=== PATIENT | male | born 1965 | race Hispanic/Latino ===

== ENCOUNTER 2018-05-04 07:44 | Emergency (ER) | payer SELFPAY ==
[2018-05-04] MEDS ORDERED: DIAZEPAM 5 MG TABLET ONE (08:16)
[2018-05-04] MEDS ORDERED: IBUPROFEN 200 MG TAB PO ONE (08:16)
--- NOTE | 2018-05-04 09:09 | ER ---
Nurse's Notes [facility] Name: Florentino Acosta Age: 52 yrs Sex: Male : 1965 Arrival Date: 05/04/2018 Time: 07:46 Bed 14 Private MD: Diagnosis: Strain of muscle and tendon of back wall of thorax Presentation: 05/04 07:46 Presenting complaint: Patient states: i have this back pain, right on the middle part hj of my back that moves down to my R hip area for a month now, denies trauma to the area, and i have been short of breath; denies fever and reports chills; been taking ibuprofen but not helping anymore;. Transition of care: patient was not received from another setting of care. Onset of symptoms was May 04, 2018. Risk Assessment: Do you want to hurt yourself or someone else? Patient reports no desire to harm self or others. Initial Sepsis Screen: Does the patient meet any 2 criteria? No. Patient's initial sepsis screen is negative. Does the patient have a suspected source of infection? No. Patient's initial sepsis screen is negative. Care prior to arrival: None. 07:46 Method Of Arrival: Ambulatory 07:46 Acuity: RAMSES 3 hj Triage Assessment: 07:50 General: Appears in no apparent distress. uncomfortable, Behavior is calm, cooperative, hj appropriate for age. Pain: Complains of pain in lumbar area, left low back and right low back Pain currently is 9 out of 10 on a pain scale. Musculoskeletal: Capillary refill < 3 seconds. Historical: - Allergies: 07:49 Codeine; 07:49 Vioxx; 07:49 Zoloft; - Home Meds: 07:49 ibuprofen Oral [Active]; hj - PMHx: 07:49 Back pain; bowel obstruction; Diabetes - NIDDM; H.Pylori; High Cholesterol; hj Hyperlipidemia; Myocardial infarction; - PSHx: 07:49 Cholecystectomy; hj - Immunization history:: Adult Immunizations up to date. - Social history:: Smoking status: Patient/guardian denies using tobacco, Patient/guardian denies using alcohol. - Ebola Screening: : Patient negative for fever greater than or equal to 101.5 degrees Fahrenheit, and additional compatible Ebola Virus Disease symptoms Patient denies exposure to infectious person Patient denies travel to an Ebola-affected area in the 21 days before illness onset. Screenin:50 Abuse screen: Denies threats or abuse. Denies injuries from another. Nutritional hj screening: No deficits noted. Tuberculosis screening: No symptoms or risk factors identified. Fall Risk None identified. Assessment: 08:16 General: Appears in no apparent distress. comfortable, well groomed, well developed, sg well nourished, Behavior is calm, cooperative, appropriate for age. Pain: Complains of pain in lumbar area Pain does not radiate. Quality of pain is described as crampy, sharp, stabbing. Neuro: Level of Consciousness is awake, alert, obeys commands, Oriented to person, place, time, Paring Machine Operator are equal bilaterally Moves all extremities. Full function Gait is steady, Speech is normal, Facial symmetry appears normal. Cardiovascular: Heart tones S1 S2 present Capillary refill is brisk in bilateral fingers Patient's skin is warm and dry. Chest pain is denied. Respiratory: Airway is patent Respiratory effort is even, unlabored, Respiratory pattern is regular, symmetrical. GI: No signs and/or symptoms were reported involving the gastrointestinal system. : No signs and/or symptoms were reported regarding the genitourinary system. EENT: No signs and/or symptoms were reported regarding the EENT system. Derm: Skin is intact, is healthy with good turgor, Skin is dry, Skin is normal, Skin temperature is warm. Musculoskeletal: Circulation, motion, and sensation intact. Range of motion: intact in all extremities, Swelling absent Reports pain in lumbar area. Vital Signs: 07:50 BP 163 / 140; Pulse 91; Resp 18; Temp 97.4(TE); Pulse Ox 100% on R/A; Weight 61.23 kg; hj Height 5 ft. 4 in. (162.56 cm); Pain 9/10; 07:55 BP 171 / 119; sg 09:00 BP 152 / 100; Pulse 77; Resp 17; Pulse Ox 100% ; Pain 6/10; sg 07:50 Body Mass Index 23.17 (61.23 kg, 162.56 cm) [place] Coma Score: 09:00 Eye Response: spontaneous(4). Verbal Response: oriented(5). Motor Response: obeys sg commands(6). Total: 15. ED Course: 07:46 Patient arrived in ED. hj 07:48 Triage completed. hj 07:50 Arm band placed on left wrist. hj 07:50 Patient has correct armband on for positive identification. Placed in gown. Bed in low hj position. Call light in reach. Side rails up X 1. Adult w/ patient. 07:53 Raoul Nix NP is PHCP. pm1 07:54 Fer Carmona MD is Attending Physician. pm1 07:59 Choco Perez, RN is Primary Nurse. sg 09:09 Antony Islas MD is Attending Physician. pm1 09:20 No provider procedures requiring assistance completed. Patient did not have IV access sg during this emergency room visit. Administered Medications: 08:15 Drug: Valium 5 mg Route: PO; sg 09:00 Follow up: Response: No adverse reaction; Pain is decreased sg 08:15 Drug: Motrin 600 mg Route: PO; sg 10:38 Follow up: Response: No adverse reaction; Pain is decreased sg Outcome: 09:08 Discharge ordered by MD. pm1 09:20 Discharged to home ambulatory, with family. sg 09:20 Condition: good 09:20 Discharge instructions given to patient, Instructed on discharge instructions, follow up and referral plans. medication usage, safety practices, Demonstrated understanding of instructions, follow-up care, medications, Prescriptions given X 1. 09:21 Patient left the ED. sg Signatures: Choco Perez RN RN Timo Frank RN RN Raoul Nix NP BICYCLE II ASSEMBLER pm1 Corrections: (The following items were deleted from the chart) 07:48 07:46 Presenting complaint: Patient states: i have this back pain, right on the middle hj part of my back that moves down to my R hip area, denies trauma to the area, and i have been short of breath; denies fever and chills; been taking ibuprofen but not helping anymore; hj
--- NOTE | 2018-05-04 09:09 | EDPHYS ---
Physician Documentation [facility] Name: Florentino Acosta Age: 52 yrs Sex: Male : 1965 Arrival Date: 05/04/2018 Time: 07:46 Bed 14 Private MD: ED Physician Antony Islas HPI: 05/04 09:00 This 52 yrs old Male presents to ER via Ambulatory with complaints of Back pm1 Pain. 09:00 The patient presents with pain that is acute. The symptoms are located in the left pm1 subscapular area and right subscapular area. Onset: The symptoms/episode began/occurred 1 month(s) ago. The pain does not radiate. Associated signs and symptoms: Pertinent negatives: abdominal pain, chest pain, fever, numbness, tingling, vomiting. The problem was sustained from unknown cause. Modifying factors: The patient symptoms are alleviated by nothing, the patient symptoms are aggravated by bending. Severity of symptoms: in the emergency department the symptoms are actually worse. The patient has experienced similar episodes in the past, multiple times, chronically. The patient has not recently seen a physician. Patient with multiple visits to the ER for same complaint of back pain. Historical: - Allergies: 07:49 Codeine; hj 07:49 Vioxx; hj 07:49 Zoloft; hj - Home Meds: 07:49 ibuprofen Oral [Active]; hj - PMHx: 07:49 Back pain; bowel obstruction; Diabetes - NIDDM; H.Pylori; High Cholesterol; hj Hyperlipidemia; Myocardial infarction; - PSHx: 07:49 Cholecystectomy; hj - Immunization history:: Adult Immunizations up to date. - Social history:: Smoking status: Patient/guardian denies using tobacco, Patient/guardian denies using alcohol. - Ebola Screening: : Patient negative for fever greater than or equal to 101.5 degrees Fahrenheit, and additional compatible Ebola Virus Disease symptoms Patient denies exposure to infectious person Patient denies travel to an Ebola-affected area in the 21 days before illness onset. ROS: 09:00 Constitutional: Negative for fever, chills, and weight loss, Eyes: Negative for injury, pm1 pain, redness, and discharge, ENT: Negative for injury, pain, and discharge, Neck: Negative for injury, pain, and swelling, Cardiovascular: Negative for chest pain, palpitations, and edema, Respiratory: Negative for shortness of breath, cough, wheezing, and pleuritic chest pain, Abdomen/GI: Negative for abdominal pain, nausea, vomiting, diarrhea, and constipation. 09:00 : Negative for injury, bleeding, discharge, and swelling, MS/Extremity: Negative for injury and deformity, Skin: Negative for injury, rash, and discoloration, Neuro: Negative for headache, weakness, numbness, tingling, and seizure. 09:00 Back: Positive for of the left subscapular area and right subscapular area. Exam: 09:00 Constitutional: This is a well developed, well nourished patient who is awake, alert, pm1 and in no acute distress. Head/Face: Normocephalic, atraumatic. Eyes: Pupils equal round and reactive to light, extra-ocular motions intact. Lids and lashes normal. Conjunctiva and sclera are non-icteric and not injected. Cornea within normal limits. Periorbital areas with no swelling, redness, or edema. ENT: Nares patent. No nasal discharge, no septal abnormalities noted. Tympanic membranes are normal and external auditory canals are clear. Oropharynx with no redness, swelling, or masses, exudates, or evidence of obstruction, uvula midline. Mucous membranes moist. Neck: Trachea midline, no thyromegaly or masses palpated, and no cervical lymphadenopathy. Supple, full range of motion without nuchal rigidity, or vertebral point tenderness. No Meningismus. Chest/axilla: Normal chest wall appearance and motion. Nontender with no deformity. No lesions are appreciated. Cardiovascular: Regular rate and rhythm with a normal S1 and S2. No gallops, murmurs, or rubs. Normal PMI, no JVD. No pulse deficits. Respiratory: Lungs have equal breath sounds bilaterally, clear to auscultation and percussion. No rales, rhonchi or wheezes noted. No increased work of breathing, no retractions or nasal flaring. Abdomen/GI: Soft, non-tender, with normal bowel sounds. No distension or tympany. No guarding or rebound. No evidence of tenderness throughout. 09:00 Skin: Warm, dry with normal turgor. Normal color with no rashes, no lesions, and no evidence of cellulitis. MS/ Extremity: Pulses equal, no cyanosis. Neurovascular intact. Full, normal range of motion. 09:00 Back: normal spinal alignment noted, muscle spasm, is appreciated in the left subscapular area and right subscapular area. 09:00 Neuro: Orientation: is normal, Motor: moves all fours, strength is normal, strength is 5/5 in all extremities, Sensation: is normal, no obvious gross deficits, Gait: is steady, at a normal pace, without difficulty. Vital Signs: 07:50 BP 163 / 140; Pulse 91; Resp 18; Temp 97.4(TE); Pulse Ox 100% on R/A; Weight 61.23 kg; hj Height 5 ft. 4 in. (162.56 cm); Pain 9/10; 07:55 BP 171 / 119; sg 09:00 BP 152 / 100; Pulse 77; Resp 17; Pulse Ox 100% ; Pain 6/10; sg 07:50 Body Mass Index 23.17 (61.23 kg, 162.56 cm) hj [place] Coma Score: 09:00 Eye Response: spontaneous(4). Verbal Response: oriented(5). Motor Response: obeys sg commands(6). Total: 15. MDM: 07:54 Patient medically screened. pm1 09:07 Data reviewed: vital signs. Data interpreted: Pulse oximetry:. Test interpretation: by pm1 ED physician or midlevel provider:. Counseling: I had a detailed discussion with the patient and/or guardian regarding: the historical points, exam findings, and any diagnostic results supporting the discharge/admit diagnosis, the need for outpatient follow up, to return to the emergency department if symptoms worsen or persist or if there are any questions or concerns that arise at home. Administered Medications: 08:15 Drug: Valium 5 mg Route: PO; sg 09:00 Follow up: Response: No adverse reaction; Pain is decreased sg 08:15 Drug: Motrin 600 mg Route: PO; sg 10:38 Follow up: Response: No adverse reaction; Pain is decreased sg Disposition: 05/05 08:38 Co-signature as Attending Physician, Antony Islas MD I agree with the assessment and chetna plan of care. Disposition: 05/04/18 09:08 Discharged to Home. Impression: Strain of muscle and tendon of back wall of thorax. - Condition is Stable. - Discharge Instructions: Muscle Strain. - Prescriptions for Valium 5 mg Oral Tablet - take 1 tablet by ORAL route At bedtime As needed; 10 tablet. - Medication Reconciliation Form, Thank You Letter, Prescription Opioid Use form. - Follow up: Emergency Department; When: As needed; Reason: Worsening of condition. Follow up: Private Physician; When: 2 - 3 days; Reason: Recheck today's complaints, Continuance of care, Re-evaluation by your physician. - Problem is new. - Symptoms have improved. Signatures: Choco Perez RN RN sg Anderson, Corey, MD MD cha Joaquin, Henry, RN RN hj Marinas, Patrick, NP PULLMAN CLERK pm1 Corrections: (The following items were deleted from the chart) 05/04 09:21 09:08 05/04/2018 09:08 Discharged to Home. Impression: Strain of muscle and tendon of sg back wall of thorax. Condition is Stable. Forms are Medication Reconciliation Form, Thank You Letter, Antibiotic Education, Prescription Opioid Use. Follow up: Emergency Department; When: As needed; Reason: Worsening of condition. Follow up: Private Physician; When: 2 - 3 days; Reason: Recheck today's complaints, Continuance of care, Re-evaluation by your physician. Problem is new. Symptoms have improved. pm1
[2018-05-04 09:26] VITALS: TEMP 97.4; O2SAT 100
[2018-05-04 09:27] VITALS: BP 171/119
== END 2018-05-04 09:21 | disposition home or self-care (01) ==
LOC: ER 07:44
DX: S29.012A Strain of muscle and tendon of back wall of thorax, initial encounter (principal); X58.XXXA Exposure to other specified factors, initial encounter; E11.9 Type 2 diabetes mellitus without complications; E78.00 Pure hypercholesterolemia, unspecified; I25.2 Old myocardial infarction; Z88.6 Allergy status to analgesic agent; Z88.5 Allergy status to narcotic agent; Z88.8 Allergy status to other drugs, medicaments and biological substances
CPT/HCPCS: 99283

== ENCOUNTER 2018-05-05 12:13 | Inpatient (IN) | payer SELFPAY ==
[2018-05-05 14:16] LABS: Urine Blood 1+ (NEG); Urine Glucose 2+ (NEG); Urine Protein 3+ (NEG)
[2018-05-05 14:21] LABS: Urine Bacteria <20 /HPF (NONE SEEN); Urine RBC <5 /HPF (NONE SEEN)
[2018-05-05 14:22] LABS: Urine Culture Reflex Order NOT NEEDED
--- NOTE | 2018-05-05 14:39 | RAD REPORT ---
EXAM DESCRIPTION: RAD - Chest Single View - 05/05/2018 2:27 pm CLINICAL HISTORY: Chest pain, back pain COMPARISON: June 2017 TECHNIQUE: AP portable chest image was obtained 1423 hours . FINDINGS: Lungs are clear. Heart and vasculature are normal. No measurable pleural effusion and no p neumothorax. No gross bony abnormality seen. No acute aortic findings suspected. IMPRESSION: No acute cardiopulmonary process. No significant change from comparison.
[2018-05-05 14:52] LABS: Absolute Lymphocytes (CBC) 1.8 K/uL (0.7-4.9); Absolute Monocytes 0.5 K/uL (0.1-1.3); Absolute Neutrophil 6.7 K/uL (1.8-8.0); Basophils % 0.6 % (0-1.3); Eosinophils % 1.3 % (0-4.4); Hematocrit 44.1 % (39.6-49.0); Lymphocytes % 19.7 % (15.3-44.8); MCH 29.6 pg (27.0-35.0); MCV 86.7 fL (80-100); MPV 10.6 fL (7.6-11.3); Monocytes % 5.8 % (3.3-12.3); RBC Red Blood Cell Count 5.08 M/uL (4.33-5.43)
[2018-05-05 14:58] LABS: Albumin 3.6 g/dL (3.4-5.0); Bilirubin Direct 0.1 mg/dL (0-0.2); Bilirubin Total 0.4 mg/dL (0.2-1.0); Potassium 4.4 mmol/L (3.5-5.1); Protein, Total 7.9 g/dL (6.4-8.2)
[2018-05-05 14:59] LABS: CKMB Creatine Kinase MB 1.4 ng/mL (0.3-3.6); Magnesium 2.1 mg/dL (1.8-2.4); Troponin (Emerg Dept Use Only) 0.09 ng/mL (0.0-0.045)
[2018-05-05 15:16] LABS: Protime INR 0.88
--- NOTE | 2018-05-05 15:37 | ER ---
Nurse's Notes [facility] Name: Florentino Acosta Age: 52 yrs Sex: Male : 1965 Arrival Date: 05/05/2018 Time: 12:16 Bed 6 Private MD: None, None Diagnosis: Other chest pain;Essential (primary) hypertension;Type 2 diabetes mellitus;Functional dyspepsia Presentation: 05/05 12:31 Presenting complaint: Patient states: " I was seen here yesterday for the same thing. I ph feel like my chest and back is burning like someone rubbed it w/ sand paper. They dx me w/ a strained back and gave me valium but it didn't help. Transition of care: patient was not received from another setting of care. Onset of symptoms was May 05, 2018. Risk Assessment: Do you want to hurt yourself or someone else? Patient reports no desire to harm self or others. Initial Sepsis Screen: Does the patient meet any 2 criteria? No. Patient's initial sepsis screen is negative. Does the patient have a suspected source of infection? No. Patient's initial sepsis screen is negative. Care prior to arrival: None. 12:31 Method Of Arrival: Ambulatory ph 12:31 Acuity: RAMSES 4 ph 14:35 Acuity: RAMSES 3 hb Historical: - Allergies: 12:31 Codeine; ph 12:31 Vioxx; ph 12:31 Zoloft; ph - PMHx: 12:31 Back pain; bowel obstruction; Diabetes - NIDDM; H.Pylori; High Cholesterol; ph Hyperlipidemia; Myocardial infarction; - PSHx: 12:31 Cholecystectomy; ph - Immunization history:: Adult Immunizations up to date. - Social history:: Smoking status: Patient uses tobacco products, smokes one pack cigarettes per day. - Ebola Screening: : No symptoms or risks identified at this time. Screenin:35 Abuse screen: Denies threats or abuse. Denies injuries from another. Nutritional hb screening: No deficits noted. Tuberculosis screening: No symptoms or risk factors identified. Fall Risk None identified. Assessment: 14:00 General: Appears in no apparent distress. Behavior is calm, cooperative. Pain: Pain hb currently is 3 out of 10 on a pain scale. Neuro: Level of Consciousness is awake, alert, obeys commands, Oriented to person, place, time, situation. Cardiovascular: Heart tones S1 S2 present Capillary refill < 3 seconds Patient's skin is warm and dry. Respiratory: Airway is patent Trachea midline Respiratory effort is even, unlabored, Respiratory pattern is regular, symmetrical, Breath sounds are clear bilaterally. GI: Abdomen is non-distended, Bowel sounds present X 4 quads. Abd is soft and non tender X 4 quads. : No signs and/or symptoms were reported regarding the genitourinary system. EENT: No signs and/or symptoms were reported regarding the EENT system. Derm: No signs and/or symptoms reported regarding the dermatologic system. Skin is intact, is healthy with good turgor. Musculoskeletal: No signs and/or symptoms reported regarding the musculoskeletal system. 15:00 Reassessment: Patient appears in no apparent distress at this time. No changes from previously documented assessment. Patient and/or family updated on plan of care and expected duration. Pain level reassessed. Patient is alert, oriented x 3, equal unlabored respirations, skin warm/dry/pink. 16:00 Reassessment: Patient appears in no apparent distress at this time. Patient and/or hb family updated on plan of care and expected duration. Pain level reassessed. Patient is alert, oriented x 3, equal unlabored respirations, skin warm/dry/pink. 16:29 Reassessment: Neri Marcos [phone]. 17:00 Reassessment: Patient appears in no apparent distress at this time. No changes from previously documented assessment. Patient and/or family updated on plan of care and expected duration. Pain level reassessed. Patient is alert, oriented x 3, equal unlabored respirations, skin warm/dry/pink. 18:00 Reassessment: Patient appears in no apparent distress at this time. Patient and/or hb family updated on plan of care and expected duration. Pain level reassessed. Patient is alert, oriented x 3, equal unlabored respirations, skin warm/dry/pink. Admission ordered, awaiting room assignment at this time. 18:50 Reassessment: Patient appears in no apparent distress at this time. No changes from previously documented assessment. Patient and/or family updated on plan of care and expected duration. Pain level reassessed. Patient is alert, oriented x 3, equal unlabored respirations, skin warm/dry/pink. 19:09 Reassessment: Patient appears in no apparent distress at this time. Patient and/or aa1 family updated on plan of care and expected duration. Pain level reassessed. Patient is alert, oriented x 3, equal unlabored respirations, skin warm/dry/pink. Bed assignment received and will attempt to call report upstairs once floor has completed shift change report. 19:15 Reassessment: Patient appears in no apparent distress at this time. Patient and/or cc3 family updated on plan of care and expected duration. Pain level reassessed. Patient is alert, oriented x 3, equal unlabored respirations, skin warm/dry/pink. Patient received from morning shift for admission to room 423 as a case of chest pain, functional dyspepsia. Noted with intravenous cannula gauge 22 at the right antecubital vein saline lock, patent and dressing intact. 19:37 Reassessment: Attempted to call report to 4th floor, was told nurse unavailable and aa1 will call back shortly. 19:42 Reassessment: Patient appears in no apparent distress at this time. Patient is alert, aa1 oriented x 3, equal unlabored respirations, skin warm/dry/pink. Report given to Neyda on 4th floor Patient denies pain at this time. Vital Signs: 12:31 BP 151 / 96; Pulse 99; Resp 18; Temp 97.8; Pulse Ox 99% on R/A; ph 14:00 BP 165 / 103; Pulse 89; Resp 20; Pulse Ox 98% on R/A; hb 15:00 BP 158 / 106; Pulse 83; Resp 24; Pulse Ox 100% on R/A; hb 15:47 Weight 61.23 kg; hb 16:28 BP 155 / 96; Pulse 72; Resp 16; Pulse Ox 100% on R/A; Pain 3/10; hb 17:33 BP 147 / 100; Pulse 73; Resp 14; Pulse Ox 100% on R/A; hb 18:04 BP 136 / 89; Pulse 74; Resp 15; Pulse Ox 100% on R/A; hb 18:49 BP 128 / 82; Pulse 77; Resp 20; Pulse Ox 99% ; sv 19:15 BP 128 / 82; Pulse 78; Resp 18 S; Temp 98.7(O); Pulse Ox 98% on R/A; Pain 6/10; cc3 ED Course: 12:16 Patient arrived in ED. sb2 12:16 None, None is Private Physician. sb2 12:33 Triage completed. ph 12:33 Arm band placed on. ph 13:28 Carley Abdi, RN is Primary Nurse. iw 14:00 Patient has correct armband on for positive identification. Placed in gown. Bed in low hb position. Call light in reach. Side rails up X 1. 14:21 Antony Islas MD is Attending Physician. chetna 14:27 X-ray completed. Portable x-ray completed in exam room. Patient tolerated procedure ml well. 14:29 XRAY Chest (1 view) In Process Unspecified. EDMS 14:39 EKG done, by chief technician. reviewed by Antony Islas MD. at1 15:35 Liss Moon MD is Hospitalizing Provider. chetna 15:55 CT completed. Patient tolerated procedure well. Patient moved back from CT. nj 16:32 Elder Jeter DO is Hospitalizing Provider. chetna 17:35 Primary Nurse role handed off by Carley Abdi RN hb 17:35 Malathi Jewell RN is Primary Nurse. hb 19:05 Inserted 22g IV noted to be present in R AC that was inserted by previous shift. Dsg aa1 D\\T\\I. 19:25 No provider procedures requiring assistance completed. Patient admitted, IV remains in aa1 place. Administered Medications: 15:46 Drug: fentaNYL (PF) 50 mcg Route: IVP; Site: right antecubital; hb 16:30 Follow up: Response: No adverse reaction; Pain is decreased hb 15:46 Drug: Zofran 4 mg Route: IVP; Site: right antecubital; hb 16:30 Follow up: Response: No adverse reaction hb 15:55 Drug: Pepcid 20 mg Route: IVP; Site: right antecubital; ss 16:30 Follow up: Response: No adverse reaction hb 15:55 Drug: Aspirin Chewable Tablet 324 mg Route: PO; ss 16:30 Follow up: Response: No adverse reaction hb 15:55 Drug: Lovenox 1 mg/kg Route: Sub-Q; Site: abdomen; ss 16:30 Follow up: Response: No adverse reaction hb 15:55 Drug: Lopressor 5 mg Route: IVP; Site: left antecubital; ss 16:30 Follow up: Response: No adverse reaction hb 15:55 Drug: Lopressor (metoprolol TARTRATE) 50 mg Route: PO; ss 16:30 Follow up: Response: No adverse reaction hb 17:00 Drug: Lopressor 5 mg Route: IVP; Site: right antecubital; ss 17:50 Follow up: Response: No adverse reaction hb 17:00 Drug: PlaVIX 300 mg Route: PO; ss 17:50 Follow up: Response: No adverse reaction hb 17:09 Drug: Lisinopril 20 mg Route: PO; ss 17:50 Follow up: Response: No adverse reaction hb 19:08 Drug: fentaNYL (PF) 50 mcg Route: IVP; Site: right antecubital; hb 19:34 Follow up: Response: No adverse reaction; Pain is decreased aa1 19:25 Not Given (Patient Refused): Zofran 4 mg IVP once; over 2 minutes aa1 19:34 Not Given (Duplicate Order): fentaNYL (PF) 25 mcg IVP once aa1 19:34 Not Given (Duplicate Order): fentaNYL (PF) 25 mcg IVP once aa1 Outcome: 15:37 Decision to Hospitalize by Provider. chetna 19:44 Admitted to Tele accompanied by tech, family with patient, via wheelchair, room 423, aa1 with chart, Report called to Neyda 19:44 Condition: stable 19:44 Instructed on the need for admit, Demonstrated understanding of instructions. 19:58 Patient left the ED. aa1 Signatures: Dispatcher [employer] EDMS Lizette Yi RN RN sv Kern, Alissa, RN RN aa1 Antony Islas MD MD cha Williams, Irene, RN RN iw Lopez, Melissa ml Smirch, Shelby, RN RN ss Gonzales, Amanda, drafting clerk EKG Tat1 Sari Monaco RN RN ph Baxter, Heather, RN RN hb Jordan, Nathan nj Billeau, Sheri sbDede Casillas cc3 Corrections: (The following items were deleted from the chart) 19:31 19:15 fentaNYL (PF) 25 mcg IVP in right antecubital aa1 aa1 19:31 19:15 fentaNYL (PF) 25 mcg IVP in right antecubital aa1 aa1
--- NOTE | 2018-05-05 15:37 | EDPHYS ---
Physician Documentation [facility] Name: Florentino Acosta Age: 52 yrs Sex: Male : 1965 Arrival Date: 05/05/2018 Time: 12:16 Bed 6 Private MD: None, None ED Physician Antony Islas HPI: 05/05 15:29 This 52 yrs old Male presents to ER via Ambulatory with complaints of Back chetna Pain, Abdominal Pain. 15:29 The patient presents with pain that is acute, with no known mechanism of injury. chetna Historical: - Allergies: 12:31 Codeine; ph 12:31 Vioxx; ph 12:31 Zoloft; ph - PMHx: 12:31 Back pain; bowel obstruction; Diabetes - NIDDM; H.Pylori; High Cholesterol; ph Hyperlipidemia; Myocardial infarction; - PSHx: 12:31 Cholecystectomy; ph - Immunization history:: Adult Immunizations up to date. - Social history:: Smoking status: Patient uses tobacco products, smokes one pack cigarettes per day. - Ebola Screening: : No symptoms or risks identified at this time. ROS: 15:29 Constitutional: Negative for fever, chills, and weight loss, Eyes: Negative for injury, chetna pain, redness, and discharge, ENT: Negative for injury, pain, and discharge, Neck: Negative for injury, pain, and swelling, Respiratory: Negative for shortness of breath, cough, wheezing, and pleuritic chest pain, Back: Negative for injury and pain, : Negative for injury, bleeding, discharge, and swelling, MS/Extremity: Negative for injury and deformity, Skin: Negative for injury, rash, and discoloration, Neuro: Negative for headache, weakness, numbness, tingling, and seizure, Psych: Negative for depression, anxiety, suicide ideation, homicidal ideation, and hallucinations, Allergy/Immunology: Negative for hives, rash, and allergies, Endocrine: Negative for neck swelling, polydipsia, polyuria, polyphagia, and marked weight changes, Hematologic/Lymphatic: Negative for swollen nodes, abnormal bleeding, and unusual bruising. 15:29 Cardiovascular: Positive for chest pain. 15:29 Abdomen/GI: Positive for abdominal pain, nausea, of the right upper quadrant, left upper quadrant, right lower quadrant and left lower quadrant. Exam: 15:29 Constitutional: This is a well developed, well nourished patient who is awake, alert, chetna and in no acute distress. Head/Face: Normocephalic, atraumatic. Eyes: Pupils equal round and reactive to light, extra-ocular motions intact. Lids and lashes normal. Conjunctiva and sclera are non-icteric and not injected. Cornea within normal limits. Periorbital areas with no swelling, redness, or edema. ENT: Nares patent. No nasal discharge, no septal abnormalities noted. Tympanic membranes are normal and external auditory canals are clear. Oropharynx with no redness, swelling, or masses, exudates, or evidence of obstruction, uvula midline. Mucous membranes moist. Neck: Trachea midline, no thyromegaly or masses palpated, and no cervical lymphadenopathy. Supple, full range of motion without nuchal rigidity, or vertebral point tenderness. No Meningismus. Chest/axilla: Normal chest wall appearance and motion. Nontender with no deformity. No lesions are appreciated. Cardiovascular: Regular rate and rhythm with a normal S1 and S2. No gallops, murmurs, or rubs. Normal PMI, no JVD. No pulse deficits. Respiratory: Lungs have equal breath sounds bilaterally, clear to auscultation and percussion. No rales, rhonchi or wheezes noted. No increased work of breathing, no retractions or nasal flaring. Back: No spinal tenderness. No costovertebral tenderness. Full range of motion. Male : Normal genitalia with no discharge or lesions. Skin: Warm, dry with normal turgor. Normal color with no rashes, no lesions, and no evidence of cellulitis. MS/ Extremity: Pulses equal, no cyanosis. Neurovascular intact. Full, normal range of motion. Neuro: Awake and alert, GCS 15, oriented to person, place, time, and situation. Cranial nerves II-XII grossly intact. Motor strength 5/5 in all extremities. Sensory grossly intact. Cerebellar exam normal. Normal gait. Psych: Awake, alert, with orientation to person, place and time. Behavior, mood, and affect are within normal limits. 15:29 Abdomen/GI: Inspection: abdomen appears normal, Bowel sounds: normal, Palpation: mild abdominal tenderness, in all quadrants, Liver: no appreciated palpable abnormalities, Hernia: not appreciated. Vital Signs: 12:31 BP 151 / 96; Pulse 99; Resp 18; Temp 97.8; Pulse Ox 99% on R/A; ph 14:00 BP 165 / 103; Pulse 89; Resp 20; Pulse Ox 98% on R/A; hb 15:00 BP 158 / 106; Pulse 83; Resp 24; Pulse Ox 100% on R/A; hb 15:47 Weight 61.23 kg; hb 16:28 BP 155 / 96; Pulse 72; Resp 16; Pulse Ox 100% on R/A; Pain 3/10; hb 17:33 BP 147 / 100; Pulse 73; Resp 14; Pulse Ox 100% on R/A; hb 18:04 BP 136 / 89; Pulse 74; Resp 15; Pulse Ox 100% on R/A; hb 18:49 BP 128 / 82; Pulse 77; Resp 20; Pulse Ox 99% ; sv 19:15 BP 128 / 82; Pulse 78; Resp 18 S; Temp 98.7(O); Pulse Ox 98% on R/A; Pain 6/10; cc3 MDM: 14:21 Patient medically screened. [facility] 15:32 Data reviewed: vital signs, nurses notes, lab test result(s), EKG, radiologic studies, [facility] CT scan, plain films. 05/05 13:59 Order name: Urine Microscopic Only; Complete Time: 15:25 eb 05/05 14:00 Order name: Urine Dipstick--Ancillary (enter results); Complete Time: 15:25 eb 05/05 14:07 Order name: Lipase; Complete Time: 15:25 ms 05/05 14:07 Order name: Basic Metabolic Panel; Complete Time: 15:25 ms 05/05 14:07 Order name: CBC with Diff; Complete Time: 15:25 ms 05/05 14:07 Order name: Ckmb; Complete Time: 15:25 ms 05/05 14:07 Order name: CPK; Complete Time: 15:25 ms 05/05 14:07 Order name: LFT's; Complete Time: 15:25 ms 05/05 14:07 Order name: Magnesium; Complete Time: 15:25 ms 05/05 14:07 Order name: NT PRO-BNP; Complete Time: 15:25 ms 05/05 14:07 Order name: PT-INR; Complete Time: 19:06 ms 05/05 14:07 Order name: Ptt, Activated; Complete Time: 19:06 ms 05/05 14:07 Order name: Troponin (emerg Dept Use Only); Complete Time: 15:25 ms 05/05 14:07 Order name: XRAY Chest (1 view); Complete Time: 15:25 ms 05/05 15:28 Order name: CT Aorta for Dissection [facility] 05/05 15:45 Order name: Echo with Doppler EDMA 05/05 16:10 Order name: CT; Complete Time: 16:19 EDMS 05/05 14:07 Order name: EKG; Complete Time: 14:08 ms 05/05 14:07 Order name: Cardiac monitoring; Complete Time: 14:27 ms 05/05 14:07 Order name: EKG - Nurse/Tech; Complete Time: 14:27 ms 05/05 14:07 Order name: IV Saline Lock; Complete Time: 14:27 ms 05/05 14:07 Order name: Labs collected and sent; Complete Time: 14:27 ms 05/05 14:07 Order name: O2 Per Protocol; Complete Time: 14:27 ms 05/05 14:07 Order name: O2 Sat Monitoring; Complete Time: 14:27 ms 05/05 14:07 Order name: Urine Dipstick-Ancillary (obtain specimen); Complete Time: 14:30 ms 05/05 15:45 Order name: CONS Physician Consult EDMA 05/05 17:10 Order name: Diet Regular; Complete Time: 17:10 ss 05/05 19:07 Order name: EKG; Complete Time: 19:07 [facility] 05/05 19:07 Order name: EKG - Nurse/Tech; Complete Time: 19:18 chetna 05/05 19:09 Order name: EKG; Complete Time: 19:10 mw2 05/05 19:09 Order name: EKG - Nurse/Tech; Complete Time: 19:13 mw2 Administered Medications: 15:46 Drug: fentaNYL (PF) 50 mcg Route: IVP; Site: right antecubital; hb 16:30 Follow up: Response: No adverse reaction; Pain is decreased hb 15:46 Drug: Zofran 4 mg Route: IVP; Site: right antecubital; hb 16:30 Follow up: Response: No adverse reaction hb 15:55 Drug: Pepcid 20 mg Route: IVP; Site: right antecubital; ss 16:30 Follow up: Response: No adverse reaction hb 15:55 Drug: Aspirin Chewable Tablet 324 mg Route: PO; ss 16:30 Follow up: Response: No adverse reaction hb 15:55 Drug: Lovenox 1 mg/kg Route: Sub-Q; Site: abdomen; ss 16:30 Follow up: Response: No adverse reaction hb 15:55 Drug: Lopressor 5 mg Route: IVP; Site: left antecubital; ss 16:30 Follow up: Response: No adverse reaction hb 15:55 Drug: Lopressor (metoprolol TARTRATE) 50 mg Route: PO; ss 16:30 Follow up: Response: No adverse reaction hb 17:00 Drug: Lopressor 5 mg Route: IVP; Site: right antecubital; ss 17:50 Follow up: Response: No adverse reaction hb 17:00 Drug: PlaVIX 300 mg Route: PO; ss 17:50 Follow up: Response: No adverse reaction hb 17:09 Drug: Lisinopril 20 mg Route: PO; ss 17:50 Follow up: Response: No adverse reaction hb 19:08 Drug: fentaNYL (PF) 50 mcg Route: IVP; Site: right antecubital; hb 19:34 Follow up: Response: No adverse reaction; Pain is decreased aa1 19:25 Not Given (Patient Refused): Zofran 4 mg IVP once; over 2 minutes aa1 19:34 Not Given (Duplicate Order): fentaNYL (PF) 25 mcg IVP once aa1 19:34 Not Given (Duplicate Order): fentaNYL (PF) 25 mcg IVP once aa1 Disposition: 05/05/18 15:37 Hospitalization ordered by Elder Jeter for Inpatient Admission. Preliminary diagnosis are Other chest pain, Essential (primary) hypertension, Type 2 diabetes mellitus, Functional dyspepsia. - Bed requested for Telemetry/MedSurg (observation). - Status is Inpatient Admission. aa1 - Condition is Fair. - Problem is new. - Symptoms have improved. UTI on Admission? No Signatures: Dispatcher [employer] EDJena Kimball RN RN aa1 Antony Islas MD MD cha Solis, Maria ms Smirch, Shelby, RN RN Sari Monaco RN RN Malathi Jewell RN RN Emmy [facility] Peggy Kemp Corrections: (The following items were deleted from the chart) 16:32 15:37 Hospitalization Ordered by Liss Moon MD for Inpatient Admission. Preliminary chetna diagnosis is Other chest pain; Essential (primary) hypertension; Type 2 diabetes mellitus; Functional dyspepsia. Bed requested for Telemetry/MedSurg (observation). Status is Inpatient Admission. Condition is Fair. Problem is new. Symptoms have improved. UTI on Admission? No. chetna 18:01 16:32 05/05/2018 15:37 Hospitalization Ordered by Elder Jeter DO for Inpatient eb Admission. Preliminary diagnosis is Other chest pain; Essential (primary) hypertension; Type 2 diabetes mellitus; Functional dyspepsia. Bed requested for Telemetry/MedSurg (observation). Status is Inpatient Admission. Condition is Fair. Problem is new. Symptoms have improved. UTI on Admission? No. chetna 19:58 18:01 05/05/2018 15:37 Hospitalization Ordered by Elder Jeter DO for Inpatient aa1 Admission. Preliminary diagnosis is Other chest pain; Essential (primary) hypertension; Type 2 diabetes mellitus; Functional dyspepsia. Bed requested for Telemetry/MedSurg (observation). Status is Inpatient Admission. Condition is Fair. Problem is new. Symptoms have improved. UTI on Admission? No. eb
[2018-05-05] MEDS ORDERED: ONDANSETRON 4 MG/2 ML VIAL ONE (15:47)
[2018-05-05] MEDS ORDERED: FENTANYL CITR 100 MCG/2 ML ONE ×2 (15:47→19:10)
[2018-05-05] MEDS ORDERED: ASPIRIN 81 MG CHEWABLE TABLET ONE (15:57)
[2018-05-05] MEDS ORDERED: ENOXAPARIN 60 MG/0.6 ML SQ ONE (15:58)
[2018-05-05] MEDS ORDERED: FAMOTIDINE 20 MG/2 ML VIAL IV ONE (15:58)
--- NOTE | 2018-05-05 16:08 | RAD REPORT ---
EXAM DESCRIPTION: CT - Angio Aorta For Dissection - 05/05/2018 3:56 pm CLINICAL HISTORY: Chest pain radiating to the back COMPARISON: PE study November 06, chest film May 05 TECHNIQUE: Dynamically enhanced 3 mm thick images of the chest, abdomen, and upper pelvis were obtai michele during administration of approximately 150mL Isovue 370 IV contrast. Sagittal and coronal reconst ruction images were generated using MIP and reviewed. Exam utilizes a protocol to evaluate entire cou rse of the aorta. All CT scans are performed using dose optimization technique as appropriate and may include automated exposure control or mA/KV adjustment according to patient size. FINDINGS: Aorta is normal in diameter with no dissection or other acute aortic findings. Reconstruct ion images show no significant findings. Pulmonary arteries are normal as well. No cardiomegaly, pericardial thickening or pericardial effusio n. No mass or infiltrate in the lung parenchyma. No pleural thickening, pleural effusion or pneumothorax . No abnormal mediastinal or hilar mass or lymphadenopathy seen. No chest wall mass or abnormal axillar y lymphadenopathy. Celiac, SMA and renal arteries show no suspicious findings. Solid abdominal viscera and bowel show no significant findings. Gallbladder is surgically absent. No biliary tree dilatation. No mass or abno rmal lymphadenopathy. No free air, free fluid or inflammatory stranding. No urinary bladder abnormali ty. No acute or destructive bone process. There is SI joint degenerative change. Hypertrophy at the right anterior pubic symphysis is present. IMPRESSION: Negative CT scan of the aorta. No other significant findings on chest, abdomen and pelvis examination.
[2018-05-05] MEDS ORDERED: METOPROLOL TAR 50 MG TAB ONE (16:18)
[2018-05-05] MEDS ORDERED: METOPROLOL TARTRATE 5 MG/5 ML INJ IV ONE ×2 (16:18→16:55)
[2018-05-05] MEDS ORDERED: CLOPIDOGREL 75 MG TABLET ONE (16:54)
[2018-05-05] MEDS ORDERED: NITROGLYCERIN 0.4 MG/TAB SL PRN (17:01)
[2018-05-05] MEDS ORDERED: D50W 25 GM/50 ML SYRINGE IV PRN (17:01)
[2018-05-05] MEDS ORDERED: ACETAMINOPHEN 500 MG TAB PO PRN (17:01)
[2018-05-05] MEDS ORDERED: ONDANSETRON 4 MG/2 ML VIAL IV PRN (17:01)
[2018-05-05] MEDS ORDERED: GLUCAGON 1 MG/VIAL IM PRN (17:01)
--- NOTE | 2018-05-05 17:12 | P.HP ---
Certification for Inpatient Patient admitted to: Observation With expected LOS: <2 Midnights Patient will require the following post-hospital care: None Practitioner: I am a practitioner with admitting privileges, knowledge of patient current condition, hospital course, and medical plan of care. Services: Services provided to patient in accordance with Admission requirements found in Title 42 Section 412.3 of the Code of Federal Regulations Patient History Date of Service: 05/05/18 Primary Care Provider: None Reason for admission: Chest pain, back pain History of Present Illness: 52-year-old male presented emergency room with chest pain and back pain back pain for over a month. It is associated with some shortness of breath. He felt like something hit him. It comes and goes. Patient also reports chest pain throughout the chest. A comes and goes. Is it associated with shortness of breath. It feels like sandpaper at times. He reports some numbness as well. Patient with history of CAD, diabetes, hypertension. He used to take medication but decided to stop medication about 5 years ago. He has been without medication since that time. He reports a previous heart catheterization in the past that did not require any stents. In the ER patient was found to have elevated blood pressure. Initial cardiac enzymes shows a troponin of 0.09. Blood sugar elevated. Blood sugar 351. Chest x-ray unremarkable. BNP 215. Patient admitted for further evaluation. Patient stable in the emergency room. Patient did not appear in any respiratory distress. Allergies rofecoxib [From Vioxx] Allergy (Mild, Verified 04/01/12 07:19) Hives sertraline HCl [From Zoloft] Allergy (Mild, Verified 04/01/12 07:19) Hives Codeine Adverse Reaction (Intermediate, Uncoded 10/26/14 17:00) Itching Home medications list reviewed: Yes Home Medications: Aspirin [Aspirin EC 81 MG] 81 mg PO DAILY #30 tablet. 08/10/14 Glimepiride [Amaryl*] 2 mg PO BID #60 tab 08/10/14 Metformin HCl [Glucophage*] 500 mg PO BID #60 tab 08/10/14 Melatonin [Melatonin*] 3 mg PO BEDTIME 10/26/14 Gabapentin [Neurontin*] 100 mg PO TID #50 cap 10/28/14 - Past Medical/Surgical History Diabetic: Yes -: Diabetes mellitus type 2 -: Hypertension -: CAD, no stents -: Diabetic neuropathy -: Cholecystectomy -: Heart catheterization, no stents Psychosocial/ Personal History: Patient is . He has 4 children. 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 - Family History Mother -: Hypertension, Diabetes Father -: Liver disease Notes: alcoholic - Social History Smoking Status: Never smoker Alcohol use: Yes CD- Drugs: No Caffeine use: Yes Place of Residence: Home Review of Systems General: As per HPI Eyes: Unremarkable ENT: Unremarkable Respiratory: Shortness of Breath, As per HPI Cardiovascular: Chest Pain, As per HPI Gastrointestinal: Unremarkable Genitourinary: Unremarkable Musculoskeletal: Back Pain, As per HPI Integumentary: Unremarkable Neurological: Numbness, As per HPI Lymphatics: Unremarkable Physical Examination - Physical Exam General: Alert, In no apparent distress, Oriented x3, Cooperative HEENT: Atraumatic, Normocephalic, PERRLA, Mucous membr. moist/pink Neck: Supple, No Thyromegaly Respiratory: Clear to auscultation bilaterally, Normal air movement Cardiovascular: Normal pulses, Regular rate/rhythm Gastrointestinal: Normal bowel sounds, Soft and benign, Non-distended, No tenderness, No masses, No rebound, No guarding Musculoskeletal: No erythema, No tenderness, No warmth Integumentary: No tenderness/swelling, No erythema, No warmth, No cyanosis Neurological: Normal speech, Normal strength at 5/5 x4 extr, Normal tone, Normal affect Lymphatics: No axilla or inguinal lymphadenopathy - Studies Laboratory Data (last 24 hrs) 05/05/18 14:15: PT 10.4, INR 0.88, APTT 32.4 05/05/18 14:15: WBC 9.3, Hgb 15.1, Hct 44.1, Plt Count 231 05/05/18 14:15: Sodium 136, Potassium 4.4, BUN 18, Creatinine 1.00, Glucose 351 H, Magnesium 2.1, Total Bilirubin 0.4, AST 14 L, ALT 32, Alkaline Phosphatase 128 H, Lipase 298 Assessment and Plan - Plan Impression: Chest pain Hypertension Diabetes mellitus type 2 History of CAD Diabetic neuropathy Medical noncompliance Plan: Patient will be admitted and monitored closely. Will continue with cardiac enzymes. Will check echocardiogram. Cardiology consulted to further assess his chest pain. Troponin slightly elevated. Patient will likely require cardiac evaluation. Patient with previous heart catheterization elevation in the past without any stents required. Patient has been non compliant with medication for over 5 years. Will start metoprolol for hypertension. Will start Levemir for diabetes. Will check A1c, lipid panel, and other lab. Will provide medication for neuropathy as well. Await further recommendations from cardiology. Discharge Plan: Home Plan to discharge in: 24 Hours - Advance Directives Does patient have a Living Will: No Does patient have a Durable POA for Healthcare: No - Code Status/Comfort Care Code Status Assessed: Yes Time Spent Managing Pts Care (In Minutes): 55
[2018-05-05] MEDS ORDERED: LISINOPRIL 20 MG TAB ONE (17:15)
[2018-05-05] MEDS: METOPROLOL TAR 25 MG TAB PO SCH (18:00)
[2018-05-05] MEDS: PANTOPRAZOLE 40MG TABLET PO SCH (18:00)
[2018-05-05] MEDS: ENOXAPARIN 40 MG/0.4 ML SQ SCH (18:00)
[2018-05-05] MEDS ORDERED: INSULIN GLARGINE 100 UNITS/ML SQ SCH (21:00)
[2018-05-05] MEDS: INSULIN -REGULAR HUMAN 50 UNIT/0.5 ML ML SQ SCH (21:00)
[2018-05-05] MEDS: TRAMADOL HCL 50 MG TAB PO PRN (21:37)
[2018-05-05] MEDS ORDERED: TRAZODONE 50 MG TABLET PO ONE (22:31)
[2018-05-05 23:31] VITALS: BMI 20.9
[2018-05-05] MEDS ORDERED: MELATONIN 3 MG TABLET PO ONE (23:38)
[2018-05-05] MEDS: GABAPENTIN 100 MG CAP PO PRN (23:53)
[2018-05-06] MEDS ORDERED: NA CHLORIDE 0.9% 0 ML ONE (00:14)
[2018-05-06 00:35] LABS: CKMB Creatine Kinase MB 1.1 ng/mL (0.3-3.6); Troponin I 0.08 ng/mL (0.0-0.045)
--- NOTE | 2018-05-06 04:18 | EKG ---
Test Date: 2018-05-05 Test Time: 14:10:09 Daytime Caregiver: MEASUREMENT RESULTS: Intervals: Rate: 82 PA: 158 QRSD: 104 QT: 380 QTc: 443 Mascot: P: 55 PA: 158 QRS: -24 T: 36 INTERPRETIVE STATEMENTS: Normal sinus rhythm Minimal voltage criteria for LVH, may be normal variant Borderline ECG Compared to ECG 07/01/2017 13:17:07 Atrial premature complex(es) no longer present Incomplete right bundle-branch block no longer present Electronically Signed On 05-06-18 04:16:48 CDT by Flaco Florentino
[2018-05-06 04:26] LABS: Absolute Lymphocytes (CBC) 2.7 K/uL (0.7-4.9); Absolute Monocytes 0.7 K/uL (0.1-1.3); Absolute Neutrophil 5.1 K/uL (1.8-8.0); Eosinophils % 2.7 % (0-4.4); Hematocrit 37.5 % (39.6-49.0); Lymphocytes % 30.6 % (15.3-44.8); MCH 29.7 pg (27.0-35.0); MCV 85.2 fL (80-100); MPV 10.3 fL (7.6-11.3); Monocytes % 7.9 % (3.3-12.3)
[2018-05-06 04:51] LABS: Magnesium 2.1 mg/dL (1.8-2.4); Potassium 4.2 mmol/L (3.5-5.1); Thyroid Stimulating Hormone 1.5 uIU/mL (0.360-3.740)
[2018-05-06] MEDS: METOPROLOL TAR 25 MG TAB PO SCH ×2 (05:26→05:40)
[2018-05-06] MEDS: PANTOPRAZOLE 40MG TABLET PO SCH (07:30)
[2018-05-06] MEDS: INSULIN -REGULAR HUMAN 50 UNIT/0.5 ML ML SQ SCH ×3 (07:30→16:47)
[2018-05-06 07:46] LABS: CKMB Creatine Kinase MB < 1.0 ng/mL (0.3-3.6); Creatine Phosphokinase 54 U/L (39-308); Troponin I 0.08 ng/mL (0.0-0.045)
[2018-05-06] MEDS ORDERED: REGADENOSON 0.4 MG/5 ML SYR IV ONE (08:00)
[2018-05-06] MEDS ORDERED: ASPIRIN EC 81 MG TAB PO SCH (09:00)
[2018-05-06] MEDS: TRAMADOL HCL 50 MG TAB PO PRN (13:22)
[2018-05-06] MEDS: ENOXAPARIN 40 MG/0.4 ML SQ SCH (13:23)
[2018-05-06] MEDS: GABAPENTIN 100 MG CAP PO PRN (13:25)
--- NOTE | 2018-05-06 13:46 | RAD REPORT ---
EXAM DESCRIPTION: NM - Rest Stress Cardiac Imaging - 05/06/2018 1:33 pm CLINICAL HISTORY: CP Chest pain. COMPARISON: REST STRESS CARDIAC dated 08/10/2014 TECHNIQUE: The patient was administered approximately 10mCi of Tc 99m Sestamibi prior to resting SPE CT imaging of the heart. The patient was then administered approximately 30 mCi of Tc 99m Sestamibi f ollowing exercise or pharmacologic stress. Multiplanar SPECT images were reviewed. FINDINGS: No stress induced ischemic defect is seen to suggest stress induced ischemia. No fixed def ect is seen to suggest hibernating myocardium or scarred myocardium. The end diastolic volume is 81 ml, the end systolic volume is 32 ml, and the ejection fraction is 60 %. IMPRESSION: No stress induced ischemia.
--- NOTE | 2018-05-06 14:27 | P.DS ---
Admission Date: 05/05/18 Discharge Date: 05/06/18 Primary Care Provider: None Disposition: ROUTINE DISCHARGE Discharge Condition: GOOD Reason for Admission: Chest pain, back pain Consultations: cardiology-Dr. Florentino Procedures: Problems: Chest pain Diabetes mellitus type 2 uncontrolled Hypertension Diabetic neuropathy Brief History of Present Illness: 52-year-old male presented emergency room with chest pain and back pain back pain for over a month. It is associated with some shortness of breath. He felt like something hit him. It comes and goes. Patient also reports chest pain throughout the chest. A comes and goes. Is it associated with shortness of breath. It feels like sandpaper at times. He reports some numbness as well. Patient with history of CAD, diabetes, hypertension. He used to take medication but decided to stop medication about 5 years ago. He has been without medication since that time. He reports a previous heart catheterization in the past that did not require any stents. In the ER patient was found to have elevated blood pressure. Initial cardiac enzymes shows a troponin of 0.09. Blood sugar elevated. Blood sugar 351. Chest x-ray unremarkable. BNP 215. Patient admitted for further evaluation. Patient stable in the emergency room. Patient did not appear in any respiratory distress. Hospital Course: Patient presented with chest pain. Patient with history of hypertension and diabetes. Patient has not been taking medication for quite some time. Patient was admitted for further evaluation. Patient evaluated by Cardiology. Echocardiogram and stress test performed. Cardiac stress test showed no stress- induced ischemia. Ejection fraction within normal range. At discharge patient will continue with aspirin 81 mg daily. Patient will continue with diabetic and hypertensive medication. Compliance with medication addressed in detail. Patient has diabetes. Hemoglobin A1c 10.9. Patient has not been taking any medication in quite some time. Patient understands that he has diabetes and this needs to be controlled with medication. At discharge patient will continue with Levemir 10 units subcu once daily. Patient will also be started on metformin 500 mg 1 pill twice daily. Recommendation is to maintain blood sugars less 140 fasting and less than 200 after meals. Further adjustment can be done by his PCP. Patient has hypertension. Patient has not been taking any medication for quite some time. He understands that he has hypertension that requires medication. At discharge patient will continue with metoprolol 25 mg 1 pill twice daily. Recommendation is to maintain blood pressures less 150/80. Further adjustment can be done by his PCP. Patient has diabetic neuropathy. At discharge patient will continue with Neurontin 100 mg 1 pill twice daily. Further adjustment can be done by his PCP. Vital Signs/Physical Exam: Temp Pulse Resp BP Pulse Ox 98.7 F 79 16 127/81 99 05/06/18 12:00 05/06/18 12:00 05/06/18 12:00 05/06/18 12:00 05/06/18 12:00 General: Alert, In no apparent distress, Oriented x3, Cooperative HEENT: Atraumatic Neck: Supple Respiratory: Clear to auscultation bilaterally, Normal air movement Cardiovascular: Normal pulses, Regular rate/rhythm Gastrointestinal: Normal bowel sounds, Soft and benign, Non-distended, No tenderness, No masses, No rebound, No guarding Musculoskeletal: No erythema, No tenderness, No warmth Integumentary: No tenderness/swelling, No erythema, No warmth, No cyanosis Neurological: Normal speech, Normal strength at 5/5 x4 extr, Normal tone Laboratory Data at Discharge: WBC 8.9 K/uL (4.3-10.9) 05/06/18 03:54 Hgb 13.1 g/dL (13.6-17.9) L 05/06/18 03:54 Hct 37.5 % (39.6-49.0) L 05/06/18 03:54 Plt Count 208 K/uL (152-406) 05/06/18 03:54 PT 10.4 SECONDS (9.5-12.5) 05/05/18 14:15 INR 0.88 05/05/18 14:15 APTT 32.4 SECONDS (24.3-36.9) 05/05/18 14:15 Sodium 140 mmol/L (136-145) 05/06/18 03:54 Potassium 4.2 mmol/L (3.5-5.1) 05/06/18 03:54 BUN 21 mg/dL (7-18) H 05/06/18 03:54 Creatinine 1.10 mg/dL (0.55-1.3) 05/06/18 03:54 Glucose 224 mg/dL (74-106) H 05/06/18 03:54 Magnesium 2.1 mg/dL (1.8-2.4) 05/06/18 03:54 Total Bilirubin 0.4 mg/dL (0.2-1.0) 05/05/18 14:15 AST 14 U/L (15-37) L 05/05/18 14:15 ALT 32 U/L (12-78) 05/05/18 14:15 Alkaline Phosphatase 128 U/L (45-117) H 05/05/18 14:15 Troponin I 0.08 ng/mL (0.0-0.045) H 05/06/18 07:13 Triglycerides 158 mg/dL (<150) H 05/06/18 03:54 Cholesterol 176 mg/dL (<200) 05/06/18 03:54 HDL Cholesterol 63 mg/dL (40-60) H 05/06/18 03:54 Cholesterol/HDL Ratio 2.79 05/06/18 03:54 Lipase 298 U/L (73-393) 05/05/18 14:15 Home Medications: Aspirin [Aspirin EC 81 MG] 81 mg PO DAILY #90 tablet. 05/06/18 Gabapentin [Neurontin*] 100 mg PO BID PRN #60 cap 05/06/18 Insulin Detemir [Levemir Flextouch] 10 unit SQ BEDTIME #1 ashley 05/06/18 Metformin HCl 500 mg PO BID #60 tablet 05/06/18 Metoprolol Tartrate [Lopressor*] 25 mg PO BID 6AM 6PM #60 tab 05/06/18 New Medications: Aspirin [Aspirin EC 81 MG] 81 mg PO DAILY #90 tablet. Gabapentin [Neurontin*] 100 mg PO BID PRN #60 cap PRN Reason: Pain Insulin Detemir [Levemir Flextouch] 10 unit SQ BEDTIME #1 ashley Metformin HCl 500 mg PO BID #60 tablet Metoprolol Tartrate [Lopressor*] 25 mg PO BID 6AM 6PM #60 tab Patient Discharge Instructions: 1. Patient will need to follow up with a PCP to establish care. 2. Patient presented with chest pain. Patient with history of hypertension and diabetes. Patient has not been taking medication for quite some time. Patient evaluated by Cardiology. Echocardiogram and stress test performed. Cardiac stress test showed no stress-induced ischemia. Ejection fraction within normal range. At discharge patient will continue with aspirin 81 mg daily. Patient will continue with diabetic and hypertensive medication. 3. Patient has diabetes. Hemoglobin A1c 10.9. At discharge patient will continue with Levemir 10 units subcu once daily. Patient will also be started on metformin 500 mg 1 pill twice daily. Recommendation is to maintain blood sugars less 140 fasting and less than 200 after meals. Further adjustment can be done by his PCP. 4. Patient has hypertension. At discharge patient will continue with metoprolol 25 mg 1 pill twice daily. Recommendation is to maintain blood pressures less 150/80. Further adjustment can be done by his PCP. 5. Patient has diabetic neuropathy. At discharge patient will continue with Neurontin 100 mg 1 pill twice daily. Further adjustment can be done by his PCP. Diet: ADA Activity: Ad evelyn Time spent managing pt's care (in minutes): 55
[2018-05-06 17:46] VITALS: BP 103/60; TEMP 98.3
--- NOTE | 2018-05-06 17:54 | EKG ---
Test Date: 2018-05-05 Test Time: 19:11:33 Inspection Clerk: CAMILO MEASUREMENT RESULTS: Intervals: Rate: 76 WI: 160 QRSD: 102 QT: 396 QTc: 445 [place]: P: 34 WI: 160 QRS: -21 T: 50 INTERPRETIVE STATEMENTS: Normal sinus rhythm Minimal voltage criteria for LVH, may be normal variant Nonspecific T wave abnormality Abnormal ECG Compared to ECG 05/05/2018 14:10:09 T-wave abnormality now present Electronically Signed On 05-06-18 17:51:09 CDT by Flaco Florentino
[2018-05-06 20:17] VITALS: O2SAT 98
[2018-05-06] MEDS ORDERED: MELATONIN 3 MG TABLET PO ONE (23:32)
--- NOTE | 2018-05-07 05:48 | CON ---
Date of Consultation: 05/06/[address] Jeter' service. Reason For Consultation: Chest pain and hypertension. History Of Present Illness: Mr. Acosta is a 52-year-old Latin-Aust[place] male with history of diabete s, dyslipidemia, history of bowel obstruction, status post cholecystectomy, questionable history of c oronary artery disease, came in with hypertension and atypical chest pain. So far, chest x-ray is no rmal. CT angiogram was normal. EKG was normal. Troponin was mildly elevated at 0.08 and 0.09. Allergies: INCLUDE CODEINE AND TETRACYCLINE. Review of Systems: Negative. Social History: Negative. Family History: Negative. Medications: At home are none. Physical Examination: Vital Signs: Reportedly normal vital signs, stable, afebrile. HEENT: Negative. Neck: Supple. No bruit. Chest: Clear. Cardiac: Examination is normal. Abdomen: Benign. Extremities: Revealed no clubbing, cyanosis, or edema. Diagnostic Data: As stated earlier. Impression And Plan: 1.Atypical chest pain. 2.Hypertension, poorly controlled. I think this is what caused the chest pain and the troponin to b e elevated. He has a normal chest x-ray, EKG, CT angiogram, CPK, and MB. An echocardiogram and Whitney scan are ordered, and we will see what these show prior to making any final decisions. Mr. Acosta s hould at least be on a beta-ochoa for his history of coronary artery disease and hypertension. I w ill discuss the case further with Dr. Jeter. PETRA/THEE Voice ID: [id number] Report ID: [id number]
--- NOTE | 2018-05-07 09:22 | TREADPHA ---
DX: CHEST PAIN Date of Study: 05/06/18 Ht: 5 11 Wt: 150 lb 0 oz Consulting Physician: RAND MEDICATIONS: TYLENOL, DEXTROSE, LOVENOX, NITROSTAT, NEURONTIN, GLUCAGEN, LANTUS, NOVOLIN-R, LOPRESSOR, PROTONIX, ULTRAM HISTORY: 52 YEAR OLD MALE WITH COMPLAINTS OF CHEST PAIN 04/10. HISTORY OF HYPERTENSION, MYOCARDIAL INFARCTION, HYPERLIDEMIA. PHYSICIAL EXAMINATION: RESTING B.P.: 133/89 RESTING H.R.: 80 RESTING EKG: NORMAL SINUS RHYTHM, RIGHT BUNDLE BRANCH BLOCK PROTOCOL: LEXISCAN EXERCISE TIME: 3:30 B.P. AT PEAK STRESS: 117/80 IMPRESSION: LEXICAN INJECTED, CARDIOLITE INJECTED PER PROTOCOL. SEE NUCLEAR MEDICINE RREPORT. CHEST PAIN REMAINED 04/10. NO VENTRICULAR TACHYCARDIA OR SUPRA VENTRICULAR TACHYCARDIA.
== END 2018-05-06 17:54 | disposition home or self-care (01) | DRG 313 ==
LOC: ER 12:13 → ERHOLD 15:38 → 4TH 19:24
PROVIDERS: ADMIT Family Medicine; ATTEND Family Medicine
DX: R07.89 Other chest pain (principal); I10 Essential (primary) hypertension; E11.65 Type 2 diabetes mellitus with hyperglycemia; E11.40 Type 2 diabetes mellitus with diabetic neuropathy, unspecified; I25.10 Atherosclerotic heart disease of native coronary artery without angina pectoris; E78.5 Hyperlipidemia, unspecified; F17.210 Nicotine dependence, cigarettes, uncomplicated; Z79.82 Long term (current) use of aspirin; Z79.4 Long term (current) use of insulin; Z88.1 Allergy status to other antibiotic agents; Z88.5 Allergy status to narcotic agent; Z88.8 Allergy status to other drugs, medicaments and biological substances; Z91.14 Patient's other noncompliance with medication regimen
CPT/HCPCS: 36415; 71045; 71275; 74175; 78452; 80048; 80061; 80076; 81003; 81015; 82550; 82553; 82962; 83036; 83690; 83735; 83880; 84439; 84443; 84484; 85025; 85610; 85730; 93005; 93017; 96372; 99285; A9500; J1650; J2405; J2785; J3010; Q9967

== ENCOUNTER 2018-05-11 07:02 | Emergency (ER) | payer SELFPAY ==
[2018-05-11] MEDS ORDERED: NA CHLORIDE 0.9% 1,000 ML ONE (07:32)
[2018-05-11] MEDS ORDERED: MEPERIDINE HCL 50 MG/ML AMP ONE (07:32)
[2018-05-11 07:54] LABS: Absolute Monocytes 0.7 K/uL (0.1-1.3); Absolute Neutrophil 5.5 K/uL (1.8-8.0); Basophils % 1.1 % (0-1.3); Eosinophils % 2.9 % (0-4.4); Hematocrit 38.4 % (39.6-49.0); Lymphocytes % 23.8 % (15.3-44.8); MCH 29.4 pg (27.0-35.0); MCV 85.5 fL (80-100); MPV 10.2 fL (7.6-11.3); Monocytes % 7.9 % (3.3-12.3); RBC Red Blood Cell Count 4.49 M/uL (4.33-5.43)
[2018-05-11 08:04] LABS: Potassium 3.9 mmol/L (3.5-5.1)
--- NOTE | 2018-05-11 08:29 | EDPHYS ---
Physician Documentation [facility] Name: Florentino Acosta Age: 52 yrs Sex: Male : 1965 Arrival Date: 05/11/2018 Time: 07:03 Bed 19 Private MD: ED Physician Jorge A Lira HPI: 05/11 07:27 This 52 yrs old Male presents to ER via Ambulatory with complaints of PATIENT rn IN PAIN. 07:27 Reports a month or 2 of pain, reports feels like ants crawling on his skin, from groin rn to chest, admitted this past week, negative w/u, had normal stress and CT aorta, sent home, diagnosed by hospitalist and cardiology with uncontrolled HTN, uncontrolled DM, and neuropathy. Given insulin, and gabapentin, states only helping a little. NO new pain or symptoms. . Onset: The symptoms/episode began/occurred 1 month(s) ago. Severity of symptoms: At their worst the symptoms were mild in the emergency department the symptoms are unchanged. The patient has experienced similar episodes in the past, chronically. The patient has been recently seen by a physician: The patient has been recently been admitted at [facility]. Historical: - Allergies: 07:16 Codeine; jl7 07:16 Vioxx; jl7 07:16 Zoloft; jl7 - Home Meds: 08:07 Novolin 70/30 [place] Sub-Q 70-30 unit/mL [Active]; gabapentin 100 mg oral cap jl7 [Active]; metoprolol tartrate 25 mg Oral tab [Active]; diazepam 5 mg Oral tab [Active]; metformin 500 mg Oral tab 1 tab 2 times per day [Active]; tramadol 50 mg Oral tab [Active]; aspirin 81 mg Oral TbEC [Active]; - PMHx: 07:16 Back pain; bowel obstruction; Diabetes - NIDDM; H.Pylori; High Cholesterol; jl7 Hyperlipidemia; Myocardial infarction; - PSHx: 07:16 Cholecystectomy; jl7 - Immunization history:: Adult Immunizations up to date. - Social history:: Smoking status: Patient/guardian denies using tobacco. - Ebola Screening: : No symptoms or risks identified at this time. - Family history:: not pertinent. - Hospitalizations: : The patient was recently seen at [facility]. ROS: 07:34 Constitutional: Negative for fever, chills, and weight loss, Eyes: Negative for injury, rn pain, redness, and discharge, Neck: Negative for injury, pain, and swelling, Cardiovascular: Negative for palpitations, and edema, Respiratory: Negative for cough, wheezing Abdomen/GI: Negative for nausea, vomiting, diarrhea, and constipation, MS/Extremity: Negative for injury and deformity, Skin: Negative for injury, rash, and discoloration, Neuro: Negative for headache, weakness, and seizure. Exam: 07:34 Constitutional: This is a well developed, well nourished patient who is awake, alert, rn and in no acute distress. Arguing with significant other when I walked into room Head/Face: Normocephalic, atraumatic. Eyes: Pupils equal round and reactive to light, extra-ocular motions intact. Lids and lashes normal. Conjunctiva and sclera are non-icteric and not injected. Cornea within normal limits. Periorbital areas with no swelling, redness, or edema. Neck: Trachea midline, no thyromegaly or masses palpated, and no cervical lymphadenopathy. Supple, full range of motion without nuchal rigidity, or vertebral point tenderness. No Meningismus. Cardiovascular: Regular rate and rhythm with a normal S1 and S2. No gallops, murmurs, or rubs. Normal PMI, no JVD. No pulse deficits. Respiratory: Lungs have equal breath sounds bilaterally, clear to auscultation and percussion. No rales, rhonchi or wheezes noted. No increased work of breathing, no retractions or nasal flaring. Abdomen/GI: Soft, non-tender, with normal bowel sounds. No distension or tympany. No guarding or rebound. No evidence of tenderness throughout. Skin: Warm, dry with normal turgor. Normal color with no rashes, no lesions, and no evidence of cellulitis. MS/ Extremity: Pulses equal, no cyanosis. Neurovascular intact. Full, normal range of motion. Equal circumference. Neuro: Awake and alert, GCS 15, oriented to person, place, time, and situation. Cranial nerves II-XII grossly intact. Motor strength 5/5 in all extremities. Sensory grossly intact. Cerebellar exam normal. Normal gait. 07:54 ECG was reviewed by the Attending Physician. rn Vital Signs: 07:16 BP 148 / 98; Pulse 80; Resp 18 S; Pulse Ox 100% on R/A; Weight 61.23 kg (R); Height 5 7 ft. 4 in. (162.56 cm) (R); Pain 10/10; 08:08 BP 146 / 86; Pulse 73; Resp 16 S; Pulse Ox 99% on R/A; Pain 7/10; jl7 08:35 BP 139 / 86; Pulse 74; Resp 16 S; Pulse Ox 98% on R/A; jl7 07:16 Body Mass Index 23.17 (61.23 kg, 162.56 cm) [facility] MDM: 07:05 Patient medically screened. rn 08:26 Differential Diagnosis neuropathy, hyperglycemia. Data reviewed: vital signs, nurses rn notes, old medical records, lab test result(s), EKG, and as a result, I will discharge patient. Counseling: I had a detailed discussion with the patient and/or guardian regarding: the historical points, exam findings, and any diagnostic results supporting the discharge/admit diagnosis, lab results, the need for outpatient follow up, to return to the emergency department if symptoms worsen or persist or if there are any questions or concerns that arise at home. Special discussion: I discussed with the patient/guardian in detail that at this point there is no indication for admission to the hospital. It is understood, however, that if the symptoms persist or worsen the patient needs to return immediately for re-evaluation. Based on the history and exam findings, there is no indication for further emergent testing or inpatient evaluation. I discussed with the patient/guardian the need to see the primary care provider for further evaluation of the symptoms. ED course: Has appt with pcp tomorrow, might need increase in gabapentin for neuropathic pain, will dc home. No acidosis or AG, pt to get glucometer tomorrow at appt.. 05/11 07:20 Order name: BMP; Complete Time: 08: rn 05/11 07:20 Order name: CBC with Diff; Complete Time: : rn 05/11 07:20 Order name: EKG; Complete Time: 07:20 rn 05/11 07:58 Order name: Urine Dipstick--Ancillary (enter results) bd 05/11 07:20 Order name: Glucose Level; Complete Time: 07:25 rn 05/11 07:20 Order name: EKG - Nurse/Tech; Complete Time: 07:56 rn EC:54 Rate is 73 beats/min. Rhythm is regular. QRS [place] is Normal. ME interval is normal. QRS rn interval is normal. QT interval is normal. No Q waves. T waves are Normal. No ST changes noted. Clinical impression: Normal ECG. Interpreted by me. Administered Medications: 07:37 Drug: NS 0.9% 1000 ml Route: IV; Rate: 1000 ml; Site: right forearm; [facility] 08:08 Follow up: IV Status: Completed infusion jl 07:38 Drug: Demerol 25 mg Route: IVP; Site: right forearm; [facility] 08:07 Follow up: Response: No adverse reaction; Pain is decreased jl7 Point of Care Testing: Blood Glucose: 07:11 Blood Glucose: 281 mg/dL; [facility] Ranges: Critical Glucose Levels:Adult <50 mg/dl or >400 mg/dl <40 mg/dl or >180 mg/dl Disposition: 05/11/18 08:28 Discharged to Home. Impression: Type 2 diabetes mellitus with diabetic neuropathy, unspecified, Other chronic pain. - Condition is Stable. - Discharge Instructions: Chronic Pain, Neuropathic Pain, Diabetic Neuropathy. - Medication Reconciliation Form, Thank You Letter, Antibiotic Education, Prescription Opioid Use form. - Follow up: Private Physician; When: As needed; Reason: Recheck today's complaints, Re-evaluation by your physician. - Problem is new. - Symptoms have improved. Signatures: Dispatcher [employer] EDMS Jorge A Lira MD MD rn Leal, Jahala, RN RN jl7 Corrections: (The following items were deleted from the chart) 08: 08:05/11/2018 08:28 Discharged to Home. Impression: Type 2 diabetes mellitus with rn diabetic neuropathy, unspecified. Condition is Stable. Forms are Medication Reconciliation Form, Thank You Letter, Antibiotic Education, Prescription Opioid Use. Follow up: Private Physician; When: As needed; Reason: Recheck today's complaints, Re-evaluation by your physician. Problem is new. Symptoms have improved. rn 08:38 08:28 05/11/2018 08:28 Discharged to Home. Impression: Type 2 diabetes mellitus with jl7 diabetic neuropathy, unspecified; Other chronic pain. Condition is Stable. Forms are Medication Reconciliation Form, Thank You Letter, Antibiotic Education, Prescription Opioid Use. Follow up: Private Physician; When: As needed; Reason: Recheck today's complaints, Re-evaluation by your physician. Problem is new. Symptoms have improved. rn
--- NOTE | 2018-05-11 08:29 | ER ---
Nurse's Notes [facility] Name: Florentino Acosta Age: 52 yrs Sex: Male : 1965 Arrival Date: 05/11/2018 Time: 07:03 Bed 19 Private MD: Diagnosis: Type 2 diabetes mellitus with diabetic neuropathy, unspecified;Other chronic pain Presentation: 05/11 07:14 Presenting complaint: Patient states: "My mid right side of my back and all over still jl7 hurts.", rated 10/10. Transition of care: patient was not received from another setting of care. Onset of symptoms was May 11, 2018. Risk Assessment: Do you want to hurt yourself or someone else? Patient reports no desire to harm self or others. Initial Sepsis Screen: Does the patient meet any 2 criteria? No. Patient's initial sepsis screen is negative. Does the patient have a suspected source of infection? No. Patient's initial sepsis screen is negative. Care prior to arrival: None. 07:14 Method Of Arrival: Ambulatory [facility] 07:14 Acuity: RMASES 3 jl7 Triage Assessment: 07:16 General: Appears in no apparent distress. uncomfortable, Behavior is calm, cooperative, jl7 appropriate for age. Pain: Complains of pain in right mid back Pain radiates to all over Pain currently is 10 out of 10 on a pain scale. Neuro: Level of Consciousness is awake, alert, obeys commands, Oriented to person, place, time, situation. Cardiovascular: Patient's skin is warm and dry. Respiratory: Airway is patent Respiratory effort is even, unlabored, Respiratory pattern is regular, symmetrical. Derm: Skin is pink, warm \\T\\ dry. Historical: - Allergies: 07:16 Codeine; jl7 07:16 Vioxx; jl7 07:16 Zoloft; jl7 - Home Meds: 08:07 Novolin 70/30 [place] Sub-Q 70-30 unit/mL [Active]; gabapentin 100 mg oral cap jl7 [Active]; metoprolol tartrate 25 mg Oral tab [Active]; diazepam 5 mg Oral tab [Active]; metformin 500 mg Oral tab 1 tab 2 times per day [Active]; tramadol 50 mg Oral tab [Active]; aspirin 81 mg Oral TbEC [Active]; - PMHx: 07:16 Back pain; bowel obstruction; Diabetes - NIDDM; H.Pylori; High Cholesterol; jl7 Hyperlipidemia; Myocardial infarction; - PSHx: 07:16 Cholecystectomy; jl7 - Immunization history:: Adult Immunizations up to date. - Social history:: Smoking status: Patient/guardian denies using tobacco. - Ebola Screening: : No symptoms or risks identified at this time. - Family history:: not pertinent. - Hospitalizations: : The patient was recently seen at [facility]. Screenin:02 Abuse screen: Denies threats or abuse. Denies injuries from another. Nutritional jl7 screening: No deficits noted. Tuberculosis screening: No symptoms or risk factors identified. Fall Risk IV access (20 points). Total Jara Fall Scale indicates No Risk (0-24 pts). Assessment: 07:16 General: See triage assessment. jl7 08:07 Reassessment: Patient and/or family updated on plan of care and expected duration. Pain jl7 level reassessed. Patient is alert, oriented x 3, equal unlabored respirations, skin warm/dry/pink. Pt rates pain 7/10 at this time. Vital Signs: 07:16 BP 148 / 98; Pulse 80; Resp 18 S; Pulse Ox 100% on R/A; Weight 61.23 kg (R); Height 5 jl7 ft. 4 in. (162.56 cm) (R); Pain 10/10; 08:08 BP 146 / 86; Pulse 73; Resp 16 S; Pulse Ox 99% on R/A; Pain 7/10; jl7 08:35 BP 139 / 86; Pulse 74; Resp 16 S; Pulse Ox 98% on R/A; jl7 07:16 Body Mass Index 23.17 (61.23 kg, 162.56 cm) jl7 ED Course: 07:03 Patient arrived in ED. es 07:03 Bruno Moss, LARRY is Primary Nurse. jl7 07:05 Jorge A Lira MD is Attending Physician. rn 07:11 Patient has correct armband on for positive identification. Placed in gown. Bed in low mh5 position. Call light in reach. Side rails up X 1. Adult w/ patient. Warm blanket given. Pillow given. Pulse ox on. NIBP on. 07:15 Triage completed. jl7 07:16 Arm band placed on right wrist. Patient placed in an exam room, on a stretcher, in view jl of staff members, on pulse oximetry. 08:02 EKG done, by billing and quality technician. reviewed by Jorge A Lira MD. at1 08:02 Urine collected: clean catch specimen, clear. 5 08:02 Initial lab(s) drawn, by ga, sent to lab. Urine collected: clean catch specimen, clear. jl7 Inserted saline lock: 20 gauge in right forearm, using aseptic technique. Blood collected. 08:03 Urine Dipstick--Ancillary (enter results) Sent. [facility] 08:35 No provider procedures requiring assistance completed. IV discontinued, intact, jl7 bleeding controlled, No redness/swelling at site. Pressure dressing applied. Administered Medications: 07:37 Drug: NS 0.9% 1000 ml Route: IV; Rate: 1000 ml; Site: right forearm; 7 08:08 Follow up: IV Status: Completed infusion [facility] 07:38 Drug: Demerol 25 mg Route: IVP; Site: right forearm; 7 08:07 Follow up: Response: No adverse reaction; Pain is decreased [facility] Point of Care Testing: Blood Glucose: 07:11 Blood Glucose: 281 mg/dL; [facility] Ranges: Outcome: 08:28 Discharge ordered by . rn 08:35 Discharged to home ambulatory, with family. [facility] 08:35 Condition: stable 08:35 Discharge instructions given to patient, family, Instructed on discharge instructions, follow up and referral plans. Demonstrated understanding of instructions, follow-up care. 08:38 Patient left the ED. [facility] Signatures: Raina Reyna Roman, MD MD rn Gonzales, Amanda, receiving dock checker EKG [facility] Amaya Hunter Bruno Seaman, RN RN 7
[2018-05-11 08:46] VITALS: BP 139/86; O2SAT 98
[2018-05-11 11:21] LABS: Urine Blood 1+ (NEG); Urine Glucose 2+ (NEG); Urine Protein 3+ (NEG); Urine Specific Gravity 1.025 (1.005-1.030); Urine pH 6.5 (5.0-7.0)
--- NOTE | 2018-05-12 00:34 | EKG ---
Test Date: 2018-05-11 Test Time: 07:51:59 Customer Operations Intern: MADELIN MEASUREMENT RESULTS: Intervals: Rate: 73 MS: 158 QRSD: 110 QT: 410 QTc: 451 [place]: P: 47 MS: 158 QRS: -10 T: 43 INTERPRETIVE STATEMENTS: Normal sinus rhythm Normal ECG Compared to ECG 05/05/2018 19:11:33 Left ventricular hypertrophy no longer present T-wave abnormality no longer present Electronically Signed On 05-12-18 00:32:20 CDT by Flaco Florentino
== END 2018-05-11 08:38 | disposition home or self-care (01) ==
LOC: ER 07:02
DX: E11.40 Type 2 diabetes mellitus with diabetic neuropathy, unspecified (principal); I25.2 Old myocardial infarction; E78.5 Hyperlipidemia, unspecified; Z79.4 Long term (current) use of insulin; Z79.82 Long term (current) use of aspirin; Z88.5 Allergy status to narcotic agent; Z88.8 Allergy status to other drugs, medicaments and biological substances
CPT/HCPCS: 36415; 80048; 81003; 82962; 85025; 93005; 96361; 96374; 99284; J2175; J7030

== ENCOUNTER 2018-05-26 02:24 | Emergency (ER) | payer SELFPAY ==
--- NOTE | 2018-05-26 03:04 | EDPHYS ---
Physician Documentation [facility] Name: Florentino Acosta Age: 52 yrs Sex: Male : 1965 Arrival Date: 05/26/2018 Time: 02:26 Bed 17 Private MD: ED Physician Tyree Ferreira HPI: 05/26 02:59 This 52 yrs old Male presents to ER via Ambulatory with complaints of ma2 Abdominal Pain. 02:59 The patient presents with abdominal pain. Onset: The symptoms/episode began/occurred ma2 gradually, 2 month(s) ago. Associated signs and symptoms: Pertinent positives: Pertinent negatives: nausea and vomiting, anorexia, blood in stools, constipation, dysuria, fever, hematuria, palpitations, shortness of breath, testicular pain. The symptoms are described as burning. Modifying factors: the symptoms are aggravated by food. Severity of pain: At its worst the pain was moderate in the emergency department the pain is unchanged. diagnosed with gastroparesis 2 months ago here with worsening of his pain 2 weeks ago, unchanged since then no new symptoms, he was taken off tramadol last week. was told to avoid constipation, he want to be back on tramadol and states he did not had constipation or anyother s/e with it. . Historical: - Allergies: 02:43 Codeine; aa1 02:43 Vioxx; aa1 02:43 Zoloft; aa1 - Home Meds: 02:43 aspirin 81 mg Oral TbEC [Active]; diazepam 5 mg Oral tab [Active]; gabapentin 300 mg aa1 oral cap [Active]; metformin 500 mg Oral tab 1 tab 2 times per day [Active]; metoprolol tartrate 25 mg Oral tab [Active]; Novolin 70/30 [place] Sub-Q 70-30 unit/mL [Active]; tramadol 50 mg Oral tab [Active]; - PMHx: 02:43 Back pain; bowel obstruction; Diabetes - NIDDM; H.Pylori; High Cholesterol; aa1 Hyperlipidemia; Myocardial infarction; neuropathy; Chronic pain; - PSHx: 02:43 Cholecystectomy; aa1 - Immunization history:: Adult Immunizations unknown. - Social history:: Smoking status: Patient/guardian denies using tobacco, Patient/guardian denies using alcohol, street drugs, The patient lives with family. - Ebola Screening: : No symptoms or risks identified at this time. - Family history:: not pertinent. ROS: 02:59 Constitutional: Negative for fever, chills, and weight loss, Cardiovascular: Negative ma2 for chest pain, palpitations, and edema. 02:59 Abdomen/GI: Positive for abdominal pain, Negative for nausea and vomiting, nausea, vomiting, and diarrhea, vomiting, diarrhea, abdominal distension, dysphagia, black/tarry stool, bowel incontinence. 02:59 All other systems are negative. Exam: 02:59 Constitutional: This is a well developed, well nourished patient who is awake, alert, ma2 and in no acute distress. Chest/axilla: Normal chest wall appearance and motion. Nontender with no deformity. No lesions are appreciated. Cardiovascular: Regular rate and rhythm with a normal S1 and S2. No gallops, murmurs, or rubs. Normal PMI, no JVD. No pulse deficits. Respiratory: Lungs have equal breath sounds bilaterally, clear to auscultation and percussion. No rales, rhonchi or wheezes noted. No increased work of breathing, no retractions or nasal flaring. Abdomen/GI: Soft, non-tender, with normal bowel sounds. No distension or tympany. No guarding or rebound. No evidence of tenderness throughout. Vital Signs: 02:43 BP 147 / 92; Pulse 105; Resp 18; Temp 97.7; Pulse Ox 96% on R/A; Weight 63.5 kg; Pain aa1 9/10; MDM: 02:27 Patient medically screened. ma2 02:59 Differential diagnosis: gastritis, gastroesophageal reflux disease, gastroparesis. Data ma2 reviewed: vital signs, nurses notes. Counseling: I had a detailed discussion with the patient and/or guardian regarding: the historical points, exam findings, and any diagnostic results supporting the discharge/admit diagnosis, the presence of at least one elevated blood pressure reading (>120/80) during this emergency department visit, the need for outpatient follow up. Response to treatment: the patient's symptoms have markedly improved after treatment. 05/26 02:28 Order name: NPO; Complete Time: 02:54 ma2 Administered Medications: 03:02 Drug: traMADol 50 mg Route: PO; jd3 03:13 Follow up: Response: No adverse reaction jd3 Disposition: 05/26/18 03:03 Discharged to Home. Impression: Abdominal and pelvic pain. - Condition is Stable. - Prescriptions for Tramadol 50 mg Oral Tablet - take 1 tablet by ORAL route every 8 hours as needed; 12 tablet. - Medication Reconciliation Form, Thank You Letter, Antibiotic Education, Prescription Opioid Use form. - Follow up: Private Physician; When: Tomorrow; Reason: Continuance of care. - Problem is chronic. - Symptoms are unchanged. Signatures: Jnea Alexander RN RN aa1 Abby Chavez RN RN ea Davies, Jonathon RN RN jd3 Tyree Ferreira MD MD ma2 Corrections: (The following items were deleted from the chart) 03:14 03:03 05/26/2018 03:03 Discharged to Home. Impression: Abdominal and pelvic pain. ea Condition is Stable. Forms are Medication Reconciliation Form, Thank You Letter, Antibiotic Education, Prescription Opioid Use. Follow up: Private Physician; When: Tomorrow; Reason: Continuance of care. Problem is chronic. Symptoms are unchanged. ma2
--- NOTE | 2018-05-26 03:04 | ER ---
Nurse's Notes [facility] Name: Florentino Acosta Age: 52 yrs Sex: Male : 1965 Arrival Date: 05/26/2018 Time: 02: Bed 17 Private MD: Diagnosis: Abdominal and pelvic pain Presentation: 05/26 02:38 Presenting complaint: Patient states: he has been having abd pain for past several aa1 weeks. States, "I was here 2 weeks ago for the same thing and they told me I had neuropathy in my stomach from my diabetics and there's nothing that can be done for it and I just have to live with it but it hurts really bad and I can't sleep.". Transition of care: patient was not received from another setting of care. Onset of symptoms was April 2018. Risk Assessment: Do you want to hurt yourself or someone else? Patient reports no desire to harm self or others. Initial Sepsis Screen: Does the patient meet any 2 criteria? HR > 90 bpm. Does the patient have a suspected source of infection? No. Patient's initial sepsis screen is negative. Care prior to arrival: None. 02:38 Method Of Arrival: Ambulatory aa1 02:38 Acuity: RAMSES 3 aa1 Triage Assessment: 02:43 General: Appears in no apparent distress. uncomfortable, Behavior is calm, cooperative, aa1 appropriate for age. Historical: - Allergies: 02:43 Codeine; aa1 02:43 Vioxx; aa1 02:43 Zoloft; aa1 - Home Meds: 02:43 aspirin 81 mg Oral TbEC [Active]; diazepam 5 mg Oral tab [Active]; gabapentin 300 mg aa1 oral cap [Active]; metformin 500 mg Oral tab 1 tab 2 times per day [Active]; metoprolol tartrate 25 mg Oral tab [Active]; Novolin 70/30 [place] Sub-Q 70-30 unit/mL [Active]; tramadol 50 mg Oral tab [Active]; - PMHx: 02:43 Back pain; bowel obstruction; Diabetes - NIDDM; H.Pylori; High Cholesterol; aa1 Hyperlipidemia; Myocardial infarction; neuropathy; Chronic pain; - PSHx: 02:43 Cholecystectomy; aa1 - Immunization history:: Adult Immunizations unknown. - Social history:: Smoking status: Patient/guardian denies using tobacco, Patient/guardian denies using alcohol, street drugs, The patient lives with family. - Ebola Screening: : No symptoms or risks identified at this time. - Family history:: not pertinent. Screenin:44 Abuse screen: Denies threats or abuse. Nutritional screening: No deficits noted. jd3 Tuberculosis screening: No symptoms or risk factors identified. Fall Risk None identified. Assessment: 02:39 General: Appears uncomfortable, Behavior is cooperative, appropriate for age, anxious. jd3 Pain: Complains of pain in abdomen Quality of pain is described as sharp, tender. Neuro: Level of Consciousness is awake, alert, obeys commands, Oriented to person, place, time, situation. Cardiovascular: Capillary refill < 3 seconds Patient's skin is warm and dry. Respiratory: Airway is patent Respiratory effort is even, unlabored, Respiratory pattern is regular, symmetrical, Breath sounds are clear bilaterally. GI: Abdomen is round distended, Bowel sounds present X 4 quads. Abdomen is tender to palpation in right upper quadrant and left upper quadrant Reports lower abdominal pain, upper abdominal pain, intolerance of food. : No signs and/or symptoms were reported regarding the genitourinary system. EENT: No signs and/or symptoms were reported regarding the EENT system. Derm: Skin is intact, Skin is dry, Skin is normal, Skin temperature is warm. Musculoskeletal: Circulation, motion, and sensation intact. Range of motion: intact in all extremities. 03:11 Reassessment: Patient appears in no apparent distress at this time. Patient and/or jd3 family updated on plan of care and expected duration. Pain level reassessed. Patient is alert, oriented x 3, equal unlabored respirations, skin warm/dry/pink. pt reported understanding of discharge instructions, even and steady gait upon discharge. Vital Signs: 02:43 BP 147 / 92; Pulse 105; Resp 18; Temp 97.7; Pulse Ox 96% on R/A; Weight 63.5 kg; Pain aa1 9; ED Course: 02:26 Patient arrived in ED. am2 02:27 Tyree Ferreira MD is Attending Physician. ma2 02:38 Varun Fong RN is Primary Nurse. jd3 02:41 Triage completed. aa1 02:43 Arm band placed on right wrist. aa1 02:47 Patient has correct armband on for positive identification. Bed in low position. Call jd3 light in reach. Side rails up X 1. Adult w/ patient. 03:10 No provider procedures requiring assistance completed. Patient did not have IV access jd3 during this emergency room visit. Administered Medications: 03:02 Drug: traMADol 50 mg Route: PO; jd3 03:13 Follow up: Response: No adverse reaction jd3 Outcome: 03:03 Discharge ordered by . nely 03:11 Discharged to home ambulatory, with family. jd3 03:11 Condition: stable 03:11 Discharge instructions given to patient, family, Instructed on discharge instructions, follow up and referral plans. medication usage, Demonstrated understanding of instructions, follow-up care, medications, Prescriptions given X 1. 03:14 Patient left the ED. ea Signatures: Jena Alexander, RN RN Lynda Merida Elena RN RN Varun Camacho RN RN Tyree Juarez MD MD ma2
[2018-05-26] MEDS ORDERED: TRAMADOL HCL 50 MG TAB ONE (03:06)
[2018-05-26 03:19] VITALS: BP 147/92; TEMP 97.7; O2SAT 96
== END 2018-05-26 03:14 | disposition home or self-care (01) ==
LOC: ER 02:24
DX: R10.2 Pelvic and perineal pain (principal); E11.9 Type 2 diabetes mellitus without complications; E78.5 Hyperlipidemia, unspecified; E78.00 Pure hypercholesterolemia, unspecified; Z79.4 Long term (current) use of insulin; Z79.82 Long term (current) use of aspirin; Z88.5 Allergy status to narcotic agent; Z88.8 Allergy status to other drugs, medicaments and biological substances
CPT/HCPCS: 99283

== ENCOUNTER 2018-06-30 18:40 | Emergency (ER) | payer SELFPAY ==
[2018-06-30] MEDS ORDERED: METOCLOPRAMIDE 10 MG/2mL INJ ONE (19:48)
[2018-06-30] MEDS ORDERED: KETOROLAC 30 MG/ML INJ ONE (19:48)
[2018-06-30] MEDS ORDERED: NA CHLORIDE 0.9% 1,000 ML ONE (19:48)
[2018-06-30 20:01] LABS: Absolute Lymphocytes (CBC) 2.4 K/uL (0.7-4.9); Absolute Monocytes 0.7 K/uL (0.1-1.3); Absolute Neutrophil 5.6 K/uL (1.8-8.0); Basophils % 0.8 % (0-1.3); Eosinophils % 1.8 % (0-4.4); Hematocrit 40.9 % (39.6-49.0); Lymphocytes % 26.6 % (15.3-44.8); MCH 29.4 pg (27.0-35.0); MCV 88.5 fL (80-100); MPV 10.2 fL (7.6-11.3); Monocytes % 7.4 % (3.3-12.3); RBC Red Blood Cell Count 4.62 M/uL (4.33-5.43)
[2018-06-30 20:22] LABS: Barbiturates NEGATIVE (NEGATIVE); Benzodiazepines NEGATIVE (NEGATIVE); Cocaine NEGATIVE (NEGATIVE); METHAMPHETAM NEGATIVE (NEGATIVE); Methadone NEGATIVE (NEGATIVE); Opiates NEGATIVE (NEGATIVE); Phencyclidine NEGATIVE (NEGATIVE); THC Cannibis NEGATIVE (NEGATIVE)
[2018-06-30 20:24] LABS: ALT/SGPT 38 U/L (12-78); AST/SGOT 14 U/L (15-37); Albumin 3.2 g/dL (3.4-5.0); Alkaline Phosphatase 134 U/L (45-117); BUN Blood Urea Nitrogen 19 mg/dL (7-18); Bicarbonate 23 mmol/L (21-32); Bilirubin Direct < 0.1 mg/dL (0-0.2); Bilirubin Total 0.2 mg/dL (0.2-1.0); Glucose Level 313 mg/dL (74-106); Lipase 303 U/L (73-393); Potassium 3.9 mmol/L (3.5-5.1); Protein, Total 7.2 g/dL (6.4-8.2); Sodium Level 140 mmol/L (136-145)
[2018-06-30 20:28] LABS: Urine Blood 2+ (NEG); Urine Glucose 2+ (NEG); Urine Protein 3+ (NEG); Urine Specific Gravity >1.030 (1.005-1.030); Urine pH 5.5 (5.0-7.0)
--- NOTE | 2018-06-30 20:47 | RAD REPORT ---
EXAM DESCRIPTION: CTAbdomen Pelvis W Contrast - 06/30/2018 8:38 pm CLINICAL HISTORY: Abdominal pain. ABD PAIN COMPARISON: CT ABD PELVIS W CONTRAST dated 02/04/2013; CT ABD PELVIS W CONTRAST dated 07/12/2012; CT A BD PELVIS W CONTRAST dated 04/15/2012; CT ABD PELVIS W CONTRAST dated 03/30/2012; Angio Aorta For Diss ection dated 05/05/2018 TECHNIQUE: Biphasic CT imaging of the abdomen and pelvis was performed with 100 ml non-ionic IV cont rast. All CT scans are performed using dose optimization technique as appropriate and may include automated exposure control or mA/KV adjustment according to patient size. FINDINGS: The lung bases are clear.Cholecystectomy clips. The liver, spleen, pancreas, adrenal glands are within normal limits. Vague areas of diminished densi ty are seen within the cortex region of both kidneys. No bowel obstruction, free air, free fluid or abscess. Moderate fecal retention in the colon. The jeremie endix is normal. No evidence of significant lymphadenopathy. No suspicious bony findings. IMPRESSION: Vague areas of diminished density in the cortices of both kidneys are nonspecific but ca n be seen in cases of pyelonephritis. Suggest correlation with urinalysis. Moderate fecal retention in the colon.
--- NOTE | 2018-06-30 21:31 | EDPHYS ---
Physician Documentation [facility] Name: Florentino Acosta Age: 52 yrs Sex: Male : 1965 Arrival Date: 06/30/2018 Time: 18:42 Bed 18 Private MD: None, None ED Physician Tom Levy HPI: 06/30 19:23 This 52 yrs old Male presents to ER via Ambulatory with complaints of wa Abdominal Pain. 19:23 The patient presents with abdominal pain in the upper abdomen. Onset: The wa symptoms/episode began/occurred 3 day(s) ago. The symptoms do not radiate. Associated signs and symptoms: Pertinent positives: nausea, Pertinent negatives: diarrhea, dysuria, fever, headache, vomiting. The symptoms are described as sharp. Modifying factors: The symptoms are alleviated by nothing, the symptoms are aggravated by food. Severity of pain: At its worst the pain was moderate in the emergency department the pain is actually worse moderately. The patient has experienced similar episodes in the past, multiple times, chronically, states has been dx'd w/ gastroparesis by his PMD. The patient has not recently seen a physician. Historical: - Allergies: 18:52 Codeine; iw 18:52 Vioxx; iw 18:52 Zoloft; iw 18:52 Hydrocodone-Acetaminophen; iw - Home Meds: 18:52 aspirin 81 mg Oral TbEC [Active]; diazepam 5 mg Oral tab [Active]; gabapentin 300 mg iw Oral cap [Active]; metformin 500 mg Oral tab 1 tab 2 times per day [Active]; metoprolol tartrate 25 mg Oral tab [Active]; Novolin 70/30 [place] Sub-Q 70-30 unit/mL [Active]; tramadol 50 mg Oral tab [Active]; - PMHx: 18:52 Back pain; bowel obstruction; Chronic pain; Diabetes - NIDDM; H.Pylori; High iw Cholesterol; Hyperlipidemia; Myocardial infarction; neuropathy; - PSHx: 18:52 Cholecystectomy; iw - Immunization history:: Adult Immunizations unknown. - Social history:: Patient/guardian denies using alcohol, IV drugs, tobacco products, The patient lives with spouse, Smoking status: unknown. - Ebola Screening: : Patient negative for fever greater than or equal to 101.5 degrees Fahrenheit, and additional compatible Ebola Virus Disease symptoms Patient denies exposure to infectious person Patient denies travel to an Ebola-affected area in the 21 days before illness onset No symptoms or risks identified at this time. - Family history:: not pertinent. - Hospitalizations: : No recent hospitalization is reported. ROS: 19:28 Constitutional: Negative for fever, chills, and weight loss, Eyes: Negative for injury, wa pain, redness, and discharge, ENT: Negative for injury, pain, and discharge, Neck: Negative for injury, pain, and swelling, Cardiovascular: Negative for chest pain, palpitations, and edema, Respiratory: Negative for shortness of breath, cough, wheezing, and pleuritic chest pain, Back: Negative for injury and pain, : Negative for injury, bleeding, discharge, and swelling, MS/Extremity: Negative for injury and deformity, Skin: Negative for injury, rash, and discoloration, Neuro: Negative for headache, weakness, numbness, tingling, and seizure, Psych: Negative for depression, anxiety, suicide ideation, homicidal ideation, and hallucinations. 19:28 Abdomen/GI: Positive for abdominal pain, nausea, Negative for vomiting, diarrhea. Exam: 19:28 Head/Face: Normocephalic, atraumatic. wa 19:28 Eyes: Pupils equal round and reactive to light, extra-ocular motions intact. Lids and lashes normal. Conjunctiva and sclera are non-icteric and not injected. Cornea within normal limits. Periorbital areas with no swelling, redness, or edema. ENT: Nares patent. No nasal discharge, no septal abnormalities noted. Tympanic membranes are normal and external auditory canals are clear. Oropharynx with no redness, swelling, or masses, exudates, or evidence of obstruction, uvula midline. Mucous membranes moist. Neck: Trachea midline, no thyromegaly or masses palpated, and no cervical lymphadenopathy. Supple, full range of motion without nuchal rigidity, or vertebral point tenderness. No Meningismus. Cardiovascular: Regular rate and rhythm with a normal S1 and S2. No gallops, murmurs, or rubs. Normal PMI, no JVD. No pulse deficits. Respiratory: Lungs have equal breath sounds bilaterally, clear to auscultation and percussion. No rales, rhonchi or wheezes noted. No increased work of breathing, no retractions or nasal flaring. Back: No spinal tenderness. No costovertebral tenderness. Full range of motion. Skin: Warm, dry with normal turgor. Normal color with no rashes, no lesions, and no evidence of cellulitis. MS/ Extremity: Pulses equal, no cyanosis. Neurovascular intact. Full, normal range of motion. Neuro: Awake and alert, GCS 15, oriented to person, place, time, and situation. Cranial nerves II-XII grossly intact. Motor strength 5/5 in all extremities. Sensory grossly intact. Cerebellar exam normal. Normal gait. Psych: Awake, alert, with orientation to person, place and time. Behavior, mood, and affect are within normal limits. 19:28 Constitutional: The patient appears alert, uncomfortable. 19:28 Abdomen/GI: Inspection: abdomen appears normal, Bowel sounds: normal, in all quadrants, Palpation: soft, moderate abdominal tenderness, in the epigastric area, right upper quadrant and left upper quadrant. Vital Signs: 18:52 BP 158 / 105; Pulse 87; Resp 16; Temp 98.2; Pulse Ox 98% on R/A; Weight 63.5 kg; Height iw 5 ft. 4 in. (162.56 cm); Pain 10/10; 19:20 BP 160 / 98; Pulse 75; Resp 16; Pulse Ox 98% ; ao 20:20 BP 162 / 90; Pulse 82; Resp 16; Pulse Ox 98% on R/A; ao 18:52 Body Mass Index 24.03 (63.50 kg, 162.56 cm) MDM: 18:50 Patient medically screened. ma 19:30 Differential diagnosis: bowel obstruction, cholecystitis, Cholelithiasis, gastritis, ma gastroesophageal reflux disease, non-specific abd pain, pancreatitis, Peptic Ulcer Disease, Perf. Duodenal Ulcer, Perf. Gastric Ulcer, Peritonitis, urinary tract infection. 20:59 Data reviewed: vital signs, nurses notes. Test interpretation: by ED physician or ma midlevel provider: CT abd/pelvis: moderate fecal retention in the colon. labs noted for hyperglycemia and glucosuria. . 21:29 Response to treatment: the patient's symptoms have markedly improved after treatment. ma ED course: improved. will d/c with meds and close f/u with GI. 06/30 19:10 Order name: Creatinine for Radiology; Complete Time: 20:35 ma 06/30 19:10 Order name: Basic Metabolic Panel; Complete Time: 20:35 ma 06/30 19:10 Order name: CBC with Diff; Complete Time: 20:10 ma 06/30 20:36 Interpretation: Abnormal: MPV 10.2. wa 06/30 19:10 Order name: Hepatic Function; Complete Time: 20:35 wa 06/30 19:10 Order name: Lipase; Complete Time: 20:35 ma 06/30 19:10 Order name: Urine Drug Screen; Complete Time: 20:35 ma 06/30 19:10 Order name: IV Saline Lock; Complete Time: 19:52 ma 06/30 19:10 Order name: Labs collected and sent; Complete Time: 19:52 ma 06/30 19:10 Order name: CT Abd/Pelvis - W/Contrast; Complete Time: 20:58 ma 06/30 19:56 Order name: Urine Dipstick--Ancillary (enter results) ms 06/30 19:56 Order name: Urine Dipstick-Ancillary; Complete Time: 20:35 EDMS 06/30 19:10 Order name: Urine Dipstick-Ancillary (obtain specimen); Complete Time: 19:51 ma Administered Medications: 19:49 Drug: Reglan 10 mg Route: IVP; Site: right forearm; ao 20:00 Follow up: Response: No adverse reaction ao 19:50 Drug: TORadol 30 mg Route: IVP; Site: right forearm; ao 20:00 Follow up: Response: No adverse reaction ao 19:51 Drug: NS 0.9% 1000 ml Route: IV; Rate: 1 bolus; Site: right forearm; ao 07/01 03:26 Follow up: IV Status: Completed infusion; IV Intake: 1000ml ao Disposition: 06/30/18 21:30 Discharged to Home. Impression: Acute Abdominal Pain. - Condition is Stable. - Discharge Instructions: Abdominal Pain, Adult, [id number]. - Prescriptions for Zofran 4 mg Oral Tablet - take 1 tablet by ORAL route every 12 hours As needed; 20 tablet. Tramadol 50 mg Oral Tablet - take 1 tablet by ORAL route every 8 hours as needed; 30 tablet. - Medication Reconciliation Form, Thank You Letter, Antibiotic Education, Prescription Opioid Use form. - Follow up: Tom Jack MD; When: 2 - 3 days; Reason: Recheck today's complaints. - Problem is an acute exacerbation. - Symptoms have improved. - Notes: take medication as prescribed. follow up with the gastro doctor as discussed. return to ER immediately for rapidly worsening concerns Signatures: Dispatcher [employer] Carley Gee RN Barrera Nguyen RN RN ao Appiah, William, MD MD wa Corrections: (The following items were deleted from the chart) 06/30 22:20 21:30 06/30/2018 21:30 Discharged to Home. Impression: Acute Abdominal Pain. Condition ao is Stable. Forms are Medication Reconciliation Form, Thank You Letter, Antibiotic Education, Prescription Opioid Use. Follow up: Tom Jack; When: 2 - 3 days; Reason: Recheck today's complaints. Problem is an acute exacerbation. Symptoms have improved. hannah
--- NOTE | 2018-06-30 21:31 | ER ---
Nurse's Notes [facility] Name: Florentino Acosta Age: 52 yrs Sex: Male : 1965 Arrival Date: 06/30/2018 Time: 18:42 Bed 18 Private MD: None, None Diagnosis: Acute Abdominal Pain Presentation: 06/30 18:49 Presenting complaint: Patient states: hx of gastroparesis, abd pain X 3 days, no iw vomiting, +nausea. Transition of care: patient was not received from another setting of care. Onset of symptoms was June 27, 2018. Risk Assessment: Do you want to hurt yourself or someone else? Patient reports no desire to harm self or others. Initial Sepsis Screen: Does the patient meet any 2 criteria? No. Patient's initial sepsis screen is negative. Does the patient have a suspected source of infection? No. Patient's initial sepsis screen is negative. Care prior to arrival: None. 18:49 Method Of Arrival: Ambulatory iw 18:49 Acuity: RAMSES 3 iw Historical: - Allergies: 18:52 Codeine; iw 18:52 Vioxx; iw 18:52 Zoloft; iw 18:52 Hydrocodone-Acetaminophen; iw - Home Meds: 18:52 aspirin 81 mg Oral TbEC [Active]; diazepam 5 mg Oral tab [Active]; gabapentin 300 mg iw Oral cap [Active]; metformin 500 mg Oral tab 1 tab 2 times per day [Active]; metoprolol tartrate 25 mg Oral tab [Active]; Novolin 70/30 [place] Sub-Q 70-30 unit/mL [Active]; tramadol 50 mg Oral tab [Active]; - PMHx: 18:52 Back pain; bowel obstruction; Chronic pain; Diabetes - NIDDM; H.Pylori; High iw Cholesterol; Hyperlipidemia; Myocardial infarction; neuropathy; - PSHx: 18:52 Cholecystectomy; iw - Immunization history:: Adult Immunizations unknown. - Social history:: Patient/guardian denies using alcohol, IV drugs, tobacco products, The patient lives with spouse, Smoking status: unknown. - Ebola Screening: : Patient negative for fever greater than or equal to 101.5 degrees Fahrenheit, and additional compatible Ebola Virus Disease symptoms Patient denies exposure to infectious person Patient denies travel to an Ebola-affected area in the 21 days before illness onset No symptoms or risks identified at this time. - Family history:: not pertinent. - Hospitalizations: : No recent hospitalization is reported. Screenin:53 Abuse screen: Denies threats or abuse. Denies injuries from another. Nutritional ao screening: No deficits noted. Tuberculosis screening: No symptoms or risk factors identified. Fall Risk None identified. Assessment: 19:20 General: Appears in no apparent distress. comfortable, Behavior is calm, cooperative, ao appropriate for age. Pain: Complains of pain in abdomen Pain currently is 8 out of 10 on a pain scale. Neuro: Level of Consciousness is awake, alert, obeys commands, Oriented to person, place, time, situation, Appropriate for age Moves all extremities. Full function Speech is normal, Facial symmetry appears normal. Cardiovascular: Capillary refill < 3 seconds Patient's skin is warm and dry. Respiratory: Airway is patent Respiratory effort is even, unlabored, Respiratory pattern is regular, symmetrical. GI: Abdomen is non-distended, Bowel sounds present X 4 quads. Abd is soft and non tender Reports lower abdominal pain, upper abdominal pain, nausea. : No signs and/or symptoms were reported regarding the genitourinary system. EENT: No signs and/or symptoms were reported regarding the EENT system. Derm: Skin is intact, Skin is pink, warm \T\ dry. normal, Skin temperature is warm. Musculoskeletal: Circulation, motion, and sensation intact. Range of motion:. 20:20 Reassessment: Patient appears in no apparent distress at this time. Patient and/or ao family updated on plan of care and expected duration. Pain level reassessed. Waiting on labs. Vital Signs: 18:52 BP 158 / 105; Pulse 87; Resp 16; Temp 98.2; Pulse Ox 98% on R/A; Weight 63.5 kg; Height iw 5 ft. 4 in. (162.56 cm); Pain 10/10; 19:20 BP 160 / 98; Pulse 75; Resp 16; Pulse Ox 98% ; ao 20:20 BP 162 / 90; Pulse 82; Resp 16; Pulse Ox 98% on R/A; ao 18:52 Body Mass Index 24.03 (63.50 kg, 162.56 cm) ED Course: 18:42 Patient arrived in ED. mr 18:42 None, None is Private Physician. mr 18:50 Tom Levy MD is Attending Physician. wa 18:50 Triage completed. iw 18:52 Arm band placed on. iw 18:57 Barrera Díaz, RN is Primary Nurse. ao 19:54 Patient has correct armband on for positive identification. Placed in gown. Call light ao in reach. Side rails up X 1. Pulse ox on. NIBP on. 19:59 Inserted saline lock: 20 gauge in right forearm, using aseptic technique. Blood oe collected. 20:38 CT Abd/Pelvis - W/Contrast In Process Unspecified. EDMS 21:29 Tom Jack MD is Referral Physician. wa 22:18 No provider procedures requiring assistance completed. IV discontinued, intact, ao bleeding controlled, No redness/swelling at site. Pressure dressing applied. Administered Medications: 19:49 Drug: Reglan 10 mg Route: IVP; Site: right forearm; ao 20:00 Follow up: Response: No adverse reaction ao 19:50 Drug: TORadol 30 mg Route: IVP; Site: right forearm; ao 20:00 Follow up: Response: No adverse reaction ao 19:51 Drug: NS 0.9% 1000 ml Route: IV; Rate: 1 bolus; Site: right forearm; ao 07/01 03:26 Follow up: IV Status: Completed infusion; IV Intake: 1000ml ao Intake: 03:26 IV: 1000ml; Total: 1000ml. ao Outcome: 06/30 21:30 Discharge ordered by . wa 22:18 Discharged to home ambulatory. ao 22:18 Condition: stable 22:18 Discharge instructions given to patient, Instructed on discharge instructions, follow up and referral plans. Demonstrated understanding of instructions, follow-up care, medications, Prescriptions given X 2. 22:20 Patient left the ED. ao Signatures: Dispatcher [employer] [facility] YinkaMelina Irene, RN RN iw Ortiz, Alex, RN Trent Howell William, MD MD wa
[2018-06-30 22:28] VITALS: TEMP 98.2; O2SAT 98
[2018-06-30 22:29] VITALS: BP 162/90
== END 2018-06-30 22:20 | disposition home or self-care (01) ==
LOC: ER 18:40
DX: R10.10 Upper abdominal pain, unspecified (principal); E11.9 Type 2 diabetes mellitus without complications; E78.5 Hyperlipidemia, unspecified; I25.2 Old myocardial infarction; Z79.82 Long term (current) use of aspirin; Z79.4 Long term (current) use of insulin
CPT/HCPCS: 36415; 74177; 80048; 80076; 80307; 81003; 83690; 85025; 96361; 96374; 96375; 99284; J2765; J7030; Q9967

== ENCOUNTER 2018-07-06 12:10 | Emergency (ER) | payer SELFPAY ==
[2018-07-06 13:12] LABS: Absolute Lymphocytes (CBC) 1.7 K/uL (0.7-4.9); Absolute Monocytes 0.7 K/uL (0.1-1.3); Absolute Neutrophil 6.3 K/uL (1.8-8.0); Basophils % 0.8 % (0-1.3); Eosinophils % 1.3 % (0-4.4); Hematocrit 41.3 % (39.6-49.0); Lymphocytes % 19.4 % (15.3-44.8); MCH 29.6 pg (27.0-35.0); MCV 87.4 fL (80-100); MPV 10.1 fL (7.6-11.3); Monocytes % 8.2 % (3.3-12.3); RBC Red Blood Cell Count 4.73 M/uL (4.33-5.43)
[2018-07-06 13:32] LABS: ALT/SGPT 25 U/L (12-78); AST/SGOT 14 U/L (15-37); Albumin 3.3 g/dL (3.4-5.0); Alkaline Phosphatase 120 U/L (45-117); BUN Blood Urea Nitrogen 13 mg/dL (7-18); Bicarbonate 27 mmol/L (21-32); Bilirubin Direct < 0.1 mg/dL (0-0.2); Bilirubin Total 0.2 mg/dL (0.2-1.0); Glucose Level 275 mg/dL (74-106); Lipase 198 U/L (73-393); Potassium 4.4 mmol/L (3.5-5.1); Protein, Total 7.1 g/dL (6.4-8.2); Sodium Level 138 mmol/L (136-145)
--- NOTE | 2018-07-06 14:06 | RAD REPORT ---
EXAM DESCRIPTION: CTAbdomen Pelvis W Contrast - 07/06/2018 1:50 pm CLINICAL HISTORY: Abdominal pain. IV contrast only;Abd pain COMPARISON: Abdomen Pelvis W Contrast dated 06/30/2018; CT ABD PELVIS W CONTRAST dated 02/04/2013; C T ABD PELVIS W CONTRAST dated 07/12/2012; CT ABD PELVIS W CONTRAST dated 04/15/2012 TECHNIQUE: Biphasic CT imaging of the abdomen and pelvis was performed with 100 ml non-ionic IV cont rast. All CT scans are performed using dose optimization technique as appropriate and may include automated exposure control or mA/KV adjustment according to patient size. FINDINGS: The lung bases are clear.Cholecystectomy clips. The liver, spleen, pancreas, adrenal glands and kidneys are within normal limits. No bowel obstruction, free air, free fluid or abscess. The appendix is normal. No evidence of signi ficant lymphadenopathy. Mild lumbosacral degenerative changes. IMPRESSION: No acute intra-abdominal or pelvic finding.
--- NOTE | 2018-07-06 14:35 | EDPHYS ---
Physician Documentation [facility] Name: Florentino Acosta Age: 52 yrs Sex: Male : 1965 Arrival Date: 07/06/2018 Time: 12:14 Bed 15 Private MD: None, None ED Physician Jorge A Lira HPI: 07/06 12:36 This 52 yrs old Male presents to ER via Ambulatory with complaints of kb Abdominal Pain. 12:36 The patient presents with abdominal pain that is diffuse. Onset: The symptoms/episode kb began/occurred last night. The symptoms do not radiate. Associated signs and symptoms: Pertinent positives: nausea, Pertinent negatives: constipation, diarrhea, fever, vomiting. The symptoms are described as constant. Modifying factors: The symptoms are alleviated by nothing, the symptoms are aggravated by pressure. Severity of pain: At its worst the pain was moderate in the emergency department the pain is unchanged. The patient has experienced similar episodes in the past, a few times. The patient has not recently seen a physician. 12:37 Pt reports he has gastroparesis and it started flaring up again last night. Reports he kb was diagnosed a month ago and started on gabapentin for it, but it hasn't helped. Now he is out of the gabapentin and can't afford to see the doctor again because he is unable to work.. Historical: - Allergies: 12:26 Codeine; aa5 12:26 Hydrocodone-Acetaminophen; aa5 12:26 Vioxx; aa5 12:26 Zoloft; aa5 - PMHx: 12:26 Back pain; bowel obstruction; Chronic pain; Diabetes - NIDDM; H.Pylori; High aa5 Cholesterol; Hyperlipidemia; Myocardial infarction; neuropathy; Gastroparesis; - PSHx: 12:26 Cholecystectomy; aa5 - Immunization history:: Adult Immunizations unknown. - Ebola Screening: : No symptoms or risks identified at this time. - Social history:: Smoking status: unknown. ROS: 12:36 Constitutional: Negative for fever, chills, and weight loss, Cardiovascular: Negative kb for chest pain, palpitations, and edema, Respiratory: Negative for shortness of breath, cough, wheezing, and pleuritic chest pain, Back: Negative for injury and pain, : Negative for injury, bleeding, discharge, and swelling, MS/Extremity: Negative for injury and deformity, Skin: Negative for injury, rash, and discoloration, Neuro: Negative for headache, weakness, numbness, tingling, and seizure. 12:36 Abdomen/GI: Positive for abdominal pain, nausea, Negative for vomiting, diarrhea, constipation, abdominal cramps, abdominal distension. Exam: 12:36 Constitutional: This is a well developed, well nourished patient who is awake, alert, kb and in no acute distress. Head/Face: Normocephalic, atraumatic. Chest/axilla: Normal chest wall appearance and motion. Nontender with no deformity. No lesions are appreciated. Cardiovascular: Regular rate and rhythm with a normal S1 and S2. No gallops, murmurs, or rubs. Normal PMI, no JVD. No pulse deficits. Respiratory: Lungs have equal breath sounds bilaterally, clear to auscultation and percussion. No rales, rhonchi or wheezes noted. No increased work of breathing, no retractions or nasal flaring. Skin: Warm, dry with normal turgor. Normal color with no rashes, no lesions, and no evidence of cellulitis. MS/ Extremity: Pulses equal, no cyanosis. Neurovascular intact. Full, normal range of motion. Neuro: Awake and alert, GCS 15, oriented to person, place, time, and situation. Cranial nerves II-XII grossly intact. Motor strength 5/5 in all extremities. Sensory grossly intact. Cerebellar exam normal. Normal gait. 12:36 Abdomen/GI: Inspection: abdomen appears normal, Bowel sounds: normal, in all quadrants, Palpation: moderate abdominal tenderness, in all quadrants. Vital Signs: 12:25 BP 165 / 102; Pulse 92; Resp 18 S; Temp 98.8(O); Pulse Ox 100% on R/A; Weight 63.5 kg aa5 (R); Height 5 ft. 4 in. (162.56 cm) (R); Pain 9/10; 13:55 BP 144 / 91; Pulse 87; Resp 16; Pulse Ox 98% ; bp 12:25 Body Mass Index 24.03 (63.50 kg, 162.56 cm) aa5 MDM: 12:26 Patient medically screened. kb 12:36 Data reviewed: vital signs, nurses notes. Data interpreted: Pulse oximetry: on room air kb is 100 %. Interpretation: normal. 14:33 Counseling: I had a detailed discussion with the patient and/or guardian regarding: the kb historical points, exam findings, and any diagnostic results supporting the discharge/admit diagnosis, lab results, radiology results, the need for outpatient follow up, a family practitioner, a italian teacher, to return to the emergency department if symptoms worsen or persist or if there are any questions or concerns that arise at home. Response to treatment: the patient's symptoms have resolved after treatment. 07/06 12:28 Order name: Basic Metabolic Panel; Complete Time: 13:34 kb 07/06 12:28 Order name: CBC with Diff; Complete Time: 13:16 kb 07/06 12:28 Order name: Hepatic Function; Complete Time: 13:34 kb 07/06 12:28 Order name: Lipase; Complete Time: 13:34 kb 07/06 13:35 Order name: CT Abd/Pelvis - W/Contrast; Complete Time: 14:17 kb 07/06 12:28 Order name: IV Saline Lock; Complete Time: 13:17 kb 07/06 12:28 Order name: Labs collected and sent; Complete Time: 13:17 kb Administered Medications: 13:00 Drug: Reglan 10 mg Route: IVP; Site: right forearm; bp 13:56 Follow up: Response: No adverse reaction; Pain is decreased bp 13:00 Drug: fentaNYL (PF) 50 mcg Route: IVP; Site: right forearm; bp 13:56 Follow up: Response: No adverse reaction; Pain is decreased bp Disposition: 15:35 Co-signature as Attending Physician, Jorge A Lira MD. rn Disposition: 07/06/18 14:34 Discharged to Home. Impression: Upper abdominal pain, unspecified. - Condition is Stable. - Discharge Instructions: Abdominal Pain, Adult, [id number]. - Prescriptions for Bentyl 20 mg Oral Tablet - take 1 tablet by ORAL route every 6 hours As needed; 20 tablet. Reglan 10 mg Oral Tablet - take 1 tablet by ORAL route every 6 hours As needed; 20 tablet. - Medication Reconciliation Form, Thank You Letter, Antibiotic Education, Prescription Opioid Use form. - Follow up: Emergency Department; When: As needed; Reason: Worsening of condition. Follow up: Private Physician; When: 2 - 3 days; Reason: Recheck today's complaints, Continuance of care, Re-evaluation by your physician. Signatures: Dispatcher [employer] Awilda Fountain, LAUNCHMAN-C LAUNCHMAN-Ckb Carley Abdi, RN RN iw Jorge A Lira MD MD rn Calderon, Audri RN RN aa5 Mando Parker, RN RN bp Corrections: (The following items were deleted from the chart) 14:59 14:34 07/06/2018 14:34 Discharged to Home. Impression: Upper abdominal pain, iw unspecified. Condition is Stable. Forms are Medication Reconciliation Form, Thank You Letter, Antibiotic Education, Prescription Opioid Use. Follow up: Emergency Department; When: As needed; Reason: Worsening of condition. Follow up: Private Physician; When: 2 - 3 days; Reason: Recheck today's complaints, Continuance of care, Re-evaluation by your physician. kb
--- NOTE | 2018-07-06 14:35 | ER ---
Nurse's Notes [facility] Name: Florentino Acosta Age: 52 yrs Sex: Male : 1965 Arrival Date: 07/06/2018 Time: 12:14 Bed 15 Private MD: None, None Diagnosis: Upper abdominal pain, unspecified Presentation: 07/06 12:24 Presenting complaint: Patient states: upper abd pain since last night. Pt also reports aa5 Nausea and vomiting. Transition of care: patient was not received from another setting of care. Onset of symptoms was July 2018. Risk Assessment: Do you want to hurt yourself or someone else? Patient reports no desire to harm self or others. Initial Sepsis Screen: Does the patient meet any 2 criteria? No. Patient's initial sepsis screen is negative. Does the patient have a suspected source of infection? No. Patient's initial sepsis screen is negative. Care prior to arrival: None. 12:24 Method Of Arrival: Ambulatory aa5 12:24 Acuity: RAMSES 3 aa5 Historical: - Allergies: 12:26 Codeine; aa5 12:26 Hydrocodone-Acetaminophen; aa5 12:26 Vioxx; aa5 12:26 Zoloft; aa5 - PMHx: 12:26 Back pain; bowel obstruction; Chronic pain; Diabetes - NIDDM; H.Pylori; High aa5 Cholesterol; Hyperlipidemia; Myocardial infarction; neuropathy; Gastroparesis; - PSHx: 12:26 Cholecystectomy; aa5 - Immunization history:: Adult Immunizations unknown. - Ebola Screening: : No symptoms or risks identified at this time. - Social history:: Smoking status: unknown. Screenin:20 Abuse screen: Denies threats or abuse. Denies injuries from another. Nutritional bp screening: No deficits noted. Tuberculosis screening: No symptoms or risk factors identified. Fall Risk None identified. Assessment: 12:30 General: Appears in no apparent distress. comfortable, Behavior is calm, cooperative, bp appropriate for age. Pain: Complains of pain in abdomen. Neuro: Level of Consciousness is awake, alert, obeys commands, Oriented to person, place, time, situation, Appropriate for age. Cardiovascular: No deficits noted. Respiratory: Airway is patent Respiratory effort is even, unlabored, Respiratory pattern is regular, symmetrical. GI: Bowel sounds present X 4 quads. Abdomen is tender to palpation X 4 quads. : No signs and/or symptoms were reported regarding the genitourinary system. EENT: No deficits noted. Derm: No deficits noted. Musculoskeletal: Circulation, motion, and sensation intact. Range of motion: intact in all extremities. 13:57 Reassessment: PT RETURNED FROM RADIOLOGY, ALL CURRENT ORDERS COMPLETED, RESULTS PENDING.bp 14:58 Reassessment: Patient appears in no apparent distress at this time. Patient and/or iw family updated on plan of care and expected duration. Pain level reassessed. Patient is alert, oriented x 3, equal unlabored respirations, skin warm/dry/pink. Patient states feeling better. Patient states symptoms have improved. Vital Signs: 12:25 BP 165 / 102; Pulse 92; Resp 18 S; Temp 98.8(O); Pulse Ox 100% on R/A; Weight 63.5 kg aa5 (R); Height 5 ft. 4 in. (162.56 cm) (R); Pain 9/10; 13:55 BP 144 / 91; Pulse 87; Resp 16; Pulse Ox 98% ; bp 12:25 Body Mass Index 24.03 (63.50 kg, 162.56 cm) aa5 ED Course: 12:14 Patient arrived in ED. mr 12:14 None, None is Private Physician. mr 12:20 Aw[facility] kb 12:20 Jorge A Lira MD is Attending Physician. kb 12:25 Triage completed. aa5 12:25 Arm band placed on. aa5 12:28 Mando Parker, RN is Primary Nurse. bp 13:00 Inserted saline lock: 20 gauge in right forearm, using aseptic technique. Blood bp collected. 13:20 Patient has correct armband on for positive identification. Bed in low position. Call bp light in reach. Side rails up X2. Adult w/ patient. 13:51 CT Abd/Pelvis - W/Contrast In Process Unspecified. EDMS 14:59 No provider procedures requiring assistance completed. IV discontinued, intact, iw bleeding controlled, No redness/swelling at site. Pressure dressing applied. Administered Medications: 13:00 Drug: Reglan 10 mg Route: IVP; Site: right forearm; bp 13:56 Follow up: Response: No adverse reaction; Pain is decreased bp 13:00 Drug: fentaNYL (PF) 50 mcg Route: IVP; Site: right forearm; bp 13:56 Follow up: Response: No adverse reaction; Pain is decreased bp Outcome: 14:34 Discharge ordered by MD. choudhary 14:59 Discharged to home ambulatory, with family. iw 14:59 Condition: good 14:59 Discharge instructions given to patient, family, Instructed on discharge instructions, follow up and referral plans. medication usage, Demonstrated understanding of instructions, follow-up care, medications, Prescriptions given X 2. 14:59 Patient left the ED. iw Signatures: Dispatcher [employer] EDMS Awilda Joseph, GROUP CIO-C GROUP CIO-Melina Gentile mr Carley Abdi, RN RN iw Juana Martin, RN RN aa5 Mando Parker, RN RN bp
[2018-07-06 15:19] VITALS: TEMP 98.8
[2018-07-06 15:21] VITALS: BP 144/91; O2SAT 98
== END 2018-07-06 14:59 | disposition home or self-care (01) ==
LOC: ER 12:10
DX: R10.10 Upper abdominal pain, unspecified (principal); E11.9 Type 2 diabetes mellitus without complications; Z88.5 Allergy status to narcotic agent; Z88.6 Allergy status to analgesic agent; Z88.8 Allergy status to other drugs, medicaments and biological substances
CPT/HCPCS: 36415; 74177; 80048; 80076; 83690; 85025; 96374; 96375; 99284; Q9967

== ENCOUNTER 2019-06-23 03:34 | Emergency (ER) | payer OTHER, SELFPAY ==
[2019-06-23] MEDS ORDERED: ALBUTEROL 2.5 MG/3 ML NEB SOL ONE (03:58)
[2019-06-23] MEDS ORDERED: IPRATROPIUM BROM 0.5MG/2.5ML ONE (03:58)
[2019-06-23] MEDS ORDERED: KETOROLAC 30 MG/ML INJ ONE (03:58)
--- NOTE | 2019-06-23 05:11 | EDPHYS ---
Physician Documentation [facility] Name: Florentino Acosta Age: 53 yrs Sex: Male : 1965 Arrival Date: 06/23/2019 Time: 03:36 Bed 7 Private MD: ED Physician Fer Carmona HPI: 06/23 05:03 This 53 yrs old Male presents to ER via Ambulatory with complaints of tw4 Congestion. 05:03 The patient or guardian reports cough. Onset: The symptoms/episode began/occurred last tw4 week. Severity of symptoms: At their worst the symptoms were mild, in the emergency department the symptoms are unchanged. Modifying factors: The symptoms are alleviated by nothing, the symptoms are aggravated by nothing. The patient has not experienced similar symptoms in the past. Historical: - Allergies: 03:54 Codeine; aa1 03:54 Hydrocodone-Acetaminophen; aa1 03:54 Vioxx; aa1 03:54 Zoloft; aa1 - PMHx: 03:54 Back pain; High Cholesterol; H.Pylori; Gastroparesis; Diabetes - NIDDM; Chronic pain; aa1 bowel obstruction; Hyperlipidemia; Myocardial infarction; neuropathy; - PSHx: 03:54 Cholecystectomy; aa1 - Immunization history:: Flu vaccine is not up to date. - Social history:: Smoking status: Patient/guardian denies using tobacco. - Ebola Screening: : Patient denies exposure to infectious person Patient denies travel to an Ebola-affected area in the 21 days before illness onset. ROS: 05:03 Constitutional: Negative for fever, chills, and weight loss, Eyes: Negative for injury, tw4 pain, redness, and discharge, Cardiovascular: Negative for chest pain, palpitations, and edema, Abdomen/GI: Negative for abdominal pain, nausea, vomiting, diarrhea, and constipation, Back: Negative for injury and pain, MS/Extremity: Negative for injury and deformity, Skin: Negative for injury, rash, and discoloration, Neuro: Negative for headache, weakness, numbness, tingling, and seizure. 05:03 Respiratory: Positive for cough, shortness of breath. Exam: 05:03 Constitutional: This is a well developed, well nourished patient who is awake, alert, tw4 and in no acute distress. Head/Face: Normocephalic, atraumatic. Chest/axilla: Normal chest wall appearance and motion. Nontender with no deformity. No lesions are appreciated. Cardiovascular: Regular rate and rhythm with a normal S1 and S2. No gallops, murmurs, or rubs. Normal PMI, no JVD. No pulse deficits. Respiratory: Lungs have equal breath sounds bilaterally, clear to auscultation and percussion. No rales, rhonchi or wheezes noted. No increased work of breathing, no retractions or nasal flaring. Abdomen/GI: Soft, non-tender, with normal bowel sounds. No distension or tympany. No guarding or rebound. No evidence of tenderness throughout. Back: No spinal tenderness. No costovertebral tenderness. Full range of motion. MS/ Extremity: Pulses equal, no cyanosis. Neurovascular intact. Full, normal range of motion. Neuro: Awake and alert, GCS 15, oriented to person, place, time, and situation. Cranial nerves II-XII grossly intact. Motor strength 5/5 in all extremities. Sensory grossly intact. Cerebellar exam normal. Normal gait. Vital Signs: 03:54 BP 179 / 102; Pulse 91; Resp 18; Temp 98.1; Pulse Ox 100% on R/A; Weight 73.94 kg; aa1 Height 5 ft. 4 in. (162.56 cm); Pain 0/10; 04:35 BP 165 / 95; Pulse 88; Resp 18; Pulse Ox 99% on R/A; ea 03:54 Body Mass Index 27.98 (73.94 kg, 162.56 cm) aa1 MDM: 03:49 Patient medically screened. tw4 05:03 Differential Diagnosis: Obstructed Airway Bronchitis Otitis Media Allergic Rhinitis. tw4 Data reviewed: vital signs, nurses notes. Data interpreted: campus monitor: rhythm is normal sinus rhythm, Pulse oximetry: Interpretation: normal. Counseling: I had a detailed discussion with the patient and/or guardian regarding: the historical points, exam findings, and any diagnostic results supporting the discharge/admit diagnosis, lab results, radiology results. 06/23 04:22 Order name: Strep lp1 06/23 05:00 Order name: Throat Culture EDMS EC:03 Rate is 60 beats/min. Rhythm is regular. QRS [place] is Normal. [place] interval is normal. QRS tw4 interval is normal. QT interval is normal. No Q waves. T waves are Normal. ST Segment is elevated in leads II, III, aVF, V3, V4, V5, V6, <1mm. Clinical impression: pericarditis. Interpreted by me. Reviewed by me. Administered Medications: 04:03 Drug: Albuterol - atroVENT (3:1) (2.5 mg - 0.5 mg) 3 ml Route: Nebulizer; ea 04:34 Follow up: Response: No adverse reaction ea 04:04 Not Given (Other Intervention Used): TORadol 30 mg IVP once ea 04:07 Drug: TORadol 30 mg Route: IM; Site: right deltoid; ea 04:52 Follow up: Response: No adverse reaction ea Disposition: 06/23/19 05:11 Discharged to Home. Impression: Acute bronchitis. - Condition is Stable. - Discharge Instructions: Acute Bronchitis, Adult. - Prescriptions for Tessalon Perles 100 mg Oral Capsule - take 1 capsule by ORAL route every 8 hours As needed; 15 capsule. Albuterol Sulfate 90 mcg/actuation - inhale 1-2 puff by INHALATION route every 4-6 hours; 1 Inhaler. - Work release form, Medication Reconciliation Form, Thank You Letter, Antibiotic Education, Prescription Opioid Use form. - Follow up: Private Physician; When: Upon discharge from the Emergency Department; Reason: Recheck today's complaints, Continuance of care. - Problem is new. - Symptoms have improved. Signatures: Dispatcher [employer] EDMS Jena Bahena RN RN aa1 Yanet Irene RN RN lp1 Abby Chavez RN RN Fer Leonard MD MD tw4 Corrections: (The following items were deleted from the chart) 05:25 05:11 06/23/2019 05:11 Discharged to Home. Impression: Acute bronchitis. Condition is ea Stable. Forms are Medication Reconciliation Form, Thank You Letter, Antibiotic Education, Prescription Opioid Use. Follow up: Private Physician; When: Upon discharge from the Emergency Department; Reason: Recheck today's complaints, Continuance of care. Problem is new. Symptoms have improved. tw4
--- NOTE | 2019-06-23 05:11 | ER ---
Nurse's Notes [facility] Name: Florentino Acosta Age: 53 yrs Sex: Male : 1965 Arrival Date: 06/23/2019 Time: 03:36 Bed 7 Private MD: Diagnosis: Acute bronchitis Presentation: 06/23 03:52 Presenting complaint: Patient states: productive cough and congestion x 1 week. aa1 Transition of care: patient was not received from another setting of care. Onset of symptoms was June 16, 2019. Risk Assessment: Do you want to hurt yourself or someone else? Patient reports no desire to harm self or others. Initial Sepsis Screen: Does the patient meet any 2 criteria? No. Patient's initial sepsis screen is negative. Does the patient have a suspected source of infection? Yes: Productive cough/pneumonia. Care prior to arrival: None. 03:52 Method Of Arrival: Ambulatory aa1 03:52 Acuity: RAMSES 3 aa1 Triage Assessment: 03:54 General: Appears in no apparent distress. comfortable, Behavior is calm, cooperative, aa1 appropriate for age. Pain: Denies pain. Historical: - Allergies: 03:54 Codeine; aa1 03:54 Hydrocodone-Acetaminophen; aa1 03:54 Vioxx; aa1 03:54 Zoloft; aa1 - PMHx: 03:54 Back pain; High Cholesterol; H.Pylori; Gastroparesis; Diabetes - NIDDM; Chronic pain; aa1 bowel obstruction; Hyperlipidemia; Myocardial infarction; neuropathy; - PSHx: 03:54 Cholecystectomy; aa1 - Immunization history:: Flu vaccine is not up to date. - Social history:: Smoking status: Patient/guardian denies using tobacco. - Ebola Screening: : Patient denies exposure to infectious person Patient denies travel to an Ebola-affected area in the 21 days before illness onset. Screenin:09 Abuse screen: Denies threats or abuse. Nutritional screening: No deficits noted. ea Tuberculosis screening: No symptoms or risk factors identified. Fall Risk None identified. Assessment: 04:00 General: Appears uncomfortable, Behavior is calm, cooperative, appropriate for age. ea Neuro: Level of Consciousness is awake, alert, obeys commands, Oriented to person, place, time. Cardiovascular: Patient's skin is warm and dry. Respiratory: Airway is patent Respiratory effort is even, unlabored, Respiratory pattern is regular, symmetrical, Breath sounds are clear bilaterally. EENT: Reports difficulty swallowing nasal congestion. 04:35 Reassessment: Patient and/or family updated on plan of care and expected duration. Pain ea level reassessed. Patient is alert, oriented x 3, equal unlabored respirations, skin warm/dry/pink. Awaiting on strep results. 05:20 Reassessment: Patient and/or family updated on plan of care and expected duration. Pain ea level reassessed. Patient is alert, oriented x 3, equal unlabored respirations, skin warm/dry/pink. Discharge instruction given to patient, verbalized the understanding of instruction. Pt left ED ambulatory tolerating well. Vital Signs: 03:54 BP 179 / 102; Pulse 91; Resp 18; Temp 98.1; Pulse Ox 100% on R/A; Weight 73.94 kg; aa1 Height 5 ft. 4 in. (162.56 cm); Pain 0/10; 04:35 BP 165 / 95; Pulse 88; Resp 18; Pulse Ox 99% on R/A; ea 03:54 Body Mass Index 27.98 (73.94 kg, 162.56 cm) aa1 ED Course: 03:36 Patient arrived in ED. ds1 03:49 Fer Carmona MD is Attending Physician. tw4 03:54 Triage completed. aa1 03:54 Arm band placed on right wrist. Patient placed in an exam room, on a stretcher. aa1 04:07 Abby Chavez, RN is Primary Nurse. ea 04:09 Patient has correct armband on for positive identification. Bed in low position. Call ea light in reach. 05:15 No provider procedures requiring assistance completed. Patient did not have IV access ea during this emergency room visit. Administered Medications: 04:03 Drug: Albuterol - atroVENT (3:1) (2.5 mg - 0.5 mg) 3 ml Route: Nebulizer; ea 04:34 Follow up: Response: No adverse reaction ea 04:04 Not Given (Other Intervention Used): TORadol 30 mg IVP once ea 04:07 Drug: TORadol 30 mg Route: IM; Site: right deltoid; ea 04:52 Follow up: Response: No adverse reaction ea Outcome: 05:11 Discharge ordered by . tw4 05:20 Condition: stable ea 05:20 Discharge instructions given to patient, Instructed on discharge instructions, follow up and referral plans. medication usage, Demonstrated understanding of instructions, follow-up care, medications, Prescriptions given X 2. 05:20 Discharged to home ambulatory. ea 05:25 Patient left the ED. ea Signatures: Jena Bahena, RN RN aa1 Ambika Bullock ds1 Abby Chavez RN RN Fer Leonard MD MD tw4
[2019-06-23 05:29] VITALS: TEMP 98.1
[2019-06-23 05:31] VITALS: BP 165/95; O2SAT 99
== END 2019-06-23 05:25 | disposition home or self-care (01) ==
LOC: ER 03:34
DX: J20.9 Acute bronchitis, unspecified (principal); Z88.6 Allergy status to analgesic agent; Z88.8 Allergy status to other drugs, medicaments and biological substances
CPT/HCPCS: 87070; 87081; 94640; 96372; 99284

== ENCOUNTER 2019-07-08 09:02 | Observation (INO) | payer OTHER ==
[2019-07-08] MEDS ORDERED: METOCLOPRAMIDE 10 MG/2mL INJ ONE (09:55)
[2019-07-08] MEDS ORDERED: FAMOTIDINE 20 MG/2 ML VIAL IV ONE (09:55)
[2019-07-08] MEDS ORDERED: NA CHLORIDE 0.9% 1,000 ML ONE (09:55)
[2019-07-08] MEDS ORDERED: LORazepam 2 MG/ML VIAL ONE (09:55)
[2019-07-08] MEDS ORDERED: DIPHENHYDRAMINE 50 MG/ML VIAL ONE (09:55)
[2019-07-08 10:05] LABS: Absolute Lymphocytes (CBC) 1.2 K/uL (0.7-4.9); Basophils % 0.7 % (0-1.3); Hematocrit 38.2 % (39.6-49.0); Lymphocytes % 9.9 % (15.3-44.8); MPV 10.3 fL (7.6-11.3); RBC Red Blood Cell Count 4.56 M/uL (4.33-5.43)
[2019-07-08 10:22] LABS: Albumin 2.9 g/dL (3.4-5.0); Bilirubin Direct 0.1 mg/dL (0-0.2); Bilirubin Total 0.5 mg/dL (0.2-1.0); Potassium 4.4 mmol/L (3.5-5.1); Protein, Total 7.1 g/dL (6.4-8.2)
[2019-07-08 11:06] LABS: Urine Blood 2+ (NEG); Urine Glucose TRACE (NEG); Urine Protein 3+ (NEG)
--- NOTE | 2019-07-08 11:23 | RAD REPORT ---
EXAM DESCRIPTION: CT - Abdomen Pelvis W Contrast - 07/08/2019 11:00 am CLINICAL HISTORY: Abdominal pain COMPARISON: 2018 TECHNIQUE: Computed axial tomography of the abdomen pelvis was obtained. 100 cc Isovue-300 was admin istered intravenously. Oral contrast was not requested which limits evaluation of bowel. All CT scans are performed using dose optimization technique as appropriate and may include automated exposure control or mA/KV adjustment according to patient size. FINDINGS: The liver, spleen, pancreas, adrenal and kidneys appear unremarkable. There is no evidence of diverticulitis. Normal appendix Cholecystectomy Mild dilatation of ileum. Colonic caliber is normal No free air. No abscess. Small left inguinal hernia. Mild enlargement of the prostate gland. Trace am ount of free fluid IMPRESSION: Mild dilatation of ileum may indicate an enteritis or mechanical small bowel obstruction . Followup abdominal plain film series would be helpful for re-evaluation.
--- NOTE | 2019-07-08 11:56 | ER ---
Nurse's Notes [facility] Name: Florentino Acosta Age: 53 yrs Sex: Male : 1965 Arrival Date: 07/08/2019 Time: 09:14 Bed 20 Private MD: Diagnosis: Small Bowel Obstruction Presentation: 07/08 09:14 Presenting complaint: EMS states: RUQ abd pain and diarrhea since yesterday, HTN on jl7 arrival at 190/100, gave 5 mg Labetalol IVP and 1000 mg IV Tylenol for pain. Transition of care: patient was not received from another setting of care. Onset of symptoms was July 07, 2019. Risk Assessment: Do you want to hurt yourself or someone else? Patient reports no desire to harm self or others. Initial Sepsis Screen: Does the patient meet any 2 criteria? No. Patient's initial sepsis screen is negative. Does the patient have a suspected source of infection? No. Patient's initial sepsis screen is negative. Care prior to arrival: Medication(s) given: 5 mg Labatelol IVP and 1000 mg Tylenol IVP IV initiated. 20 GA, in the left forearm. 09:14 Method Of Arrival: EMS: [facility] 09:14 Acuity: RAMSES 3 jl7 Triage Assessment: 09:19 General: Appears in no apparent distress. uncomfortable, Behavior is cooperative, jl7 agitated, anxious. Pain: Complains of pain in right upper quadrant Pain does not radiate. Pain currently is 0 out of 10 on a pain scale. at worst was 10 out of 10 on a pain scale. Quality of pain is described as PAIN Pain began 1 day ago. Is continuous. Neuro: Level of Consciousness is awake, alert, obeys commands, Oriented to person, place, time, situation. Cardiovascular: Patient's skin is warm and dry. Respiratory: Airway is patent Respiratory effort is even, unlabored, Respiratory pattern is regular, symmetrical. GI: Abdomen is non-distended, Bowel sounds present X 4 quads. Reports diarrhea. Derm: Skin is pink, warm \T\ dry. Historical: - Allergies: 09:18 Codeine; jl7 09:18 Hydrocodone-Acetaminophen; jl7 09:18 Vioxx; jl7 09:18 Zoloft; jl7 - Home Meds: 09:18 aspirin 81 mg Oral TbEC [Active]; Novolin 70/30 [place] Sub-Q 70-30 unit/mL [Active]; jl7 14:14 gabapentin 800 mg oral tab 1 tab 3 times per day [Active]; metformin 1,000 mg oral tab jl7 1 tab 2 times per day [Active]; metoprolol tartrate 25 mg Oral tab 1 tab 2 times per day [Active]; Livalo 4 mg oral tab 1 tab once daily [Active]; Albuterol Inhl [Active]; Zofran (as hydrochloride) 4 mg Oral tab [Active]; dicyclomine 10 mg Oral cap 1 cap 4 times per day [Active]; metoclopramide HCl 10 mg Oral tab 1 tab 4 times per day [Active]; pantoprazole 40 mg oral TbEC 1 tab 2 times per day [Active]; benzonatate 100 mg oral cap 1 cap 3 times per day [Active]; glipizide 5 mg Oral tab 1 tab 2 times per day [Active]; - PMHx: 09:18 Back pain; bowel obstruction; Chronic pain; Diabetes - NIDDM; Gastroparesis; H.Pylori; jl7 High Cholesterol; Hyperlipidemia; Myocardial infarction; neuropathy; - PSHx: 09:18 Cholecystectomy; jl7 - Immunization history:: Adult Immunizations up to date. - Social history:: Smoking status: Patient/guardian denies using tobacco. - Ebola Screening: : No symptoms or risks identified at this time. Screenin:00 Abuse screen: Denies threats or abuse. Denies injuries from another. Nutritional jl7 screening: No deficits noted. Tuberculosis screening: No symptoms or risk factors identified. Fall Risk IV access (20 points). Total Jara Fall Scale indicates No Risk (0-24 pts). Assessment: 09:20 General: See triage assessment. jl7 10:20 Reassessment: Patient appears in no apparent distress at this time. No changes from jl7 previously documented assessment. Patient and/or family updated on plan of care and expected duration. Pain level reassessed. Patient is alert, oriented x 3, equal unlabored respirations, skin warm/dry/pink. 11:28 Reassessment: Patient appears in no apparent distress at this time. Patient and/or jl7 family updated on plan of care and expected duration. Pain level reassessed. pt laying in bed with eyes closed, respirations even and unlabored, no signs of distress noted at this time. Patient denies pain at this time. 12:19 Reassessment: Patient appears in no apparent distress at this time. No changes from jl7 previously documented assessment. Patient and/or family updated on plan of care and expected duration. Pain level reassessed. Patient is alert, oriented x 3, equal unlabored respirations, skin warm/dry/pink. Patient states feeling better. Patient states symptoms have improved. 13:00 Reassessment: Patient appears in no apparent distress at this time. Patient and/or jl7 family updated on plan of care and expected duration. Pain level reassessed. Patient is alert, oriented x 3, equal unlabored respirations, skin warm/dry/pink. 14:00 Reassessment: Patient appears in no apparent distress at this time. Patient and/or jl7 family updated on plan of care and expected duration. Pain level reassessed. Patient is alert, oriented x 3, equal unlabored respirations, skin warm/dry/pink. Patient denies pain at this time. 15:00 Reassessment: Patient appears in no apparent distress at this time. Patient and/or jl7 family updated on plan of care and expected duration. Pain level reassessed. Patient is alert, oriented x 3, equal unlabored respirations, skin warm/dry/pink. Vital Signs: 09:18 BP 177 / 100; Pulse 93; Resp 19 S; Pulse Ox 100% on R/A; Weight 76.2 kg (R); Pain 0/10; jl7 10:21 BP 180 / 106; Pulse 90; Resp 17 S; Temp 98.7(O); Pulse Ox 100% on R/A; jl7 11:28 BP 162 / 102; Pulse 89; Resp 16 S; Pulse Ox 100% on R/A; jl7 14:03 BP 177 / 100; Pulse 88; Resp 18; Temp 98.2(O); Pulse Ox 99% on R/A; 5 ED Course: 09:14 Patient arrived in ED. 7 09:15 Derek Kennedy PA is PHCP. [facility] 09:15 Stefano Avila MD is Attending Physician. [facility] 09:17 Triage completed. jl7 09:18 Arm band placed on right wrist. jl7 09:44 Bruno Moss, LARRY is Primary Nurse. jl7 09:45 Maintain EMS IV. Dressing intact. Good blood return noted. Site clean \T\ dry. Gauge \T\ jl 7 site: 20 left FA. 10:18 Initial lab(s) drawn, by me, sent to lab. Urine collected: clean catch specimen, clear. jl7 11:14 CT Abd/Pelvis - IV Contrast Only In Process Unspecified. EDMS 11:55 Cristo Nuñez is Hospitalizing Provider. [facility] 12:00 Patient has correct armband on for positive identification. Placed in gown. Bed in low jl7 position. Call light in reach. Side rails up X 1. library monitor on. Pulse ox on. NIBP on. Warm blanket given. 14:00 Assisted to bedside commode. jl7 15:16 No provider procedures requiring assistance completed. Patient admitted, IV remains in jl7 place. intact, No redness/swelling at site. Administered Medications: 10:10 Drug: NS 0.9% 1000 ml Route: IV; Rate: 1 bolus; Site: left forearm; jl7 11:30 Follow up: Response: No adverse reaction; IV Status: Completed infusion jl7 11:30 Follow up: IV Status: Completed infusion jl7 10:11 Drug: Reglan 10 mg Route: IVP; Site: left forearm; jl7 10:30 Follow up: Response: No adverse reaction jl7 10:13 Drug: Pepcid 20 mg Route: IVP; Site: left forearm; jl7 10:30 Follow up: Response: No adverse reaction jl7 10:14 Drug: Benadryl 25 mg Route: IVP; Site: left forearm; jl7 10:30 Follow up: Response: No adverse reaction jl7 10:15 Drug: Ativan 1 mg Route: IVP; Site: left forearm; jl7 10:30 Follow up: Response: No adverse reaction jl7 12:10 Drug: Flagyl 500 mg Volume: 100 ml; Route: IVPB; Rate: 200 ml/hr; Infused Over: 30 jl7 mins; Site: left forearm; 12:40 Follow up: IV Status: Completed infusion jl7 12:11 Drug: Cipro 400 mg Volume: 200 ml; Route: IVPB; Infused Over: 60 mins; Site: left jl7 forearm; 13:10 Follow up: Response: No adverse reaction; IV Status: Completed infusion jl7 Outcome: 11:56 Decision to Hospitalize by Provider. katie 15:16 Discharged to home ambulatory. jl7 15:16 Condition: stable 15:16 Discharge instructions given to patient, family, Instructed on the need for admit, Demonstrated understanding of instructions. 15:27 Patient left the ED. jl7 Signatures: Dispatcher [employer] EDDerek Hadley PA PA jmm Martinez, [facility] Bruno Moss RN RN jl7 Corrections: (The following items were deleted from the chart) 14:14 09:18 Home Meds: diazepam 5 mg Oral tab; 7 jl7 14:14 09:18 Home Meds: gabapentin 300 mg Oral cap; 7 jl7 14:14 09:18 Home Meds: metformin 500 mg Oral tab 1 tab 2 times per day; 7 jl7 14:14 09:18 Home Meds: metoprolol tartrate 25 mg Oral tab; 7 jl7 14:14 09:18 Home Meds: tramadol 50 mg Oral tab; 7 jl7
--- NOTE | 2019-07-08 11:57 | EDPHYS ---
Physician Documentation [facility] Name: Florentino Acosta Age: 53 yrs Sex: Male : 1965 Arrival Date: 07/08/2019 Time: 09:14 Bed 20 Private MD: ED Physician Stefano Avila HPI: 07/08 09:42 This 53 yrs old Male presents to ER via EMS with complaints of Abdominal Pain. [facility] 09:42 The patient presents with abdominal pain. Onset: The symptoms/episode began/occurred jmm gradually, 2 day(s) ago. The symptoms do not radiate. Associated signs and symptoms: Pertinent positives: nausea and vomiting, diarrhea. The symptoms are described as achy. This is a 53 year old male with a history of gastroparesis, DM, that presents to the ED with complaints of intermittent abdominal pain beginning 2 days ago after strenuous activity. Patient states having episodes of diarrhea since with worsening abdominal pain today. . Historical: - Allergies: 09:18 Codeine; jl7 09:18 Hydrocodone-Acetaminophen; jl7 09:18 Vioxx; jl7 09:18 Zoloft; jl7 - Home Meds: 09:18 aspirin 81 mg Oral TbEC [Active]; Novolin 70/30 [place] Sub-Q 70-30 unit/mL [Active]; jl7 14:14 gabapentin 800 mg oral tab 1 tab 3 times per day [Active]; metformin 1,000 mg oral tab jl7 1 tab 2 times per day [Active]; metoprolol tartrate 25 mg Oral tab 1 tab 2 times per day [Active]; Livalo 4 mg oral tab 1 tab once daily [Active]; Albuterol Inhl [Active]; Zofran (as hydrochloride) 4 mg Oral tab [Active]; dicyclomine 10 mg Oral cap 1 cap 4 times per day [Active]; metoclopramide HCl 10 mg Oral tab 1 tab 4 times per day [Active]; pantoprazole 40 mg oral TbEC 1 tab 2 times per day [Active]; benzonatate 100 mg oral cap 1 cap 3 times per day [Active]; glipizide 5 mg Oral tab 1 tab 2 times per day [Active]; - PMHx: 09:18 Back pain; bowel obstruction; Chronic pain; Diabetes - NIDDM; Gastroparesis; H.Pylori; jl7 High Cholesterol; Hyperlipidemia; Myocardial infarction; neuropathy; - PSHx: 09:18 Cholecystectomy; jl7 - Immunization history:: Adult Immunizations up to date. - Social history:: Smoking status: Patient/guardian denies using tobacco. - Ebola Screening: : No symptoms or risks identified at this time. ROS: 09:42 Constitutional: Negative for fever, chills, and weight loss, Cardiovascular: Negative [facility] for chest pain, palpitations, and edema, Respiratory: Negative for shortness of breath, cough, wheezing, and pleuritic chest pain. 09:42 Abdomen/GI: Positive for abdominal pain, nausea and vomiting, diarrhea. 09:42 All other systems are negative. Exam: 09:42 Head/Face: atraumatic. Eyes: EOMI, no conjunctival erythema appreciated ENT: Moist jmm Mucus Membranes Neck: Trachea midline, Supple Chest/axilla: Normal chest wall appearance and motion. Cardiovascular: Regular rate and rhythm. No edema appreciated Respiratory: Normal respirations, no respiratory distress appreciated 09:42 Constitutional: The patient appears alert, awake, anxious, in obvious pain. 09:42 Abdomen/GI: Inspection: abdomen appears normal, Bowel sounds: normal, Palpation: soft, moderate abdominal tenderness, in the right upper quadrant. 09:42 Musculoskeletal/extremity: ROM: intact in all extremities. 09:42 Skin: Appearance: Color: normal in color. 09:42 Neuro: Orientation: is normal, Mentation: is normal, Memory: is normal. 09:42 Psych: Behavior/mood is pleasant, cooperative. Vital Signs: 09:18 BP 177 / 100; Pulse 93; Resp 19 S; Pulse Ox 100% on R/A; Weight 76.2 kg (R); Pain 0/10; jl7 10:21 BP 180 / 106; Pulse 90; Resp 17 S; Temp 98.7(O); Pulse Ox 100% on R/A; jl7 11:28 BP 162 / 102; Pulse 89; Resp 16 S; Pulse Ox 100% on R/A; jl7 14:03 BP 177 / 100; Pulse 88; Resp 18; Temp 98.2(O); Pulse Ox 99% on R/A; 5 MDM: 09:39 Patient medically screened. katie 11:54 Data reviewed: vital signs, nurses notes. Counseling: I had a detailed discussion with katie the patient and/or guardian regarding: the historical points, exam findings, and any diagnostic results supporting the discharge/admit diagnosis, lab results, radiology results, the need for further work-up and treatment in the hospital. ED course: I discussed the patient with Dr. Hunter whom will consult on admission. I discussed the patient with Dr. Nuñez whom accepted admission. . 07/08 09:15 Order name: Basic Metabolic Panel; Complete Time: 10:50 [facility] 07/08 09:15 Order name: CBC with Diff; Complete Time: 10:20 [facility] 07/08 09:15 Order name: Creatinine for Radiology; Complete Time: 10:20 [facility] 07/08 09:15 Order name: Hepatic Function; Complete Time: 10:50 [facility] 07/08 09:15 Order name: Lipase; Complete Time: 10:50 [facility] 07/08 10:18 Order name: Urine Dipstick--Ancillary (enter results); Complete Time: 11:14 07/08 09:40 Order name: CT Abd/Pelvis - IV Contrast Only; Complete Time: 11:31 [facility] 07/08 09:15 Order name: IV Saline Lock; Complete Time: 09:59 [facility] 07/08 09:15 Order name: Labs collected and sent; Complete Time: 09:59 [facility] 07/08 09:15 Order name: Urine Dipstick-Ancillary (obtain specimen); Complete Time: 10:18 [facility] Administered Medications: 10:10 Drug: NS 0.9% 1000 ml Route: IV; Rate: 1 bolus; Site: left forearm; jl7 11:30 Follow up: Response: No adverse reaction; IV Status: Completed infusion jl7 11:30 Follow up: IV Status: Completed infusion jl7 10:11 Drug: Reglan 10 mg Route: IVP; Site: left forearm; jl7 10:30 Follow up: Response: No adverse reaction jl7 10:13 Drug: Pepcid 20 mg Route: IVP; Site: left forearm; jl7 10:30 Follow up: Response: No adverse reaction jl7 10:14 Drug: Benadryl 25 mg Route: IVP; Site: left forearm; jl7 10:30 Follow up: Response: No adverse reaction jl7 10:15 Drug: Ativan 1 mg Route: IVP; Site: left forearm; jl7 10:30 Follow up: Response: No adverse reaction jl7 12:10 Drug: Flagyl 500 mg Volume: 100 ml; Route: IVPB; Rate: 200 ml/hr; Infused Over: 30 jl7 mins; Site: left forearm; 12:40 Follow up: IV Status: Completed infusion jl7 12:11 Drug: Cipro 400 mg Volume: 200 ml; Route: IVPB; Infused Over: 60 mins; Site: left jl7 forearm; 13:10 Follow up: Response: No adverse reaction; IV Status: Completed infusion jl7 Disposition: 07/09 07:21 Co-signature as Attending Physician, Stefano Avila MD I agree with the assessment and kdr plan of care. Disposition: 07/08/19 11:56 Hospitalization ordered by Cristo Nuñez for Inpatient Admission. Preliminary diagnosis is Small Bowel Obstruction. - Bed requested for Telemetry/MedSurg (Inpatient). - Status is Inpatient Admission. jl7 - Condition is Stable. - Problem is an acute exacerbation. - Symptoms have worsened. UTI on Admission? No Signatures: Dispatcher [employer] EDAL Jessie Burks RN RN Stefano Avila MD MD [facility] Derek Kennedy PA PA jmm Leal, Jahala, RN RN [facility] Peggy Kemp Corrections: (The following items were deleted from the chart) 07/08 12:32 11:56 Hospitalization Ordered by Cristo Nuñez for Inpatient Admission. Preliminary eb diagnosis is Small Bowel Obstruction. Bed requested for Telemetry/MedSurg (Inpatient). Status is Inpatient Admission. Condition is Stable. Problem is an acute exacerbation. Symptoms have worsened. UTI on Admission? No. melvina 14:14 09:18 Home Meds: diazepam 5 mg Oral tab; jl7 jl7 14:14 09:18 Home Meds: gabapentin 300 mg Oral cap; liudmila7 jl7 14:14 09:18 Home Meds: metformin 500 mg Oral tab 1 tab 2 times per day; liudmila jl7 14:14 09:18 Home Meds: metoprolol tartrate 25 mg Oral tab; jl7 jl7 14:14 09:18 Home Meds: tramadol 50 mg Oral tab; jl7 jl7 14:50 12:32 07/08/2019 11:56 Hospitalization Ordered by Cristo Nuñez for Inpatient dw Admission. Preliminary diagnosis is Small Bowel Obstruction. Bed requested for Telemetry/MedSurg (Inpatient). Status is Inpatient Admission. Condition is Stable. Problem is an acute exacerbation. Symptoms have worsened. UTI on Admission? No. eb 15:27 14:50 07/08/2019 11:56 Hospitalization Ordered by Cristo Nuñez for Inpatient jl7 Admission. Preliminary diagnosis is Small Bowel Obstruction. Bed requested for Telemetry/MedSurg (Inpatient). Status is Inpatient Admission. Condition is Stable. Problem is an acute exacerbation. Symptoms have worsened. UTI on Admission? No. dw
[2019-07-08] MEDS ORDERED: CIPROFLOXACIN 400mg IV 400 MG/200 ML BAG IV ONE (12:04)
[2019-07-08] MEDS ORDERED: METRONIDAZOLE 500mg IVPB 500 MG/100 ML BAG IV ONE (12:04)
--- NOTE | 2019-07-08 14:22 | P.HP ---
Certification for Inpatient Patient admitted to: Observation With expected LOS: <2 Midnights Practitioner: I am a practitioner with admitting privileges, knowledge of patient current condition, hospital course, and medical plan of care. Services: Services provided to patient in accordance with Admission requirements found in Title 42 Section 412.3 of the Code of Federal Regulations Patient History Date of Service: 07/08/19 Reason for admission: Nausea and vomiting and diarrhea History of Present Illness: 53-year-old gentleman with a history of diabetes mellitus type 2, gastroparesis on Reglan therapy presented to the emergency department with a complaint of sudden onset of diarrhea and vomiting. Patient reports several episodes of watery diarrhea, nonbloody, non mucoid, and 3 episodes of vomiting. His symptoms were followed by abdominal pain this morning. He stated he has not been able to hold any food or drink in. The patient was here 3 weeks ago and diagnosed with acute bronchitis and prescribed amoxicillin which he completed. In the ED, CT abdomen and pelvis with contrast reported dilatation of the ileum which could suggest enteritis or mechanical obstruction. His serum creatinine is increased which could suggest dehydration. Patient is hospitalized for further management. Allergies rofecoxib [From Vioxx] Allergy (Mild, Verified 05/05/18 22:46) Hives sertraline HCl [From Zoloft] Allergy (Mild, Verified 05/05/18 22:46) Hives hydrocodone Adverse Reaction (Verified 05/05/18 22:46) Hives/Rash Codeine Adverse Reaction (Uncoded 05/05/18 22:48) Itching Home Medications: Aspirin [Aspirin EC 81 MG] 81 mg PO DAILY #90 tablet. 05/06/18 Gabapentin [Neurontin*] 100 mg PO BID PRN #60 cap 05/06/18 Metformin HCl 500 mg PO BID #60 tablet 05/06/18 Metoprolol Tartrate [Lopressor*] 25 mg PO BID 6AM 6PM #60 tab 05/06/18 NPH, Human Insulin Isophane [Humulin N] 10 unit SQ BID #1 bottle 05/06/18 traMADol HCL [Ultram*] 50 mg PO Q6H PRN #10 tab 05/06/18 Insulin 70/30 NPH/Reg Human [Novolin 70/30*] 10 unit SQ BID #1 ml 05/07/18 - Past Medical/Surgical History Diabetic: Yes -: Diabetes mellitus type 2 -: Hypertension -: CAD, no stents -: Diabetic neuropathy -: Cholecystectomy -: Heart catheterization, no stents Psychosocial/ Personal History: Patient is . He has 4 children. 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 Eyes: No eye discharge, Respiratory: No cough, no shortness of breath. CVS: No chest pain, no palpitation, no lightheadedness. Genitourinary: No dysuria, no urinary frequency, no incontinence, no hematuria. Musculoskeletal: No joint pains, or joint swelling, no gait instability. Neurology: No headache, no asymmetric, weakness, no problem with swallowing. Except as documented, all other systems reviewed and negative. Physical Examination - Physical Exam General: Alert, In no apparent distress, Oriented x3 HEENT: Normocephalic, PERRLA, Mucous membr. moist/pink, EOMI Neck: Supple, JVD not distended Respiratory: Clear to auscultation bilaterally, Normal air movement Cardiovascular: No edema, Normal pulses, Regular rate/rhythm, Normal S1 S2, No murmurs Capillary refill: <2 Seconds Gastrointestinal: Normal bowel sounds, Non-distended, Tenderness (Epigastrium and right upper quadrant) Musculoskeletal: No swelling, No erythema Integumentary: No rashes, No erythema Neurological: Normal speech, Normal strength at 5/5 x4 extr, Cranial nerves 3- 12 intact - Studies Laboratory Data (last 24 hrs) 07/08/19 09:52: Creatinine 1.47 H 07/08/19 09:52: WBC 12.1 H, Hgb 12.9 L, Hct 38.2 L, Plt Count 208 07/08/19 09:52: Sodium 139, Potassium 4.4, BUN 18, Creatinine 1.49 H, Glucose 252 H, Total Bilirubin 0.5, AST 21, ALT 22, Alkaline Phosphatase 89, Lipase 192 Assessment and Plan - Problems (Diagnosis) (1) Gastroenteritis Current Visit: Yes Status: Acute (2) History of diabetic gastroparesis Current Visit: Yes Status: Acute (3) Acute renal failure Current Visit: Yes Status: Acute (4) Non-insulin dependent type 2 diabetes mellitus Onset Date: 10/27/14 Current Visit: No Status: Acute - Plan Place under observation Supportive measures with IV hydration IV morphine p.r.n. for pain Start IV ciprofloxacin and Flagyl Hold Reglan Check stool for C. diff due to recent antibiotic use Check stool for leukocytes Hold metformin and glipizide Manage blood sugar with insulin sliding scale Monitor renal function for improvement with IV hydration. - Advance Directives Does patient have a Living Will: No Does patient have a Durable POA for Healthcare: No
[2019-07-08] MEDS ORDERED: ONDANSETRON 4 MG/2 ML VIAL IV PRN (15:28)
[2019-07-08] MEDS ORDERED: ACETAMINOPHEN 500 MG TAB PO PRN (15:28)
[2019-07-08 16:05] VITALS: BMI 27.1
[2019-07-08] MEDS: INSULIN -REGULAR HUMAN 50 UNIT/0.5 ML ML SQ SCH ×2 (16:32→21:00)
[2019-07-08] MEDS: NA CHLORIDE 0.9% 1,000 ML IV SCH (16:32)
[2019-07-08] MEDS: HEPARIN 5000 UNIT/ML 1 ML VIAL SQ SCH (16:33)
[2019-07-08] MEDS: METRONIDAZOLE 500mg IVPB 500 MG/100 ML BAG IV SCH (16:33)
[2019-07-08] MEDS ORDERED: BENZONATATE 100 MG CAP PO PRN (20:51)
[2019-07-08] MEDS: PANTOPRAZOLE 40MG TABLET PO SCH (21:00)
[2019-07-08] MEDS ORDERED: ONDANSETRON 4 MG (ODT) TAB PO SCH (21:00)
[2019-07-08] MEDS ORDERED: INFLUENZA VACCINE (for 3y+) 0.5 ML DOSE IMVAC ONE (21:00)
[2019-07-08] MEDS: DICYCLOMINE HCL 10 MG CAP PO SCH (21:00)
[2019-07-08] MEDS ORDERED: HOME MED 1 EA UNK (Gabapentin [Gabapentin] 800 MG) PO SCH (21:00)
[2019-07-08] MEDS: CIPROFLOXACIN 400mg IV 400 MG/200 ML BAG IV SCH (21:19)
[2019-07-08] MEDS: METOPROLOL TAR 25 MG TAB PO SCH (21:21)
[2019-07-08] MEDS: METOCLOPRAMIDE 5 MG TAB PO SCH (21:23)
[2019-07-08] MEDS: INSULIN 70/30 100 UNITS/ML SQ SCH (22:20)
[2019-07-09] MEDS: METRONIDAZOLE 500mg IVPB 500 MG/100 ML BAG IV SCH ×3 (00:04→16:26)
[2019-07-09] MEDS: HEPARIN 5000 UNIT/ML 1 ML VIAL SQ SCH ×3 (00:04→16:26)
[2019-07-09] MEDS: NA CHLORIDE 0.9% 1,000 ML IV SCH ×2 (00:08→11:28)
[2019-07-09 04:25] LABS: Magnesium 1.9 mg/dL (1.8-2.4); Phosphorus 2.8 mg/dL (2.5-4.9); Potassium 4.4 mmol/L (3.5-5.1)
[2019-07-09 04:26] LABS: Absolute Lymphocytes (CBC) 3.2 K/uL (0.7-4.9); Basophils % 0.7 % (0-1.3); Hematocrit 36.9 % (39.6-49.0); Lymphocytes % 26.7 % (15.3-44.8); MPV 10.7 fL (7.6-11.3); RBC Red Blood Cell Count 4.32 M/uL (4.33-5.43)
[2019-07-09] MEDS: INSULIN -REGULAR HUMAN 50 UNIT/0.5 ML ML SQ SCH ×3 (07:30→16:26)
[2019-07-09] MEDS: METOCLOPRAMIDE 5 MG TAB PO SCH ×2 (07:30→11:30)
[2019-07-09] MEDS: GABAPENTIN 400 MG CAP PO SCH ×2 (09:00→14:00)
[2019-07-09] MEDS ORDERED: ASPIRIN EC 81 MG TAB PO SCH (09:00)
[2019-07-09] MEDS: DICYCLOMINE HCL 10 MG CAP PO SCH ×3 (09:00→16:31)
[2019-07-09 09:34] VITALS: TEMP 97.8
[2019-07-09] MEDS: METOPROLOL TAR 25 MG TAB PO SCH (09:39)
[2019-07-09] MEDS: PANTOPRAZOLE 40MG TABLET PO SCH (09:40)
[2019-07-09] MEDS: INSULIN 70/30 100 UNITS/ML SQ SCH ×2 (09:47→14:00)
[2019-07-09 09:53] VITALS: BP 179/95
[2019-07-09 10:50] VITALS: O2SAT 96
[2019-07-09] MEDS: CIPROFLOXACIN 400mg IV 400 MG/200 ML BAG IV SCH (11:23)
[2019-07-09 11:38] LABS: C.diff Antigen/Toxin Ag neg : Tox neg (NEG : NEG)
--- NOTE | 2019-07-09 18:07 | P.DS ---
Admission Date: 07/08/19 Discharge Date: 07/09/19 Disposition: ROUTINE DISCHARGE Discharge Condition: GOOD Reason for Admission: Nausea and vomiting and diarrhea Consultations: None Procedures: None - Problems (1) Gastroenteritis Current Visit: Yes Status: Acute (2) History of diabetic gastroparesis Current Visit: Yes Status: Acute (3) Acute renal failure Current Visit: Yes Status: Acute (4) Non-insulin dependent type 2 diabetes mellitus Onset Date: 10/27/14 Current Visit: No Status: Acute Brief History of Present Illness: 53-year-old gentleman with a history of diabetes mellitus type 2, gastroparesis on Reglan therapy presented to the emergency department with a complaint of sudden onset of diarrhea and vomiting. Patient reports several episodes of watery diarrhea, nonbloody, non mucoid, and 3 episodes of vomiting. His symptoms were followed by abdominal pain this morning. He stated he was not been able to hold any food or drink in. The patient was here 3 weeks ago and diagnosed with acute bronchitis and prescribed amoxicillin which he completed. In the ED, CT abdomen and pelvis with contrast reported dilatation of the ileum which could suggest enteritis or mechanical obstruction. His serum creatinine was increased which could suggest dehydration. Patient was hospitalized for further management. Hospital Course: Was placed under observation and medical floor. Supportive measures with IV fluids done. The patient also started on IV Cipro and Flagyl. Her symptoms improved within 24 hrs, diarrhea frequency reduced significantly. He reports that his stool is more formed today. Stool for C. diff was negative. I suspect that his diarrhea was introduced by Reglan which he takes for gastroparesis. I recommended he start taking the Reglan until the diarrhea stops and and then he can resume it follow his gastroparesis. He has been up and ambulating. He has no complaints today. Overall he has clinically improved and deemed stable for discharge. Vital Signs/Physical Exam: Temp Pulse Resp BP Pulse Ox 97.8 F 84 18 179/95 H 97 07/09/19 08:00 07/09/19 09:39 07/09/19 08:00 07/09/19 09:39 07/09/19 08:00 General: Alert, In no apparent distress, Oriented x3 HEENT: Mucous membr. moist/pink Neck: Supple Respiratory: Clear to auscultation bilaterally, Normal air movement Cardiovascular: No edema, Regular rate/rhythm, Normal S1 S2 Gastrointestinal: Normal bowel sounds, Soft and benign, Non-distended, No tenderness Musculoskeletal: No swelling Integumentary: No rashes Neurological: Normal speech, Normal strength at 5/5 x4 extr Laboratory Data at Discharge: WBC 12.1 K/uL (4.3-10.9) H 07/09/19 03:37 Hgb 12.5 g/dL (13.6-17.9) L 07/09/19 03:37 Hct 36.9 % (39.6-49.0) L 07/09/19 03:37 Plt Count 220 K/uL (152-406) 07/09/19 03:37 Sodium 146 mmol/L (136-145) H 07/09/19 03:37 Potassium 4.4 mmol/L (3.5-5.1) 07/09/19 03:37 BUN 13 mg/dL (7-18) 07/09/19 03:37 Creatinine 1.45 mg/dL (0.55-1.3) H 07/09/19 03:37 Glucose 88 mg/dL (74-106) 07/09/19 03:37 Phosphorus 2.8 mg/dL (2.5-4.9) 07/09/19 03:37 Magnesium 1.9 mg/dL (1.8-2.4) 07/09/19 03:37 Total Bilirubin 0.5 mg/dL (0.2-1.0) 07/08/19 09:52 AST 21 U/L (15-37) 07/08/19 09:52 ALT 22 U/L (12-78) 07/08/19 09:52 Alkaline Phosphatase 89 U/L (45-117) 07/08/19 09:52 Lipase 192 U/L (73-393) 07/08/19 09:52 Home Medications: Albuterol Sulfate [Albuterol Sulfate Hfa] 1 puff IH Q4HR 07/08/19 Aspirin [Aspirin EC 81 MG] 81 mg PO DAILY 07/08/19 Benzonatate [Tessalon Perle*] 100 mg PO Q6HP PRN 07/08/19 Dicyclomine [Bentyl*] 10 mg PO QID 07/08/19 Gabapentin 800 mg PO TID 07/08/19 Insulin 70/30 NPH/Reg Human [Novolin 70/30*] 20 units SQ TID 07/08/19 Metoprolol Tartrate [Lopressor*] 25 mg PO BID 07/08/19 Ondansetron [Zofran (Odt)*] 4 mg PO Q8HP 07/08/19 Pantoprazole [Protonix Tab*] 40 mg PO BID 07/08/19 Pitavastatin Calcium [Livalo] 4 mg PO DAILY 07/08/19 metroNIDAZOLE [Flagyl] 500 mg PO Q8H #15 tablet 07/09/19 New Medications: metroNIDAZOLE [Flagyl] 500 mg PO Q8H #15 tablet Diet: ADA Activity: Ad evelyn Time spent managing pt's care (in minutes): 25
[2019-07-09] MEDS ORDERED: ATORVASTATIN 20 MG TAB PO SCH (21:00)
--- OUTSIDE RECORDS SUMMARY | 2019-07-12 02:58 | XMS REPORT ---
:1965 [facility] Address [address] [place] [address] Dr. Jimenez [address] [place] [id number] Care Team Providers Name Role Phone Unavailable Unavailable Unavailable Problems This patient has no known problems. Allergies, Adverse Reactions, Alerts This patient has no known allergies or adverse reactions. Medications This patient has no known medications.
== END 2019-07-09 17:00 | disposition home or self-care (01) ==
LOC: ER 09:02 → ERHOLD 14:10 → 4TH 15:16
PROVIDERS: ADMIT Internal Medicine; ATTEND Internal Medicine
DX: K52.9 Noninfective gastroenteritis and colitis, unspecified (principal); N17.9 Acute kidney failure, unspecified; I10 Essential (primary) hypertension; I25.10 Atherosclerotic heart disease of native coronary artery without angina pectoris; E11.40 Type 2 diabetes mellitus with diabetic neuropathy, unspecified
CPT/HCPCS: 36415; 74177; 80048; 80076; 81003; 82947; 83690; 83735; 84100; 85025; 87324; 87449; 94760; 96361; 96365; 96368; 96375; 99284; G0378; J0744; J1200; J1644; J1815; J2765; J7030

== ENCOUNTER 2019-10-07 08:23 | Emergency (ER) | payer OTHER ==
--- OUTSIDE RECORDS SUMMARY | 2019-10-07 08:25 | XMS REPORT ---
:1965 [facility] Address [address] [place] [address] Dr. Jimenez [address] [place] [address] Care Team Providers Name Role Phone Unavailable Unavailable Unavailable Problems This patient has no known problems. Allergies, Adverse Reactions, Alerts This patient has no known allergies or adverse reactions. Medications This patient has no known medications.
[2019-10-07] MEDS ORDERED: NA CHLORIDE 0.9% 1,000 ML ONE (08:58)
[2019-10-07] MEDS ORDERED: ONDANSETRON 4 MG/2 ML VIAL ONE (08:58)
[2019-10-07] MEDS ORDERED: MEPERIDINE HCL 25 MG/0.5 ML ONE (09:07)
[2019-10-07 09:12] LABS: Absolute Lymphocytes (CBC) 1.2 K/uL (0.7-4.9); Basophils % 0.9 % (0-1.3); Hematocrit 38.7 % (39.6-49.0); Lymphocytes % 12.8 % (15.3-44.8); MPV 10.6 fL (7.6-11.3)
[2019-10-07 09:33] LABS: Albumin 2.5 g/dL (3.4-5.0); Bilirubin Direct 0.1 mg/dL (0-0.2); Bilirubin Total 0.3 mg/dL (0.2-1.0); Potassium 4.1 mmol/L (3.5-5.1); Protein, Total 6.3 g/dL (6.4-8.2)
--- NOTE | 2019-10-07 11:10 | RAD REPORT ---
EXAM DESCRIPTION: CT - Abdomen Pelvis Wo Contrast - 10/07/2019 10:49 am CLINICAL HISTORY: Abd pain;Nausea / vomiting patient provided history of gastro paresis, stomach infection and prior cholecystectomy. COMPARISON: Abdomen Pelvis W Contrast dated 07/08/2019 TECHNIQUE: Axial [address] imaging of the abdomen and pelvis was performed without IV contrast. No IV contrast was given because of allergy, abnormal renal function, patient refusal or physician re quest. Oral contrast was given. All CT scans are performed using dose optimization technique as appropriate and may include automated exposure control or mA/KV adjustment according to patient size. FINDINGS: No suspicious findings in the lung bases. The liver, spleen and pancreas show no suspicious findings on non-contrast imaging. Cholecystectomy c lips are present. No biliary tree dilatation. No hydronephrosis or suspicious renal mass. No significant adrenal finding. Isodense renal masses an d pyelonephritis cannot be excluded in the absence of IV contrast. The urinary bladder is without sig nificant finding. No dilatation the stomach. No gastric wall thickening or mass identified. No suspicion for retained f luid within the stomach. Oral contrast has reached the terminal ileum. No small bowel abnormality. Si gmoid colon is mildly tortuous. No colitis or diverticulitis findings. No colon mass or other acute G I process identifiable. No evidence for appendicitis. No free air, free fluid or inflammatory strandi ng. No hernia, mass or bulky lymphadenopathy. No suspicious bony findings. IMPRESSION: Non-contrast enhanced CT abdomen and pelvis imaging show no significant or suspicious fi nding. Full assessment is limited is the absence of IV contrast.
--- NOTE | 2019-10-07 11:47 | ER ---
Nurse's Notes [facility] Name: Florentino Acosta Age: 53 yrs Sex: Male : 1965 Arrival Date: 10/07/2019 Time: 08:27 Bed 5 Private MD: Diagnosis: Gastroparesis;Vomiting, unspecified;Dehydration Presentation: 10/07 08:48 Presenting complaint: Patient states: puking and diarrhea since Friday at 0430, Hx of em gastroparesis, was seen in jun. for a stomach infection, feels similar, denies fever. Transition of care: patient was not received from another setting of care. Onset of symptoms was October 05, 2019. Risk Assessment: Do you want to hurt yourself or someone else? Patient reports no desire to harm self or others. Initial Sepsis Screen: Does the patient meet any 2 criteria? No. Patient's initial sepsis screen is negative. Does the patient have a suspected source of infection? No. Patient's initial sepsis screen is negative. Care prior to arrival: None. 08:48 Method Of Arrival: Ambulatory em 08:48 Acuity: RAMSES 3 em Historical: - Allergies: 08:52 Codeine; em 08:52 Hydrocodone-Acetaminophen; em 08:52 Vioxx; em 08:52 Zoloft; em - Home Meds: 08:52 Albuterol Inhl [Active]; aspirin 81 mg Oral TbEC [Active]; benzonatate 100 mg Oral cap em 1 cap 3 times per day [Active]; dicyclomine 10 mg Oral cap 1 cap 4 times per day [Active]; gabapentin 800 mg Oral tab 1 tab 3 times per day [Active]; glipizide 5 mg Oral tab 1 tab 2 times per day [Active]; Livalo 4 mg Oral tab 1 tab once daily [Active]; metformin 1,000 mg Oral tab 1 tab 2 times per day [Active]; metoclopramide HCl 10 mg Oral tab 1 tab 4 times per day [Active]; metoprolol tartrate 25 mg Oral tab 1 tab 2 times per day [Active]; Novolin 70/30 [place] Sub-Q 70-30 unit/mL [Active]; pantoprazole 40 mg Oral TbEC 1 tab 2 times per day [Active]; Zofran (as hydrochloride) 4 mg Oral tab [Active]; - PMHx: 08:52 Back pain; bowel obstruction; Chronic pain; Diabetes - NIDDM; Gastroparesis; H.Pylori; em High Cholesterol; Hyperlipidemia; Myocardial infarction; neuropathy; - PSHx: 08:52 Cholecystectomy; em - Immunization history:: Last tetanus immunization: unknown, Flu vaccine is not up to date. - Coronavirus screen:: The patient has NOT traveled to [place], [place], or [place] in the past 14 days. The patient has NOT had contact with known/suspected case of Coronavirus?. - Social history:: Smoking status: Patient denies any tobacco usage or history of. - Family history:: not pertinent. - Ebola Screening: : Patient negative for fever greater than or equal to 101.5 degrees Fahrenheit, and additional compatible Ebola Virus Disease symptoms Patient denies exposure to infectious person Patient denies travel to an Ebola-affected area in the 21 days before illness onset No symptoms or risks identified at this time. - Hospitalizations: : No recent hospitalization is reported. Screenin:53 Abuse screen: Denies threats or abuse. Nutritional screening: No deficits noted. em Tuberculosis screening: No symptoms or risk factors identified. Fall Risk None identified. Assessment: 08:52 General: Appears in no apparent distress. comfortable, Behavior is calm, cooperative, em appropriate for age, Denies fever. Pain: Complains of pain in abdomen Pain currently is 8 out of 10 on a pain scale. Pain began 2-3 days ago. Neuro: Level of Consciousness is awake, alert, obeys commands, Oriented to person, place, time, situation, Appropriate for age. Cardiovascular: Capillary refill < 3 seconds Patient's skin is warm and dry. Respiratory: Airway is patent Respiratory effort is even, unlabored, Respiratory pattern is regular, symmetrical. GI: Abdomen is flat, Bowel sounds present X 4 quads. Abd is soft X 4 quads Abdomen is tender to palpation X 4 quads. Reports diarrhea, nausea, vomiting. : Denies burning with urination. Derm: Skin is intact, is healthy with good turgor, Skin is pink, warm \T\ dry. Musculoskeletal: Capillary refill < 3 seconds, Range of motion: intact in all extremities. 09:28 Reassessment: finished drinking PO contrast, tolerated well, CT notified. em 10:57 Reassessment: Patient appears in no apparent distress at this time. Patient and/or em family updated on plan of care and expected duration. Pain level reassessed. Patient is alert, oriented x 3, equal unlabored respirations, skin warm/dry/pink. Patient states feeling better. Patient states symptoms have improved. 12:18 Reassessment: Patient appears in no apparent distress at this time. Patient and/or em family updated on plan of care and expected duration. Pain level reassessed. Patient is alert, oriented x 3, equal unlabored respirations, skin warm/dry/pink. Patient states feeling better. Patient states symptoms have improved. Vital Signs: 08:52 BP 140 / 86; Pulse 77; Resp 18; Pulse Ox 100% on R/A; Weight 70.31 kg; Height 5 ft. 4 em in. (162.56 cm); Pain 8/10; 09:46 BP 153 / 89; Pulse 68; Resp 18; Pulse Ox 100% on R/A; em 10:00 Temp 98.0; em 10:58 BP 148 / 91; Pulse 71; Resp 18; Pulse Ox 99% on R/A; Pain 6/10; em 12:19 BP 137 / 88; Pulse 67; Resp 18; Pulse Ox 98% on R/A; Pain 4/10; em 08:52 Body Mass Index 26.61 (70.31 kg, 162.56 cm) em ED Course: 08:27 Patient arrived in ED. mr 08:43 Jorge A Lira MD is Attending Physician. rn 08:48 Lucas Campbell RN is Primary Nurse. em 08:50 Triage completed. em 08:52 Arm band placed on. em 08:53 Patient has correct armband on for positive identification. Placed in gown. Bed in low em position. Call light in reach. Side rails up X2. Adult w/ patient. Pulse ox on. NIBP on. 09:05 Initial lab(s) drawn, by me, sent to lab. Inserted saline lock: 20 gauge in right em forearm, using aseptic technique. Blood collected. 12:18 No provider procedures requiring assistance completed. IV discontinued, intact, em bleeding controlled, No redness/swelling at site. Pressure dressing applied. Administered Medications: 09:00 Drug: Zofran 4 mg Route: IVP; Site: right forearm; em 10:00 Follow up: Response: No adverse reaction; Marked relief of symptoms; Nausea is decreasedem 09:01 Drug: NS 0.9% 1000 ml Route: IV; Rate: 1000 ml; Site: right forearm; em 11:00 Follow up: IV Status: Completed infusion; IV Intake: 1000ml em 09:08 Drug: Demerol 25 mg Route: IVP; Site: right forearm; em 10:00 Follow up: Response: No adverse reaction; Marked relief of symptoms; Pain is decreased em Intake: 11:00 IV: 1000ml; Total: 1000ml. em Outcome: 11:46 Discharge ordered by . rn 12:18 Discharged to home ambulatory, with family. em 12:18 Condition: good 12:18 Discharge instructions given to patient, family, Instructed on discharge instructions, follow up and referral plans. medication usage, Demonstrated understanding of instructions, follow-up care, medications, Prescriptions given X 1. 12:25 Patient left the ED. em Signatures: Melina Honeycutt mr CampbellLucas, RN RN em Jorge A Lira MD MD rn
--- NOTE | 2019-10-07 11:48 | EDPHYS ---
Physician Documentation [facility] Name: Florentino Acosta Age: 53 yrs Sex: Male : 1965 Arrival Date: 10/07/2019 Time: 08:27 Bed 5 Private MD: ED Physician Jorge A Lira HPI: 10/07 09:03 This 53 yrs old Male presents to ER via Ambulatory with complaints of rn Abdominal Pain, Vomiting/Diarrhea. 09:03 The patient presents to the emergency department with nausea, vomiting, diarrhea, rn abdominal pain. Onset: The symptoms/episode began/occurred 2 day(s) ago. Possible causes: unknown. The symptoms are aggravated by nothing. The symptoms are alleviated by nothing. Severity of symptoms: At their worst the symptoms were moderate in the emergency department the symptoms have improved. The patient has experienced similar episodes in the past. The patient has not recently seen a physician. Reports diffuse abd pain, intermittent, started with vomiting and constipation, now having non-bloody diarrhea, no fever, feels somewhat similar to his gastroparesis. . Historical: - Allergies: 08:52 Codeine; em 08:52 Hydrocodone-Acetaminophen; em 08:52 Vioxx; em 08:52 Zoloft; em - Home Meds: 08:52 Albuterol Inhl [Active]; aspirin 81 mg Oral TbEC [Active]; benzonatate 100 mg Oral cap em 1 cap 3 times per day [Active]; dicyclomine 10 mg Oral cap 1 cap 4 times per day [Active]; gabapentin 800 mg Oral tab 1 tab 3 times per day [Active]; glipizide 5 mg Oral tab 1 tab 2 times per day [Active]; Livalo 4 mg Oral tab 1 tab once daily [Active]; metformin 1,000 mg Oral tab 1 tab 2 times per day [Active]; metoclopramide HCl 10 mg Oral tab 1 tab 4 times per day [Active]; metoprolol tartrate 25 mg Oral tab 1 tab 2 times per day [Active]; Novolin 70/30 [place] Sub-Q 70-30 unit/mL [Active]; pantoprazole 40 mg Oral TbEC 1 tab 2 times per day [Active]; Zofran (as hydrochloride) 4 mg Oral tab [Active]; - PMHx: 08:52 Back pain; bowel obstruction; Chronic pain; Diabetes - NIDDM; Gastroparesis; H.Pylori; em High Cholesterol; Hyperlipidemia; Myocardial infarction; neuropathy; - PSHx: 08:52 Cholecystectomy; em - Immunization history:: Last tetanus immunization: unknown, Flu vaccine is not up to date. - Coronavirus screen:: The patient has NOT traveled to [place], [place], or [place] in the past 14 days. The patient has NOT had contact with known/suspected case of Coronavirus?. - Social history:: Smoking status: Patient denies any tobacco usage or history of. - Family history:: not pertinent. - Ebola Screening: : Patient negative for fever greater than or equal to 101.5 degrees Fahrenheit, and additional compatible Ebola Virus Disease symptoms Patient denies exposure to infectious person Patient denies travel to an Ebola-affected area in the 21 days before illness onset No symptoms or risks identified at this time. - Hospitalizations: : No recent hospitalization is reported. ROS: 09:03 Constitutional: Negative for fever, chills, and weight loss, Eyes: Negative for injury, rn pain, redness, and discharge, Neck: Negative for injury, pain, and swelling, Cardiovascular: Negative for chest pain, palpitations, and edema, Respiratory: Negative for shortness of breath, cough, wheezing, and pleuritic chest pain, Abdomen/GI: Positive for abdominal pain, nausea, vomiting, diarrhea MS/Extremity: Negative for injury and deformity, Skin: Negative for injury, rash, and discoloration, Neuro: Negative for headache, weakness, numbness, tingling, and seizure. Exam: 09:03 Constitutional: This is a well developed, well nourished patient who is awake, alert, rn anxious and tearful Head/Face: Normocephalic, atraumatic. ENT: dry MM Cardiovascular: Regular rate and rhythm. No pulse deficits. Respiratory: No increased work of breathing, no retractions or nasal flaring. Abdomen/GI: soft, + epigastric and LLQ tenderness MS/ Extremity: Pulses equal, no cyanosis. Neurovascular intact. Full, normal range of motion. Equal circumference. Neuro: Awake and alert, GCS 15, oriented to person, place, time, and situation. Vital Signs: 08:52 BP 140 / 86; Pulse 77; Resp 18; Pulse Ox 100% on R/A; Weight 70.31 kg; Height 5 ft. 4 em in. (162.56 cm); Pain 8/10; 09:46 BP 153 / 89; Pulse 68; Resp 18; Pulse Ox 100% on R/A; em 10:00 Temp 98.0; em 10:58 BP 148 / 91; Pulse 71; Resp 18; Pulse Ox 99% on R/A; Pain 6/10; em 12:19 BP 137 / 88; Pulse 67; Resp 18; Pulse Ox 98% on R/A; Pain 4/10; em 08:52 Body Mass Index 26.61 (70.31 kg, 162.56 cm) em MDM: 08:43 Patient medically screened. rn 11:44 Differential diagnosis: Nonspecific abd pain, gastritis, diverticulitis, viral rn gastroenteritis, gastroenteritis, gastroparesis. Data reviewed: vital signs, nurses notes, lab test result(s), radiologic studies, CT scan, and as a result, I will discharge patient. Counseling: I had a detailed discussion with the patient and/or guardian regarding: the historical points, exam findings, and any diagnostic results supporting the discharge/admit diagnosis, lab results, radiology results, the need for outpatient follow up, to return to the emergency department if symptoms worsen or persist or if there are any questions or concerns that arise at home. Response to treatment: the patient's symptoms have markedly improved after treatment, and as a result, I will discharge patient. Special discussion: Based on the patient's Hx, exam, and Dx evaluation, there is no indication for emergent surgery or inpatient Tx. It is understood by the patient/guardian that if the Sx's persist or worsen they need to return immediately for re-evaluation. I discussed with the patient/guardian in detail that at this point there is no indication for admission to the hospital. It is understood, however, that if the symptoms persist or worsen the patient needs to return immediately for re-evaluation. ED course: Pt feels much better, sleeping, will dc home as gastroparesis, neg ct abd.. 10/07 08:45 Order name: Basic Metabolic Panel rn 10/07 08:45 Order name: CBC with Diff rn 10/07 08:45 Order name: Creatinine for rn cardiac cath 10/07 08:45 Order name: Hepatic Function rn 10/07 08:45 Order name: Lipase rn 10/07 09:46 Order name: CBC with Automated Diff; Complete Time: 11:43 EDNE 10/07 08:45 Order name: CT Abd/Pelvis - PO and IV Contrast rn 10/07 09:46 Order name: Basic Metabolic Panel; Complete Time: 11:43 EDNE 10/07 09:46 Order name: Liver (Hepatic) Function; Complete Time: 11:43 EDNE 10/07 09:46 Order name: Lipase; Complete Time: 11:43 EDNE 10/07 09:46 Order name: Creatinine (Radiology Only); Complete Time: 11:43 EDNE 10/07 08:45 Order name: IV Saline Lock; Complete Time: 09:00 rn 10/07 08:45 Order name: Labs collected and sent; Complete Time: 09:00 rn Administered Medications: 09:00 Drug: Zofran 4 mg Route: IVP; Site: right forearm; em 10:00 Follow up: Response: No adverse reaction; Marked relief of symptoms; Nausea is decreasedem 09:01 Drug: NS 0.9% 1000 ml Route: IV; Rate: 1000 ml; Site: right forearm; em 11:00 Follow up: IV Status: Completed infusion; IV Intake: 1000ml em 09:08 Drug: Demerol 25 mg Route: IVP; Site: right forearm; em 10:00 Follow up: Response: No adverse reaction; Marked relief of symptoms; Pain is decreased em Disposition: 10/07/19 11:46 Discharged to Home. Impression: Gastroparesis, Vomiting, unspecified, Dehydration. - Condition is Stable. - Discharge Instructions: Dehydration, Adult, Nausea and Vomiting, Adult. - Prescriptions for Zofran ODT 4 mg Oral tablet,disintegrating - place 1 tablet by TRANSLINGUAL route every 8 hours As needed; 20 tablet. - Medication Reconciliation Form, Thank You Letter, Antibiotic Education, Prescription Opioid Use form. - Follow up: Private Physician; When: As needed; Reason: Recheck today's complaints, Re-evaluation by your physician. - Problem is an acute exacerbation. - Symptoms have improved. Signatures: Dispatcher [employer] Lucas Velazquez, RN RN Jorge A Villagran MD MD enamel burner: (The following items were deleted from the chart) 12:25 11:46 10/07/2019 11:46 Discharged to Home. Impression: Gastroparesis; Vomiting, em unspecified; Dehydration. Condition is Stable. Forms are Medication Reconciliation Form, Thank You Letter, Antibiotic Education, Prescription Opioid Use. Follow up: Private Physician; When: As needed; Reason: Recheck today's complaints, Re-evaluation by your physician. Problem is an acute exacerbation. Symptoms have improved. rn
[2019-10-07 12:53] VITALS: TEMP 98
[2019-10-07 12:56] VITALS: BP 137/88; O2SAT 98
== END 2019-10-07 12:25 | disposition home or self-care (01) ==
LOC: ER 08:23
DX: K31.84 Gastroparesis (principal); R11.10 Vomiting, unspecified; E86.0 Dehydration; E78.5 Hyperlipidemia, unspecified; E78.00 Pure hypercholesterolemia, unspecified; I25.2 Old myocardial infarction; E11.9 Type 2 diabetes mellitus without complications; Z88.6 Allergy status to analgesic agent; Z88.8 Allergy status to other drugs, medicaments and biological substances
CPT/HCPCS: 96361; 85025; 80048; 36415; 80076; 83690; 74176; 96375; 96374; 99284; J2175; J7030; J2405

== ENCOUNTER 2019-12-07 21:57 | Emergency (ER) | payer OTHER ==
[2019-12-08 03:04] VITALS: TEMP 98.6
[2019-12-08 03:11] VITALS: BP 161/95; O2SAT 99
== END 2019-12-08 02:59 | disposition home or self-care (01) ==
LOC: ER 21:57
DX: S92.425A Nondisplaced fracture of distal phalanx of left great toe, initial encounter for closed fracture (principal); Y93.01 Activity, walking, marching and hiking; Y93.89 Activity, other specified; Y92.89 Other specified places as the place of occurrence of the external cause; Z88.5 Allergy status to narcotic agent; Z88.8 Allergy status to other drugs, medicaments and biological substances
CPT/HCPCS: 85025 ×2; 80048 ×2; 36415; 85610 ×2; 85730 ×2; 81003; 73630; 96375; 96374; 99284; J2175 ×2; J2405

== ENCOUNTER 2020-02-11 13:46 | Inpatient (IN) | payer OTHER ==
--- OUTSIDE RECORDS SUMMARY | 2020-02-11 13:49 | XMS REPORT | Continuity of Care Document ---
:1965 Author Organization [facility] t Address [address] [place] [address] Care Team Providers Name Role Phone Kimberley Abraham Attending Clinician Clinton Grissom MD, Jackie Attending Clinician Erasmo Rosas Primary Attending Clinician Unavailable Problems This patient has no known problems. Allergies, Adverse Reactions, Alerts This patient has no known allergies or adverse reactions. Medications This patient has no known medications. Procedures This patient has no known procedures. Encounters Start End Encounter Admission Attending Care Care Encounter Source Date/Time Date/Time Type Type Clinicians Facility Department ID 2020-02-10 2020-02-10 Kimberley Colin [id number] 00:00:00 00:00:00 [facility] [id number] HEALTH [id number] UNIT [id number] 2020-02-03 2020-02-03 Telephone [facility] [id number] 00:00:00 00:00:00 Jaciel, TIA [id number] Jackie ROSAS [id number] CENTER AT [phone] [address] [place] [address] 2020-01-27 2020-01-27 Office [facility] [id number] 10:02:52 11:54:35 Visit [facility] [id number] HEALTH [id number] UNIT [id number] Results This patient has no known results.
--- OUTSIDE RECORDS SUMMARY | 2020-02-11 13:53 | XMS REPORT | Summary of Care ---
:1965 Author Organization [facility] Address [address] [place] [id number] Care Team Providers Name Role Phone LUISA Troy Primary Care Provider Reason for Visit Reason Comments Hyperglycemia (Routine) Status Reason Specialty Diagnoses / Referred By Referred To Procedures Contact Contact Closed Endocrinology Diagnoses Type 2 diabetes mellitus with hyperglycemia, with long-term current use of insulin Kimberley Troy, Diabetes & Metabolism Procedures CONSULT/REFERRAL ENDOCRINOLOGY Diabetes [facility] [address] [place] [address] Encounter Details Date Type Department Care Team Description 12/20/2019 Telemedicine Visit [facility] Buddy Edward Type 2 diabetes mellitus with hyperglycemia, with long-term current use of insulin (Primary Dx); Endocrinology, AMD Gastroparesis [address] [place] [place], [place] [id number] Allergies Active Allergy Reactions Severity Noted Date Comments Hydrocodone Itching 07/16/2018 Rofecoxib Swelling 05/11/2015 Sertraline Hcl Swelling 05/11/2015 documented as of this encounter (statuses as of 12/20/2019) Medications Medication Sig Dispensed Refills Start End Date Status Date aspirin 81 mg EC Take 81 mg by 0 Active tabletIndications: mouth daily. Flu vaccine need, Type 2 diabetes mellitus without complication, without long-term current use of insulin, Essential hypertension, Other hyperlipidemia Pitavastatin Take 1 tablet 30 tablet 2 Act rizwan (LIVALO) 4 mg by mouth at 8 TabIndications: bedtime. Other hyperlipidemia, Flu vaccine need, Type 2 diabetes mellitus without complication, without long-term current use of insulin, Essential hypertension aspirin-caffeine Take by 0 Act rizwan (BJORN BACK AND mouth. BODY) 500-32.5 mg Tab metoprolol tartrate Take 0.5 60 tablet 2 Active 25 mg tablets by 9 tabletIndications: mouth 2 (two) Essential times daily. hypertension pantoprazole Take 1 tablet 60 tablet 2 Act rizwan (PROTONIX) 40 mg EC by mouth 2 9 tabletIndications: (two) times Gastroesophageal daily. reflux disease with esophagitis dicyclomine 10 mg Take 1 90 capsule 3 A ctive capsuleIndications: capsule by 0 Abdominal pain, mouth 4 diffuse (four) times daily as needed for Abdominal pain. pregabalin (LYRICA) Take 1 180 capsule 3 Active 300 mg capsule by 0 capsuleIndications: mouth 2 (two) Neuropathic pain times daily. ketoconazole 2 % Apply to 60 g 1 Act rizwan creamIndications: area(s) 2 0 Tinea cruris (two) times daily. acetaminophen Take by 0 Active (TYLENOL) 325 mg Cap mouth. ondansetron (ZOFRAN) Take 1 tablet 10 tablet 0 Active 4 mg by mouth 0 tabletIndications: every 8 Diabetic (eight) hours gastroparesis as needed for Nausea and Vomiting (N/V). metoclopramide HCl Take 1 tablet 120 tablet 6 Active 10 mg by mouth 0 tabletIndications: before meals Gastroparesis and at bedtime. flash glucose sensor 2 Devices 2 Kit 6 Active (FREESTYLE DUNIA 14 every 14 0 DAY SENSOR) (fourteen) KitIndications: Type days. 2 diabetes mellitus with hyperglycemia, with long-term current use of insulin insulin NPH and inject 30 2 Vial 3 Acti ve regular human 70-30 Units under 0 (NOVOLIN 70/30 U-100 the skin 2 INSULIN) 100 unit/mL (two) times (70-30) daily before injectionIndications breakfast and : Type 2 diabetes dinner. mellitus with hyperglycemia, with long-term current use of insulin metFORMIN 1,000 mg Take 1 tablet 180 tablet 1 Active tabletIndications: by mouth 2 0 Type 2 diabetes (two) times mellitus with daily with hyperglycemia, with meals. long-term current use of insulin metoclopramide HCl Take 1 tablet 120 tablet 6 Discontinued 10 mg by mouth 9 20 (Reorder) tabletIndications: before meals Gastroparesis and at bedtime. flash glucose sensor 2 Devices 2 Kit 6 12/20/19 Discontinued (FREESTYLE DUNIA 14 every 14 9 20 (Reorder) DAY SENSOR) (fourteen) KitIndications: Type days. 2 diabetes mellitus with hyperglycemia, with long-term current use of insulin metFORMIN 1,000 mg Take 1,000 mg 5 0 Discontinued tablet by mouth 2 9 20 (Reorder) (two) times daily with meals. liraglutide 0.6 inject 1.2 mg 3 Syringe 3 12/20/19 Discontinued mg/0.1 mL (18 mg/3 under the 0 20 ( Side effects) mL) skin daily. injectionIndications : Type 2 diabetes mellitus with hyperglycemia, with long-term current use of insulin DULoxetine 30 mg Take 1 180 capsule 3 12/20/19 D iscontinued capsuleIndications: capsule by 0 20 (Side effects) Anxiety about health mouth 2 (two) times daily. 1tab po x 14 days then move up to 2 tabs a day insulin NPH and inject 20 1 Vial 2 12/20/19 Disc ontinued regular human 70-30 Units under 0 20 (Reorder) (NOVOLIN 70/30 U-100 the skin 3 INSULIN) 100 unit/mL (three) times (70-30) daily with injectionIndications meals. : Type 2 diabetes mellitus with hyperglycemia, with long-term current use of insulin documented as of this encounter (statuses as of 12/20/2019) Active Problems Problem Noted Date Diffuse abdominal pain 09/23/2019 Overview: Added automatically from request for barron nadege [id number] Gastroesophageal reflux disease, esophagitis presence not specified 09/23/2019 Overview: Added automatically from request for barron nadege [id number] Gastroparesis 06/24/2019 Bronchitis 06/24/2019 Abdominal pain, diffuse 08/20/2018 Overview: Added automatically from request for barron light [id number] Type 2 diabetes mellitus with hyperglycemia, with long -term current use of 07/16/2018 insulin documented as of this encounter (statuses as of 12/20/2019) Resolved Problems Problem Noted Date Resolved Date Colon cancer screening 11/03/2018 06/24/2019 Overview: Added automatically from request for barron light [id number] Diffuse abdominal pain 11/03/2018 06/24/2019 Overview: Added automatically from request for barron light [id number] Special screening for malignant neoplasms, colon 08/20/2018 06/24/2019 Overview: Added automatically from request for barron light [id number] Hypertension, unspecified type 07/16/2018 9 Other hyperlipidemia 07/16/2018 06/24/2019 documented as of this encounter (statuses as of 12/20/2019) Immunizations Name Administration Dates Next Due HEP B, Adult Dosage 10/21/2019 Hepatitis A Adult 10/21/2019 Influenza Virus Vaccine Quad .5 mL IM 6+ 10/21/2019, 019, 07/17/2018 [place] Pneumococcal Polysaccharide, PPSV23 10/21/2019 (PNEUMOVAX) Tdap 10/21/2019 Varicella (varivax)(chicken pox) 10/21/2019 documented as of this encounter Social History Tobacco Use Types Packs/Day Years Used Date Former Smoker Smokeless Tobacco: Never Used Snuff Alcohol Use Drinks/Week oz/Week Comments Yes once a week Sex Assigned at Date Recorded Not on file Job Start Date Occupation Industry Not on file Not on file Not on file Travel History Travel Start Travel End No recent travel history available. documented as of this encounter Last Filed Vital Signs Not on filedocumented in this encounter Progress Notes Buddy Edward MD - 12/20/2019 9:30 AM CDT Cc: No chief complaint on file. Florentino Acosta is a 54 year old male. Type 2 diabetic with most diabetic complication and poor adherence to diabetic diet, recent AIC [facility] was 14%. Allergies Florentino is allergic to hydrocodone; vioxx [rofecoxib]; and zoloft [sertraline hcl]. Medications Outpatient Medications Prior to Visit Medication Sig Dispense Refill DULoxetine 30 mg capsule Take 1 capsule by mouth 2 (two) times daily. 1tab po x 14 days then move up to 2 tabs a day 180 capsule 3 insulin NPH and regular human 70-30 (NOVOLIN 70/30 U-100 INSULIN) 100 unit/mL (70-30) injection inject 20 Units under the skin 3 (three) times daily with meals. 1 Vial 2 ondansetron (ZOFRAN) 4 mg tablet Take 1 tablet by mouth every 8 (eight) hours as needed for Nausea and Vomiting (N/V). 10 tablet 0 acetaminophen (TYLENOL) 325 mg Cap Take by mouth. ketoconazole 2 % cream Apply to area(s) 2 (two) times daily. 60 g 1 pregabalin (LYRICA) 300 mg capsule Take 1 capsule by mouth 2 (two) times daily. 180 capsule 3 liraglutide 0.6 mg/0.1 mL (18 mg/3 mL) injection inject 1.2 mg under the skin daily. 3 Syringe 3 dicyclomine 10 mg capsule Take 1 capsule by mouth 4 (four) times daily as needed for Abdominal pain. 90 capsule 3 metFORMIN 1,000 mg tablet Take 1,000 mg by mouth 2 (two) times daily with meals. 5 pantoprazole (PROTONIX) 40 mg EC tablet Take 1 tablet by mouth 2 (two) times daily. 60 tablet 2 metoprolol tartrate 25 mg tablet Take 0.5 tablets by mouth 2 (two) times daily. 60 tablet 2 flash glucose sensor (FREESTYLE DUNIA 14 DAY SENSOR) Kit 2 Devices every 14 (fourteen) days. 2 Kit 6 metoclopramide HCl 10 mg tablet Take 1 tablet by mouth before meals and at bedtime. 120 tablet 6 aspirin-caffeine (BJORN BACK AND BODY) 500-32.5 mg Tab Take by mouth. aspirin 81 mg EC tablet Take 81 mg by mouth daily. Pitavastatin (LIVALO) 4 mg Tab Take 1 tablet by mouth at bedtime. 30 tablet 2 No facility-administered medications prior to visit. Histories Past Medical History: Diagnosis Date CAD (coronary artery disease) Diabetes mellitus Hyperlipidemia Hypertension Past Surgical History: Procedure Laterality Date CHOLECYSTECTOMY COLONOSCOPY N/A 11/03/2019 Surgeon: Jackie Van MD; Location: [facility] ESOPHAGOGASTRODUODENOSCOPY N/A 11/03/2019 Surgeon: Jackie Van MD; Location: [facility] Social History Socioeconomic History Marital status: Spouse name: Not on file Number of children: Not on file Years of education: Not on file Highest education level: Not on file Occupational History Not on file Social Needs Financial resource strain: Not on file Food insecurity: Worry: Not on file Inability: Not on file Transportation needs: Medical: Not on file Non-medical: Not on file Tobacco Use Smoking status: Former Smoker Smokeless tobacco: Never Used Substance and Sexual Activity Alcohol use: Yes Comment: once a week Drug use: No Comment: used for 7 years,stopped cocaine and marijuana in 2016 Sexual activity: Yes Partners: Female control/protection: Post-menopausal Lifestyle Physical activity: Days per week: Not on file Minutes per session: Not on file Stress: Not on file Relationships Social connections: Talks on phone: Not on file Gets together: Not on file Attends jewish service: Not on file Active member of club or organization: Not on file Attends meetings of clubs or organizations: Not on file Relationship status: Not on file Intimate partner violence: Fear of current or ex partner: Not on file Emotionally abused: Not on file Physically abused: Not on file Forced sexual activity: Not on file Other Topics Concern Not on file Social History Narrative Not on file Family History Problem Relation Age of Onset Diabetes Mother Coronary Heart Disease Mother Stroke Mother Other - see comments Father cirrhosis Alcohol/Drug Father Neurological Sister fibromyalgia Hypertension Brother Hypertension Maternal Uncle Stroke Maternal Uncle Review of Systems Constitutional: Negative. HENT: Negative. Respiratory: Negative. Cardiovascular: Negative. Gastrointestinal: Negative. Musculoskeletal: Negative. Neurological: Negative. Psychiatric/Behavioral: Negative. Endocrine: Positive for polydipsia and polyphagia. Vital Signs There were no vitals taken for this visit. Physical Exam Assessment/Plan Diagnoses and all orders for this visit: Type 2 diabetes mellitus with hyperglycemia, with long-term current use of insulin - flash glucose sensor (FREESTYLE DUNIA 14 DAY SENSOR) Kit; 2 Devices every 14 (fourteen) days. - insulin NPH and regular human 70-30 (NOVOLIN 70/30 U-100 INSULIN) 100 unit/mL (70-30) injection; inject 30 Units under the skin 2 (two) times daily before breakfast and dinner. - metFORMIN 1,000 mg tablet; Take 1 tablet by mouth 2 (two) times daily with meals. - GLYCOSYLATED HEMOGLOBIN (A1C); Future Gastroparesis - metoclopramide HCl 10 mg tablet; Take 1 tablet by mouth before meals and at bedtime. - COMP. METABOLIC PANEL (13464); Future TELEHEALTH NOTE Verbal consent obtained from Patient: Florentino Acosta due to the COVID-19 pandemic for telehealth services provided below. Communication with patient was conducted via Telephone due to patient unable to obtain video call option. Location of Patient: Home Location of Provider: Clinic Date of Service: 12/20/2019 Chief Complaint: HPI: Florentino Acosta is a 54 year old male with Past Medical History: Diagnosis Date CAD (coronary artery disease) Diabetes mellitus Hyperlipidemia Hypertension MEDICATIONS: Current Outpatient Medications Medication Sig Dispense Refill flash glucose sensor (KunerangoSTYLE DUNIA 14 DAY SENSOR) Kit 2 Devices every 14 (fourteen) days. 2 Kit 6 insulin NPH and regular human 70-30 (NOVOLIN 70/30 U-100 INSULIN) 100 unit/mL (70-30) injection inject 30 Units under the skin 2 (two) times daily before breakfast and dinner. 2 Vial 3 metFORMIN 1,000 mg tablet Take 1 tablet by mouth 2 (two) times daily with meals. 180 tablet 1 metoclopramide HCl 10 mg tablet Take 1 tablet by mouth before meals and at bedtime. 120 tablet 6 ondansetron (ZOFRAN) 4 mg tablet Take 1 tablet by mouth every 8 (eight) hours as needed for Nausea and Vomiting (N/V). 10 tablet 0 acetaminophen (TYLENOL) 325 mg Cap Take by mouth. ketoconazole 2 % cream Apply to area(s) 2 (two) times daily. 60 g 1 pregabalin (LYRICA) 300 mg capsule Take 1 capsule by mouth 2 (two) times daily. 180 capsule 3 dicyclomine 10 mg capsule Take 1 capsule by mouth 4 (four) times daily as needed for Abdominal pain. 90 capsule 3 pantoprazole (PROTONIX) 40 mg EC tablet Take 1 tablet by mouth 2 (two) times daily. 60 tablet 2 metoprolol tartrate 25 mg tablet Take 0.5 tablets by mouth 2 (two) times daily. 60 tablet 2 aspirin-caffeine (BJORN BACK AND BODY) 500-32.5 mg Tab Take by mouth. aspirin 81 mg EC tablet Take 81 mg by mouth daily. Pitavastatin (LIVALO) 4 mg Tab Take 1 tablet by mouth at bedtime. 30 tablet 2 No current facility-administered medications for this visit. ROS TELEHEALTH EXAM ASSESSMENT/ PLAN Florentino Acosta is a 54 year old male with PMH as above presenting with: 1. Type 2 diabetes mellitus with hyperglycemia, with long-term current use of insulin - flash glucose sensor (FREESTYLE DUNIA 14 DAY SENSOR) Kit; 2 Devices every 14 (fourteen) days. Dispense: 2 Kit; Refill: 6 - insulin NPH and regular human 70-30 (NOVOLIN 70/30 U-100 INSULIN) 100 unit/mL (70-30) injection; inject 30 Units under the skin 2 (two) times daily before breakfast and dinner. Dispense: 2 Vial; Refill: 3 - metFORMIN 1,000 mg tablet; Take 1 tablet by mouth 2 (two) times daily with meals. Dispense: 180 tablet; Refill: 1 - GLYCOSYLATED HEMOGLOBIN (A1C); Future 2. Gastroparesis - metoclopramide HCl 10 mg tablet; Take 1 tablet by mouth before meals and at bedtime. Dispense: 120 tablet; Refill: 6 - COMP. METABOLIC PANEL (97036); Future After visit summary (AVS ) documentation will be available through [employer] for this encounter. A total of 25 minutes was spent on the Telephone due to patient unable to obtain video call option. Buddy Edward MD Patient has diabetes mellitus. Patient is on Dexcom CGM or performs four or more blood glucose checks per day utilizing a home glucose monitor (BGM). Patient is insulin-treated with three or more daily injections (MDI) of insulin or a continuous subcutaneous insulin infusion (CSII) pump. Patient requires frequent adjustments to their insulin treatment regimen by the patient on the basisof therapeutic CGM testing results. documented in this encounter Plan of Treatment Date Type Specialty Care Team Description 12/23/2019 Telemedicine Visit Gastroenterology Jackie Van MD [address] at the [facility] [address] [place] [address] [phone] Name Type Priority Associated Diagnoses Order S chedule GLYCOSYLATED HEMOGLOBIN LAB Routine Type 2 diabetes m scot Expected: (A1C) with hyperglycemia, with , Expires: long-term current use of insulin COMP. METABOLIC PANEL LAB Routine Gastroparesis Expec jayme: ([id number]) 01/19/2020, Exp ires: 12/19/2020 Health Maintenance Due Date Last Done Comments EYE EXAM 11/30/1977 URINE MICROALBUMIN 10/07/2004 10/07/2003 LDL-C 01/03/2005 01/04/2004 HgA1C 11/09/2015 05/11/2015, 10/07/2003 CREATININE (SERUM) 10/09/2019 10/09/2018, 05/11/2015, 10/07/2003 Zoster Recombinant Vaccine (SHINGRIX) 12/16/2019 10/21/2019 (1 of 2) FOOT EXAM 10/04/2020 10/04/2019, 10/04/2019, 10/04/2019 DTaP,Tdap,and Td Vaccines (2 - Td) 10/21/2029 10/21/2019 COLONOSCOPY 11/02/2029 11/03/2019 INFLUENZA VACCINE Completed 10/21/2019, 06/10/2019, 07/17/2018 PNEUMOCOCCAL 0-64 YEARS COMBINED Completed 10/21/2019 SERIES documented as of this encounter Results Not on filedocumented in this encounter Visit Diagnoses Diagnosis Type 2 diabetes mellitus with hyperglyce irma, with long-term current use of insulin - Primary Gastroparesis documented in this encounter Insurance Payer Benefit Plan Subscriber ID Effective Phone Address Typ e / Group Dates [place] [place] [id number] 2019-Pre [phone] [facility] sent [address] [id number] documented as of this encounter
--- OUTSIDE RECORDS SUMMARY | 2020-02-11 13:53 | XMS REPORT | Summary of Care ---
:1965 Author Organization [facility] Address [address] [place] [address] Care Team Providers Name Role Phone LUISA Troy Primary Care Provider Reason for Visit Reason Comments Diarrhea Encounter Details Date Type Department Care Team Description 12/09/2019 Telemedicine Visit [facility] Kimberley Troy FNP [address] [place] [address] Abdominal pain, diffuse (Primary Dx); [facility], [facility] Primary Functional diarrhea; [facility] Type 2 diabetes mellitus wit h hyperglycemia, with long-term current use of insulin [address] [place] [address] Allergies Active Allergy Reactions Severity Noted Date Comments Hydrocodone Itching 07/16/2018 Rofecoxib Swelling 05/11/2015 Sertraline Hcl Swelling 05/11/2015 documented as of this encounter (statuses as of 12/11/2019) Medications Medication Sig Dispensed Refills Start Date End Date Status aspirin 81 mg EC Take 81 mg by 0 Active tabletIndications: Flu mouth daily. vaccine need, Type 2 diabetes mellitus without complication, without long-term current use of insulin, Essential hypertension, Other hyperlipidemia Pitavastatin (LIVALO) 4 Take 1 tablet 30 tablet 2 07/16/2018 Active mg TabIndications: by mouth at Other hyperlipidemia, bedtime. Flu vaccine need, Type 2 diabetes mellitus without complication, without long-term current use of insulin, Essential hypertension aspirin-caffeine (BJORN Take by mouth. 0 Active BACK AND BODY) 500-32.5 mg Tab metoclopramide HCl 10 Take 1 tablet 120 tablet 6 06/24/2019 Active mg tabletIndications: by mouth before Gastroparesis meals and at bedtime. flash glucose sensor 2 Devices every 2 Kit 6 06/24/2019 Active (FREESTYLE DUNIA 14 DAY 14 (fourteen) SENSOR) KitIndications: days. Type 2 diabetes mellitus with hyperglycemia, with long-term current use of insulin metoprolol tartrate 25 Take 0.5 60 tablet 2 07/27/2019 Active mg tabletIndications: tablets by Essential hypertension mouth 2 (two) times daily. pantoprazole (PROTONIX) Take 1 tablet 60 tablet 2 08/16/2019 Active 40 mg EC by mouth 2 tabletIndications: (two) times Gastroesophageal reflux daily. disease with esophagitis metFORMIN 1,000 mg Take 1,000 mg 5 07/12/2019 Active tablet by mouth 2 (two) times daily with meals. dicyclomine 10 mg Take 1 capsule 90 capsule 3 10/08/2019 Active capsuleIndications: by mouth 4 Abdominal pain, diffuse (four) times daily as needed for Abdominal pain. pregabalin (LYRICA) 300 Take 1 capsule 180 capsule 3 0 Active mg capsuleIndications: by mouth 2 Neuropathic pain (two) times daily. ketoconazole 2 % Apply to 60 g 1 10/21/2019 Ac tive creamIndications: Tinea area(s) 2 (two) cruris times daily. liraglutide 0.6 mg/0.1 inject 1.2 mg 3 Syringe 3 10/21/2019 Active mL (18 mg/3 mL) under the skin injectionIndications: daily. Type 2 diabetes mellitus with hyperglycemia, with long-term current use of insulin acetaminophen (TYLENOL) Take by mouth. 0 Active 325 mg Cap ondansetron (ZOFRAN) 4 Take 1 tablet 10 tablet 0 11/24/2019 Active mg tabletIndications: by mouth every Diabetic gastroparesis 8 (eight) hours as needed for Nausea and Vomiting (N/V). DULoxetine 30 mg Take 1 capsule 180 capsule 3 12/02/2019 Active capsuleIndications: by mouth 2 Anxiety about health (two) times daily. 1tab po x 14 days then move up to 2 tabs a day insulin NPH and regular inject 20 Units 1 Vial 2 12/02/2019 Active human 70-30 (NOVOLIN under the skin 70/30 U-100 INSULIN) 3 (three) times 100 unit/mL (70-30) daily with injectionIndications: meals. Type 2 diabetes mellitus with hyperglycemia, with long-term current use of insulin documented as of this encounter (statuses as of 12/11/2019) Active Problems Problem Noted Date Diffuse abdominal pain 09/23/2019 Overview: Added automatically from request for barron light [id number] Gastroesophageal reflux disease, esophagitis presence not specified 09/23/2019 Overview: Added automatically from request for barron bañuelosy [id number] Gastroparesis 06/24/2019 Bronchitis 06/24/2019 Abdominal pain, diffuse 08/20/2018 Overview: Added automatically from request for barron bañuelosy [id number] Type 2 diabetes mellitus with hyperglycemia, with long -term current use of 07/16/2018 insulin documented as of this encounter (statuses as of 12/11/2019) Resolved Problems Problem Noted Date Resolved Date Colon cancer screening 11/03/2018 06/24/2019 Overview: Added automatically from request for barron bañuelosy [id number] Diffuse abdominal pain 11/03/2018 06/24/2019 Overview: Added automatically from request for barron bañuelosy [id number] Special screening for malignant neoplasms, colon 08/20/2018 06/24/2019 Overview: Added automatically from request for barron bañuelosy [id number] Hypertension, unspecified type 07/16/2018 9 Other hyperlipidemia 07/16/2018 06/24/2019 documented as of this encounter (statuses as of 12/11/2019) Immunizations Name Administration Dates Next Due HEP [...] on filedocumented in this encounter Progress Notes Kimberley Troy, LUISA - 12/09/2019 9:00 AM CDT TELEMEDICINE VISIT Patient verbalized understanding that this would be a Telemedicine visit. Clarified that she could hear me prior to the exam. Before starting exam, all patient's questions/concerns about this Tele-medicine visit were addressed. Communication with patient was conducted via Telephone due to patient unable to obtain video call option. Location of Patient: Home Location of Provider: home Date of Service: 12/09/2019 Chief Complaint: HPI: Florentino Acosta is a 54 year old male with complaints of who called the clinic late last wk with complaints of 4 days of loose stools >10 in last 24 hours with right lower abdominal pain. States urge to stools occurs with changing of position. Denies BRBPR, bloating or fevers. Endorses. Rectal pain, nausea without vomiting, flatus and urgency to the place he had to wear disposable briefs.Notes headache without syncope or dizziness. Urinating QS. Able to tolerate fluids. States he was hungry. Did not take anything for sx, but was told to follow BRAT diet or full liquids for a couple of days. States his BG was in the low 200's. Symptoms have now resolved. Had EGD and Colonoscopy on 11/03/2019 which were both normal except for decrease anal sphincter tone. Pt states he had a lot of corn a couple of days before the onset of sx and knows that this can impact his gastric system negatively. Next appointment with GI is on 12/23/19. Seen by Endocrinology on 11/15/19 A1C, CBC, CMP need to be drawn for follow up appointment on 12/23/[address] Edward. Last A1C was >14 States has been trying to be more compliant about taking his insulin on a regular basis. Has the Victoza and has been taking weekly. States he has started seeing fasting BG in 125-160 occasionally. We have been discussing that starches and Carbohydrates are the same thing and what is acceptable "startches" and the acceptable amount per meal and per day. Past Medical History: Diagnosis Date CAD (coronary artery disease) Diabetes mellitus Hyperlipidemia Hypertension MEDICATIONS: No outpatient medications have been marked as taking for the 12/09/19 encounter (Appointment) with Erasmo Rosas. REVIEW OF SYSTEMS: All 12 points of ROS are negative except as HPI PHYSICAL EXAM: Telemedicine - unable to complete physical exam. General: patient alert and in no acute distress Constitutional: Oriented to person, place, and time Respiratory: No cough heard, no respiratory distress noted Psychiatric: alert, oriented, with appropriate affect Neurological: Alert and oriented to person, place, and time. Labs: reviewed in [employer] EMR. EGD/Colonoscopy: reviewed in [facility] EMR. Discussed all Lab results: Normal and abnormal ASSESSMENT/PLAN: 1. Abdominal pain, diffuse Resolved at this time 2. Functional diarrhea Resolved at this time 3. Type 2 diabetes mellitus with hyperglycemia, with long-term current use of insulin A1C, CBC, CMP need to be drawn for follow up appointment on 12/23/[address] Edward. Last A1C was >14 Will have Alta Mccullough LVN draw labs prior to appointment and report to Dr Edward and Bharathi Geller [employer] CO[employer]IN[employer]. After visit summary (AVS ) documentation will be available through [employer] for this encounter. LUISA Goins ER warnings given. Barriers to care: None Ability to manage care: Good Follow up as we discussed or if ANY WORSE SYMPTOMS or SHORTNESS OF BREATH, CHEST PAINS/PRESSURE AND / OR REOCCURING FEVER, OR VOMITING - PLEASE SEEK MEDICAL ATTENTION. [facility] urgent [facility] [phone], as well as after hours care nurse access center available by calling [phone] 24 hours 7 days per week. Patient reports that all of her concerns have been addressed and all of her questions have been answered. No additional questions or concerns A total of 30 minutes spent on the telephone with the patient. documented in this encounter Plan of Treatment Date Type Specialty Care Team Description 12/20/2019 Telemedicine Visit Endocrinology Diabetes & Jazzmine Edward MD [address] [facility] [place] [address] [place], [place] [address] [phone] 12/23/2019 Telemedicine Visit Gastroenterology Jackie Van MD [address] [facility] [address] [place] [address] [phone] Health Maintenance Due Date Last Done Comments [...] filedocumented in this encounter Visit Diagnoses Diagnosis Abdominal pain, diffuse - Primary Abdominal pain, unspecified site Functional diarrhea Type 2 diabetes mellitus with hyperglyce irma, with long-term current use of insulin documented in this encounter Insurance Payer Benefit Plan / Subscriber ID Effective Phone Address T ype Group Dates WALDEMAR MEDEIROS [id number] 2018-Pres [phone] [facility] ent [address] [place] [phone] (Work) [id number] documented as of this encounter
--- OUTSIDE RECORDS SUMMARY | 2020-02-11 13:54 | XMS REPORT | Summary of Care ---
:1965 Author Organization [facility] Address [address] [place] [address] Care Team Providers Name Role Phone LUISA Troy Primary Care Provider Reason for Referral (Routine) Status Reason Specialty Diagnoses / Referred By Referred To Procedures Contact Contact New Request Endocrinology Diagnoses Type 2 diabetes mellitus with hyperglycemia, with long-term current use of insulin Kimberley Troy, Diabetes & Procedures CONSULT/REFERRAL ENDOCRINOLOGY Diabetes [facility] Metabolism [address] [place] [address] (Routine) Status Reason Specialty Diagnoses / Procedures Referred By Michael mae To Contact Contact New Request Gastroenterology Diagnoses Diabetic gastroparesis Abdominal pain, diffuse Gastroesophageal reflux disease with esophagitis Kimberley Troy, Procedures CONSULT/REFERRAL GASTROENTEROLOGY [facility] [address] [place] [address] Reason for Visit Reason Comments Referral/consult Encounter Details Date Type Department Care Team Description [facility]2020 [facility]consult [facility] [address] [facility] [address] [facility] [place] [address] [place] [address] [phone] Allergies Active Allergy Reactions Severity Noted Date Comments Hydrocodone Itching 07/16/2018 Rofecoxib Swelling 05/11/2015 Sertraline Hcl Swelling 05/11/2015 documented as of this encounter (statuses as of 01/06/2020) Medications Medication Sig Dispensed Refills Start Date [...] Active BACK AND BODY) 500-32.5 mg Tab metoprolol tartrate 25 Take 0.5 60 tablet 2 07/27/2019 Active mg tabletIndications: tablets by Essential hypertension mouth 2 (two) times daily. pantoprazole (PROTONIX) Take 1 tablet 60 tablet 2 08/16/2019 Active 40 mg EC by mouth 2 tabletIndications: (two) times Gastroesophageal reflux daily. disease with esophagitis dicyclomine 10 mg Take 1 capsule 90 [...] Tinea area(s) 2 (two) cruris times daily. acetaminophen (TYLENOL) Take by mouth. 0 Active 325 mg Cap ondansetron (ZOFRAN) 4 Take 1 tablet 10 tablet 0 11/24/2019 Active mg tabletIndications: by mouth every Diabetic gastroparesis 8 (eight) hours as needed for Nausea and Vomiting (N/V). metoclopramide HCl 10 Take 1 tablet 120 tablet 6 12/20/2019 Active mg tabletIndications: by mouth before Gastroparesis meals and at bedtime. flash glucose sensor 2 Devices every 2 Kit 6 12/20/2019 Active (FREESTYLE DUNIA 14 DAY 14 (fourteen) SENSOR) KitIndications: days. Type 2 diabetes mellitus with hyperglycemia, with long-term current use of insulin insulin NPH and regular inject 30 Units 2 Vial 3 12/20/2019 Active human 70-30 (NOVOLIN under the skin 70/30 U-100 INSULIN) 2 (two) times 100 unit/mL (70-30) daily before injectionIndications: breakfast and Type 2 diabetes dinner. mellitus with hyperglycemia, with long-term current use of insulin metFORMIN 1,000 mg Take 1 tablet 180 tablet 1 12/20/2019 Active tabletIndications: Type by mouth 2 2 diabetes mellitus (two) times with hyperglycemia, daily with with long-term current meals. use of insulin documented as of this encounter (statuses as of 01/06/2020) Active Problems Problem Noted Date Diffuse abdominal pain 09/23/2019 Overview: Added automatically from request for barron nadege [id number] Gastroesophageal reflux disease, esophagitis presence not specified 09/23/2019 Overview: Added automatically from request for barron nadege [id number] Gastroparesis 06/24/2019 Bronchitis 06/24/2019 Abdominal pain, diffuse 08/20/2018 Overview: Added automatically from request for barron nadege [id number] Type 2 diabetes mellitus with hyperglycemia, with long -term current use of 07/16/2018 insulin documented as of this encounter (statuses as of 01/06/2020) Resolved Problems Problem Noted Date Resolved Date Colon cancer screening 11/03/2018 06/24/2019 Overview: Added automatically from request for barron nadege [id number] Diffuse abdominal pain 11/03/2018 06/24/2019 Overview: Added automatically from request for barron nadege [id number] Special screening for malignant neoplasms, colon 08/20/2018 06/24/2019 Overview: Added automatically from request for barron nadege [id number] Hypertension, unspecified type 07/16/2018 9 Other hyperlipidemia 07/16/2018 06/24/2019 documented as of this encounter (statuses as of 01/06/2020) Immunizations Name Administration Dates Next Due HEP [...] Signs Not on filedocumented in this encounter Plan of Treatment Date Type Specialty Care Team Description 02/01/2020 Appointment Radiology Jackie Van MD [address] [facility] [address] [place] [phone] 03/20/2020 Telemedicine Visit Endocrinology Diabetes & Jazzmine Edward Metabolism MD Laura [address] [facility] [address] [place], [place] [address] [phone] 03/30/2020 Office Visit Gastroenterology Jackie Van MD [address] [facility] [address] [place] [phone] Health Maintenance Due Date Last Done Comments [...] filedocumented in this encounter Visit Diagnoses Diagnosis Diabetic gastroparesis - Primary Type II or unspecified type diabetes becca litus with neurological manifestations, not stated as uncontrolled Abdominal pain, diffuse Abdominal pain, unspecified site Type 2 diabetes mellitus with hyperglyce irma, with long-term current use of insulin Gastroesophageal reflux disease with eso phagitis documented in this encounter Insurance Payer Benefit Plan Subscriber ID Effective Phone Address Typ e / Group Dates WALDEMAR CORolf I WALDEMAR TUBBS [id number] 2019-Pre [phone] [facility] [address] [place] [id number] WALDEMAR MEDEIROS [id number] 2018-Pres [phone] [facility]IMARY C[facility] ent [address] [place] [address] documented as of this encounter
--- OUTSIDE RECORDS SUMMARY | 2020-02-11 13:54 | XMS REPORT | Summary of Care ---
:1965 Author Organization [facility] Address [address] [place] [address] Care Team Providers Name Role Phone LUISA Troy Primary Care Provider Reason for Referral MRI/CAT Scan (CINDY) Status Reason Specialty Diagnoses / Referred By Referred To Procedures Contact Contact New Request Diagnostic Diagnoses Fecal smearing Clinton Grissom, Radiology Procedures MR LUMBAR SPINE W WO CONTRAST MD Jackie [address] [facility] [place] [place] [address] Reason for Visit Reason Comments Abdominal Pain (Routine) Status Reason Specialty Diagnoses / Procedures Referred By Michael mae To Contact Contact Closed Gastroenterology Diagnoses Abdominal pain, diffuse Gastroesophageal reflux disease with esophagitis Kimberley Troy, Procedures CONSULT/REFERRAL GASTROENTEROLOGY [address] [address] Encounter Details Date Type Department Care Team Description 12/23/2019 Telemedicine Visit [facility] Clinton Grissom, Abdominal pain, diffuse (Primary Dx); GASTROENTEROLOGY MD Jackie Nausea; -[facility] Fecal smearing [address] [place] [address] [address] [place] [address] [facility], [address] [place] [phone] Allergies Active Allergy Reactions Severity Noted Date Comments Hydrocodone Itching 07/16/2018 Rofecoxib Swelling 05/11/2015 Sertraline Hcl Swelling 05/11/2015 documented as of this encounter (statuses as of 12/23/2019) Medications Medication Sig Dispensed Refills Start Date [...] as of this encounter (statuses as of 12/23/2019) Active Problems Problem Noted Date Diffuse abdominal pain 09/23/2019 Overview: Added automatically from request for barron bañuelosy [id number] Gastroesophageal reflux disease, esophagitis presence not specified 09/23/2019 Overview: Added automatically from request for barron bañuelosy [id number] Gastroparesis 06/24/2019 Bronchitis 06/24/2019 Abdominal pain, diffuse 08/20/2018 Overview: Added automatically from request for barron bañuelosy [id number] Type 2 diabetes mellitus with hyperglycemia, with long -term current use of 07/16/2018 insulin documented as of this encounter (statuses as of 12/23/2019) Resolved Problems Problem Noted Date Resolved Date Colon cancer screening 11/03/2018 06/24/2019 Overview: Added automatically from request for barron bañuelosy [id number] Diffuse abdominal pain 11/03/2018 06/24/2019 Overview: Added automatically from request for barron nadege [id number] Special screening for malignant neoplasms, colon 08/20/2018 06/24/2019 Overview: Added automatically from request for barron bañuelosy [id number] Hypertension, unspecified type 07/16/2018 9 Other hyperlipidemia 07/16/2018 06/24/2019 documented as of this encounter (statuses as of 12/23/2019) Immunizations Name Administration Dates Next Due HEP [...] on filedocumented in this encounter Progress Notes Jackie Van MD - 12/23/2019 10:00 AM CDT GASTROENTEROLOGY TELEHEALTH NOTE Verbal consent obtained from Patient: Florentino Acosta due to the COVID-19 pandemic for telehealth services provided below. Communication with patient was conducted via Telephone due to patient unable to obtain video call option. Location of Patient: Home Location of Provider: Office Date of Service: 12/23/2019 Chief Complaint: incontinence / abdominal pain HPI: Florentino Acosta is a 54 year old male with Past Medical History: Diagnosis Date CAD (coronary artery disease) Diabetes mellitus Hyperlipidemia Hypertension He reports that same issues are still ongoing since endoscopies. Reports that he has no control overbowel movements for that past year and a half or so although he initially complained of severe constipation. He currently is taking Miralax every other day and a stool softner, reports feeling a little urge, but cannot hold stool when he has to go. He is also complaining of early satiety and nausea after eating, also feels that food keeps wanting to come back up. Reports that blood sugar has been under better control recently. - Decreased sphincter tone found on digital rectal exam. - The examined portion of the ileum was normal. - The entire examined colon is normal. - No specimens collected. Impression/Post Op Diagnosis: - Patient has a contact number available for emergencies. The signs and symptoms of potential delayed complications were discussed with the patient. Return to normal activities tomorrow. Written discharge instructions were provided to the patient. - Resume previous diet. - Continue present medications. - Repeat colonoscopy in 10 years for screening purposes. - Perform anal manometry at appointment to be scheduled to evaluate his fecal incontinence. - The examined esophagus was normal. Biopsies were obtained from the proximal and distal esophagus with cold forceps for histology of suspected eosinophilic esophagitis. Findings: - The Z-line was found 36 cm from the incisors. - The entire examined stomach was normal. Biopsies were taken with a cold forceps for Helicobacter pylori testing. - The examined duodenum was normal. . STOMACH, BIOPSIES: - GASTRIC MUCOSA WITH MILD CHRONIC GASTRITIS - NO ACTIVITY OR INTESTINAL METAPLASIA IDENTIFIED - NO H.PYLORI-LIKE ORGANISMS IDENTIFIED B. ESOPHAGUS, DISTAL, BIOPSY: - SQUAMOUS MUCOSA WITH NO PATHOLOGICAL CHANGE - NO EVIDENCE OF EOSINOPHILIC ESOPHAGITIS IDENTIFIED C. ESOPHAGUS, PROXIMAL, BIOPSY: - SQUAMOUS MUCOSA WITH NO PATHOLOGICAL CHANGE - NO EVIDENCE OF EOSINOPHILIC ESOPHAGITIS IDENTIFIED Madelin Saucedo MD 11/04/2019 10:04 AM MEDICATIONS: Current Outpatient Medications Medication Sig Dispense Refill flash glucose sensor (FREESTYLE DUNIA 14 DAY [...] current facility-administered medications for this visit. ROS Negative other than HPI TELEHEALTH EXAM AOx4 ASSESSMENT/ PLAN Florentino Acosta is a 54 year old male with PMH as above presenting with: 1. Abdominal pain, diffuse 2. Nausea 3. Fecal smearing #1 #2 Evaluated with EGD and colonoscopy with no findings to explain symptoms. He most likely has gastroparesis due to long standing uncontrolled DM. -Gastric emptying study -advised to eat small frequent meals and avoid fatty food #3 Reports feeling slight urge, but has urgency and smearing of stool. Ongoing issue reported for at least year and a half, he also had anal tone on rectal exam during recent colonoscopy. This could be to neuropathy from DM. However will get MRI of lumbosacral area to rule out any nerve impingement. He reports being diagnosed with ankylosing spondylitis about 7 years ago. -Anorectal manometry order after colonoscopy. To be scheduled as endoscopy reopens. -MRI lumbosacral. After visit summary (AVS ) documentation will be available through [employer] for this encounter. A total of 30 minutes was spent on the Call, chart review, and coordination of care with specialistswith the patient. RTC 3 months Jackie Van MD documented in this encounter Plan of Treatment Date Type Specialty Care Team Description 03/20/2020 Telemedicine Visit Endocrinology Diabetes & Jazzmine Edward, Metabolism [address] [place] [address] 8 [phone] Name Type Priority Associated Diagnoses Order S chedule MR LUMBAR SPINE W WO IMAGING CINDY Fecal smearing Expec jayme: 12/23/2019, CONTRAST Expires: 2020 Health Maintenance Due Date Last Done Comments [...] diffuse - Primary Abdominal pain, unspecified site Nausea Nausea alone Fecal smearing documented in this encounter Insurance Payer Benefit Plan Subscriber ID Effective Phone Address Typ e / Group Dates [place] [id number] 2019-Pre [phone] [facility] [address] [place] [id number] documented as of this encounter
--- OUTSIDE RECORDS SUMMARY | 2020-02-11 13:55 | XMS REPORT | Summary of Care ---
:1965 Author Organization [facility] Address [address] [place] [address] Care Team Providers Name Role Phone LUISA Troy Primary Care Provider Reason for Visit Reason Comments Refill Request Abdominal Pain SWELLING Lower extremities Encounter Details Date Type Department Care Team Description 01/27/2020 Office Visit [facility] Kimberley Troy FNP [address] [place] [address] Type 2 diabetes mellitus with hyperglyce irma, with long-term current use of insulin (Primary Dx); [facility] Primary Erectile dysfunction due to diseases cla ssified elsewhere; Clinic Mild peripheral edema; [address] Gastroesophag eal reflux disease with esophagitis; [place] [address] Allergies Active Allergy Reactions Severity Noted Date Comments Hydrocodone Itching 07/16/2018 Rofecoxib Swelling 05/11/2015 Sertraline Hcl Swelling 05/11/2015 documented as of this encounter (statuses as of 01/27/2020) Medications Medication Sig Dispensed Refills Start End [...] BACK AND mouth. BODY) 500-32.5 mg Tab dicyclomine 10 mg Take 1 90 capsule [...] 0 Active (TYLENOL) 325 mg Cap mouth. metoclopramide HCl Take 1 tablet 120 tablet [...] with meals. long-term current use of insulin metoprolol tartrate Take 0.5 60 tablet 5 Active 25 mg tablets by 0 tabletIndications: mouth 2 (two) Essential times daily. hypertension ondansetron (ZOFRAN) Take 1 tablet 20 tablet 1 Active 4 mg by mouth 0 tabletIndications: every 8 Diabetic (eight) hours gastroparesis as needed for Nausea and Vomiting (N/V). sildenafil 100 mg Take 1 tablet 9 tablet 3 Active tabletIndications: by mouth 0 Erectile dysfunction every other due to diseases day. classified elsewhere furosemide 20 mg Take 1 tablet 30 tablet 3 Active tabletIndications: by mouth 0 Mild peripheral daily. edema pantoprazole Take 1 tablet 60 tablet 5 Act rizwan (PROTONIX) 40 mg EC by mouth 2 0 tabletIndications: (two) times Gastroesophageal daily. reflux disease with esophagitis pantoprazole 40 mg Take 1 tablet 60 tablet 5 Active EC by mouth 2 0 tabletIndications: (two) times Chronic GERD daily. pantoprazole Take 1 tablet 60 tablet 2 01/27/20 Dis continued (PROTONIX) 40 mg EC by mouth 2 9 20 (Dose tabletIndications: (two) times adjustment) Gastroesophageal daily. reflux disease with esophagitis documented as of this encounter (statuses as of 01/27/2020) Active Problems Problem Noted Date Diffuse abdominal pain 09/23/2019 Overview: Added automatically from request for barron nadege [id number] Gastroesophageal reflux disease, esophagitis presence not specified 09/23/2019 Overview: Added automatically from request for barron nadege [id number] Gastroparesis 06/24/2019 Bronchitis 06/24/2019 Abdominal pain, diffuse 08/20/2018 Overview: Added automatically from request for barron nadege [id number] Type 2 diabetes mellitus with hyperglycemia, with long -term current use of 07/16/2018 insulin documented as of this encounter (statuses as of 01/27/2020) Resolved Problems Problem Noted Date Resolved Date Colon cancer screening 11/03/2018 06/24/2019 Overview: Added automatically from request for barron nadege [id number] Diffuse abdominal pain 11/03/2018 06/24/2019 Overview: Added automatically from request for barron nadege [id number] Special screening for malignant neoplasms, colon 08/20/2018 06/24/2019 Overview: Added automatically from request for barron nadege [id number] Hypertension, unspecified type 07/16/2018 9 Other hyperlipidemia 07/16/2018 06/24/2019 documented as of this encounter (statuses as of 01/27/2020) Immunizations Name Administration Dates Next Due HEP [...] Travel End No recent travel history available. COVID-19 Exposure Response Date Recorded In the last month, have you been in contact with No / Unsure 01/27/2020 10:04 AM CDT someone who was confirmed or suspected to have Coronavirus / COVID-19? documented as of this encounter Last Filed Vital Signs Vital Sign Reading Time Taken Comments Blood Pressure 183/100 01/27/2020 10:03 AM CDT Pulse 76 01/27/2020 10:03 AM CDT Temperature 36.1 C (97 F) 01/27/2020 10:03 AM CDT Respiratory Rate 20 01/27/2020 10:03 AM CDT Oxygen Saturation - - Inhaled Oxygen Concentration - - Weight 80.4 kg (177 lb 3.2 oz) 01/27/2020 10:03 AM CDT Height 162.6 cm (5' 4") 01/27/2020 10:03 AM CDT Body Mass Index 30.42 01/27/2020 10:03 AM CDT documented in this encounter Progress Notes Peggy Mccullough LVN - 01/27/2020 9:30 AM CDTTtiana Acosta is a 54 year old male Patient here today for swelling of bilateral lower extremities, abdominal, and refills . Reports 6 pain on scale 0/10, notified. Reviewed medications and allergies with patient today. Fall Risk Assessment/Screening performed with patient today and patient is not at risk for falls. documented in this encounter Plan of Treatment Date Type Specialty Care Team Description 02/01/2020 Appointment Radiology Jackie Van MD [address] [facility] [address] [place] [address] [phone] 03/20/2020 Telemedicine Visit Endocrinology Diabetes & Jazzmine Edward Metabolism A, MD [address] [facility], [place] [address] [place], [place] [address] [phone] 03/30/2020 Office Visit Gastroenterology Jackie Van MD [address] [facility] [address] [place] [address] [phone] Health Maintenance Due Date Last Done Comments EYE EXAM 11/30/1977 URINE MICROALBUMIN 10/07/2004 10/07/2003 LDL-C 01/03/2005 01/04/2004 HgA1C 11/09/2015 05/11/2015, 10/07/2003 CREATININE (SERUM) 10/09/2019 10/09/2018, 05/11/2015, 10/07/2003 Zoster Recombinant Vaccine (SHINGRIX) 12/16/2019 10/21/2019 (1 of 2) FOOT EXAM 10/04/2020 10/04/2019, 10/04/2019, 10/04/2019 Depression Screening 11/02/2020 11/03/2019 DTaP,Tdap,and Td Vaccines (2 - Td) 10/21/2029 10/21/2019 COLONOSCOPY 11/02/2029 11/03/2019 INFLUENZA VACCINE Completed 10/21/2019, 06/10/2019, 07/17/2018 PNEUMOCOCCAL 0-64 YEARS COMBINED Completed 10/21/2019 SERIES documented as of this encounter Procedures Procedure Name Priority Date/Time Associated Diagnosis Comme nts POCT GLUCOSE(AGE Routine 01/27/2020 10:28 AM Type 2 diabetes R esults for this >30DAYS) CDT mellitus with procedure are in hyperglycemia, with the resu lts long-term current section. use of insulin documented in this encounter Results POCT GLUCOSE(AGE >30DAYS) (01/27/2020 10:28 AM CDT) Pathologist Sig nature POCT Glu (age>30days) 135 (A) 70 - 110 mg/dL Specimen Blood - CAPILLARY documented in this encounter Visit Diagnoses Diagnosis Type 2 diabetes mellitus with hyperglyce irma, with long-term current use of insulin - Primary Erectile dysfunction due to diseases cla ssified elsewhere Mild peripheral edema Gastroesophageal reflux disease with eso phagitis Chronic GERD documented in this encounter Insurance Payer Benefit Plan / Subscriber ID Effective Phone Address T ype Group Dates WALDE[place] MEDEIROS [id number] 2018-Pres [phone] [facility] PRIMARY CARE ent [address] [place] [phone] (Work) [phone] documented as of this encounter
--- OUTSIDE RECORDS SUMMARY | 2020-02-11 13:55 | XMS REPORT | Summary of Care ---
:1965 Author Organization [facility] Address [address] [place] [address] Care Team Providers Name Role Phone LUISA Troy Primary Care Provider Reason for Visit Reason Comments Refill Request Encounter Details Date Type Department Care Team Description 01/04/2020 Refill [facility] Kimberley Martinez FNP Refill Request [address] [place] [address] [place] [address] [phone] Allergies Active Allergy Reactions Severity Noted Date Comments Hydrocodone Itching 07/16/2018 Rofecoxib Swelling 05/11/2015 Sertraline Hcl Swelling 05/11/2015 documented as of this encounter (statuses as of 01/06/2020) Medications Medication Sig Dispensed Refills Start End [...] BACK AND mouth. BODY) 500-32.5 mg Tab pantoprazole Take 1 tablet 60 tablet 2 [...] as needed for Nausea and Vomiting (N/V). metoprolol tartrate Take 0.5 60 tablet 2 01/04/20 Discontinued 25 mg tablets by 9 20 (Reorder) tabletIndications: mouth 2 (two) Essential times daily. hypertension ondansetron (ZOFRAN) Take 1 tablet 10 tablet 0 01/03 Discontinued 4 mg by mouth 0 20 (Reorder) tabletIndications: every 8 Diabetic (eight) hours gastroparesis as needed for Nausea and Vomiting (N/V). documented as of this encounter (statuses as of 01/06/2020) Active Problems Problem Noted Date Diffuse abdominal pain 09/23/2019 Overview: Added automatically from request for barron nadege [id number] Gastroesophageal reflux disease, esophagitis presence not specified 09/23/2019 Overview: Added automatically from request for barron nadege [id number] Gastroparesis 06/24/2019 Bronchitis 06/24/2019 Abdominal pain, diffuse 08/20/2018 Overview: Added automatically from request for barron nadege [id number] Type 2 diabetes mellitus with hyperglycemia, with long -term current use of 07/16/2018 insulin documented as of this encounter (statuses as of 01/06/2020) Resolved Problems Problem Noted Date Resolved Date Colon cancer screening 11/03/2018 06/24/2019 Overview: Added automatically from request for barron bañuelosy [id number] Diffuse abdominal pain 11/03/2018 06/24/2019 Overview: Added automatically from request for barron nadege [id number] Special screening for malignant neoplasms, colon 08/20/2018 06/24/2019 Overview: Added automatically from request for barron nadege [id number] Hypertension, unspecified type 07/16/2018 9 Other hyperlipidemia [...] 02/01/2020 Appointment Radiology Jackie Van MD [address] [facility] [address] [place] [address] 03/20/2020 Telemedicine Visit Endocrinology Diabetes & Jazzmine Edward MD [address] [place] [address] [address] [place], [place] [address] [phone] 03/30/2020 Office Visit Gastroenterology Jackie Van MD [address] [facility] [address] [place] [address] Health Maintenance Due Date Last Done Comments [...] filedocumented in this encounter Visit Diagnoses Diagnosis Essential hypertension Unspecified essential hypertension Diabetic gastroparesis Type II or unspecified type diabetes becca litus with neurological manifestations, not stated as uncontrolled documented in this encounter Insurance Payer Benefit Plan Subscriber ID Effective Phone Address Typ e / Group Dates [employer] [place] [id number] 2019-Pre [phone] [facility] I H C sent [address] [place] [address] REDDYCAMILA [place] [id number] 2018-Pres [phone] [facility]IMARY CARE PRIMARY CARE ent [address] [place] [address] documented as of this encounter
--- OUTSIDE RECORDS SUMMARY | 2020-02-11 13:55 | XMS REPORT | Summary of Care ---
:1965 Author [address] [facility] Address [address] [place] [address] Care Team Providers Name Role Phone LUISA Troy Primary Care Provider Encounter Details Date Type Department Care Team Description 12/16/2019 Orders Only [facility] Doctor Unassigned, No [address] [facility] [place] [address] [address] [place] [address] Allergies Active Allergy Reactions Severity Noted Date Comments Hydrocodone Itching 07/16/2018 Rofecoxib Swelling 05/11/2015 Sertraline Hcl Swelling 05/11/2015 documented as of this encounter (statuses as of 01/19/2020) Medications Medication Sig Dispensed Refills Start Date [...] Active BACK AND BODY) 500-32.5 mg Tab pantoprazole (PROTONIX) Take 1 tablet 60 tablet [...] by mouth. 0 Active 325 mg Cap documented as of this encounter (statuses as of 01/19/2020) Active Problems Problem Noted Date Diffuse abdominal pain 09/23/2019 Overview: Added automatically from request for barron nadege [id number] Gastroesophageal reflux disease, esophagitis presence not specified 09/23/2019 Overview: Added automatically from request for barron nadege [id number] Gastroparesis 06/24/2019 Bronchitis 06/24/2019 Abdominal pain, diffuse 08/20/2018 Overview: Added automatically from request for barron nadege [id number] Type 2 diabetes mellitus with hyperglycemia, with long -term current use of 07/16/2018 insulin documented as of this encounter (statuses as of 01/19/2020) Resolved Problems Problem Noted Date Resolved Date Colon cancer screening 11/03/2018 06/24/2019 Overview: Added automatically from request for barron nadege [id number] Diffuse abdominal pain 11/03/2018 06/24/2019 Overview: Added automatically from request for barron nadege [id number] Special screening for malignant neoplasms, colon 08/20/2018 06/24/2019 Overview: Added automatically from request for barron nadege [id number] Hypertension, unspecified type 07/16/2018 9 Other hyperlipidemia 07/16/2018 06/24/2019 documented as of this encounter (statuses as of 01/19/2020) Immunizations Name Administration Dates Next Due HEP [...] 02/01/2020 Appointment Radiology Jackie Van MD [address] [facility] [address] [place] [address] 03/20/2020 Telemedicine Visit Endocrinology Diabetes & Jazzmine Edward Metabolism MD Laura 250 [facility], [facility] [address] [place], [place] [address] [phone] 03/30/2020 Office Visit Gastroenterology Jackie Van MD [address] [facility] [address] [place] [address] Health Maintenance Due Date Last Done Comments [...] Name Priority Date/Time Associated Diagnosis Comme nts SCANNED LAB RESULTS Routine 12/16/2019 12:01 AM CDT documented in this encounter Results SCANNED LAB RESULTS (12/16/2019 12:01 AM CDT) Specimen Performing Organization Address City/State/Zipcode Phone Number HIM documented in this encounter Insurance Payer Benefit Plan Subscriber ID Effective Phone Address Typ e / Group Dates [employer] [employer] [place] [employer] [id number] 2019-Pre [phone] [facility] C I H C sent [address] [place] [address] WALDEMAR MEDEIROS [id number] 2018-Pres [phone] PRIMARY CARE PRIMARY CARE ent [address] [place] [address] documented as of this encounter
--- OUTSIDE RECORDS SUMMARY | 2020-02-11 13:55 | XMS REPORT | Summary of Care ---
:1965 Author Organization [facility] Address [address] [place] [address] Care Team Providers Name Role Phone LUISA Troy Primary Care Provider Reason for Visit Reason Comments Refill Request Abdominal Pain SWELLING Lower extremities Encounter Details Date Type Department Care Team Description 01/27/2020 Office Visit [facility] Kimberley Troy FNP [address] [place] [address] Type 2 diabetes mellitus with hyperglyce irma, with long-term current use of insulin (Primary Dx); [facility] Primary Erectile dysfunction due to diseases cla ssified elsewhere; Clinic Mild peripheral edema; [address] Gastroesophag eal reflux disease with esophagitis; [place] [address] Allergies Active Allergy Reactions Severity [...] Added automatically from request for barron nadege [id number] Gastroesophageal reflux disease, esophagitis presence not specified 09/23/2019 Overview: Added automatically from request for barron nadege [id number] Gastroparesis 06/24/2019 Bronchitis 06/24/2019 Abdominal pain, diffuse 08/20/2018 Overview: Added automatically from request for barron nadege [id number] Type 2 diabetes mellitus with hyperglycemia, with long -term current use of 07/16/2018 insulin documented as of this encounter (statuses as of 01/27/2020) Resolved Problems Problem Noted Date Resolved Date Colon cancer screening 11/03/2018 06/24/2019 Overview: Added automatically from request for barron nadege [id number] Diffuse abdominal pain 11/03/2018 06/24/2019 Overview: Added automatically from request for barron nadege [id number] Special screening for malignant neoplasms, colon 08/20/2018 06/24/2019 Overview: Added automatically from request for barron nadege [id number] Hypertension, unspecified type 07/16/2018 9 Other hyperlipidemia [...] Description 02/01/2020 Appointment Radiology Jackie Van MD [address] [facility] [address] [place] [address] [phone] 03/20/2020 Telemedicine Visit Endocrinology Diabetes & Jazzmine Edward Metabolism A, MD 250 [facility], [place] [address] [place], [place] [address] [phone] 03/30/2020 Office Visit Gastroenterology Jackie Van MD [address] [facility] [address] [place] [address] [phone] Health Maintenance Due Date Last Done Comments [...] Address T ype Group Dates WALDEMAR MEDEIROS [id number] 2018-Pres [phone] PRIMARY CARE PRIMARY CARE ent [address] [place] [phone] (Work) [phone] documented as of this encounter
--- OUTSIDE RECORDS SUMMARY | 2020-02-11 13:56 | XMS REPORT | Summary of Care ---
:1965 Author Organization [facility] Address [address] [place] [address] Care Team Providers Name Role Phone LUISA Troy Primary Care Provider Reason for Referral (CINDY) Status Reason Specialty Diagnoses / Referred By Referred To Procedures Contact Contact New Request Cardiology Diagnoses Preoperative clearance Kimberley Troy FNP Procedures CONSULT/REFERRAL CARDIOLOGY [address] [place] [address] Reason for Visit Reason Comments Referral/consult Encounter Details Date Type Department Care Team Description 02/10/2020 Case Management [facility] Kimberley Troy FNP Referral/consult [facility] ic 301 [facility] [address] [place] [phone] Allergies Active Allergy Reactions Severity Noted Date Comments Hydrocodone Itching 07/16/2018 Rofecoxib Swelling 05/11/2015 Sertraline Hcl Swelling 05/11/2015 documented as of this encounter (statuses as of 02/10/2020) Medications Medication Sig Dispensed Refills Start Date [...] Active BACK AND BODY) 500-32.5 mg Tab dicyclomine 10 mg Take 1 capsule 90 [...] by mouth. 0 Active 325 mg Cap metoclopramide HCl 10 Take 1 tablet 120 [...] with long-term current meals. use of insulin metoprolol tartrate 25 Take 0.5 60 tablet 5 01/06/2020 Active mg tabletIndications: tablets by Essential hypertension mouth 2 (two) times daily. ondansetron (ZOFRAN) 4 Take 1 tablet 20 tablet 1 01/06/2020 Active mg tabletIndications: by mouth every Diabetic gastroparesis 8 (eight) hours as needed for Nausea and Vomiting (N/V). sildenafil 100 mg Take 1 tablet 9 tablet 3 01/27/2020 Active tabletIndications: by mouth every Erectile dysfunction other day. due to diseases classified elsewhere furosemide 20 mg Take 1 tablet 30 tablet 3 01/27/2020 Active tabletIndications: Mild by mouth daily. peripheral edema pantoprazole (PROTONIX) Take 1 tablet 60 tablet 5 01/27/2020 Active 40 mg EC by mouth 2 tabletIndications: (two) times Gastroesophageal reflux daily. disease with esophagitis pantoprazole 40 mg EC Take 1 tablet 60 tablet 5 01/27/2020 Active tabletIndications: by mouth 2 Chronic GERD (two) times daily. documented as of this encounter (statuses as of 02/10/2020) Active Problems Problem Noted Date Diffuse abdominal pain 09/23/2019 Overview: Added automatically from request for barron nadege [id number] Gastroesophageal reflux disease, esophagitis presence not specified 09/23/2019 Overview: Added automatically from request for barron nadege [id number] Gastroparesis 06/24/2019 Bronchitis 06/24/2019 Abdominal pain, diffuse 08/20/2018 Overview: Added automatically from request for barron nadege [id number] Type 2 diabetes mellitus with hyperglycemia, with long -term current use of 07/16/2018 insulin documented as of this encounter (statuses as of 02/10/2020) Resolved Problems Problem Noted Date Resolved Date Colon cancer screening 11/03/2018 06/24/2019 Overview: Added automatically from request for barron nadege [id number] Diffuse abdominal pain 11/03/2018 06/24/2019 Overview: Added automatically from request for barron nadege [id number] Special screening for malignant neoplasms, colon 08/20/2018 06/24/2019 Overview: Added automatically from request for barron nadege [id number] Hypertension, unspecified type 07/16/2018 9 Other hyperlipidemia 07/16/2018 06/24/2019 documented as of this encounter (statuses as of 02/10/2020) Immunizations Name Administration Dates Next Due HEP [...] been in contact with No / Unsure 02/10/2020 10:44 AM CDT someone who was confirmed or suspected to have Coronavirus / COVID-19? documented as of this encounter Last Filed Vital Signs Not on filedocumented in this encounter Progress Notes Kimberley Troy FNP - 02/10/2020 1:34 PM CDTPt seen by neurosurgery today. Lumbar Luong L5-S1 scheduled for 03/01/20. Looking for authorization from [employer] and will need to have Cardiac Clearance asap documented in this encounter Plan of Treatment Date Type Specialty Care Team Description 02/15/2020 Office Visit Cardiology Prakash Recinos MD [address] [place] [address] [address] [place] [address] [phone] 03/01/2020 Hospital Encounter Ambulatory Surgical Mirna Ham MD [address] [place] [phone] 03/01/2020 Surgery Surgery Royer Ham MD HEMILAMINECTOMY [address] [place] [phone] 03/20/2020 Telemedicine Visit Endocrinology Diabetes Colby Edward & Metabolism AMD 250 [facility] [address] [place] [address] [phone] 03/30/2020 Office Visit Gastroenterology Jackie Van MD [address] [facility] [address] [place] [address] Health Maintenance Due Date Last Done Comments [...] filedocumented in this encounter Visit Diagnoses Diagnosis Preoperative clearance - Primary Preoperative examination, unspecified documented in this encounter Insurance Payer Benefit Plan Subscriber ID Effective Phone Address Typ e / Group Dates [employer] [employer] [id number] 2019-Pre [phone] [facility] H C I H C sent [address] [place] [address] WALDEMAR MEDEIROS [id number] 2018-Pres [phone] PRIMARY CARE PRIMARY CARE ent [address] [place] [address] documented as of this encounter
--- OUTSIDE RECORDS SUMMARY | 2020-02-11 13:56 | XMS REPORT | Summary of Care ---
:1965 Author Organization [facility] Address [address] [place] [id number] Care Team Providers Name Role Phone LUISA Troy Primary Care Provider Reason for Referral (CINDY) Status Reason Specialty Diagnoses / Referred By Referred To Procedures Contact Contact New Request Neurological Diagnoses Fecal smearing Clinton Grissom, Surgery Procedures CONSULT/REFERRAL NEUROSURGERY MD Jackie [address] [place] [address] [address] [place] [address] Reason for Visit Reason Comments Imaging Encounter Details Date Type Department Care Team Description 02/03/2020 Telephone [facility] Clinton Grissom, Imaging -[facility] MD Jackie [address] [place] [address] [place] [phone] [facility] [phone] [facility] [address] [place] [address] [phone] Allergies Active Allergy Reactions Severity Noted Date Comments Hydrocodone Itching 07/16/2018 Rofecoxib Swelling 05/11/2015 Sertraline Hcl Swelling 05/11/2015 documented as of this encounter (statuses as of 02/03/2020) Medications Medication Sig Dispensed Refills Start Date [...] as of this encounter (statuses as of 02/03/2020) Active Problems Problem Noted Date Diffuse abdominal pain 09/23/2019 Overview: Added automatically from request for barron nadege [id number] Gastroesophageal reflux disease, esophagitis presence not specified 09/23/2019 Overview: Added automatically from request for barron nadege [id number] Gastroparesis 06/24/2019 Bronchitis 06/24/2019 Abdominal pain, diffuse 08/20/2018 Overview: Added automatically from request for barron nadege [id number] Type 2 diabetes mellitus with hyperglycemia, with long -term current use of 07/16/2018 insulin documented as of this encounter (statuses as of 02/03/2020) Resolved Problems Problem Noted Date Resolved Date Colon cancer screening 11/03/2018 06/24/2019 Overview: Added automatically from request for barron nadege [id number] Diffuse abdominal pain 11/03/2018 06/24/2019 Overview: Added automatically from request for barron nadege [id number] Special screening for malignant neoplasms, colon 08/20/2018 06/24/2019 Overview: Added automatically from request for barron nadege [id number] Hypertension, unspecified type 07/16/2018 9 Other hyperlipidemia 07/16/2018 06/24/2019 documented as of this encounter (statuses as of 02/03/2020) Immunizations Name Administration Dates Next Due HEP [...] been in contact with No / Unsure 02/01/2020 2:44 PM CDT someone who was confirmed or suspected to have Coronavirus / COVID-19? documented as of this encounter Last Filed Vital Signs Not on filedocumented in this encounter Plan of Treatment Date Type Specialty Care Team Description 03/20/2020 Telemedicine Visit Endocrinology Diabetes & Jazzmine Edward MD [address] [facility] [address] [place], [place] [address] [phone] 03/30/2020 Office Visit Gastroenterology Jackie Van MD [address] [facility] [address] [place] [address] Health Maintenance Due Date Last Done Comments [...] filedocumented in this encounter Visit Diagnoses Diagnosis Fecal smearing - Primary documented in this encounter Insurance Payer Benefit Plan Subscriber ID Effective Phone Address Typ e / Group Dates [place] [id number] 2019-Pre [phone] [facility] sent [address] [place] [address] WALDEMAR MEDEIROS [id number] 2018-Pres [phone] [facility]IMARY CARE ent [address] [place] [address] documented as of this encounter
[2020-02-11] MEDS ORDERED: NA CHLORIDE 0.9% 1,000 ML ONE (14:23)
[2020-02-11] MEDS ORDERED: MEPERIDINE HCL 50 MG/ML ONE (14:23)
[2020-02-11] MEDS ORDERED: METOCLOPRAMIDE 10 MG/2mL INJ ONE (14:23)
[2020-02-11 14:37] LABS: Absolute Lymphocytes (CBC) 1.7 K/uL (0.7-4.9); Basophils % 1.1 % (0-1.3); Lymphocytes % 15.8 % (15.3-44.8); MPV 11.5 fL (7.6-11.3); RBC Red Blood Cell Count 4.36 M/uL (4.33-5.43)
[2020-02-11 14:48] LABS: Albumin 3.1 g/dL (3.4-5.0); Bilirubin Direct 0.1 mg/dL (0-0.2); Bilirubin Total 0.2 mg/dL (0.2-1.0); Potassium 4.2 mmol/L (3.5-5.1); Protein, Total 7.4 g/dL (6.4-8.2)
--- NOTE | 2020-02-11 15:45 | ER ---
Nurse's Notes [facility] Name: Florentino Acosta Age: 54 yrs Sex: Male : 1965 Arrival Date: 02/11/2020 Time: 13:48 Bed 20 Private MD: Diagnosis: Acute pancreatitis, unspecified;Nausea and vomiting;Gastroparesis;Dehydration;Acute kidney failure Presentation: 02/10 13:52 Chief complaint: Chief complaint: Patient states: "I have gastroparesis and I am ca1 scheduled to have a surgery on the 01 of March. Since last night, I have been having BM accidents. It comes out as diarrhea and formed stools, alternately. I just can't hold it and it just comes out". Reports N/V. Reports pain on low back, anal area and abdomen. Coronavirus screen: Proceed with normal triage. Patient denies a cough. Patient denies shortness of breath or difficulty breathing. Patient denies measured and/or subjective temperature greater than 100.4F prior to today's visit. Patient denies travel on a cruise ship or to a country the [facility] currently lists as an affected area. Patient denies contact with known and/or suspected case of COVID-19. Ebola Screen: Patient negative for fever greater than or equal to 101.5 degrees Fahrenheit, and additional compatible Ebola Virus Disease symptoms Patient denies exposure to infectious person. Patient denies travel to an Ebola-affected area in the 21 days before illness onset. No symptoms or risks identified at this time. Initial Sepsis Screen: Does the patient meet any 2 criteria? No. Patient's initial sepsis screen is negative. Does the patient have a suspected source of infection? No. Patient's initial sepsis screen is negative. Risk Assessment: Do you want to hurt yourself or someone else? Patient reports no desire to harm self or others. Onset of symptoms was February 11, 2020. 13:52 Method Of Arrival: Wheelchair ca1 13:52 Acuity: RAMSES 3 ca1 Triage Assessment: 14:10 General: Appears in no apparent distress. uncomfortable, obese, Behavior is bp cooperative, appropriate for age, anxious. Pain: Denies pain. EENT: No deficits noted. Neuro: No deficits noted. Cardiovascular: No deficits noted. Respiratory: No deficits noted. GI: Reports diarrhea, incontinence. : No signs and/or symptoms were reported regarding the genitourinary system. Derm: No deficits noted. Musculoskeletal: No deficits noted. Historical: - Allergies: 14:11 Codeine; ca1 14:11 Hydrocodone-Acetaminophen; ca1 14:11 Vioxx; ca1 14:11 Zoloft; ca1 - Home Meds: 14:11 gabapentin 800 mg Oral tab 1 tab 3 times per day [Active]; metoclopramide HCl 10 mg ca1 Oral tab 1 tab 4 times per day [Active]; metformin 1,000 mg Oral tab 1 tab 2 times per day [Active]; metoprolol tartrate 25 mg Oral tab .5 tab 2 times per day [Active]; dicyclomine 10 mg Oral cap 1 cap 4 times per day [Active]; pantoprazole 40 mg Oral TbEC 1 tab 2 times per day [Active]; ondansetron HCl 4 mg Oral tab 2 tabs every 8 hours [Active]; furosemide 20 mg Oral tab 1 tab once daily [Active]; aspirin 81 mg Oral TbEC [Active]; Stool Softener 100 mg oral cap [Active]; Livalo 4 mg Oral tab 1 tab once daily [Active]; Lyrica Oral 300 mg 2 times per day [Active]; Novolin 70/30 [place] Sub-Q 70-30 unit/mL [Active]; - PMHx: 14:11 Back pain; bowel obstruction; Chronic pain; Diabetes - NIDDM; Gastroparesis; H.Pylori; ca1 High Cholesterol; Hyperlipidemia; Myocardial infarction; neuropathy; - PSHx: 14:11 Cholecystectomy; ca1 - Immunization history:: Adult Immunizations up to date. - Social history:: Smoking status: Patient denies any tobacco usage or history of. Screenin:11 Abuse screen: Denies threats or abuse. Denies injuries from another. Nutritional bp screening: No deficits noted. Tuberculosis screening: No symptoms or risk factors identified. Fall Risk None identified. Assessment: 14:11 General: SEE TRIAGE NOTE. bp 15:07 Reassessment: IVF INFUSING. VS STABLE ON MONITOR. bp 15:49 Reassessment: HOSPITALIST AT B/S. bp 17:00 Reassessment: ADMIT IN PROCESS. PT REMAINS INCONTINENT. bp 18:00 Reassessment: ADMIT COMPLETE, BED ASSIGNED. bp Vital Signs: 14:04 BP 130 / 87; Pulse 88; Resp 15 S; Temp 97.4(TE); Pulse Ox 99% on R/A; Weight 77.11 kg ca1 (R); Height 5 ft. 4 in. (162.56 cm) (R); Pain 9/10; 15:07 BP 125 / 78; Pulse 79; Resp 16; Pulse Ox 98% ; bp 16:00 BP 159 / 90; Pulse 78; Resp 16; Pulse Ox 100% ; bp 17:00 BP 165 / 79; Pulse 77; Resp 16; Pulse Ox 100% ; bp 18:00 BP 152 / 82; Pulse 75; Resp 16; Pulse Ox 100% ; bp 14:04 Body Mass Index 29.18 (77.11 kg, 162.56 cm) ca1 ED Course: 13:48 Patient arrived in ED. as 13:50 Mando Parker, LARRY is Primary Nurse. bp 13:52 Awilda Joseph FNP-C is PHCP. kb 13:52 Tyree Ferreira MD is Attending Physician. kb 13:54 Triage completed. ca1 13:54 Arm band placed on right wrist. ca1 14:11 Patient has correct armband on for positive identification. Bed in low position. Call bp light in reach. Side rails up X2. Adult w/ patient. 14:20 Warm blanket given. Verbal reassurance given. Pulse ox on. NIBP on. jp3 14:20 Initial lab(s) drawn, by me, sent to lab. Inserted saline lock: 20 gauge in right jp3 forearm, using aseptic technique. Blood collected. Patient maintains SpO2 saturation greater than 95% on room air. 15:44 Lindsey Caldwell MD is Hospitalizing Provider. kb 15:55 CT Stone Protocol In Process Unspecified. EDMS 18:28 No provider procedures requiring assistance completed. Patient admitted, IV remains in bp place. Administered Medications: 14:21 Drug: Demerol 25 mg Route: IVP; Site: right forearm; bp 18:29 Follow up: Response: Pain is decreased bp 14:21 Drug: Reglan 10 mg Route: IVP; Site: right forearm; bp 18:29 Follow up: Response: Marked relief of symptoms bp 14:21 Drug: NS 0.9% 1000 ml Route: IV; Rate: 1000 ml; Site: right forearm; bp 18:28 Follow up: IV Status: Completed infusion; IV Intake: 1000ml bp Intake: 18:28 IV: 1000ml; Total: 1000ml. bp Outcome: 15:45 Decision to Hospitalize by Provider. kb 18:27 Admitted to Med/surg accompanied by tech, via wheelchair, room 229, with chart, Report bp called to SHARYN JUAREZ 18:27 Condition: stable 18:27 Instructed on the need for admit. 18:45 Patient left the ED. bp Signatures: Dispatcher [employer] EDMS Awilda Joseph, SENIOR COBOL DEVELOPER-C SENIOR COBOL DEVELOPER-Magnolia Garber Brian, RN RN bp Robi Hdz jp3 Antonieta Diallo RN RN ca1 Corrections: (The following items were deleted from the chart) 14:06 13:52 Chief complaint: ca1 ca1
--- NOTE | 2020-02-11 15:45 | EDPHYS ---
Physician Documentation [facility] Name: Florentino Acosta Age: 54 yrs Sex: Male : 1965 Arrival Date: 02/11/2020 Time: 13:48 Bed 20 Private MD: ED Physician Tyree Ferreira HPI: 02/10 14:20 This 54 yrs old Male presents to ER via Wheelchair with complaints of Diarrhea.kb 14:20 The patient presents to the emergency department with nausea, vomiting, diarrhea, kb abdominal pain. Onset: The symptoms/episode began/occurred last night. Possible causes: unknown. The symptoms are aggravated by nothing. The symptoms are alleviated by nothing. Associated signs and symptoms: Pertinent positives: abdominal pain, diarrhea, nausea, vomiting. Severity of symptoms: At their worst the symptoms were mild moderate in the emergency department the symptoms are unchanged. The patient has experienced similar episodes in the past, chronically. The patient has not recently seen a physician. Pt reports he started having a gastroparesis flare-up last night. Reports abd pain, n/v, and diarrhea. States symptoms are exactly the same as they normally are when he has a flare. Has procedure scheduled for March 01 to have back surgery that is supposed to help the gastroparesis and the fecal incontinence that comes with his flares. . Historical: - Allergies: 14:11 Codeine; ca1 14:11 Hydrocodone-Acetaminophen; ca1 14:11 Vioxx; ca1 14:11 Zoloft; ca1 - Home Meds: 14:11 gabapentin 800 mg Oral tab 1 tab 3 times per day [Active]; metoclopramide HCl 10 mg ca1 Oral tab 1 tab 4 times per day [Active]; metformin 1,000 mg Oral tab 1 tab 2 times per day [Active]; metoprolol tartrate 25 mg Oral tab .5 tab 2 times per day [Active]; dicyclomine 10 mg Oral cap 1 cap 4 times per day [Active]; pantoprazole 40 mg Oral TbEC 1 tab 2 times per day [Active]; ondansetron HCl 4 mg Oral tab 2 tabs every 8 hours [Active]; furosemide 20 mg Oral tab 1 tab once daily [Active]; aspirin 81 mg Oral TbEC [Active]; Stool Softener 100 mg oral cap [Active]; Livalo 4 mg Oral tab 1 tab once daily [Active]; Lyrica Oral 300 mg 2 times per day [Active]; Novolin 70/30 [place] Sub-Q 70-30 unit/mL [Active]; - PMHx: 14:11 Back pain; bowel obstruction; Chronic pain; Diabetes - NIDDM; Gastroparesis; H.Pylori; ca1 High Cholesterol; Hyperlipidemia; Myocardial infarction; neuropathy; - PSHx: 14:11 Cholecystectomy; ca1 - Immunization history:: Adult Immunizations up to date. - Social history:: Smoking status: Patient denies any tobacco usage or history of. ROS: 14:19 Constitutional: Negative for fever, chills, and weight loss, Cardiovascular: Negative kb for chest pain, palpitations, and edema, Respiratory: Negative for shortness of breath, cough, wheezing, and pleuritic chest pain, Back: Negative for injury and pain, MS/Extremity: Negative for injury and deformity, Skin: Negative for injury, rash, and discoloration, Neuro: Negative for headache, weakness, numbness, tingling, and seizure. 14:19 Abdomen/GI: Positive for abdominal pain, nausea, vomiting, and diarrhea. Exam: 14:20 Constitutional: This is a well developed, well nourished patient who is awake, alert, kb and in no acute distress. Head/Face: Normocephalic, atraumatic. Chest/axilla: Normal chest wall appearance and motion. Nontender with no deformity. No lesions are appreciated. Cardiovascular: Regular rate and rhythm with a normal S1 and S2. No gallops, murmurs, or rubs. Normal PMI, no JVD. No pulse deficits. Respiratory: Lungs have equal breath sounds bilaterally, clear to auscultation and percussion. No rales, rhonchi or wheezes noted. No increased work of breathing, no retractions or nasal flaring. Skin: Warm, dry with normal turgor. Normal color with no rashes, no lesions, and no evidence of cellulitis. MS/ Extremity: Pulses equal, no cyanosis. Neurovascular intact. Full, normal range of motion. Neuro: Awake and alert, GCS 15, oriented to person, place, time, and situation. Cranial nerves II-XII grossly intact. Motor strength 5/5 in all extremities. Sensory grossly intact. Cerebellar exam normal. Normal gait. 14:20 Abdomen/GI: Inspection: abdomen appears normal, Bowel sounds: normal, in all quadrants, Palpation: soft, in all quadrants, mild abdominal tenderness, in the right lower quadrant and left lower quadrant, moderate abdominal tenderness, in the right upper quadrant and left upper quadrant. Vital Signs: 14:04 BP 130 / 87; Pulse 88; Resp 15 S; Temp 97.4(TE); Pulse Ox 99% on R/A; Weight 77.11 kg ca1 (R); Height 5 ft. 4 in. (162.56 cm) (R); Pain 9/10; 15:07 BP 125 / 78; Pulse 79; Resp 16; Pulse Ox 98% ; bp 16:00 BP 159 / 90; Pulse 78; Resp 16; Pulse Ox 100% ; bp 17:00 BP 165 / 79; Pulse 77; Resp 16; Pulse Ox 100% ; bp 18:00 BP 152 / 82; Pulse 75; Resp 16; Pulse Ox 100% ; bp 14:04 Body Mass Index 29.18 (77.11 kg, 162.56 cm) ca1 MDM: 13:52 Patient medically screened. kb 14:17 Data reviewed: vital signs, nurses notes. Data interpreted: Pulse oximetry: on room air kb is 99 %. Interpretation: normal. 15:42 Counseling: I had a detailed discussion with the patient and/or guardian regarding: the kb historical points, exam findings, and any diagnostic results supporting the discharge/admit diagnosis, lab results, radiology results, the need for further work-up and treatment in the hospital. Physician consultation: Lindsey Caldwell MD was contacted at 15:42, regarding admission, to the medical/surgical unit. patient's condition, in the emergency department to see patient at 15:43. 02/10 14:11 Order name: Basic Metabolic Panel; Complete Time: 14:53 kb 02/10 14:11 Order name: CBC with Diff; Complete Time: 14:53 kb 02/10 14:11 Order name: Hepatic Function; Complete Time: 14:53 kb 02/10 14:11 Order name: Lipase; Complete Time: 14:53 kb 02/10 17:04 Order name: CBC with Automated Diff EDMS 02/10 17:04 Order name: CBC with Automated Diff EDMS 02/10 14:55 Order name: CT Stone Protocol; Complete Time: 16:19 kb 02/10 17:04 Order name: Comprehensive Metabolic Panel EDMS 02/10 17:04 Order name: Comprehensive Metabolic Panel EDMT 02/10 17:04 Order name: Lipid Profile EDMT 02/10 17:04 Order name: Lipid Profile [facility] 02/10 17:10 Order name: C.difficile GDH Ag EDMT 02/10 14:11 Order name: IV Saline Lock; Complete Time: 14:20 kb 02/10 14:11 Order name: Labs collected and sent; Complete Time: 14:20 kb 02/10 17:04 Order name: CONS Pharmacy Consult EDMT 02/10 17:04 Order name: CONS Physician Consult EDMT 02/10 17:04 Order name: CONS Physician Consult EDMT 02/10 17:08 Order name: Full Liquid EDMT Administered Medications: 14:21 Drug: Demerol 25 mg Route: IVP; Site: right forearm; bp 18:29 Follow up: Response: Pain is decreased bp 14:21 Drug: Reglan 10 mg Route: IVP; Site: right forearm; bp 18:29 Follow up: Response: Marked relief of symptoms bp 14:21 Drug: NS 0.9% 1000 ml Route: IV; Rate: 1000 ml; Site: right forearm; bp 18:28 Follow up: IV Status: Completed infusion; IV Intake: 1000ml bp Disposition: 18:46 Co-signature as Attending Physician, Tyree Ferreira MD. ma2 Disposition: 02/11/20 15:45 Hospitalization ordered by Lindsey Caldwell for Observation. Preliminary diagnosis are Acute pancreatitis, unspecified, Nausea and vomiting, Gastroparesis, Dehydration, Acute kidney failure. - Bed requested for Telemetry/MedSurg (observation). - Status is Observation. bp - Condition is Stable. - Problem is new. - Symptoms are unchanged. Signatures: Dispatcher [employer] EDMT Awilda Joseph FNP-Brian MORAN-Mando Lawrence RN RN Tyree Crockett MD MD ma2 Peggy Kemp Cheryl RN RN ca1 Corrections: (The following items were deleted from the chart) 15:43 14:17 Counseling: I had a detailed discussion with the patient and/or guardian regarding: the historical points, exam findings, and any diagnostic results supporting the discharge/admit diagnosis, lab results, the need for outpatient follow up, a family practitioner, a oil field pipeline supervisor, to return to the emergency department if symptoms worsen or persist or if there are any questions or concerns that arise at home, kb 17:07 17:04 Consistent Carb (ADA) 1800 Aidan ordered. EDMS EDMS 17:26 15:45 Hospitalization Ordered by Lindsey Caldwell MD for Observation. Preliminary eb diagnosis is Acute pancreatitis, unspecified; Nausea and vomiting; Gastroparesis; Dehydration; Acute kidney failure. Bed requested for Telemetry/MedSurg (observation). Status is Observation. Condition is Stable. Problem is new. Symptoms are unchanged. kb 18:45 17:26 02/11/2020 15:45 Hospitalization Ordered by Lindsey Caldwell MD for Observation. bp Preliminary diagnosis is Acute pancreatitis, unspecified; Nausea and vomiting; Gastroparesis; Dehydration; Acute kidney failure. Bed requested for Telemetry/MedSurg (observation). Status is Observation. Condition is Stable. Problem is new. Symptoms are unchanged. eb
--- NOTE | 2020-02-11 16:16 | RAD REPORT ---
EXAM DESCRIPTION: CT - Stone Protocol - 02/11/2020 3:55 pm CLINICAL HISTORY: ABD PAIN COMPARISON: Abdomen Pelvis Wo Contrast dated 10/07/2019 TECHNIQUE: Axial [address] imaging of the abdomen and pelvis was performed without IV contrast. No IV contrast was given because of allergy, abnormal renal function, patient refusal or physician re quest. All CT scans are performed using dose optimization technique as appropriate and may include automated exposure control or mA/KV adjustment according to patient size. FINDINGS: No suspicious findings in the lung bases. The liver, spleen and pancreas show no suspicious findings on non-contrast imaging. Cholecystectomy c lips are present. No abnormal biliary tree dilatation. No hydronephrosis or suspicious renal mass. No obstructing or nonobstructing calculi seen. Mild symme tric perinephric stranding pattern matches prior study. No significant adrenal finding. Isodense herber l masses and pyelonephritis cannot be excluded in the absence of IV contrast. Partially filled urinar y bladder shows no suspicious finding. Prostate gland and seminal vesicles show no suspicious finding s. No gastric dilatation or wall thickening. No duodenum abnormality. Proximal small bowel loops show no suspicious findings. Prominent but nondilated fluid-filled distal small bowel loops measure up to 2. 5 cm. No wall thickening or edema. The appendix is normal. No colon abnormality seen. No free air, free fluid or inflammatory stranding. No mass or bulky lymphadenopathy. Fat filled lef t inguinal hernia is present. No suspicious bony findings. IMPRESSION: Mildly prominent fluid-filled distal small bowel loops are present. Pattern is nonspecif ic but could indicate enteritis. No other significant or suspicious finding noted. Full findings are detailed in the body of the repor t. Full assessment is limited is the absence of IV contrast.
[2020-02-11] MEDS ORDERED: ONDANSETRON 4 MG/2 ML VIAL IV PRN (16:55)
[2020-02-11] MEDS ORDERED: ACETAMINOPHEN 500 MG TAB PO PRN (16:55)
[2020-02-11] MEDS ORDERED: ALBUTEROL 2.5 MG/3 ML NEB SOL NEB PRN (16:55)
[2020-02-11] MEDS ORDERED: GLUCAGON 1 MG/VIAL IM PRN (17:02)
[2020-02-11] MEDS ORDERED: D50W 25 GM/50 ML SYRINGE/VIAL IV PRN (17:02)
[2020-02-11] MEDS ORDERED: HYDRALAZINE HCL 20 MG/ML VIAL IV PRN ×2 (17:04→17:07)
--- NOTE | 2020-02-11 17:16 | P.HP ---
Certification for Inpatient Patient admitted to: Inpatient With expected LOS: >2 Midnights Patient will require the following post-hospital care: None Practitioner: I am a practitioner with admitting privileges, knowledge of patient current condition, hospital course, and medical plan of care. Services: Services provided to patient in accordance with Admission requirements found in Title 42 Section 412.3 of the Code of Federal Regulations Patient History Date of Service: 02/11/20 Reason for admission: Intractable nausea vomiting abdominal pain History of Present Illness: 54-year-old male with past medical history of diabetes, hypertension, self-reported diagnosis of diabetic gastroparesis follow with GI at [place] status post EGD and colonoscopy 2 months ago that was reported as negative per patient cc was placed on Venti for the gastroparesis. He admits to a history of chronic recurrent abdominal cramps with diarrhea lasting for few days and intermittent. He had recurrent bouts of episode yesterday. He admits to occasional postprandial symptoms. Diarrhea consists of 3 bouts of loose bowel movement. He denies any recent antibiotics use. He denies any fever or chills. He denies any hematochezia or hematemesis. Allergies rofecoxib [From Vioxx] Allergy (Mild, Verified 05/05/18 22:46) Hives sertraline HCl [From Zoloft] Allergy (Mild, Verified 05/05/18 22:46) Hives hydrocodone Adverse Reaction (Verified 05/05/18 22:46) Hives/Rash Codeine Adverse Reaction (Uncoded 05/05/18 22:48) Itching Home Medications: RX: Albuterol Sulfate [Albuterol Sulfate Hfa] 1 puff IH Q4HR 07/08/19 RX: Aspirin [Aspirin EC 81 MG] 81 mg PO DAILY 07/08/19 RX: Benzonatate [Tessalon Perle*] 100 mg PO Q6HP PRN 07/08/19 RX: Dicyclomine [Bentyl*] 10 mg PO QID 07/08/19 RX: Gabapentin 800 mg PO TID 07/08/19 RX: Insulin 70/30 NPH/Reg Human [Novolin 70/30*] 20 units SQ TID 07/08/19 RX: Metoprolol Tartrate [Lopressor*] 25 mg PO BID 07/08/19 RX: Ondansetron [Zofran (Odt)*] 4 mg PO Q8HP 07/08/19 RX: Pantoprazole [Protonix Tab*] 40 mg PO BID 07/08/19 RX: Pitavastatin Calcium [Livalo] 4 mg PO DAILY 07/08/19 metroNIDAZOLE [Flagyl] 500 mg PO Q8H #15 tablet 07/09/19 - Past Medical/Surgical History Diabetic: Yes -: Diabetes mellitus type 2; on insulin -: Hypertension -: CAD, no stents -: Diabetic neuropathy -: Gastroparesis -: Cataracts both eyes -: Cholecystectomy -: Heart catheterization, no stents Psychosocial/ Personal History: Patient is . He has 4 children. 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 - Family History Mother -: Hypertension, Diabetes Father -: Liver disease Notes: - alcoholic - Social History Alcohol use: No CD- Drugs: No Caffeine use: Yes Review of Systems 10-point ROS is otherwise unremarkable Physical Examination - Physical Exam General: Alert, In no apparent distress, Oriented x3, Oriented x2 HEENT: Atraumatic, Normocephalic, PERRLA Neck: Supple, 2+ carotid pulse no bruit, JVD not distended Respiratory: Clear to auscultation bilaterally, Normal air movement Cardiovascular: No edema, Normal pulses, Regular rate/rhythm Gastrointestinal: Normal bowel sounds, Soft and benign, Non-distended Musculoskeletal: No clubbing, No swelling Integumentary: No rashes, No breakdown Neurological: Normal speech, Normal strength at 5/5 x4 extr, Normal tone - Studies Laboratory Data (last 24 hrs) 02/11/20 14:18: WBC 10.9, Hgb 12.3 L, Hct 37.0 L, Plt Count 183 02/11/20 14:18: Sodium 142, Potassium 4.2, BUN 34 H, Creatinine 2.18 H, Glucose 165 H, Total Bilirubin 0.2, AST 23, ALT 19, Alkaline Phosphatase 83, Lipase 774 H Assessment and Plan - Problems (Diagnosis) (1) Acute renal failure Current Visit: No Status: Acute (2) Diabetes mellitus, type II Onset Date: 05/06/18 Current Visit: No Status: Acute (3) Diabetic neuropathy Onset Date: 05/06/18 Current Visit: No Status: Acute (4) Gastroenteritis Current Visit: No Status: Acute (5) History of diabetic gastroparesis Current Visit: No Status: Acute - Advance Directives Does patient have a Living Will: No Does patient have a Durable POA for Healthcare: No Physician Review: Patient Assessed, Agree with Above Assessment and Plan Physician Review Additional Text: # recurrent diarrhea/Vomiting - may be due to acute on chronic pancreatitis -Noted elevated lipase level -will start patient on full liquids diet now and trial of Creon with meals -will need continue Reglan for now -start gentle IVF - will also send C diff although less likely # ARF -on baseline CKD -with cr 1.5 - start gentle IVF -will consult renal team # DVT prop- sc lovenox Dispo -possible home in am Time Spent Managing Pts Care (In Minutes): 60
[2020-02-11] MEDS ORDERED: ENOXAPARIN 40 MG/0.4 ML SQ SCH (18:00)
[2020-02-11] MEDS: ENOXAPARIN 40 MG/0.4 ML SQ SCH (18:47)
[2020-02-11] MEDS: NA CHLORIDE 0.9% 1,000 ML IV SCH (18:47)
[2020-02-11] MEDS: MORPHINE 2 MG/ML SYR IV PRN (19:10)
[2020-02-11] MEDS ORDERED: IPRATROPIUM BROM 0.5MG/2.5ML NEB SCH (20:00)
[2020-02-11] MEDS: METOPROLOL TAR 25 MG TAB PO SCH (20:42)
[2020-02-11] MEDS: DICYCLOMINE HCL 10 MG CAP PO SCH (20:42)
[2020-02-11] MEDS: INSULIN 70/30 100 UNITS/ML SQ SCH (20:43)
[2020-02-11] MEDS: INSULIN -REGULAR HUMAN 50 UNIT/0.5 ML ML SQ SCH (20:43)
[2020-02-11] MEDS ORDERED: MORPHINE 2 MG/ML SYR IV ONE (21:03)
[2020-02-11 23:36] VITALS: BMI 29.2
[2020-02-12] MEDS: MORPHINE 2 MG/ML SYR IV PRN ×2 (01:41→05:57)
[2020-02-12] MEDS: NA CHLORIDE 0.9% 1,000 ML IV SCH (04:27)
[2020-02-12 05:26] LABS: Hematocrit 35.3 % (39.6-49.0); Lymphocytes % 18.8 % (15.3-44.8); MPV 11.3 fL (7.6-11.3)
[2020-02-12 06:02] LABS: Albumin 2.9 g/dL (3.4-5.0); Bilirubin Total 0.2 mg/dL (0.2-1.0); Protein, Total 6.6 g/dL (6.4-8.2)
[2020-02-12 06:03] LABS: Potassium 4.8 mmol/L (3.5-5.1)
[2020-02-12] MEDS ORDERED: PANTOPRAZOLE 40MG TABLET PO SCH (07:30)
[2020-02-12] MEDS: INSULIN -REGULAR HUMAN 50 UNIT/0.5 ML ML SQ SCH ×2 (07:30→11:30)
[2020-02-12] MEDS: DICYCLOMINE HCL 10 MG CAP PO SCH (08:49)
[2020-02-12] MEDS: METOPROLOL TAR 25 MG TAB PO SCH (08:49)
[2020-02-12] MEDS: ENOXAPARIN 40 MG/0.4 ML SQ SCH (08:50)
[2020-02-12 08:53] VITALS: BP 113/71; TEMP 97.2
[2020-02-12] MEDS: INSULIN 70/30 100 UNITS/ML SQ SCH (08:53)
[2020-02-12] MEDS ORDERED: ASPIRIN EC 81 MG TAB PO SCH (09:00)
--- NOTE | 2020-02-12 09:03 | P.DS ---
Admission Date: 02/11/20 Discharge Date: 02/12/20 Disposition: ROUTINE DISCHARGE Discharge Condition: FAIR Reason for Admission: Intractable nausea vomiting abdominal pain - Problems (1) Acute pancreatitis Status: Acute (2) Diabetic neuropathy Onset Date: 05/06/18 Status: Acute (3) History of diabetic gastroparesis Status: Acute (4) Hyperlipidemia Onset Date: 10/27/14 Status: Acute (5) Hypertension Onset Date: 08/10/14 Status: Acute (6) Non-insulin dependent type 2 diabetes mellitus Onset Date: 10/27/14 Status: Acute Brief History of Present Illness: 54-year-old gentleman with a history of diabetes mellitus type 2, self-reported gastric paresis presented to the ED with a complaint of diarrhea, intermittent abdominal pain and intractable nausea and vomiting. His lipase level in the ED was elevated to 770. CT abdomen and pelvis reported nonspecific fluid-filled small-bowel. Patient was admitted for further management. Hospital Course: Patient admitted to the medical, and treated with supportive measures including IV fluids, antiemetics. He was kept NPO and later advanced to full liquid diet which he tolerated. Patient abdominal pain and nausea and diarrhea also improved. Patient has evidence of acute on chronic renal failure. His serum creatinine improved with IV hydration. Overall he has clinically improved. His symptoms could be also related to pancreatitis, probably chronic. He will be started on a trial of pancreatic enzyme supplementation. Patient is deemed clinically stable for discharge. Vital Signs/Physical Exam: Temp Pulse Resp BP Pulse Ox 97.2 F 81 20 113/71 98 02/12/20 08:00 02/12/20 08:49 02/12/20 08:00 02/12/20 08:49 02/12/20 08:00 General: Alert, In no apparent distress HEENT: Mucous membr. moist/pink Neck: JVD not distended Respiratory: Clear to auscultation bilaterally, Normal air movement Cardiovascular: No edema, Regular rate/rhythm, Normal S1 S2 Gastrointestinal: Normal bowel sounds, Soft and benign, No tenderness Musculoskeletal: No swelling Integumentary: No rashes Laboratory Data at Discharge: WBC 10.5 K/uL (4.3-10.9) 02/12/20 05:09 Hgb 11.4 g/dL (13.6-17.9) L 02/12/20 05:09 Hct 35.3 % (39.6-49.0) L 02/12/20 05:09 Plt Count 164 K/uL (152-406) 02/12/20 05:09 Sodium 142 mmol/L (136-145) 02/12/20 05:09 Potassium 4.8 mmol/L (3.5-5.1) 02/12/20 05:09 BUN 36 mg/dL (7-18) H 02/12/20 05:09 Creatinine 1.94 mg/dL (0.55-1.3) H 02/12/20 05:09 Glucose 155 mg/dL (74-106) H 02/12/20 05:09 Total Bilirubin 0.2 mg/dL (0.2-1.0) 02/12/20 05:09 AST 42 U/L (15-37) H 02/12/20 05:09 ALT 29 U/L (12-78) 02/12/20 05:09 Alkaline Phosphatase 95 U/L (45-117) 02/12/20 05:09 Triglycerides 163 mg/dL (<150) H 02/12/20 05:09 Cholesterol 128 mg/dL (<200) 02/12/20 05:09 HDL Cholesterol 58 mg/dL (40-60) 02/12/20 05:09 Cholesterol/HDL Ratio 2.21 02/12/20 05:09 Lipase 774 U/L (73-393) H 02/11/20 14:18 Home Medications: Aspirin [Aspirin EC 81 MG] 81 mg PO DAILY 07/08/19 Benzonatate [Tessalon Perle*] 100 mg PO Q6HP PRN 07/08/19 Dicyclomine [Bentyl*] 10 mg PO QID PRN 07/08/19 Insulin 70/30 NPH/Reg Human [Novolin 70/30*] 20 units SQ TID 07/08/19 Metoprolol Tartrate [Lopressor*] 25 mg PO BID 07/08/19 Ondansetron [Zofran (Odt)*] 4 mg PO Q8HP PRN 07/08/19 Pantoprazole [Protonix Tab*] 40 mg PO BID 07/08/19 Pitavastatin Calcium [Livalo] 4 mg PO DAILY 07/08/19 Furosemide [Lasix] 20 mg PO DAILY 02/11/20 Metformin HCl 1 tab PO BID 02/11/20 Metoclopramide HCl [Reglan] 10 mg PO ACHS 02/11/20 Metoclopramide HCl [Reglan] 10 mg PO BEDTIME 02/11/20 Pregabalin [Lyrica] 300 mg PO BID 02/11/20 Lipase/Protease/Amylase [Reena Vargas 12,000 Units Capsule] 1 cap PO TID #90 cap 02/12/20 New Medications: Lipase/Protease/Amylase [Reena Vargas 12,000 Units Capsule] 1 cap PO TID #90 cap Diet: ADA
[2020-02-12 09:07] VITALS: O2SAT 98
[2020-02-13 09:03] LABS: C.diff Antigen/Toxin Ag neg : Tox neg (NEG : NEG)
== END 2020-02-12 12:23 | disposition home or self-care (01) | DRG 439 ==
LOC: ER 13:46 → ERHOLD 17:01 → 2ND 18:27
PROVIDERS: ADMIT Internal Medicine; ATTEND Internal Medicine
DX: K85.90 Acute pancreatitis without necrosis or infection, unspecified (principal); N17.9 Acute kidney failure, unspecified; E11.40 Type 2 diabetes mellitus with diabetic neuropathy, unspecified; E78.5 Hyperlipidemia, unspecified; K52.9 Noninfective gastroenteritis and colitis, unspecified; E11.43 Type 2 diabetes mellitus with diabetic autonomic (poly)neuropathy; K31.84 Gastroparesis; I25.10 Atherosclerotic heart disease of native coronary artery without angina pectoris; I12.9 Hypertensive chronic kidney disease with stage 1 through stage 4 chronic kidney disease, or unspecified chronic kidney disease; N18.9 Chronic kidney disease, unspecified; E11.22 Type 2 diabetes mellitus with diabetic chronic kidney disease; K86.1 Other chronic pancreatitis; Z79.82 Long term (current) use of aspirin; Z79.899 Other long term (current) drug therapy; Z88.5 Allergy status to narcotic agent; Z88.8 Allergy status to other drugs, medicaments and biological substances; Z79.4 Long term (current) use of insulin; Z90.49 Acquired absence of other specified parts of digestive tract
CPT/HCPCS: 36415; 74176; 76377; 80048; 80053; 80061; 80076; 82947; 83690; 85025; 87324; 87449; 96361; 96374; 96375; 99285; J0360; J1650; J1815; J2175; J2270; J2405; J2765; J7030

== ENCOUNTER 2020-02-13 00:10 | Emergency (ER) | payer OTHER ==
--- OUTSIDE RECORDS SUMMARY | 2020-02-13 00:12 | XMS REPORT | Continuity of Care Document ---
:1965 Author Organization [facility] t Address [address] [place] [address] Care Team Providers Name Role Phone Kimberley Abraham Attending Clinician Jackie Van MD Attending Clinician Erasmo Rosas Primary Attending Clinician Unavailable Problems This patient has no known problems. Allergies, Adverse Reactions, Alerts This patient has no known allergies or adverse reactions. Medications This patient has no known medications. Procedures This patient has no known procedures. Encounters Start End Encounter Admission Attending Care Care Encounter Source Date/Time Date/Time Type Type Clinicians Facility Department ID 2020-02-10 2020-02-10 Case Kimberley Troy [id number] 00:00:00 00:00:00 [facility] [id number] HEALTH [id number] UNIT [id number] 2020-02-03 2020-02-03 Telephone [facility] [id number] 00:00:00 00:00:00 Jaciel, TIA [id number] Jackie ROSAS [id number] CENTER AT [id number] AIDAN [address] [place] [address] 2020-01-27 2020-01-27 Office [facility] [id number] 10:02:52 11:54:35 Visit Primary [facility] [id number] HEALTH [id number] UNIT [id number] Results This patient has no known results.
[2020-02-13 01:15] LABS: Absolute Lymphocytes (CBC) 1.7 K/uL (0.7-4.9); Basophils % 0.9 % (0-1.3); Hematocrit 36.1 % (39.6-49.0); Lymphocytes % 17.2 % (15.3-44.8); MPV 11.6 fL (7.6-11.3); RBC Red Blood Cell Count 4.18 M/uL (4.33-5.43)
[2020-02-13 01:35] LABS: ALT/SGPT 27 U/L (12-78); AST/SGOT 26 U/L (15-37); Albumin 3.1 g/dL (3.4-5.0); Alkaline Phosphatase 97 U/L (45-117); BUN Blood Urea Nitrogen 31 mg/dL (7-18); Bicarbonate 23 mmol/L (21-32); Bilirubin Direct < 0.1 mg/dL (0-0.2); Bilirubin Total 0.2 mg/dL (0.2-1.0); Glucose Level 133 mg/dL (74-106); Lipase 137 U/L (73-393); Potassium 4.3 mmol/L (3.5-5.1); Protein, Total 6.8 g/dL (6.4-8.2); Sodium Level 143 mmol/L (136-145)
[2020-02-13] MEDS ORDERED: NA CHLORIDE 0.9% 1,000 ML ONE (02:10)
[2020-02-13] MEDS ORDERED: DIPHENOX/ATROP SULF 1 TAB PO ONE (02:10)
--- NOTE | 2020-02-13 02:35 | ER ---
Nurse's Notes [facility] Name: Florentino Acosta Age: 54 yrs Sex: Male : 1965 Arrival Date: 02/13/2020 Time: 00:11 Bed 5 Private MD: Diagnosis: Diarrhea, unspecified Presentation: 02/12 00:25 Chief complaint: Patient states: Discharged from hospital this morning and states lp1 continued abdominal pain and diarrhea; Diagnosed with pancreatitis; states "I don't know why they discharged me when I'm still having abdominal pain, it hasn't stopped". Coronavirus screen: Proceed with normal triage. Ebola Screen: No symptoms or risks identified at this time. Risk Assessment: Do you want to hurt yourself or someone else? Patient reports no desire to harm self or others. Onset of symptoms was February 13, 2020. 00:25 Method Of Arrival: Ambulatory lp1 00:25 Acuity: RAMSES 3 lp1 00:30 Initial Sepsis Screen: Does the patient meet any 2 criteria? No. Patient's initial lp1 sepsis screen is negative. Does the patient have a suspected source of infection? No. Patient's initial sepsis screen is negative. Note Patient agitated, states "I don't have the money to be changing my diapers all of the time and it's ridiculous they let me go". Historical: - Allergies: 00:28 Codeine; lp1 00:28 Hydrocodone-Acetaminophen; lp1 00:28 Vioxx; lp1 00:28 Zoloft; lp1 - Home Meds: 00:28 aspirin 81 mg Oral TbEC [Active]; dicyclomine 10 mg Oral cap 1 cap 4 times per day lp1 [Active]; furosemide 20 mg Oral tab 1 tab once daily [Active]; gabapentin 800 mg Oral tab 1 tab 3 times per day [Active]; Livalo 4 mg Oral tab 1 tab once daily [Active]; Lyrica Oral 300 mg 2 times per day [Active]; metformin 1,000 mg Oral tab 1 tab 2 times per day [Active]; metoclopramide HCl 10 mg Oral tab 1 tab 4 times per day [Active]; metoprolol tartrate 25 mg Oral tab 0.5 tab 2 times per day [Active]; Novolin 70/30 In[place]let Sub-Q 70-30 unit/mL [Active]; ondansetron HCl 4 mg Oral tab 2 tabs every 8 hours [Active]; pantoprazole 40 mg Oral TbEC 1 tab 2 times per day [Active]; Stool Softener 100 mg Oral cap [Active]; - PMHx: 00:28 Back pain; bowel obstruction; Chronic pain; Diabetes - NIDDM; Gastroparesis; H.Pylori; lp1 High Cholesterol; Hyperlipidemia; Myocardial infarction; neuropathy; - PSHx: 00:29 Cholecystectomy; lp1 - Immunization history:: Adult Immunizations up to date. - Social history:: Smoking status: Patient denies any tobacco usage or history of. Patient uses alcohol, occasionally. Screenin:30 Abuse screen: Denies threats or abuse. Denies injuries from another. Nutritional lp1 screening: No deficits noted. Tuberculosis screening: No symptoms or risk factors identified. Fall Risk None identified. Assessment: 01:12 General: Appears uncomfortable, Behavior is appropriate for age. Pain: Complains of ea pain in abdomen. Neuro: Level of Consciousness is awake, alert, obeys commands, Oriented to person, place, time. Cardiovascular: Patient's skin is warm and dry. Respiratory: Airway is patent Respiratory effort is even, unlabored, Respiratory pattern is regular, symmetrical. GI: Reports diarrhea. Derm: Skin is pink, warm \\T\\ dry. 02:06 Reassessment: Patient and/or family updated on plan of care and expected duration. Pain ea level reassessed. Patient is alert, oriented x 3, equal unlabored respirations, skin warm/dry/pink. Pt reports having a bout of diarrhea. 02:55 Reassessment: Patient appears in no apparent distress at this time. Patient is alert, rr5 oriented x 3, equal unlabored respirations, skin warm/dry/pink. discharge instruction given and explained without complaints made. Patient states symptoms have improved. Vital Signs: 00:30 BP 139 / 87; Pulse 78; Resp 18; Temp 98.2(O); Pulse Ox 99% on R/A; Weight 77.11 kg (R); lp1 Height 5 ft. 4 in. (162.56 cm); Pain 9/10; 02:35 BP 158 / 98; Pulse 82; Resp 18; Pulse Ox 97% on R/A; ea 00:30 Body Mass Index 29.18 (77.11 kg, 162.56 cm) lp1 ED Course: 00:11 Patient arrived in ED. ds1 00:27 Triage completed. lp1 00:27 Arm band placed on right wrist. lp1 00:45 Fer Carmona MD is Attending Physician. tw4 01:11 Abby Chavez, RN is Primary Nurse. ea 01:12 Patient has correct armband on for positive identification. Bed in low position. Call ea light in reach. Side rails up X 1. 01:12 Inserted saline lock: 20 gauge in right forearm, using aseptic technique. Blood ea collected. 02:54 No provider procedures requiring assistance completed. IV discontinued, intact, rr5 bleeding controlled, No redness/swelling at site. Pressure dressing applied. Administered Medications: 02:06 Drug: NS 0.9% 1000 ml Route: IV; Rate: 1 bolus; Site: right forearm; ea 02:54 Follow up: Response: No adverse reaction; IV Status: Completed infusion; IV Intake: rr5 1000ml 02:06 Drug: LoMOTIL 2 tabs Route: PO; ea 02:35 Follow up: Response: No adverse reaction ea Intake: 02:54 IV: 1000ml; Total: 1000ml. rr5 Outcome: 02:35 Discharge ordered by . tw4 02:54 Discharged to home ambulatory, with family. rr5 02:54 Condition: stable 02:54 Discharge instructions given to patient, Instructed on discharge instructions, follow up and referral plans. medication usage, Demonstrated understanding of instructions, follow-up care, medications, Prescriptions given X 1. 02:55 Patient left the ED. rr5 Signatures: Ambika Bullock ds1 Yanet Irene RN RN lp1 Abby Chavez, RN Fer Leija ea, MD MD tw4 Salvador Booth, RN RN rr5
--- NOTE | 2020-02-13 02:35 | EDPHYS ---
Physician Documentation [facility] Name: Florentino Acosta Age: 54 yrs Sex: Male : 1965 Arrival Date: 02/13/2020 Time: 00:11 Bed 5 Private MD: ED Physician Fer Carmona HPI: 02/12 02:32 This 54 yrs old Male presents to ER via Ambulatory with complaints of tw4 Abdominal Pain, Incontinence. 02:32 The patient presents with abdominal pain. Onset: The symptoms/episode began/occurred tw4 yesterday. The symptoms do not radiate. Associated signs and symptoms: Pertinent positives: diarrhea. The symptoms are described as crampy. Modifying factors: The symptoms are alleviated by nothing, the symptoms are aggravated by nothing. Severity of pain: At its worst the pain was moderate in the emergency department the pain is unchanged. The patient has not experienced similar symptoms in the past. Historical: - Allergies: 00:28 Codeine; lp1 00:28 Hydrocodone-Acetaminophen; lp1 00:28 Vioxx; lp1 00:28 Zoloft; lp1 - Home Meds: 00:28 aspirin 81 mg Oral TbEC [Active]; dicyclomine 10 mg Oral cap 1 cap 4 times per day lp1 [Active]; furosemide 20 mg Oral tab 1 tab once daily [Active]; gabapentin 800 mg Oral tab 1 tab 3 times per day [Active]; Livalo 4 mg Oral tab 1 tab once daily [Active]; Lyrica Oral 300 mg 2 times per day [Active]; metformin 1,000 mg Oral tab 1 tab 2 times per day [Active]; metoclopramide HCl 10 mg Oral tab 1 tab 4 times per day [Active]; metoprolol tartrate 25 mg Oral tab 0.5 tab 2 times per day [Active]; Novolin 70/30 Innolet Sub-Q 70-30 unit/mL [Active]; ondansetron HCl 4 mg Oral tab 2 tabs every 8 hours [Active]; pantoprazole 40 mg Oral TbEC 1 tab 2 times per day [Active]; Stool Softener 100 mg Oral cap [Active]; - PMHx: 00:28 Back pain; bowel obstruction; Chronic pain; Diabetes - NIDDM; Gastroparesis; H.Pylori; lp1 High Cholesterol; Hyperlipidemia; Myocardial infarction; neuropathy; - PSHx: 00:29 Cholecystectomy; lp1 - Immunization history:: Adult Immunizations up to date. - Social history:: Smoking status: Patient denies any tobacco usage or history of. Patient uses alcohol, occasionally. ROS: 02:32 Constitutional: Negative for fever, chills, and weight loss, Eyes: Negative for injury, tw4 pain, redness, and discharge, Cardiovascular: Negative for chest pain, palpitations, and edema, Respiratory: Negative for shortness of breath, cough, wheezing, and pleuritic chest pain, Back: Negative for injury and pain, MS/Extremity: Negative for injury and deformity, Skin: Negative for injury, rash, and discoloration, Neuro: Negative for headache, weakness, numbness, tingling, and seizure. 02:32 Abdomen/GI: Positive for abdominal pain, Negative for nausea and vomiting, nausea, vomiting, and diarrhea, nausea, abdominal cramps, abdominal distension, anorexia, dysphagia, hematemesis, black/tarry stool, rectal pain, rectal bleeding. Exam: 02:32 Constitutional: This is a well developed, well nourished patient who is awake, alert, tw4 and in no acute distress. Head/Face: Normocephalic, atraumatic. Chest/axilla: Normal chest wall appearance and motion. Nontender with no deformity. No lesions are appreciated. Cardiovascular: Regular rate and rhythm with a normal S1 and S2. No gallops, murmurs, or rubs. Normal PMI, no JVD. No pulse deficits. Respiratory: Lungs have equal breath sounds bilaterally, clear to auscultation and percussion. No rales, rhonchi or wheezes noted. No increased work of breathing, no retractions or nasal flaring. Back: No spinal tenderness. No costovertebral tenderness. Full range of motion. MS/ Extremity: Pulses equal, no cyanosis. Neurovascular intact. Full, normal range of motion. Neuro: Awake and alert, GCS 15, oriented to person, place, time, and situation. Cranial nerves II-XII grossly intact. Motor strength 5/5 in all extremities. Sensory grossly intact. Cerebellar exam normal. Normal gait. Vital Signs: 00:30 BP 139 / 87; Pulse 78; Resp 18; Temp 98.2(O); Pulse Ox 99% on R/A; Weight 77.11 kg (R); lp1 Height 5 ft. 4 in. (162.56 cm); Pain 9/10; 02:35 BP 158 / 98; Pulse 82; Resp 18; Pulse Ox 97% on R/A; ea 00:30 Body Mass Index 29.18 (77.11 kg, 162.56 cm) lp1 MDM: 00:45 Patient medically screened. tw4 02:32 Data reviewed: vital signs, nurses notes. Data interpreted: Pulse oximetry: tw4 Interpretation: normal. Counseling: I had a detailed discussion with the patient and/or guardian regarding: the historical points, exam findings, and any diagnostic results supporting the discharge/admit diagnosis. Medication response: lomotil. Response to treatment: and as a result, I will discharge patient. Special discussion: I discussed with the patient/guardian in detail that at this point there is no indication for admission to the hospital. It is understood, however, that if the symptoms persist or worsen the patient needs to return immediately for re-evaluation. 02/12 00:57 Order name: Basic Metabolic Panel; Complete Time: 01:41 02/12 01:41 Interpretation: Normal except: GLUC 133; CRE 2.06; BUN 31; CL 115; GFR 34. 02/12 00:57 Order name: CBC with Diff; Complete Time: :41 02/12 01:41 Interpretation: Normal except: RBC 4.18; HGB 11.7; HCT 36.1; MPV 11.6. 02/12 00:57 Order name: Hepatic Function; Complete Time: :41 02/12 01:41 Interpretation: Normal except: ALB 3.1; GLOB 3.7; A/G 0.8. 02/12 00:57 Order name: Lipase; Complete Time: :41 02/12 00:57 Order name: IV Saline Lock; Complete Time: :16 02/12 00:57 Order name: Labs collected and sent; Complete Time: 01:16 Administered Medications: 02:06 Drug: NS 0.9% 1000 ml Route: IV; Rate: 1 bolus; Site: right forearm; ea 02:54 Follow up: Response: No adverse reaction; IV Status: Completed infusion; IV Intake: rr5 1000ml 02:06 Drug: LoMOTIL 2 tabs Route: PO; ea 02:35 Follow up: Response: No adverse reaction ea Disposition: 02/13/20 02:35 Discharged to Home. Impression: Diarrhea, unspecified. - Condition is Stable. - Discharge Instructions: Diarrhea, Adult. - Prescriptions for Lomotil 2.5- 0.025 mg Oral Tablet - take 2 tablet by ORAL route once daily As needed; 20 tablet. - Medication Reconciliation Form, Thank You Letter, Antibiotic Education, Prescription Opioid Use form. - Follow up: Private Physician; When: Upon discharge from the Emergency Department; Reason: Recheck today's complaints, Continuance of care, Re-evaluation by your physician. - Problem is new. - Symptoms have improved. Signatures: Dispatcher [employer] EDMS Yanet Irene, RN RN lp1 Abby Chavez RN RN Fer Leonard MD MD tw4 Salvador Booth RN RN rr5 Corrections: (The following items were deleted from the chart) 02:55 02:35 02/13/2020 02:35 Discharged to Home. Impression: Diarrhea, unspecified. Condition rr5 is Stable. Forms are Medication Reconciliation Form, Thank You Letter, Antibiotic Education, Prescription Opioid Use. Follow up: Private Physician; When: Upon discharge from the Emergency Department; Reason: Recheck today's complaints, Continuance of care, Re-evaluation by your physician. Problem is new. Symptoms have improved. tw4
[2020-02-13 03:08] VITALS: TEMP 98.2
[2020-02-13 03:20] VITALS: BP 158/98; O2SAT 97
== END 2020-02-13 02:55 | disposition home or self-care (01) ==
LOC: ER 00:10
DX: R19.7 Diarrhea, unspecified (principal); E11.9 Type 2 diabetes mellitus without complications; E78.00 Pure hypercholesterolemia, unspecified; E78.5 Hyperlipidemia, unspecified; Z79.82 Long term (current) use of aspirin; Z79.4 Long term (current) use of insulin; Z88.5 Allergy status to narcotic agent; Z88.6 Allergy status to analgesic agent; Z88.8 Allergy status to other drugs, medicaments and biological substances
CPT/HCPCS: 85025; 80048; 36415; 80076; 83690; 96360; 99284; J7030

== ENCOUNTER 2020-02-14 06:55 | Emergency (ER) | payer OTHER ==
--- OUTSIDE RECORDS SUMMARY | 2020-02-14 06:58 | XMS REPORT | Continuity of Care Document ---
:1965 Author Organization [facility] t Address [address] [place] [address] Care Team Providers Name Role Phone Kimberley [...] ID 2020-02-10 2020-02-10 Kimberley Colin [id number] 00:00:00 00:00:00 [facility] [id number] HEALTH [id number] UNIT [id number] 2020-02-03 2020-02-03 Telephone [facility] [id number] 00:00:00 00:00:00 Jaciel, TIA [id number] Jackie ROSAS [id number] CENTER AT [phone] AIDAN Galindo [facility] 2020-01-27 2020-01-27 Office [facility] [id number] 10:02:52 11:54:35 Visit Primary [facility] [id number] HEALTH [id number] UNIT [id number] Results This patient has no known results.
[2020-02-14] MEDS ORDERED: DIPHENHYDRAMINE 50 MG/ML VIAL ONE (07:25)
[2020-02-14] MEDS ORDERED: LORazepam 2 MG/ML VIAL ONE (07:25)
[2020-02-14] MEDS ORDERED: NA CHLORIDE 0.9% 1,000 ML ONE ×2 (07:25→08:16)
[2020-02-14] MEDS ORDERED: METOCLOPRAMIDE 10 MG/2mL INJ ONE (07:25)
[2020-02-14 07:32] LABS: Absolute Lymphocytes (CBC) 1.2 K/uL (0.7-4.9); Basophils % 0.7 % (0-1.3); Hematocrit 37.1 % (39.6-49.0); Lymphocytes % 8.8 % (15.3-44.8); MPV 11.5 fL (7.6-11.3); RBC Red Blood Cell Count 4.36 M/uL (4.33-5.43)
[2020-02-14 07:48] LABS: Albumin 3.4 g/dL (3.4-5.0); Bilirubin Direct 0.1 mg/dL (0-0.2); Bilirubin Total 0.3 mg/dL (0.2-1.0); Potassium 3.7 mmol/L (3.5-5.1); Protein, Total 7.5 g/dL (6.4-8.2)
--- NOTE | 2020-02-14 08:12 | RAD REPORT ---
EXAM DESCRIPTION: CT - Abdomen Pelvis Wo Contrast - 02/14/2020 7:33 am CLINICAL HISTORY: Abdominal pain COMPARISON: February 11, 2020 TECHNIQUE: Computed axial tomography of the abdomen and pelvis was obtained. IV and oral contrast we re not requested. All CT scans are performed using dose optimization technique as appropriate and may include automated exposure control or mA/KV adjustment according to patient size. FINDINGS: The evaluation of solid organs, vessels and bowel is limited secondary to the lack of con trast administration. The liver, spleen, pancreas, adrenals and kidneys appear grossly normal. The appendix is normal. There is no evidence of diverticulitis. Small inguinal hernias contain fat IMPRESSION: No acute abnormality is displayed.
--- NOTE | 2020-02-14 08:58 | ER ---
Nurse's Notes [facility] Name: Florentino Acosta Age: 54 yrs Sex: Male : 1965 Arrival Date: 02/14/2020 Time: 06:57 Bed 5 Private MD: Diagnosis: Gastroparesis;Generalized abdominal pain;Diarrhea, unspecified Presentation: 02/13 07:05 Chief complaint: N/V/D and upper abdominal pain x 4 days. Coronavirus screen: Proceed hb with normal triage. Ebola Screen: No symptoms or risks identified at this time. Initial Sepsis Screen: Does the patient meet any 2 criteria? No. Patient's initial sepsis screen is negative. Does the patient have a suspected source of infection? No. Patient's initial sepsis screen is negative. Risk Assessment: Do you want to hurt yourself or someone else? Patient reports no desire to harm self or others. Onset of symptoms was February 10, 2020. 07:05 Method Of Arrival: Ambulatory hb 07:05 Acuity: RAMSES 3 hb Historical: - Allergies: 07:26 Codeine; hb 07:26 Hydrocodone-Acetaminophen; hb 07:26 Vioxx; hb 07:26 Zoloft; hb - Home Meds: 07:26 aspirin 81 mg Oral TbEC [Active]; dicyclomine 10 mg Oral cap 1 cap 4 times per day hb [Active]; furosemide 20 mg Oral tab 1 tab once daily [Active]; gabapentin 800 mg Oral tab 1 tab 3 times per day [Active]; Livalo 4 mg Oral tab 1 tab once daily [Active]; Lyrica Oral 300 mg 2 times per day [Active]; metformin 1,000 mg Oral tab 1 tab 2 times per day [Active]; metoclopramide HCl 10 mg Oral tab 1 tab 4 times per day [Active]; metoprolol tartrate 25 mg Oral tab 0.5 tab 2 times per day [Active]; Novolin 70/30 [place] Sub-Q 70-30 unit/mL [Active]; ondansetron HCl 4 mg Oral tab 2 tabs every 8 hours [Active]; pantoprazole 40 mg Oral TbEC 1 tab 2 times per day [Active]; Stool Softener 100 mg Oral cap [Active]; - PMHx: 07:26 Back pain; Gastroparesis; Diabetes - NIDDM; Chronic pain; H.Pylori; bowel obstruction; hb Hyperlipidemia; Myocardial infarction; High Cholesterol; neuropathy; - PSHx: 07:26 Cholecystectomy; hb - Immunization history:: Adult Immunizations up to date. - Social history:: Smoking status: Patient denies any tobacco usage or history of. Screenin:20 Abuse screen: Denies threats or abuse. Denies injuries from another. Nutritional hb screening: No deficits noted. Tuberculosis screening: No symptoms or risk factors identified. Fall Risk None identified. Assessment: 07:20 General: Appears in no apparent distress. comfortable, Behavior is calm, cooperative, em appropriate for age, Denies fever. Pain: Complains of pain in right upper quadrant and left upper quadrant Pain currently is 8 out of 10 on a pain scale. Pain began 4 days ago. Neuro: Level of Consciousness is awake, alert, obeys commands, Oriented to person, place, time, situation, Appropriate for age. Cardiovascular: Capillary refill < 3 seconds Patient's skin is warm and dry. Respiratory: Airway is patent Respiratory effort is even, unlabored, Respiratory pattern is regular, symmetrical. GI: Abdomen is flat, Bowel sounds present X 4 quads. Abd is soft X 4 quads Abdomen is tender to palpation in right upper quadrant and left upper quadrant Reports upper abdominal pain, diarrhea, nausea, vomiting. Derm: Skin is intact, is healthy with good turgor, Skin is pink, warm \T\ dry. Musculoskeletal: Capillary refill < 3 seconds, Range of motion: intact in all extremities. 07:30 Reassessment: Patient appears in no apparent distress at this time. wheeled to CT via em wheelchair. 08:05 Reassessment: Patient appears in no apparent distress at this time. Patient and/or em family updated on plan of care and expected duration. Pain level reassessed. Patient is alert, oriented x 3, equal unlabored respirations, skin warm/dry/pink. rates pain 5/10 Patient states feeling better. Patient states symptoms have improved. 08:59 Reassessment: Patient appears in no apparent distress at this time. Patient and/or hb family updated on plan of care and expected duration. Pain level reassessed. Patient is alert, oriented x 3, equal unlabored respirations, skin warm/dry/pink. Vital Signs: 07:05 BP 143 / 93; Pulse 88; Resp 16; Temp 97.1; Pulse Ox 100% ; Weight 77.11 kg; Height 5 hb ft. 4 in. (162.56 cm); Pain 8/10; 08:05 BP 161 / 88; Pulse 87; Resp 16; Pulse Ox 98% on R/A; Pain 5/10; em 08:59 BP 148 / 72; Pulse 69; Resp 16; Pulse Ox 99% on R/A; hb 07:05 Body Mass Index 29.18 (77.11 kg, 162.56 cm) hb ED Course: 06:57 Patient arrived in ED. cl3 06:57 Derek Kennedy PA is PHCP. jmm 06:57 Fer Carmona MD is Attending Physician. jmm 07:12 Lucas Campbell, LARRY is Primary Nurse. em 07:20 Inserted saline lock: 20 gauge in right forearm, using aseptic technique. Blood hb collected. 07:20 Patient has correct armband on for positive identification. Bed in low position. Call hb light in reach. Side rails up X 1. 07:28 Triage completed. hb 07:28 Arm band placed on. hb 07:34 Abdomen In Process Unspecified. EDMS 09:07 No provider procedures requiring assistance completed. IV discontinued, intact, em bleeding controlled, No redness/swelling at site. Pressure dressing applied. Administered Medications: 07:25 Drug: NS 0.9% 1000 ml Route: IV; Rate: 1 bolus; Site: right forearm; em 08:10 Follow up: IV Status: Completed infusion; IV Intake: 1000ml em 07:25 Drug: Reglan 10 mg Route: IVP; Site: right forearm; em 08:06 Follow up: Response: No adverse reaction; Marked relief of symptoms; Pain is decreased em 07:27 Drug: diphenhydrAMINE 25 mg Route: IVP; Site: right forearm; em 08:06 Follow up: Response: No adverse reaction; Marked relief of symptoms; Pain is decreased em 07:29 Drug: Ativan 1 mg Route: IVP; Site: right forearm; em 08:07 Follow up: Response: No adverse reaction; Marked relief of symptoms; Pain is decreased em 08:10 Drug: NS 0.9% 1000 ml Route: IV; Rate: 1 bolus; Site: right forearm; em 09:06 Follow up: IV Status: Completed infusion; IV Intake: 1000ml em Intake: 08:10 IV: 1000ml; Total: 1000ml. em 09:06 IV: 1000ml; Total: 2000ml. em Outcome: 08:57 Discharge ordered by MD. wilson 09:07 Discharged to home ambulatory. em 09:07 Condition: good 09:07 Discharge instructions given to patient, Instructed on discharge instructions, follow up and referral plans. medication usage, Demonstrated understanding of instructions, follow-up care, medications, Prescriptions given X 2. 09:08 Patient left the ED. em Signatures: Dispatcher [employer] Derek Palencia PA PA jmm Munoz, Edgar, RN RN Malathi Hammer, RN RN Latrell Romo cl3
--- NOTE | 2020-02-14 08:58 | EDPHYS ---
Physician Documentation [facility] Name: Florentino Acosta Age: 54 yrs Sex: Male : 1965 Arrival Date: 02/14/2020 Time: 06:57 Bed 5 Private MD: ED Physician Fer Carmona HPI: 02/13 07:14 This 54 yrs old Male presents to ER via Unassigned with complaints of jmm Abdominal Pain, Nausea/Vomiting/Diarrhea. 07:14 The patient presents with abdominal pain. Onset: The symptoms/episode began/occurred jmm gradually, 4 day(s) ago. The symptoms do not radiate. Associated signs and symptoms: Pertinent positives: diarrhea, vomiting. The symptoms are described as achy. This is a 54 year old male with a history of gastroparesis, DM, that presents to the ED with complaints of abdominal pain. Patient was recently discharged from the ED with a similar episode. Patient was admitted to the hospital with a bowel obstruction this past . . Historical: - Allergies: 07:26 Codeine; hb 07:26 Hydrocodone-Acetaminophen; hb 07:26 Vioxx; hb 07:26 Zoloft; hb - Home Meds: 07:26 aspirin 81 mg Oral TbEC [Active]; dicyclomine 10 mg Oral cap 1 cap 4 times per day hb [Active]; furosemide 20 mg Oral tab 1 tab once daily [Active]; gabapentin 800 mg Oral tab 1 tab 3 times per day [Active]; Livalo 4 mg Oral tab 1 tab once daily [Active]; Lyrica Oral 300 mg 2 times per day [Active]; metformin 1,000 mg Oral tab 1 tab 2 times per day [Active]; metoclopramide HCl 10 mg Oral tab 1 tab 4 times per day [Active]; metoprolol tartrate 25 mg Oral tab 0.5 tab 2 times per day [Active]; Novolin 70/30 [place] Sub-Q 70-30 unit/mL [Active]; ondansetron HCl 4 mg Oral tab 2 tabs every 8 hours [Active]; pantoprazole 40 mg Oral TbEC 1 tab 2 times per day [Active]; Stool Softener 100 mg Oral cap [Active]; - PMHx: 07:26 Back pain; Gastroparesis; Diabetes - NIDDM; Chronic pain; H.Pylori; bowel obstruction; hb Hyperlipidemia; Myocardial infarction; High Cholesterol; neuropathy; - PSHx: 07:26 Cholecystectomy; hb - Immunization history:: Adult Immunizations up to date. - Social history:: Smoking status: Patient denies any tobacco usage or history of. ROS: 07:14 Constitutional: Negative for fever, chills, and weight loss, Cardiovascular: Negative [facility] for chest pain, palpitations, and edema, Respiratory: Negative for shortness of breath, cough, wheezing, and pleuritic chest pain. 07:14 Abdomen/GI: Positive for abdominal pain, vomiting, diarrhea. 07:14 All other systems are negative. Exam: 07:14 Constitutional: This is a well developed, well nourished patient who is awake, alert, jmm and in no acute distress. Head/Face: atraumatic. Eyes: EOMI, no conjunctival erythema appreciated ENT: Moist Mucus Membranes Neck: Trachea midline, Supple Chest/axilla: Normal chest wall appearance and motion. Cardiovascular: Regular rate and rhythm. No edema appreciated Respiratory: Normal respirations, no respiratory distress appreciated Abdomen/GI: Non distended, soft Back: Normal ROM Skin: General appearance color normal MS/ Extremity: Moves all extremities, no obvious deformities appreciated, no edema noted to the lower extremities Neuro: Awake and alert, normal gait Psych: Behavior is normal, Mood is normal, Patient is cooperative and pleasant Vital Signs: 07:05 BP 143 / 93; Pulse 88; Resp 16; Temp 97.1; Pulse Ox 100% ; Weight 77.11 kg; Height 5 hb ft. 4 in. (162.56 cm); Pain 8/10; 08:05 BP 161 / 88; Pulse 87; Resp 16; Pulse Ox 98% on R/A; Pain 5/10; em 08:59 BP 148 / 72; Pulse 69; Resp 16; Pulse Ox 99% on R/A; hb 07:05 Body Mass Index 29.18 (77.11 kg, 162.56 cm) hb MDM: 07:13 Patient medically screened. [facility] 08:56 Data reviewed: vital signs, nurses notes. Counseling: I had a detailed discussion with katie the patient and/or guardian regarding: the historical points, exam findings, and any diagnostic results supporting the discharge/admit diagnosis, lab results, radiology results, the need for outpatient follow up, to return to the emergency department if symptoms worsen or persist or if there are any questions or concerns that arise at home. ED course: Patient states feeling much better. Labs, imaging studies unremarkable. Patient is advised to follow up with his GI for further evaluation. Patient is otherwise given strict return precautions. Patient understood and agrees with the plan of care. . 02/13 07:14 Order name: Basic Metabolic Panel; Complete Time: 07:56 jm 02/13 07:14 Order name: CBC with Diff; Complete Time: 07:34 jmm 02/13 07:14 Order name: Hepatic Function; Complete Time: 07:56 jmm 02/13 07:14 Order name: Lipase; Complete Time: 07:[address] [facility] 02/13 07:14 Order name: IV Saline Lock; Complete Time: 07:24 jmm 02/13 07:25 Order name: Abdomen ; Complete Time: 08:18 EDMS 02/13 07:14 Order name: Labs collected and sent; Complete Time: 07:24 jmm Administered Medications: 07:25 Drug: NS 0.9% 1000 ml Route: IV; Rate: 1 bolus; Site: right forearm; em 08:10 Follow up: IV Status: Completed infusion; IV Intake: 1000ml em 07:25 Drug: Reglan 10 mg Route: IVP; Site: right forearm; em 08:06 Follow up: Response: No adverse reaction; Marked relief of symptoms; Pain is decreased em 07:27 Drug: diphenhydrAMINE 25 mg Route: IVP; Site: right forearm; em 08:06 Follow up: Response: No adverse reaction; Marked relief of symptoms; Pain is decreased em 07:29 Drug: Ativan 1 mg Route: IVP; Site: right forearm; em 08:07 Follow up: Response: No adverse reaction; Marked relief of symptoms; Pain is decreased em 08:10 Drug: NS 0.9% 1000 ml Route: IV; Rate: 1 bolus; Site: right forearm; em 09:06 Follow up: IV Status: Completed infusion; IV Intake: 1000ml em Disposition: 02/14 07:02 Co-signature as Attending Physician, Fer Carmona MD I agree with the assessment and tw4 plan of care. Disposition: 02/14/20 08:57 Discharged to Home. Impression: Gastroparesis, Generalized abdominal pain, Diarrhea, unspecified. - Condition is Stable. - Discharge Instructions: Abdominal Pain, Adult, Food Choices to Help Relieve Diarrhea, Adult. - Prescriptions for Bentyl 20 mg Oral Tablet - take 2 tablet by ORAL route every 6 hours As needed; 40 tablet. Reglan 10 mg Oral Tablet - take 1 tablet by ORAL route every 6 hours take 30 minutes before meals and at bedtime; 20 tablet. - Medication Reconciliation Form, Thank You Letter, Antibiotic Education, Prescription Opioid Use form. - Follow up: Private Physician; When: 2 - 3 days; Reason: Recheck today's complaints, Continuance of care, Re-evaluation by your physician. Signatures: Dispatcher [employer] [facility] Derek Kennedy PA PA Lucas Lewis, RN RN em Malathi Jewell RN RN Fer Carmona MD MD tw4 Corrections: (The following items were deleted from the chart) 02/13 07:25 07:17 Abdomen Pelvis W [id number] ordered. [facility] 09:08 08:57 02/14/2020 08:57 Discharged to Home. Impression: Gastroparesis; Generalized em abdominal pain; Diarrhea, unspecified. Condition is Stable. Forms are Medication Reconciliation Form, Thank You Letter, Antibiotic Education, Prescription Opioid Use. Follow up: Private Physician; When: 2 - 3 days; Reason: Recheck today's complaints, Continuance of care, Re-evaluation by your physician. katie
[2020-02-14 09:15] VITALS: TEMP 97.1
[2020-02-14 09:18] VITALS: BP 148/72; O2SAT 99
== END 2020-02-14 09:08 | disposition home or self-care (01) ==
LOC: ER 06:55
DX: K31.84 Gastroparesis (principal); E11.43 Type 2 diabetes mellitus with diabetic autonomic (poly)neuropathy; R19.7 Diarrhea, unspecified; E78.00 Pure hypercholesterolemia, unspecified; E78.5 Hyperlipidemia, unspecified; Z79.82 Long term (current) use of aspirin; Z79.4 Long term (current) use of insulin; Z88.5 Allergy status to narcotic agent; Z88.8 Allergy status to other drugs, medicaments and biological substances
CPT/HCPCS: 96361; 85025; 80048; 36415; 80076; 83690; 74176; 96375; 96374; 99284; J2765; J1200; J7030 ×2

== ENCOUNTER 2020-07-23 02:53 | Inpatient (IN) | payer OTHER ==
--- OUTSIDE RECORDS SUMMARY | 2020-07-23 02:56 | XMS REPORT | Summary of Care ---
:1965 Author Organization [facility] Address [address] [place] [address] Care Team Providers Name Role Phone LUISA Troy Primary Care Provider Reason for Visit Reason Comments Follow-up Problem of right great toe n ailbed VACCINES Encounter Details Date Type Department Care Team Description 05/[facility]2020 [facility] [address] [place] [address] Type 2 diabetes mellitus with hyperglyce irma, with long-term current use of insulin (Primary Dx); [facility] Primary Diabetic gastroparesis; Clinic Mild peripheral edema; [address] Essential hypertension; [place], [place] [id number] Allergies Active Allergy Reactions Severity Noted Date Comments Hydrocodone Itching 07/16/2018 Rofecoxib Swelling 05/11/2015 Sertraline Hcl Swelling 05/11/2015 documented as of this encounter (statuses as of 05/29/2020) Medications Medication Sig Dispensed Refills Start End [...] long-term current use of insulin, Essential hypertension pregabalin (LYRICA) Take 1 180 capsule 3 Active 300 mg capsule by 0 capsuleIndications: mouth 2 (two) Neuropathic pain times daily. acetaminophen Take by 0 Active (TYLENOL) 325 mg mouth. Cap metoclopramide HCl Take 1 tablet 120 tablet 6 Active 10 mg by mouth 0 tabletIndications: before meals Gastroparesis and at bedtime. sildenafil 100 mg Take 1 tablet 9 tablet 3 Active tabletIndications: by mouth 0 Erectile every other dysfunction due to day. diseases classified elsewhere pantoprazole 40 mg Take 1 tablet 60 tablet 5 Active EC by mouth 2 0 tabletIndications: (two) times Chronic GERD daily. docusate calcium Take 1 10 capsule 0 Ac tive 240 mg capsule by 0 capsuleIndications: mouth daily. Spinal stenosis of lumbar region with neurogenic claudication metFORMIN 1,000 mg Take 1 tablet 180 tablet 1 Active tabletIndications: by mouth 2 0 Type 2 diabetes (two) times mellitus with daily with hyperglycemia, with meals. long-term current use of insulin insulin NPH and inject 40 2 Vial 3 Acti ve regular human 70-30 Units under 0 (NOVOLIN 70/30 the skin 2 U-100 INSULIN) 100 (two) times unit/mL (70-30) daily before injectionIndication breakfast and s: Type 2 diabetes dinner. mellitus with hyperglycemia, with long-term current use of insulin DICYCLOMINE 10 mg TAKE 1 90 capsule 1 A ctive capsuleIndications: CAPSULE BY 0 Abdominal pain, MOUTH 4 TIMES diffuse DAILY NEEDED FOR ABDOMINAL PAIN ondansetron Take 1 tablet 20 tablet 1 Acti ve (ZOFRAN) 4 mg by mouth 0 tabletIndications: every 8 Diabetic (eight) hours gastroparesis as needed for Nausea and Vomiting (N/V). furosemide 20 mg Take 1 tablet 30 tablet 3 Active tabletIndications: by mouth 0 Mild peripheral daily. edema metoprolol tartrate Take 1 tablet 60 tablet 5 Active 25 mg by mouth 0 tabletIndications: daily. Essential hypertension metoprolol tartrate Take 0.5 60 tablet 5 05/25/20 Discontinued 25 mg tablets by 0 20 (Reorder) tabletIndications: mouth 2 (two) Essential times daily. hypertension furosemide 20 mg Take 1 tablet 30 tablet 3 05/25/20 Discontinued tabletIndications: by mouth 0 20 ( Reorder) Mild peripheral daily. edema ondansetron Take 1 tablet 20 tablet 1 05/25/20 Disc ontinued (ZOFRAN) 4 mg by mouth 0 20 (Reord er) tabletIndications: every 8 Diabetic (eight) hours gastroparesis as needed for Nausea and Vomiting (N/V). documented as of this encounter (statuses as of 05/29/2020) Active Problems Problem Noted Date Constipation, unspecified constipation type 03/30/2020 Overview: Added automatically from request for barron bañuelosy [id number] Obesity (BMI 30-39.9) 03/01/2020 Diffuse abdominal pain 09/23/2019 Overview: Added automatically from request for barron nadege [id number] Gastroesophageal reflux disease, esophagitis presence not specified 09/23/2019 Overview: Added automatically from request for barron nadege [id number] Gastroparesis 06/24/2019 Bronchitis 06/24/2019 Abdominal pain, diffuse 08/20/2018 Overview: Added automatically from request for barron nadege [id number] Type 2 diabetes mellitus with hyperglycemia, with long -term current use of 07/16/2018 insulin documented as of this encounter (statuses as of 05/29/2020) Resolved Problems Problem Noted Date Resolved Date Colon cancer screening 11/03/2018 06/24/2019 Overview: Added automatically from request for barron nadege [id number] Diffuse abdominal pain 11/03/2018 06/24/2019 Overview: Added automatically from request for barron nadege [id number] Special screening for malignant neoplasms, colon 08/20/2018 06/24/2019 Overview: Added automatically from request for barron nadege [id number] Hypertension, unspecified type 07/16/2018 9 Other hyperlipidemia 07/16/2018 06/24/2019 documented as of this encounter (statuses as of 05/29/2020) Immunizations Name Administration Dates Next Due HEP B, Adult Dosage 10/21/2019 Hepatitis A Adult 10/21/2019 Influenza Virus Vaccine Quad .5 mL IM 05/25/2020, 10/21/2019 , 06/10/2019, 6+ MO 07/17/2018 Pneumococcal Polysaccharide, PPSV23 10/21/2019 (PNEUMOVAX) TDAP 10/21/2019 Varicella (varivax)(chicken pox) 10/21/2019 documented as of this encounter Social History Tobacco Use Types Packs/Day Years Used Date Former Smoker Smokeless Tobacco: Never Used Snuff Alcohol Use Drinks/Week oz/Week Comments Yes once a week Sex Assigned at Date Recorded Not on file documented as of this encounter Last Filed Vital Signs Vital Sign Reading Time Taken Comments Blood Pressure 195/108 05/25/2020 1:32 PM CDT Pulse 83 05/25/2020 1:32 PM CDT Temperature 36.1 C (96.9 F) 05/25/2020 1:32 PM CDT Respiratory Rate 20 05/25/2020 1:32 PM CDT Oxygen Saturation - - Inhaled Oxygen Concentration - - Weight 81 kg (178 lb 9.6 oz) 05/25/2020 1:32 PM CDT Height 162.6 cm (5' 4") 05/25/2020 1:32 PM CDT Body Mass Index 30.66 05/25/2020 1:32 PM CDT documented in this encounter Progress Notes Kimberley Troy FNP - 05/25/2020 1:30 PM CDT Cc: Chief Complaint Patient presents with Follow-up Problem of right great toe nailbed VACCINES HPI Florentino Acosta is a 54 year old male in today for follow up refills and with concern about his right great toe that is black at the base. No known injury, but he has neuropathy and had back surgery in March. Is doing overall doing. Blood pressure is elevated in clinic. States he doesn't monitor at home, but has been having intermittent headaches 2-3 times a week. Has been taking Metoprolol 25mg 1/2 tab 1-2 times a day. Usually takes 12.5 only a day. Blood sugar was 265 in clinic today. Last A1C in late January was 6.9.Had been working on being more compliant with treatment plan States had has been lax about taking his BS regularly and is not takinghis insulin daily. Will repeat labs today and refer to endocrine if above 8% Allergies Florentino is allergic to hydrocodone; vioxx [rofecoxib]; and zoloft [sertraline hcl]. Medications Outpatient Medications Prior to Visit Medication Sig Dispense Refill DICYCLOMINE 10 mg capsule TAKE 1 CAPSULE BY MOUTH 4 TIMES DAILY NEEDED FOR ABDOMINAL PAIN 90 capsule 1 metFORMIN 1,000 mg tablet Take 1 tablet by mouth 2 (two) times daily with meals. 180 tablet 1 insulin NPH and regular human 70-30 (NOVOLIN 70/30 U-100 INSULIN) 100 unit/mL (70-30) injection inject 40 Units under the skin 2 (two) times daily before breakfast and dinner. 2 Vial 3 docusate calcium 240 mg capsule Take 1 capsule by mouth daily. 10 capsule 0 ondansetron (ZOFRAN) 4 mg tablet Take 1 tablet by mouth every 8 (eight) hours as needed for Nausea and Vomiting (N/V). 20 tablet 1 pantoprazole 40 mg EC tablet Take 1 tablet by mouth 2 (two) times daily. 60 tablet 5 sildenafil 100 mg tablet Take 1 tablet by mouth every other day. 9 tablet 3 furosemide 20 mg tablet Take 1 tablet by mouth daily. 30 tablet 3 metoprolol tartrate 25 mg tablet Take 0.5 tablets by mouth 2 (two) times daily. 60 tablet 5 metoclopramide HCl 10 mg tablet Take 1 tablet by mouth before meals and at bedtime. 120 tablet 6 acetaminophen (TYLENOL) 325 mg Cap Take by mouth. pregabalin (LYRICA) 300 mg capsule Take 1 capsule by mouth 2 (two) times daily. 180 capsule 3 aspirin 81 mg EC tablet Take 81 mg by mouth daily. Pitavastatin (LIVALO) 4 mg Tab Take 1 tablet by mouth at bedtime. 30 tablet 2 No facility-administered medications prior to visit. Histories Past Medical History: Diagnosis Date CAD (coronary artery disease) Diabetes mellitus Hyperlipidemia Hypertension Past Surgical History: Procedure Laterality Date CHOLECYSTECTOMY COLONOSCOPY N/A 11/03/2019 Surgeon: Jackie Van MD; [facility] ESOPHAGOGASTRODUODENOSCOPY N/A 11/03/2019 Surgeon: Jackie Van MD; [facility] HEMILAMINECTOMY Left 03/01/2020 Surgeon: Royer Ham MD; [facility] Social History Socioeconomic History Marital status: Spouse name: Not on file Number of children: Not on file Years of education: Not on file Highest education level: Not on file Occupational History Not on file Social Needs Financial resource strain: Not on file Food insecurity Worry: Not on file Inability: Not on file Transportation needs Medical: Not on file Non-medical: Not on file Tobacco Use Smoking status: Former Smoker Smokeless tobacco: Never Used Substance and Sexual Activity Alcohol use: Yes Comment: once a week Drug use: No Comment: used for 7 years,stopped cocaine and marijuana in 2016 Sexual activity: Yes Partners: Female control/protection: Post-menopausal Lifestyle Physical activity Days per week: Not on file Minutes per session: Not on file Stress: Not on file Relationships Social connections Talks on phone: Not on file Gets together: Not on file Attends sabianism service: Not on file Active member of club or organization: Not on file Attends meetings of clubs or organizations: Not on file Relationship status: Not on file Intimate partner violence Fear of current or ex partner: Not [...] Stroke Maternal Uncle Review of Systems Constitutional: Positive for fatigue. HENT: Negative. Respiratory: Negative. Cardiovascular: Positive for leg swelling. Gastrointestinal: Positive for abdominal pain, nausea and vomiting. Musculoskeletal: Positive for arthralgias. Neurological: Positive for light-headedness and headaches. Psychiatric/Behavioral: The patient is nervous/anxious. Vital Signs BP (!) 195/108 (BP Location: Left arm, Patient Position: Sitting) | Pulse 83 | Temp 36.1 C (96.9F) (Oral) | Resp 20 | Ht 5' 4" (1.626 m) | Wt 178 lb 9.6 oz (81 kg) | BMI 30.66 kg/m Physical Exam Vitals signs and nursing note reviewed. Constitutional: Appearance: Normal appearance. HENT: Mouth/Throat: Mouth: Mucous membranes are moist. Eyes: Extraocular Movements: Extraocular movements intact. Conjunctiva/sclera: Conjunctivae normal. Neck: Musculoskeletal: Normal range of motion. Cardiovascular: Rate and Rhythm: Normal rate and regular rhythm. Pulses: Normal pulses. Heart sounds: Normal heart sounds. Pulmonary: Effort: Pulmonary effort is normal. Breath sounds: Normal breath sounds. Skin: General: Skin is warm and dry. Neurological: Mental Status: He is alert and oriented to person, place, and time. Psychiatric: Mood and Affect: Mood normal. Behavior: Behavior normal. Thought Content: Thought content normal. Assessment/Plan 1. Type 2 diabetes mellitus with hyperglycemia, with long-term current use of insulin - POCT GLUCOSE(AGE >30DAYS) Encouraged patient to take his insulin as prescribed and to take his BS twice a day and keep log Will refer to Endocrine if sugars are above 8. Consider adding Trulicity or referring to Endocrine again 2. Diabetic gastroparesis - ondansetron (ZOFRAN) 4 mg tablet; Take 1 tablet by mouth every 8 (eight) hours as needed for Nausea and Vomiting (N/V). Dispense: 20 tablet; Refill: 1 3. Mild peripheral edema - furosemide 20 mg tablet; Take 1 tablet by mouth daily. Dispense: 30 tablet; Refill: 3 4. Essential hypertension - metoprolol tartrate 25 mg tablet; Take 1 tablet by mouth daily. Dispense: 60 tablet; Refill: 5 5. Need for annual flu vaccine Flu vaccine given Asked to monitor pressure daily for the next 2 wks. Will see him then for follow up. Will consideradding Losartan to mix. Appropriate plan of care, desired health behaviors, goals and medications discussed with patient andeducational resources and self-management tools provided, as applicable. Patient/family/guardian voice understanding. Barriers to adherence: none Ability to manage care: Good As necessary, prescribed medications and potential significant medication side effects or medicationinteractions were discussed with the patient and pt will let me know if any occur. Call or return to clinic prn if these symptoms worsen or fail to improve as anticipated. Call or report to ER if symptoms should symptoms progress or worsen. AVS reviewed and given to patient at conclusion of visit. The patient indicates understanding of these issues and agrees with the plan. Kimberley [facility] Peggy Sotelo LVN - 05/25/2020 1:30 PM Dian Duffirez is a 54 year old male Patient here today for problem of right great toe nailbed. Reports 7 pain, to abdomen, on scale 0/10, MD notified. Reviewed medications and allergies with patient today. Fall Risk Assessment/Screeningperformed with patient today and patient is at risk for falls. Patient has been provided with VIS information at todays visit and education has been provided concerning influenza vaccine. After obtaining informed consent the immunization was given by IM injection. Influenza vaccine 0.5ml injection placed to left deltoid. Tolerated well. Lot # [id number] / Exp. 02/28/2021 documented in this encounter Plan of Treatment Date Type Specialty Care Team Description 06/20/2020 Office Visit Endocrinology Diabetes & Buddy Edward, Metabolism [address] [facility] [address] [place], [place] [address] [phone] 06/22/2020 Nursing Executive Visit Endocrinology Diabetes & Tamra Rice RD Metabolism [address] [place] [address] [phone] 07/06/2020 Office Visit Gastroenterology Jackie Van MD [address] [facility] [address] [place] [address] Health Maintenance Due Date Last Done Comments LDL-C 01/03/2005 01/04/2004 COLON CANCER SCREENING ANNUAL 11/30/2017 FIT/FOBT COLON CANCER SCREENING FIT DNA 11/30/2017 EVERY 3 YEARS COLON CANCER SCREENING 11/30/2017 SIGMOIDOSCOPY EVERY 5 YEARS Zoster Recombinant Vaccine 12/16/2019 10/21/2019 (SHINGRIX) (1 of 2) INFLUENZA VACCINE (#1) 2020 10/21/2019, 06/10/2019, 07/17/2018 FOOT EXAM 10/04/2020 10/04/2019, 10/04/2019, 10/04/2019 EYE EXAM 10/14/2020 10/14/2019 PNEUMOCOCCAL 0-64 YEARS COMBINED 10/21/2020 10/21/2019 SERIES (2 of 3 - PCV13) HgA1C 11/22/2020 05/25/2020, 05/11/2015, 10/07/2003 CREATININE (SERUM) 03/01/2021 03/01/2020, 10/09/2018, 05/11/2015, Additional history exists Depression Screening 03/01/2021 03/01/2020 URINE MICROALBUMIN 05/25/2021 05/25/2020, 10/07/2003 DTaP,Tdap,and Td Vaccines (2 - Td) 10/21/2029 10/21/2019 COLONOSCOPY 11/02/2029 11/03/2019 Colorectal Cancer Screening 11/02/2029 documented as of this encounter Procedures Procedure Name Priority Date/Time Associated Diagnosis Comme nts FLU VACC Routine 05/26/2020 11:43 AM Flu vaccine need ([id number]), 6+ CDT MONTHS, IM, QUAD POCT GLUCOSE(AGE Routine 05/25/2020 1:50 PM Type 2 diabetes R esults for this >30DAYS) CDT mellitus with procedure are in hyperglycemia, with the resu lts long-term current section. use of insulin documented in this encounter Results POCT GLUCOSE(AGE >30DAYS) (05/25/2020 1:50 PM CDT) Pathologist Sig nature POCT Glu (age>30days) 265 (A) 70 - 110 mg/dL Specimen Blood - CAPILLARY documented in this encounter Visit Diagnoses Diagnosis Type 2 diabetes mellitus with hyperglyce irma, with long-term current use of insulin - Primary Diabetic gastroparesis Type II or unspecified type diabetes becca litus with neurological manifestations, not stated as uncontrolled Mild peripheral edema Essential hypertension Unspecified essential hypertension Flu vaccine need Need for prophylactic vaccination and in oculation against influenza documented in this encounter Insurance Payer Benefit Plan / Subscriber ID Effective Phone Address T ype Group Dates [facility] [id number] 2018-Pres [phone] [facility] [address] [place] [address] (Work) [id number] documented as of this encounter
--- OUTSIDE RECORDS SUMMARY | 2020-07-23 02:56 | XMS REPORT | Summary of Care ---
:1965 Author Organization [facility] Address [address] [place] [address] Care Team Providers Name Role Phone LUISA Troy Primary Care Provider Reason for Referral (Routine) Status Reason Specialty Diagnoses / Referred By Referred To Procedures Contact Contact New Request Endocrinology Diagnoses Type 2 diabetes mellitus with hyperglycemia, with long-term current use of insulin Kimberley Troy, Diabetes & Procedures CONSULT/REFERRAL ENDOCRINOLOGY Diabetes CRYPTOLOGIC LINGUIST Metabolism [address] [place] [address] Reason for Visit Reason Comments Referral/consult Encounter Details Date Type Department Care Team Description 05/15/2020 Telephone [facility] Kimberley Troy FNP Referral/consult [facility] Clin ic [address] [facility] [address] [place] [address] [place] [address] [phone] Allergies Active Allergy Reactions Severity Noted Date Comments Hydrocodone Itching 07/16/2018 Rofecoxib Swelling 05/11/2015 Sertraline Hcl Swelling 05/11/2015 documented as of this encounter (statuses as of 05/15/2020) Medications Medication Sig Dispensed Refills Start Date End Date Status aspirin 81 mg EC Take 81 mg by 0 Active tabletIndications: Flu mouth daily. vaccine need, Type 2 diabetes mellitus without complication, without long-term current use of insulin, Essential hypertension, Other hyperlipidemia Pitavastatin (LIVALO) Take 1 tablet by 30 tablet 2 07/16/2018 Active 4 mg TabIndications: mouth at Other hyperlipidemia, bedtime. Flu vaccine need, Type 2 diabetes mellitus without complication, without long-term current use of insulin, Essential hypertension pregabalin (LYRICA) Take 1 capsule 180 capsule 3 10/21/2019 Active 300 mg by mouth 2 (two) capsuleIndications: times daily. Neuropathic pain acetaminophen Take by mouth. 0 Active (TYLENOL) 325 mg Cap metoclopramide HCl 10 Take 1 tablet by 120 tablet 6 12/20/2019 Active mg tabletIndications: mouth before Gastroparesis meals and at bedtime. metoprolol tartrate 25 Take 0.5 tablets 60 tablet 5 01/06/2020 Active mg tabletIndications: by mouth 2 (two) Essential hypertension times daily. sildenafil 100 mg Take 1 tablet by 9 tablet 3 01/27/2020 Active tabletIndications: mouth every Erectile dysfunction other day. due to diseases classified elsewhere furosemide 20 mg Take 1 tablet by 30 tablet 3 01/27/2020 Active tabletIndications: mouth daily. Mild peripheral edema pantoprazole 40 mg EC Take 1 tablet by 60 tablet 5 01/27/2020 Active tabletIndications: mouth 2 (two) Chronic GERD times daily. ondansetron (ZOFRAN) 4 Take 1 tablet by 20 tablet 1 02/16/2020 Active mg tabletIndications: mouth every 8 Diabetic gastroparesis (eight) hours as needed for Nausea and Vomiting (N/V). docusate calcium 240 Take 1 capsule 10 capsule 0 03/01/2020 Active mg capsuleIndications: by mouth daily. Spinal stenosis of lumbar region with neurogenic claudication metFORMIN 1,000 mg Take 1 tablet by 180 tablet 1 03/20/2020 Active tabletIndications: mouth 2 (two) Type 2 diabetes times daily with mellitus with meals. hyperglycemia, with long-term current use of insulin insulin NPH and inject 40 Units 2 Vial 3 03/20/2020 Active regular human 70-30 under the skin 2 (NOVOLIN 70/30 U-100 (two) times INSULIN) 100 unit/mL daily before (70-30) breakfast and injectionIndications: dinner. Type 2 diabetes mellitus with hyperglycemia, with long-term current use of insulin DICYCLOMINE 10 mg TAKE 1 CAPSULE 90 capsule 1 04/10/2020 Active capsuleIndications: BY MOUTH 4 TIMES Abdominal pain, DAILY NEEDED diffuse FOR ABDOMINAL PAIN documented as of this encounter (statuses as of 05/15/2020) Active Problems Problem Noted Date Constipation, unspecified constipation type 03/30/2020 Overview: Added automatically from request for barron light [id number] Obesity (BMI 30-39.9) 03/01/2020 Diffuse abdominal pain 09/23/2019 Overview: Added automatically from request for barron light [id number] Gastroesophageal reflux disease, esophagitis presence not specified 09/23/2019 Overview: Added automatically from request for barron light [id number] Gastroparesis 06/24/2019 Bronchitis 06/24/2019 Abdominal pain, diffuse 08/20/2018 Overview: Added automatically from request for barron light [id number] Type 2 diabetes mellitus with hyperglycemia, with long -term current use of 07/16/2018 insulin documented as of this encounter (statuses as of 05/15/2020) Resolved Problems Problem Noted Date Resolved Date Colon cancer screening 11/03/2018 06/24/2019 Overview: Added automatically from request for barron light [id number] Diffuse abdominal pain 11/03/2018 06/24/2019 Overview: Added automatically from request for barron light [id number] Special screening for malignant neoplasms, colon 08/20/2018 06/24/2019 Overview: Added automatically from request for barron light [id number] Hypertension, unspecified type 07/16/2018 9 Other hyperlipidemia 07/16/2018 06/24/2019 documented as of this encounter (statuses as of 05/15/2020) Immunizations Name Administration Dates Next Due HEP B, Adult Dosage 10/21/2019 Hepatitis A Adult 10/21/2019 Influenza Virus Vaccine Quad .5 mL IM 6+ 10/21/2019, 019, 07/17/2018 MO Pneumococcal Polysaccharide, PPSV23 10/21/2019 (PNEUMOVAX) TDAP 10/21/2019 [...] Visit Endocrinology Diabetes & Buddy Edward, Metabolism [address] [place] [address] [phone] 06/22/2020 Practice Assistant Visit Endocrinology Diabetes & DwayneTamra stev[address] Metabolism [address] [place] [address] [phone] 07/06/2020 Office Visit Gastroenterology Jackie Van MD [address] [facility] [address] [place] [phone] Health Maintenance Due Date Last Done Comments EYE EXAM 11/30/1977 URINE MICROALBUMIN 10/07/2004 10/07/2003 LDL-C 01/03/2005 01/04/2004 HgA1C 11/09/2015 05/11/2015, 10/07/2003 COLON CANCER SCREENING ANNUAL 11/30/2017 FIT/FOBT COLON CANCER SCREENING FIT DNA 11/30/2017 EVERY 3 YEARS COLON CANCER SCREENING 11/30/2017 SIGMOIDOSCOPY EVERY 5 YEARS Zoster Recombinant Vaccine 12/16/2019 10/21/2019 (SHINGRIX) (1 of 2) INFLUENZA VACCINE (#1) 2020 10/21/2019, 06/10/2019, 07/17/2018 FOOT EXAM 10/04/2020 10/04/2019, 10/04/2019, 10/04/2019 PNEUMOCOCCAL 0-64 YEARS COMBINED 10/21/2020 10/21/2019 SERIES (2 of 3 - PCV13) CREATININE (SERUM) 03/01/2021 03/01/2020, 10/09/2018, 05/11/2015, Additional history exists Depression Screening 03/01/2021 03/01/2020 DTaP,Tdap,and Td Vaccines (2 - Td) 10/21/2029 10/21/2019 COLONOSCOPY 11/02/2029 11/03/2019 Colorectal Cancer Screening 11/02/2029 documented as of this encounter Results Not on filedocumented in this encounter Visit Diagnoses Diagnosis Type 2 diabetes mellitus with hyperglyce irma, with long-term current use of insulin - Primary documented in this encounter Insurance Payer Benefit Plan Subscriber ID Effective Phone Address Typ e / Group Dates [place] [employer] [place] [id number] 2019-Pre [phone] [facility] sent [address] [place] [address] WALDEMAR MEDEIROS [id number] 2018-Pres [phone] [facility] PRIMARY CARE ent [address] [place] [address] documented as of this encounter
--- OUTSIDE RECORDS SUMMARY | 2020-07-23 02:56 | XMS REPORT | Continuity of Care Document ---
:1965 Author Organization [facility] t Address [address] [place] [place] [address] Care Team Providers Name Role Phone Carmen Vogel Attending Clinician Silver Das RN Attending Clinician Woodrow MORAN Attending Clinician Care, Primary Attending Clinician Unavailable Doctor Unassigned, Name Attending Clinician Unavailable Problems This patient has no known problems. Allergies, Adverse Reactions, Alerts This patient has no known allergies or adverse reactions. Medications This patient has no known medications. Procedures This patient has no known procedures. Encounters Start End Encounter Admission Attending Care Care Encounter Source Date/Time Date/Time Type Type Clinicians Facility Department ID 2020-07-21 2020-07-21 Patient Jaspreet Jes [id number] 00:00:00 00:00:00 Outreach Carmen Silver Andrez [id number] [place] [id number] 2020-07-17 2020-07-17 Patient Melina Dasemmanuel [id number] 00:00:00 00:00:00 Outreach Silver Maguire [id number] [place] [id number] 2020-07-17 2020-07-17 Telephone Kimberley Troy [id number] 00:00:00 00:00:00 [facility] [id number] [facility] [id number] UNIT [id number] 2020-07-13 2020-07-13 Office Care, Erasmo MEDEIROS [id number] 11:18:38 13:17:48 Visit Primary [facility] [id number] [facility] [id number] [place] [id number] 2020-06-22 2020-06-22 Orders Doctor MARSHALL [id number] 00:00:00 00:00:00 Only Unassigned, [place] [id number] [place] [id number] Results This patient has no known results.
--- OUTSIDE RECORDS SUMMARY | 2020-07-23 02:56 | XMS REPORT | Summary of Care ---
:1965 Author Organization [facility] Address [address] [place] [address] Care Team Providers Name Role Phone LUISA Troy Primary Care Provider Reason for Visit Reason Comments Appointment Encounter Details Date Type Department Care Team Description 05/22/2020 Telephone [facility] Kimberley Martinez FNP Appointment [address] [place] [address] [place] [address] [phone] Allergies Active Allergy Reactions Severity Noted Date Comments Hydrocodone Itching 07/16/2018 Rofecoxib Swelling 05/11/2015 Sertraline Hcl Swelling 05/11/2015 documented as of this encounter (statuses as of 05/24/2020) Medications Medication Sig Dispensed Refills Start Date [...] as of this encounter (statuses as of 05/24/2020) Active Problems Problem Noted Date Constipation, unspecified constipation type 03/30/2020 Overview: Added automatically from request for barron nadege [id number] Obesity (BMI 30-39.9) 03/01/2020 Diffuse abdominal pain 09/23/2019 Overview: Added automatically from request for barron nadege [id number] Gastroesophageal reflux disease, esophagitis presence not specified 09/23/2019 Overview: Added automatically from request for barron nadege [id number] Gastroparesis 06/24/2019 Bronchitis 06/24/2019 Abdominal pain, diffuse 08/20/2018 Overview: Added automatically from request for barron light [id number] Type 2 diabetes mellitus with hyperglycemia, with long -term current use of 07/16/2018 insulin documented as of this encounter (statuses as of 05/24/2020) Resolved Problems Problem Noted Date Resolved Date Colon cancer screening 11/03/2018 06/24/2019 Overview: Added automatically from request for barron light [id number] Diffuse abdominal pain 11/03/2018 06/24/2019 Overview: Added automatically from request for barron light [id number] Special screening for malignant neoplasms, colon 08/20/2018 06/24/2019 Overview: Added automatically from request for barron light [id number] Hypertension, unspecified type 07/16/2018 9 Other hyperlipidemia 07/16/2018 06/24/2019 documented as of this encounter (statuses as of 05/24/2020) Immunizations Name Administration Dates Next Due HEP [...] Treatment Date Type Specialty Care Team Description 05/25/2020 Office Visit Family Medicine Kimberley Troy, LUISA [address] [place], [place] [address] Erasmo Rosas 06/20/2020 Office Visit Endocrinology Diabetes & Buddy Edward, Metabolism MD [address] [address] [phone] 06/22/2020 Coupon Manifest Clerk Visit Endocrinology Diabetes & Tamra Rice RD Metabolism [address] [place] [address] [phone] 07/06/2020 Office Visit Gastroenterology Jackie Van MD 2[address] [facility] [address] [place] [address] [phone] Health Maintenance Due Date Last Done Comments [...] Results Not on filedocumented in this encounter Insurance Payer Benefit Plan Subscriber ID Effective Phone Address Typ e / Group Dates [place] [place] [id number] 2019-Pre [phone] [facility] sent [address] [address] [place] MEDEIROS [id number] 2018-Pres [phone] PRIMARY CARE PRIMARY CARE ent [address] [place] [address] documented as of this encounter
--- OUTSIDE RECORDS SUMMARY | 2020-07-23 02:56 | XMS REPORT | Summary of Care ---
:1965 Author Organization [facility] Address [address] [place] [address] Care Team Providers Name Role Phone LUISA Troy Primary Care Provider Reason for Visit Reason Comments Follow-up Problem of right great toe n ailbed VACCINES Encounter Details Date Type Department Care Team Description 05/25[facility]2020 [facility] [address] [place] [address] Type 2 diabetes mellitus with hyperglyce irma, with long-term current use of insulin (Primary Dx); [facility] Primary Diabetic gastroparesis; Clinic Mild peripheral edema; [address] Essential hypertension; [place], [place] [id number] Allergies Active Allergy Reactions Severity Noted Date [...] Added automatically from request for barron bañuelosy [id number] Obesity (BMI 30-39.9) 03/01/2020 Diffuse abdominal pain 09/23/2019 Overview: Added automatically from request for barron nadege [id number] Gastroesophageal reflux disease, esophagitis presence not specified 09/23/2019 Overview: Added automatically from request for barron nadege [id number] Gastroparesis 06/24/2019 Bronchitis 06/24/2019 Abdominal pain, diffuse 08/20/2018 Overview: Added automatically from request for barron nadege [id number] Type 2 diabetes mellitus with hyperglycemia, with long -term current use of 07/16/2018 insulin documented as of this encounter (statuses as of 05/29/2020) Resolved Problems Problem Noted Date Resolved Date Colon cancer screening 11/03/2018 06/24/2019 Overview: Added automatically from request for barron nadege [id number] Diffuse abdominal pain 11/03/2018 06/24/2019 Overview: Added automatically from request for barron nadege [id number] Special screening for malignant neoplasms, colon 08/20/2018 06/24/2019 Overview: Added automatically from request for barron nadege [id number] Hypertension, unspecified type 07/16/2018 9 Other hyperlipidemia [...] file Gets together: Not on file Attends protestant service: Not on file Active member of [...] issues and agrees with the plan. Kimberley [facility] Peggy Sotelo LVN - 05/25/2020 1:30 PM [...] to left deltoid. Tolerated well. Lot # [id number] / Exp. 02/28/2021 documented in this encounter Plan of Treatment Date Type Specialty Care Team Description 06/20/2020 Office Visit Endocrinology Diabetes & Buddy Edward, Metabolism 250 [facility] [address] [place], [place] [address] [phone] 06/22/2020 Jockey Valet Visit Endocrinology Diabetes & Tamra Rice RD Metabolism 2660 [place] [address] [phone] 07/06/2020 Office Visit Gastroenterology Jackie Van MD 2240 [facility] [address] [place] [address] Health Maintenance Due Date Last Done Comments [...] Routine 05/26/2020 11:43 AM Flu vaccine need ([id number]), 6+ CDT MONTHS, IM, QUAD POCT GLUCOSE(AGE [...] Effective Phone Address T ype Group Dates [facility] [id number] 2018-Pres [phone] PRIMARY CARE PRIMARY CARE ent [address] [place] [address] (Work) [id number] documented as of this encounter
--- OUTSIDE RECORDS SUMMARY | 2020-07-23 02:57 | XMS REPORT | Summary of Care ---
:1965 Author Organization [facility] Address [address] [place] [address] Care Team Providers Name Role Phone LUISA Troy Primary Care Provider Encounter Details Date Type Department Care Team Description 05/25/2020 Orders Only [facility] Doctor Unassigned, No 301 [facility] [place] [address] [place] [address] Allergies Active Allergy Reactions Severity Noted Date Comments Hydrocodone Itching 07/16/2018 Rofecoxib Swelling 05/11/2015 Sertraline Hcl Swelling 05/11/2015 documented as of this encounter (statuses as of 06/13/2020) Medications Medication Sig Dispensed Refills Start Date [...] mouth before Gastroparesis meals and at bedtime. sildenafil 100 mg Take 1 tablet by 9 tablet 3 01/27/2020 Active tabletIndications: mouth every Erectile dysfunction other day. due to diseases classified elsewhere pantoprazole 40 mg EC Take 1 tablet by 60 tablet 5 01/27/2020 Active tabletIndications: mouth 2 (two) Chronic GERD times daily. docusate calcium 240 Take 1 capsule 10 [...] pain, DAILY NEEDED diffuse FOR ABDOMINAL PAIN ondansetron (ZOFRAN) 4 Take 1 tablet by 20 tablet 1 05/25/2020 Active mg tabletIndications: mouth every 8 Diabetic gastroparesis (eight) hours as needed for Nausea and Vomiting (N/V). furosemide 20 mg Take 1 tablet by 30 tablet 3 05/25/2020 Active tabletIndications: mouth daily. Mild peripheral edema metoprolol tartrate 25 Take 1 tablet by 60 tablet 5 05/25/2020 Active mg tabletIndications: mouth daily. Essential hypertension documented as of this encounter (statuses as of 06/13/2020) Active Problems Problem Noted Date Constipation, unspecified constipation type 03/30/2020 Overview: Added automatically from request for barron nadege [id number] Obesity (BMI 30-39.9) 03/01/2020 Diffuse abdominal pain 09/23/2019 Overview: Added automatically from request for barron nadege [id number] Gastroesophageal reflux disease, esophagitis presence not specified 09/23/2019 Overview: Added automatically from request for barron nadege [id number] Gastroparesis 06/24/2019 Bronchitis 06/24/2019 Abdominal pain, diffuse 08/20/2018 Overview: Added automatically from request for barron nadege [id number] Type 2 diabetes mellitus with hyperglycemia, with long -term current use of 07/16/2018 insulin documented as of this encounter (statuses as of 06/13/2020) Resolved Problems Problem Noted Date Resolved Date Colon cancer screening 11/03/2018 06/24/2019 Overview: Added automatically from request for barron light [id number] Diffuse abdominal pain 11/03/2018 06/24/2019 Overview: Added automatically from request for barron light [id number] Special screening for malignant neoplasms, colon 08/20/2018 06/24/2019 Overview: Added automatically from request for barron light [id number] Hypertension, unspecified type 07/16/2018 9 Other hyperlipidemia 07/16/2018 06/24/2019 documented as of this encounter (statuses as of 06/13/2020) Immunizations Name Administration Dates Next Due HEP [...] Endocrinology Diabetes & Buddy Edward, Metabolism 250 [facility] [address] [place], [place] [address] [phone] 06/22/2020 Workers Compensation Manager Visit Endocrinology Diabetes & Tamra Rice RD Metabolism 2660 [place] [address] [phone] 07/06/2020 Office Visit Gastroenterology Jackie Van MD 2240 [facility] [address] [place] [phone] Health Maintenance Due Date Last Done Comments LDL-C 01/03/2005 01/04/2004 COLON CANCER SCREENING ANNUAL 11/30/2017 FIT/FOBT COLON CANCER SCREENING FIT DNA 11/30/2017 EVERY 3 YEARS COLON CANCER SCREENING 11/30/2017 SIGMOIDOSCOPY EVERY 5 YEARS Zoster Recombinant Vaccine 12/16/2019 10/21/2019 (SHINGRIX) (1 of 2) FOOT EXAM 10/04/2020 10/04/2019, 10/04/2019, 10/04/2019 EYE EXAM 10/14/2020 10/14/2019 PNEUMOCOCCAL 0-64 YEARS COMBINED 10/21/2020 10/21/2019 SERIES (2 of 3 - PCV13) HgA1C 11/22/2020 05/25/2020, 05/11/2015, 10/07/2003 CREATININE (SERUM) 03/01/2021 03/01/2020, 10/09/2018, 05/11/2015, Additional history exists Depression Screening 03/01/2021 03/01/2020 URINE MICROALBUMIN 05/25/2021 05/25/2020, 10/07/2003 DTaP,Tdap,and Td Vaccines (2 - Td) 10/21/2029 10/21/2019 COLONOSCOPY 11/02/2029 11/03/2019 Colorectal Cancer Screening 11/02/2029 INFLUENZA VACCINE Completed 05/25/2020, 10/21/2019, 06/10/2019, Additional history exists documented as of this encounter Procedures Procedure Name Priority Date/Time Associated Diagnosis Comme nts MEDICATION CORRESPONDENCE Routine 05/25/2020 12:01 AM CDT documented in this encounter Results Not on filedocumented in this encounter Insurance Payer Benefit Plan Subscriber ID Effective Phone Address Typ e / Group Dates [place] [place] [id number] 2019-Pre [phone] [facility] H C I H C sent [address] [id number] W[place] MEDEIROS [id number] 2018-Pres [phone] PRIMARY CARE PRIMARY CARE ent [address] [place] [address] documented as of this encounter
--- OUTSIDE RECORDS SUMMARY | 2020-07-23 02:57 | XMS REPORT | Summary of Care ---
:1965 Author Organization [facility] Address [address] [place] [address] Care Team Providers Name Role Phone LUISA Troy Primary Care Provider Reason for Visit Reason Comments ELEVATED BLOOD PRESSURE Rx Concern/Question Encounter Details Date Type Department Care Team Description 06/22/2020 Office Visit [facility] Kimberley Troy FNP [address] [place] [address] Type 2 diabetes mellitus with hyperglyce irma, with long-term current use of insulin (Primary Dx); [facility] Primary Essential hypertension; Clinic Adjustment insomnia [address] [place] [address] Allergies Active Allergy Reactions Severity Noted Date Comments Hydrocodone Itching 07/16/2018 Rofecoxib Swelling 05/11/2015 Sertraline Hcl Swelling 05/11/2015 documented as of this encounter (statuses as of 06/26/2020) Medications Medication Sig Dispensed Refills Start End [...] by mouth 0 Mild peripheral daily. edema cloNIDine 0.1 mg Take 1 tablet 60 tablet 5 Active tabletIndications: by mouth 2 0 Uncontrolled stage (two) times 2 hypertension daily as needed (for blood pressure above 160 systolic and 110 diastolically ). lisinopriL 20 mg Take 1 tablet 30 tablet 5 Active tabletIndications: by mouth 0 Essential daily. hypertension metoprolol tartrate Take 1 tablet 30 tablet 5 Active 50 mg by mouth 0 tabletIndications: every Essential evening. hypertension traZODone 50 mg Take 1 tablet 30 tablet 1 Active tabletIndications: by mouth at 0 Adjustment insomnia bedtime. metoprolol tartrate Take 1 tablet 60 tablet 5 Discontinued 25 mg by mouth 0 20 (Dose tabletIndications: daily. a djustment) Essential hypertension documented as of this encounter (statuses as of 06/26/2020) Active Problems Problem Noted Date Constipation, unspecified constipation type 03/30/2020 Overview: Added automatically from request for barron bañuelosy [id number] Obesity (BMI 30-39.9) 03/01/2020 Diffuse abdominal pain 09/23/2019 Overview: Added automatically from request for barron nadege [id number] Gastroesophageal reflux disease, esophagitis presence not specified 09/23/2019 Overview: Added automatically from request for barron nadege [id number] Gastroparesis 06/24/2019 Bronchitis 06/24/2019 Abdominal pain, diffuse 08/20/2018 Overview: Added automatically from request for barron bañuelosy [id number] Type 2 diabetes mellitus with hyperglycemia, with long -term current use of 07/16/2018 insulin documented as of this encounter (statuses as of 06/26/2020) Resolved Problems Problem Noted Date Resolved Date Colon cancer screening 11/03/2018 06/24/2019 Overview: Added automatically from request for barron bañuelosy [id number] Diffuse abdominal pain 11/03/2018 06/24/2019 Overview: Added automatically from request for barron nadege [id number] Special screening for malignant neoplasms, colon 08/20/2018 06/24/2019 Overview: Added automatically from request for barron bañuelosy [id number] Hypertension, unspecified type 07/16/2018 9 Other hyperlipidemia 07/16/2018 06/24/2019 documented as of this encounter (statuses as of 06/26/2020) Immunizations Name Administration Dates Next Due HEP [...] Assigned at Date Recorded Not on file COVID-19 Exposure Response Date Recorded In the last month, have you been in contact with No / Unsure 06/22/2020 10:43 AM CDT someone who was confirmed or suspected to have Coronavirus / COVID-19? documented as of this encounter Last Filed Vital Signs Vital Sign Reading Time Taken Comments Blood Pressure 117/71 06/22/2020 10:42 AM CDT Pulse 77 06/22/2020 10:42 AM CDT Temperature 36.2 C (97.1 F) 06/22/2020 10:42 AM CDT Respiratory Rate 20 06/22/2020 10:42 AM CDT Oxygen Saturation - - Inhaled Oxygen Concentration - - Weight 80.7 kg (177 lb 14.4 oz) 06/22/2020 10:42 AM CDT Height 162.6 cm (5' 4") 06/22/2020 10:42 AM CDT Body Mass Index 30.54 06/22/2020 10:42 AM CDT documented in this encounter Progress Notes Kimberley Troy, LUISA - 06/22/2020 10:30 AM CDT Cc: Chief Complaint Patient presents with ELEVATED BLOOD PRESSURE Rx Concern/Question HPI Florentino Acosta is a 54 year old male in today to revisit his hypertension issues. Was taking metoprolol 25 mg at hs. [place] at the mall the other day and his reading was very high. Has not been takingat home. States that he took it at [facility] last week, was 180/110. On chart review, his numbers has been elevated since the beginning of the year. Denies headache, dizziness or syncope. Has been having difficulty sleeping. Stopped taking cymbalta a couple of months ago because he thought it was making him anxious. Since discontinuing the anxiety has not gotten better and he is not sleeping. Is anxious because his grandchildren have moved out of the area and he is not getting along with hisgirlfriend. Glucose today today in clinic was 288. A1C in January was 6.9 was doing well with diet but since his back surgery has not been following the diet or taking his insulin regularly and is feeling bad again. Denies fevers and chill Allergies Florentino is allergic to hydrocodone; vioxx [rofecoxib]; and zoloft [sertraline hcl]. Medications Outpatient Medications Prior to Visit Medication Sig Dispense Refill cloNIDine 0.1 mg tablet Take 1 tablet by mouth 2 (two) times daily as needed (for blood pressureabove 160 systolic and 110 diastolically). 60 tablet 5 ondansetron (ZOFRAN) 4 mg tablet Take 1 tablet by mouth every 8 (eight) hours as needed for Nausea and Vomiting (N/V). 20 tablet 1 furosemide 20 mg tablet Take 1 tablet by mouth daily. 30 tablet 3 metoprolol tartrate 25 mg tablet Take 1 tablet by mouth daily. 60 tablet 5 DICYCLOMINE 10 mg capsule TAKE 1 CAPSULE BY MOUTH 4 TIMES DAILY NEEDED FOR ABDOMINAL PAIN 90 capsule 1 insulin NPH and regular human 70-30 (NOVOLIN 70/30 U-100 INSULIN) 100 unit/mL (70-30) injection inject 40 Units under the skin 2 (two) times daily before breakfast and dinner. 2 Vial 3 metFORMIN 1,000 mg tablet Take 1 tablet by mouth 2 (two) times daily with meals. 180 tablet 1 docusate calcium 240 mg capsule Take 1 capsule by mouth daily. 10 capsule 0 pantoprazole 40 mg EC tablet Take 1 tablet by mouth 2 (two) times daily. 60 tablet 5 sildenafil 100 mg tablet Take 1 tablet by mouth every other day. 9 tablet 3 metoclopramide HCl 10 mg tablet Take 1 [...] N/A 11/03/2019 Surgeon: Jackie Van MD; Location: [facility] ESOPHAGOGASTRODUODENOSCOPY N/A 11/03/2019 Surgeon: Jackie Van MD; Location: [place] [facility] HEMILAMINECTOMY Left 03/01/2020 Surgeon: Royer Ham MD; Location: [facility] Location Social History Socioeconomic History Marital status: Spouse [...] file Gets together: Not on file Attends nondenominational service: Not on file Active member of [...] Review of Systems Constitutional: Negative. HENT: Negative. Musculoskeletal: Positive for back pain. Skin: Negative. Neurological: Positive for dizziness. Negative for syncope, speech difficulty, weakness, light-headedness and headaches. Psychiatric/Behavioral: Positive for agitation and sleep disturbance. The patient is nervous/anxious. Vital Signs BP 117/71 (BP Location: Left arm, Patient Position: Sitting) | Pulse 77 | Temp 36.2 C (97.1 F)(Temporal Artery) | Resp 20 | Ht 5' 4" (1.626 m) | Wt 177 lb 14.4 oz (80.7 kg) | BMI 30.54 kg/m Physical Exam Vitals signs and nursing note reviewed. Constitutional: Appearance: Normal appearance. HENT: Right Ear: Tympanic membrane normal. Left Ear: Tympanic membrane normal. Eyes: Extraocular Movements: Extraocular movements intact. Conjunctiva/sclera: Conjunctivae normal. Pupils: Pupils are equal, round, and reactive to light. Cardiovascular: Rate and Rhythm: Normal rate and regular rhythm. Pulmonary: Effort: Pulmonary effort is normal. Breath sounds: Normal breath sounds. Abdominal: General: Bowel sounds are normal. Palpations: Abdomen is soft. Musculoskeletal: Normal range of motion. Skin: General: Skin is warm and dry. Neurological: General: No focal deficit present. Mental Status: He is alert and oriented to person, place, and time. Psychiatric: Mood and Affect: Mood normal. Assessment/Plan 1. Type 2 diabetes mellitus with hyperglycemia, with long-term current use of insulin - POCT GLUCOSE(AGE >30DAYS) 2. Essential hypertension - lisinopriL 20 mg tablet; Take 1 tablet by mouth daily. Dispense: 30 tablet; Refill: 5 - metoprolol tartrate 50 mg tablet; Take 1 tablet by mouth every evening. Dispense: 30 tablet; Refill: 5 3. Adjustment insomnia - traZODone 50 mg tablet; Take 1 tablet by mouth at bedtime. Dispense: 30 tablet; Refill: 1 Take blood pressure twice a day and record. Follow up in clinic in 2 wks for blood pressure check Restart cymbalta. Start out with 1 tablet daily for 1 wk then move up to 2. Follow up in 2 wks for treatment evaluations. Discussed ePggy Sotelo LVN - 06/22/2020 10:30 AM Dian Carlos Acosta is a 54 year old male Patient here today for follow up for elevated blood pressure, and prescription concern. Reports 7 pain on scale 0/10, MD notified. Reviewed medications and allergies with patient today. Fall Risk Assessment/Screening performed with patient today and patient is not at risk for falls. documented in this encounter Plan of Treatment Date Type Specialty Care Team Description 07/06/2020 Office Visit Gastroenterology Jackie Van MD 2[address] [facility] [address] [place] [address] [phone] 07/12/2020 Office Visit Endocrinology Diabetes & Wagner, Buddy Sanchez, Metabolism [address] [place] [address] [address] [place], [place] [address] [phone] Health Maintenance Due Date Last Done Comments [...] Associated Diagnosis Comme nts POCT GLUCOSE(AGE Routine 06/22/2020 10:49 AM Type 2 diabetes R esults for this >30DAYS) CDT mellitus with procedure are in hyperglycemia, with the resu lts long-term current section. use of insulin documented in this encounter Results POCT GLUCOSE(AGE >30DAYS) (06/22/2020 10:49 AM CDT) Pathologist Sig nature POCT Glu (age>30days) 288 (A) 70 - 110 mg/dL Specimen Blood - CAPILLARY documented in this encounter Visit Diagnoses Diagnosis Type 2 diabetes mellitus with hyperglyce irma, with long-term current use of insulin - Primary Essential hypertension Unspecified essential hypertension Adjustment insomnia Transient disorder of initiating or main taining sleep documented in this encounter Insurance Payer Benefit Plan Subscriber ID Effective Phone Address Typ e / Group Dates [place] [place] [id number] 2019-Pre [phone] [facility] C I H C sent [address] [place] [id number] documented as of this encounter
--- OUTSIDE RECORDS SUMMARY | 2020-07-23 02:57 | XMS REPORT | Summary of Care ---
:1965 Author Organization [facility] Address [address] [place] [address] Care Team Providers Name Role Phone LUISA Troy Primary Care Provider Reason for Visit Reason Comments Hypertension Encounter Details Date Type Department Care Team Description 06/19/2020 Telephone [facility] Kimberley Martin FNP Hypertension [facility] 301 [facility] 260 [facility] e 200 [place] [address] [place] [phone] Allergies Active Allergy Reactions Severity Noted Date Comments Hydrocodone Itching 07/16/2018 Rofecoxib Swelling 05/11/2015 Sertraline Hcl Swelling 05/11/2015 documented as of this encounter (statuses as of 06/19/2020) Medications Medication Sig Dispensed Refills Start Date [...] Active mg tabletIndications: mouth daily. Essential hypertension cloNIDine 0.1 mg Take 1 tablet by 60 tablet 5 06/19/2020 Active tabletIndications: mouth 2 (two) Uncontrolled stage 2 times daily as hypertension needed (for blood pressure above 160 systolic and 110 diastolically). documented as of this encounter (statuses as of 06/19/2020) Active Problems Problem Noted Date Constipation, unspecified constipation type 03/30/2020 Overview: Added automatically from request for barron light [id number] Obesity (BMI 30-39.9) 03/01/2020 Diffuse abdominal pain 09/23/2019 Overview: Added automatically from request for barron light [id number] Gastroesophageal reflux disease, esophagitis presence not specified 09/23/2019 Overview: Added automatically from request for barron nadege [id number] Gastroparesis 06/24/2019 Bronchitis 06/24/2019 Abdominal pain, diffuse 08/20/2018 Overview: Added automatically from request for barron bañuelosy 061940 Type 2 diabetes mellitus with hyperglycemia, with long -term current use of 07/16/2018 insulin documented as of this encounter (statuses as of 06/19/2020) Resolved Problems Problem Noted Date Resolved Date Colon cancer screening 11/03/2018 06/24/2019 Overview: Added automatically from request for barron bañuelosy 184028 Diffuse abdominal pain 11/03/2018 06/24/2019 Overview: Added automatically from request for barron nadege [id number] Special screening for malignant neoplasms, colon 08/20/2018 06/24/2019 Overview: Added automatically from request for barron bañuelosy [id number] Hypertension, unspecified type 07/16/2018 9 Other hyperlipidemia 07/16/2018 06/24/2019 documented as of this encounter (statuses as of 06/19/2020) Immunizations Name Administration Dates Next Due HEP [...] Signs Not on filedocumented in this encounter Miscellaneous Notes Telephone Encounter - Kimberley Troy FNP - 06/19/2020 2:22 PM CDTPatient calling stating his blood pressure is staying elevated. On last visit on 05/25 had increased the metoprolol to 25 mg daily. Pt stating [place] the mall and had it taken and it was very high. Will see him in the next [facility]. In the meantime, he need to increase the metoprolol to 25 mg twice a day and take clonidine 0.1 bidprn for b/p over 160/110. ED warning given. documented in this encounter Plan of Treatment Date Type Specialty Care Team Description 06/22/2020 [employer] Plasma Etcher Visit Endocrinology Diabetes & Tamra Rice RD Metabolism 26[address] [place] [address] [phone] 07/06/2020 Office Visit Gastroenterology Jackie Van MD 2240 [facility] 2.110 [place] [phone] 07/12/2020 Office Visit Endocrinology Diabetes & Buddy Edward, Metabolism 250 [facility] 400 [place], [place] [address] [phone] Health Maintenance Due Date Last Done Comments [...] history exists documented as of this encounter Results Not on filedocumented in this encounter Visit Diagnoses Diagnosis Uncontrolled stage 2 hypertension - Prim tram Unspecified essential hypertension documented in this encounter Insurance Payer Benefit Plan Subscriber ID Effective Phone Address Typ e / Group Dates [employer] [place] [id number] 2019-Pre [phone] [facility] C I H C sent [address] [place] [address] WALDEMAR MEDEIROS [id number] 2018-Pres [phone] PRIMARY CARE PRIMARY CARE ent 11 [place] [address] documented as of this encounter
--- OUTSIDE RECORDS SUMMARY | 2020-07-23 02:57 | XMS REPORT | Summary of Care ---
:1965 Author Organization [facility] Address [address] [place] [address] Care Team Providers Name Role Phone LUISA Troy Primary Care Provider Reason for Visit Reason Comments Hypertension Encounter Details Date Type Department Care Team Description 06/19/2020 Telephone [facility] Kimberley Martin FNP Hypertension [facility] 301 [facility] [address] [facility] [address] [place] [address] [place] [phone] Allergies Active Allergy Reactions Severity Noted Date Comments Hydrocodone Itching 07/16/2018 Rofecoxib Swelling 05/11/2015 Sertraline Hcl Swelling 05/11/2015 documented as of this encounter (statuses as of 06/20/2020) Medications Medication Sig Dispensed Refills Start Date [...] as of this encounter (statuses as of 06/20/2020) Active Problems Problem Noted Date Constipation, unspecified constipation type 03/30/2020 Overview: Added automatically from request for barron light [id number] Obesity (BMI 30-39.9) 03/01/2020 Diffuse abdominal pain 09/23/2019 Overview: Added automatically from request for barron light [id number] Gastroesophageal reflux disease, esophagitis presence not specified 09/23/2019 Overview: Added automatically from request for barron light 409109 Gastroparesis 06/24/2019 Bronchitis 06/24/2019 Abdominal pain, diffuse 08/20/2018 Overview: Added automatically from request for barron light [id number] Type 2 diabetes mellitus with hyperglycemia, with long -term current use of 07/16/2018 insulin documented as of this encounter (statuses as of 06/20/2020) Resolved Problems Problem Noted Date Resolved Date Colon cancer screening 11/03/2018 06/24/2019 Overview: Added automatically from request for barron light [id number] Diffuse abdominal pain 11/03/2018 06/24/2019 Overview: Added automatically from request for barron light [id number] Special screening for malignant neoplasms, colon 08/20/2018 06/24/2019 Overview: Added automatically from request for barron light [id number] Hypertension, unspecified type 07/16/2018 9 Other hyperlipidemia 07/16/2018 06/24/2019 documented as of this encounter (statuses as of 06/20/2020) Immunizations Name Administration Dates Next Due HEP [...] this encounter Miscellaneous Notes Telephone Encounter - Peggy Mccullough LVN - 06/20/2020 11:30 AM CDTPatient notified and informed of medication changes and provider instructions. Acknowledged understanding. Followup visit scheduled for 06/21/2020 @ 10:30am. Telephone Encounter - Kimberley Troy FNP - 06/19/2020 2:22 PM CDTPatient calling stating his blood pressure is staying elevated. On last visit on 05/25 had increased the metoprolol to 25 mg daily. Pt stating he was at the mall and had it taken and it was very high. Will see him in the next [place] clinic. In the meantime, he need to increase the metoprolol to 25 mg twice a day and take clonidine 0.1 bidprn for b/p over 160/110. ED warning given. documented in this encounter Plan of Treatment Date Type Specialty Care Team Description 06/22/2020 Office Visit Family Medicine Kimberley Troy FNP [address] [place] [address] [phone] Care, Ang Primary 06/22/2020 Rubber Goods Repairer Visit Endocrinology Diabetes & Tamra Rice RD Metabolism 2660 [place] [address] [phone] 07/06/2020 Office Visit Gastroenterology Jackie Van MD 2240 [facility] 2.110 [place] [phone] 07/12/2020 Office Visit Endocrinology Diabetes & Buddy Edward, Metabolism 250 [facility] 400 [place], [place] [address] [phone] Health Maintenance Due Date Last Done Comments [...] Group Dates [employer] [employer] [employer] [id number] 2019-Pre [phone] [facility] H C I H C sent [address] [place] [address] W[place] MEDEIROS [id number] 2018-Pres [phone] PRIMARY CARE PRIMARY CARE ent [address] [place] [address] documented as of this encounter
--- OUTSIDE RECORDS SUMMARY | 2020-07-23 02:57 | XMS REPORT | Summary of Care ---
:1965 Author Organization [facility] - Health Address [address] [place] [address] Care Team Providers Name Role Phone LUISA Troy Primary Care Provider Encounter Details Date Type Department Care Team Description 06/14/2020 Orders Only [facility] Doctor Unassigned, No 301 [facility] [place] [address] [place] [address] Allergies Active Allergy Reactions Severity Noted Date Comments Hydrocodone Itching 07/16/2018 Rofecoxib Swelling 05/11/2015 Sertraline Hcl Swelling 05/11/2015 documented as of this encounter (statuses as of 06/14/2020) Medications Medication Sig Dispensed Refills Start Date [...] as of this encounter (statuses as of 06/14/2020) Active Problems Problem Noted Date Constipation, unspecified constipation type 03/30/2020 Overview: Added automatically from request for barron nadege [id number] Obesity (BMI 30-39.9) 03/01/2020 Diffuse abdominal pain 09/23/2019 Overview: Added automatically from request for barron nadege [id number] Gastroesophageal reflux disease, esophagitis presence not specified 09/23/2019 Overview: Added automatically from request for barron nadege 673505 Gastroparesis 06/24/2019 Bronchitis 06/24/2019 Abdominal pain, diffuse 08/20/2018 Overview: Added automatically from request for barron nadege [id number] Type 2 diabetes mellitus with hyperglycemia, with long -term current use of 07/16/2018 insulin documented as of this encounter (statuses as of 06/14/2020) Resolved Problems Problem Noted Date Resolved Date Colon cancer screening 11/03/2018 06/24/2019 Overview: Added automatically from request for barron light [id number] Diffuse abdominal pain 11/03/2018 06/24/2019 Overview: Added automatically from request for barron light [id number] Special screening for malignant neoplasms, colon 08/20/2018 06/24/2019 Overview: Added automatically from request for barron light [id number] Hypertension, unspecified type 07/16/2018 9 Other hyperlipidemia 07/16/2018 06/24/2019 documented as of this encounter (statuses as of 06/14/2020) Immunizations Name Administration Dates Next Due HEP [...] Endocrinology Diabetes & Buddy Edward, Metabolism 250 [facility] 400 [place], [place] [address] [phone] 06/22/2020 Home Administrator Visit Endocrinology Diabetes & Tamra Rice RD Metabolism 2660 [place] [address] [phone] 07/06/2020 Office Visit Gastroenterology Jackie Van MD 2240 [facility] 2.110 [place] [phone] Health Maintenance Due Date Last Done Comments [...] Name Priority Date/Time Associated Diagnosis Comme nts EXTERNAL PROVIDER Routine 06/14/2020 12:01 AM CDT RECORDS documented in this encounter Results Not on filedocumented in this encounter Insurance Payer Benefit Plan Subscriber ID Effective Phone Address Typ e / Group Dates [place] [place] [employer] [employer] [id number] 2019-Pre [phone] [facility] H C I H C sent [address] [place] [address] [place] MEDEIROS [id number] 2018-Pres [phone] PRIMARY CARE PRIMARY CARE ent [address] [place] [address] documented as of this encounter
--- OUTSIDE RECORDS SUMMARY | 2020-07-23 02:58 | XMS REPORT | Summary of Care ---
:1965 Author Organization [facility] Address [address] [place] [address] Care Team Providers Name Role Phone LUISA Troy Primary Care Provider Reason for Referral (Routine) Status Reason Specialty Diagnoses / Procedures Referred By Michael mae To Contact Contact New Request Gastroenterology Diagnoses Incontinence of feces, unspecified fecal incontinence type Kimberley Troy, Procedures CONSULT/REFERRAL GASTROENTEROLOGY [facility] 301 [place] [address] Reason for Visit Reason Comments Referral/consult Encounter Details Date Type Department Care Team Description 06/27/2020 Telephone [facility] Kimberley Troy FNP Referral/consult [facility] 301 [facility] [address] [place] [place] [address] [place] [address] [phone] Allergies Active Allergy Reactions Severity Noted Date Comments Hydrocodone Itching 07/16/2018 Rofecoxib Swelling 05/11/2015 Sertraline Hcl Swelling 05/11/2015 documented as of this encounter (statuses as of 06/27/2020) Medications Medication Sig Dispensed Refills Start Date [...] Active tabletIndications: mouth daily. Mild peripheral edema cloNIDine 0.1 mg Take 1 tablet by 60 tablet 5 06/19/2020 Active tabletIndications: mouth 2 (two) Uncontrolled stage 2 times daily as hypertension needed (for blood pressure above 160 systolic and 110 diastolically). lisinopriL 20 mg Take 1 tablet by 30 tablet 5 06/22/2020 Active tabletIndications: mouth daily. Essential hypertension metoprolol tartrate 50 Take 1 tablet by 30 tablet 5 06/22/2020 Active mg tabletIndications: mouth every Essential hypertension evening. traZODone 50 mg Take 1 tablet by 30 tablet 1 06/22/2020 Active tabletIndications: mouth at Adjustment insomnia bedtime. documented as of this encounter (statuses as of 06/27/2020) Active Problems Problem Noted Date Constipation, unspecified constipation type 03/30/2020 Overview: Added automatically from request for barron light [id number] Obesity (BMI 30-39.9) 03/01/2020 Diffuse abdominal pain 09/23/2019 Overview: Added automatically from request for barron nadege [id number] Gastroesophageal reflux disease, esophagitis presence not specified 09/23/2019 Overview: Added automatically from request for barron bañuelosy 377554 Gastroparesis 06/24/2019 Bronchitis 06/24/2019 Abdominal pain, diffuse 08/20/2018 Overview: Added automatically from request for barron bañuelosy [id number] Type 2 diabetes mellitus with hyperglycemia, with long -term current use of 07/16/2018 insulin documented as of this encounter (statuses as of 06/27/2020) Resolved Problems Problem Noted Date Resolved Date Colon cancer screening 11/03/2018 06/24/2019 Overview: Added automatically from request for barron bañuelosy 196301 Diffuse abdominal pain 11/03/2018 06/24/2019 Overview: Added automatically from request for barron bañuelosy 658242 Special screening for malignant neoplasms, colon 08/20/2018 06/24/2019 Overview: Added automatically from request for barron bañuelosy [id number] Hypertension, unspecified type 07/16/2018 9 Other hyperlipidemia 07/16/2018 06/24/2019 documented as of this encounter (statuses as of 06/27/2020) Immunizations Name Administration Dates Next Due HEP [...] Office Visit Gastroenterology Jackie Van MD 2240 [facility] 2.[address] [place] [address] 07/12/2020 Office Visit Endocrinology Diabetes & Buddy Edward, Metabolism 250 [facility] 400 [place], [place] [address] [phone] Health Maintenance Due Date Last Done Comments [...] filedocumented in this encounter Visit Diagnoses Diagnosis Incontinence of feces, unspecified fecal incontinence type - Primary documented in this encounter Insurance Payer Benefit Plan Subscriber ID Effective Phone Address Typ e / Group Dates [place] [place] [employer] [id number] 2019-Pre [phone] [facility] C I H C sent 20 [place] [address] W[place] MEDEIROS [id number] 2018-Pres [phone] PRIMARY CARE PRIMARY CARE ent 11 [facility] [place] [address] documented as of this encounter
--- OUTSIDE RECORDS SUMMARY | 2020-07-23 02:58 | XMS REPORT | Summary of Care ---
:1965 Author Organization [facility] Address [address] [place] [address] Care Team Providers Name Role Phone LUISA Troy Primary Care Provider Reason for Visit Reason Comments ELEVATED BLOOD PRESSURE Rx Concern/Question Encounter Details Date Type Department Care Team Description 06/22/2020 Office Visit [facility] Kimberley Troy FNP 301 [place] [address] Type 2 diabetes mellitus with hyperglyce irma, with long-term current use of insulin (Primary Dx); [facility] Primary Essential hypertension; Clinic Adjustment insomnia [address] [place] [address] Allergies Active Allergy Reactions Severity [...] Added automatically from request for barron bañuelosy 817905 Obesity (BMI 30-39.9) 03/01/2020 Diffuse abdominal pain 09/23/2019 Overview: Added automatically from request for barron nadege 748033 Gastroesophageal reflux disease, esophagitis presence not specified 09/23/2019 Overview: Added automatically from request for barron nadege 072469 Gastroparesis 06/24/2019 Bronchitis 06/24/2019 Abdominal pain, diffuse 08/20/2018 Overview: Added automatically from request for barron bañuelosy 296648 Type 2 diabetes mellitus with hyperglycemia, with long -term current use of 07/16/2018 insulin documented as of this encounter (statuses as of 06/26/2020) Resolved Problems Problem Noted Date Resolved Date Colon cancer screening 11/03/2018 06/24/2019 Overview: Added automatically from request for barron bañuelosy 751032 Diffuse abdominal pain 11/03/2018 06/24/2019 Overview: Added automatically from request for barron nadege 710354 Special screening for malignant neoplasms, colon 08/20/2018 06/24/2019 Overview: Added automatically from request for barron bañuelosy 093085 Hypertension, unspecified type 07/16/2018 9 Other hyperlipidemia [...] home. States that he took it at [facility] last week, was 180/110. On chart review, [...] N/A 11/03/2019 Surgeon: Jackie Van MD; Location: [facility] ESOPHAGOGASTRODUODENOSCOPY N/A 11/03/2019 Surgeon: Jackie Van MD; Location: [place] [facility] HEMILAMINECTOMY Left 03/01/2020 Surgeon: Royer Ham [...] file Gets together: Not on file Attends yazdanism service: Not on file Active member of [...] in 2 wks for treatment evaluations. Discussed Peggy Sotelo LVN - 06/22/2020 10:30 AM Dian [...] Office Visit Gastroenterology Jackie Van MD 2240 [facility] 2.[address] [place] [address] [phone] 07/12/2020 Office Visit Endocrinology Diabetes & Wagner, Buddy Sanchez, Metabolism [address] [place] [address] 400 [place], [place] [address] [phone] Health Maintenance Due Date Last Done Comments [...] Phone Address Typ e / Group Dates [employer] [id number] 2019-Pre [phone] [facility] C I H C sent [address] [place] [address] documented as of this encounter
--- OUTSIDE RECORDS SUMMARY | 2020-07-23 02:58 | XMS REPORT | Summary of Care ---
:1965 Author Organization [facility] Address [address] [place] [address] Care Team Providers Name Role Phone LUISA Troy Primary Care Provider Reason for Visit Reason Comments ELEVATED BLOOD PRESSURE Rx Concern/Question Encounter Details Date Type Department Care Team Description 06/22/2020 Office Visit [facility] Kimberley Troy FNP 301 [place] [address] Type 2 diabetes mellitus with hyperglyce irma, with long-term current use of insulin (Primary Dx); [facility] Primary Essential hypertension; Clinic Adjustment insomnia [address] [place] [address] Allergies Active Allergy Reactions Severity [...] Added automatically from request for barron bañuelosy 916793 Obesity (BMI 30-39.9) 03/01/2020 Diffuse abdominal pain 09/23/2019 Overview: Added automatically from request for barron nadege 649003 Gastroesophageal reflux disease, esophagitis presence not specified 09/23/2019 Overview: Added automatically from request for barron nadege 213021 Gastroparesis 06/24/2019 Bronchitis 06/24/2019 Abdominal pain, diffuse 08/20/2018 Overview: Added automatically from request for barron bañuelosy 522488 Type 2 diabetes mellitus with hyperglycemia, with long -term current use of 07/16/2018 insulin documented as of this encounter (statuses as of 06/26/2020) Resolved Problems Problem Noted Date Resolved Date Colon cancer screening 11/03/2018 06/24/2019 Overview: Added automatically from request for barron bañuelosy 994157 Diffuse abdominal pain 11/03/2018 06/24/2019 Overview: Added automatically from request for barron nadege 245826 Special screening for malignant neoplasms, colon 08/20/2018 06/24/2019 Overview: Added automatically from request for barron bañuelosy 854706 Hypertension, unspecified type 07/16/2018 9 Other hyperlipidemia [...] home. States that he took it at [facility] last week, was 180/110. On chart [...] N/A 11/03/2019 Surgeon: Jackie Van MD; Location[facility] ESOPHAGOGASTRODUODENOSCOPY N/A 11/03/2019 Surgeon: Jackie Van MD; Location: [place] [facility] HEMILAMINECTOMY Left 03/01/2020 Surgeon: Royer Ham MD; [...] file Gets together: Not on file Attends taoist service: Not on file Active member of [...] in 2 wks for blood pressure check ED warnings given Restart cymbalta. Start out with 1 tablet daily for 1 wk then move up to 2. Follow up in 2 wks for treatment evaluations. Discussed importance of following low carb and calorie diet and taking blood sugars twice a day along with insulin as prescribed by Endocrine Appropriate plan of care, desired health behaviors, [...] issues and agrees with the plan. [facility] Nu[facility]ez LVN - 06/22/2020 10:30 AM CDTTtiana Acosta is a 54 year old male Patient here today for follow up for elevated blood pressure, and prescription concern. Reports 7 pain on scale 0/10, MD notified. Reviewed medications and allergies with patient today. Fall Risk Assessment/Screening performed with patient today and patient is not at risk for falls. documented in this encounter Miscellaneous Notes Addendum Note - Kimberley Troy FNP - 06/22/2020 10:30 AM CDT Addended by: KIMBERLEY GRANT on: 06/26/2020 01:39 PM Modules accepted: Level of Service documented in this encounter Plan of Treatment Date Type Specialty Care Team Description 07/06/2020 Office Visit Gastroenterology Jackie Van MD 2240 [facility] 2.[address] [place] [address] [phone] 07/12/2020 Office Visit Endocrinology Diabetes & Buddy Edward, Metabolism 250 [facility] 400 [place], [place] [address] [phone] Health Maintenance Due Date Last Done Comments [...] Phone Address Typ e / Group Dates [employer] [place] [place] [id number] 2019-Pre [phone] [facility] H C I H C sent 20 [place] [address] documented as of this encounter
--- OUTSIDE RECORDS SUMMARY | 2020-07-23 02:59 | XMS REPORT | Summary of Care ---
:1965 Author Organization [facility] Address [address] [place] [address] Care Team Providers Name Role Phone LUISA Troy Primary Care Provider Reason for Visit Reason Comments Follow-up Blood pressure Encounter Details Date Type Department Care Team Description 06/29/2020 Office Visit [facility] Kimberley Troy FNP [address] [place] [address] Uncontrolled stage 2 hypertension (Prima ry Dx); [facility] Primary Type 2 diabetes mellitus with hyperglyce irma, with long-term current use of insulin [address] [place] [address] Allergies Active Allergy Reactions Severity Noted Date Comments Hydrocodone Itching 07/16/2018 Rofecoxib Swelling 05/11/2015 Sertraline Hcl Swelling 05/11/2015 documented as of this encounter (statuses as of 06/29/2020) Medications Medication Sig Dispensed Refills Start Date [...] as of this encounter (statuses as of 06/29/2020) Active Problems Problem Noted Date Constipation, unspecified constipation type 03/30/2020 Overview: Added automatically from request for barron light [id number] Obesity (BMI 30-39.9) 03/01/2020 Diffuse abdominal pain 09/23/2019 Overview: Added automatically from request for barron light [id number] Gastroesophageal reflux disease, esophagitis presence not specified 09/23/2019 Overview: Added automatically from request for barron light [id number] Gastroparesis 06/24/2019 Bronchitis 06/24/2019 Abdominal pain, diffuse 08/20/2018 Overview: Added automatically from request for barron light [id number] Type 2 diabetes mellitus with hyperglycemia, with long -term current use of 07/16/2018 insulin documented as of this encounter (statuses as of 06/29/2020) Resolved Problems Problem Noted Date Resolved Date Colon cancer screening 11/03/2018 06/24/2019 Overview: Added automatically from request for barron light [id number] Diffuse abdominal pain 11/03/2018 06/24/2019 Overview: Added automatically from request for barron light [id number] Special screening for malignant neoplasms, colon 08/20/2018 06/24/2019 Overview: Added automatically from request for barron light [id number] Hypertension, unspecified type 07/16/2018 9 Other hyperlipidemia 07/16/2018 06/24/2019 documented as of this encounter (statuses as of 06/29/2020) Immunizations Name Administration Dates Next Due HEP [...] been in contact with No / Unsure 06/29/2020 1:29 PM CDT someone who was confirmed or suspected to have Coronavirus / COVID-19? documented as of this encounter Last Filed Vital Signs Vital Sign Reading Time Taken Comments Blood Pressure 178/103 06/29/2020 1:32 PM CDT Pulse 74 06/29/2020 1:32 PM CDT Temperature 36.8 C (98.2 F) 06/29/2020 1:32 PM CDT Respiratory Rate 20 06/29/2020 1:32 PM CDT Oxygen Saturation - - Inhaled Oxygen Concentration - - Weight 80.3 kg (177 lb 1.6 oz) 06/29/2020 1:32 PM CDT Height 162.6 cm (5' 4") 06/29/2020 1:32 PM CDT Body Mass Index 30.4 06/29/2020 1:32 PM CDT documented in this encounter Progress Notes Kimberley Troy FNP - 06/29/2020 1:30 PM CDT Cc: Chief Complaint Patient presents with Follow-up Blood pressure HPI Florentino Acosta is a 54 year old male in today to follow up on his hypertension. Last week we added lisinopril 20 mg and increase the metoprolol to 25mg hs. He is already on lasix. Has been taking he meds as prescribed and has been taking his pressure twice a day. Today his pressure 170/103 in clinic but his numbers at home are much improved. Had one reading about 170/110 whichhe took clonidine and pressure dropped into the 90/60s. Cautioned about dizziness and syncope with low numbers. States he is feeling much better then last week. Blood sugar in clinic was 288. Has not eaten today. Has not given himself any insulin. Allergies Florentino is allergic to hydrocodone; vioxx [rofecoxib]; and zoloft [sertraline hcl]. Medications Outpatient Medications Prior to Visit Medication Sig Dispense Refill lisinopriL 20 mg tablet Take 1 tablet by mouth daily. 30 tablet 5 metoprolol tartrate 50 mg tablet Take 1 tablet by mouth every evening. 30 tablet 5 traZODone 50 mg tablet Take 1 tablet by mouth at bedtime. 30 tablet 1 furosemide 20 mg tablet Take 1 tablet by mouth daily. 30 tablet 3 cloNIDine 0.1 mg tablet Take 1 tablet by mouth 2 (two) times daily as needed (for blood pressureabove 160 systolic and 110 diastolically). 60 tablet 5 ondansetron (ZOFRAN) 4 mg tablet Take 1 tablet by mouth every 8 (eight) hours as needed for Nausea and Vomiting (N/V). 20 tablet 1 DICYCLOMINE 10 mg capsule TAKE 1 CAPSULE [...] file Gets together: Not on file Attends hindu service: Not on file Active member of [...] Systems Constitutional: Negative. HENT: Negative. Respiratory: Negative. Genitourinary: Negative. Musculoskeletal: Positive for arthralgias and back pain. Neurological: Negative. Vital Signs BP (!) 178/103 (BP Location: Left arm, Patient Position: Sitting) | Pulse 74 | Temp 36.8 C (98.2F) (Tympanic) | Resp 20 | Ht 5' 4" (1.626 m) | Wt 177 lb 1.6 oz (80.3 kg) | BMI 30.40 kg/m Physical Exam Vitals signs and nursing note reviewed. Constitutional: Appearance: Normal appearance. HENT: Mouth/Throat: Mouth: Mucous membranes are moist. Eyes: Extraocular Movements: Extraocular movements intact. Conjunctiva/sclera: Conjunctivae normal. Pulmonary: Effort: Pulmonary effort is normal. Breath sounds: Normal breath sounds. Skin: General: Skin is warm and dry. Neurological: General: No focal deficit present. Mental Status: He is alert and oriented to person, place, and time. Psychiatric: Thought Content: Thought content normal. Judgment: Judgment normal. Assessment/Plan 1. Uncontrolled stage 2 hypertension Continue medications as prescribed. Will do telehealth visit in 2 wks to recheck numbers. 2. Type 2 diabetes mellitus with hyperglycemia, with long-term current use of insulin - POCT GLUCOSE(AGE >30DAYS) (288 in clinic) Appropriate plan of care, desired health behaviors, [...] issues and agrees with the plan. Kimberley [facility] eggy Nuñez LVN - 06/29/2020 1:30 PM CDTTjeffreyantony Acosta is a 54 year old male Patient here today for follow up for blood pressure. Reports 6 pain on scale 0/10, MD notified. Reviewed medications and allergies with patient today. Fall Risk Assessment/Screening performed with patient today and patient is at risk for falls. documented in this encounter Plan of Treatment Date Type Specialty Care Team Description 07/06/2020 Office Visit Gastroenterology Jackie Van MD [address] [facility] [address] [place] [address] [phone] 07/12/2020 Office Visit Endocrinology Diabetes & Buddy Edward, Metabolism 250 [facility] [address] [place], [place] [address] [phone] Health Maintenance Due Date Last Done Comments [...] Associated Diagnosis Comme nts POCT GLUCOSE(AGE Routine 06/29/2020 1:43 PM Type 2 diabetes R esults for this >30DAYS) CDT mellitus with procedure are in hyperglycemia, with the resu lts long-term current section. use of insulin documented in this encounter Results POCT GLUCOSE(AGE >30DAYS) (06/29/2020 1:43 PM CDT) Pathologist Sig nature POCT Glu (age>30days) 288 (A) 70 - 110 mg/dL Specimen Blood - CAPILLARY documented in this encounter Visit Diagnoses Diagnosis Uncontrolled stage 2 hypertension - Prim tram Unspecified essential hypertension Type 2 diabetes mellitus with hyperglyce irma, with long-term current use of insulin documented in this encounter Insurance Payer Benefit Plan / Subscriber ID Effective Phone Address T ype Group Dates REDDYCAMILA WALDEMAR [id number] 2018-Pres [phone] [facility] [address] [place] [address] documented as of this encounter
--- OUTSIDE RECORDS SUMMARY | 2020-07-23 02:59 | XMS REPORT | Summary of Care ---
:1965 Author Organization [facility] Address [address] [place] [address] Care Team Providers Name Role Phone LUISA Troy Primary Care Provider Reason for Visit Reason Comments Follow-up Blood pressure Encounter Details Date Type Department Care Team Description 06/29/2020 Office Visit [facility] Kimberley Troy FNP [address] [place] [address] Uncontrolled stage 2 hypertension (Prima ry Dx); [facility] Primary Type 2 diabetes mellitus with hyperglyce irma, with long-term current use of insulin [address] [place] [address] Allergies Active Allergy Reactions Severity [...] Added automatically from request for barron light [id number] Obesity (BMI 30-39.9) 03/01/2020 Diffuse abdominal pain 09/23/2019 Overview: Added automatically from request for barron light [id number] Gastroesophageal reflux disease, esophagitis presence not specified 09/23/2019 Overview: Added automatically from request for barron light [id number] Gastroparesis 06/24/2019 Bronchitis 06/24/2019 Abdominal pain, diffuse 08/20/2018 Overview: Added automatically from request for barron light [id number] Type 2 diabetes mellitus with hyperglycemia, with long -term current use of 07/16/2018 insulin documented as of this encounter (statuses as of 06/29/2020) Resolved Problems Problem Noted Date Resolved Date Colon cancer screening 11/03/2018 06/24/2019 Overview: Added automatically from request for barron light [id number] Diffuse abdominal pain 11/03/2018 06/24/2019 Overview: Added automatically from request for barron light [id number] Special screening for malignant neoplasms, colon 08/20/2018 06/24/2019 Overview: Added automatically from request for barron light [id number] Hypertension, unspecified type 07/16/2018 9 Other hyperlipidemia [...] file Gets together: Not on file Attends jew service: Not on file Active member of [...] issues and agrees with the plan. Kimberley [facility] eggy Nuñez LVN - 06/29/2020 1:30 PM [...] Office Visit Gastroenterology Jackie Van MD [address] [facility] [address] [place] [address] [phone] 07/12/2020 Office Visit Endocrinology Diabetes & Buddy Edward, Metabolism [address] [facility] [address] [place], [place] [address] [phone] Health Maintenance Due Date Last Done Comments [...] Address T ype Group Dates REDDYCAMILA WALDEMAR [id number] 2018-Pres [phone] [facility] PRIMARY CARE ent [address] [place] [address] documented as of this encounter
--- OUTSIDE RECORDS SUMMARY | 2020-07-23 02:59 | XMS REPORT | Summary of Care ---
:1965 Author Organization [facility] Address [address] [place] [address] Care Team Providers Name Role Phone LUISA Troy Primary Care Provider Reason for Visit Reason Comments Appointment called to see if patient is readt to schedule ARM. No good #'s Encounter Details Date Type Department Care Team Description 06/29/2020 Telephone GI Endoscopy OR Motility, Endoscopy Appoi ntment (called to Department see if patient is 4.114 Clinical Science readt to schedule ARM. Building No good #'s) [place] [address] Allergies Active Allergy Reactions Severity Noted Date [...] Added automatically from request for barron light [id number] Obesity (BMI 30-39.9) 03/01/2020 Diffuse abdominal pain 09/23/2019 Overview: Added automatically from request for barron light [id number] Gastroesophageal reflux disease, esophagitis presence not specified 09/23/2019 Overview: Added automatically from request for barron light [id number] Gastroparesis 06/24/2019 Bronchitis 06/24/2019 Abdominal pain, diffuse 08/20/2018 Overview: Added automatically from request for barron light [id number] Type 2 diabetes mellitus with hyperglycemia, with long -term current use of 07/16/2018 insulin documented as of this encounter (statuses as of 06/29/2020) Resolved Problems Problem Noted Date Resolved Date Colon cancer screening 11/03/2018 06/24/2019 Overview: Added automatically from request for barron light [id number] Diffuse abdominal pain 11/03/2018 06/24/2019 Overview: Added automatically from request for barron light [id number] Special screening for malignant neoplasms, colon 08/20/2018 06/24/2019 Overview: Added automatically from request for barron light [id number] Hypertension, unspecified type 07/16/2018 9 Other hyperlipidemia [...] this encounter Miscellaneous Notes Telephone Encounter - Kennedi Sinclair, RN - 06/29/2020 1:25 PM CDTCalled all #'s on chart all are no good. Cancelled case request can reopen if patient calls back documented in this encounter Plan of Treatment Date Type Specialty Care Team Description 06/29/2020 Office Visit Family Medicine Kimberley Troy, SENIOR CLINICAL RESEARCH SCIENTIST [address] [place] [address] [phone] Care, Ang Primary 07/06/2020 Office Visit Gastroenterology Jackie Van MD [address] [facility] [address] [place] [address] [phone] 07/12/2020 Office Visit Endocrinology Diabetes & Buddy Edward, Metabolism 250 [facility] [address] [place], [place] [address] [phone] Health Maintenance Due Date Last Done Comments [...] Group Dates [place] CO. I WALDEMAR TUBBS [id number] 2019-Pre [phone] [facility] H [facility] I [facility] sent [address] [address] WAL[place] MEDEIROS [id number] 2018-Pres [phone] [facility] CARE PRIMARY CARE ent [address] [place] [address] documented as of this encounter
--- OUTSIDE RECORDS SUMMARY | 2020-07-23 03:00 | XMS REPORT | Summary of Care ---
:1965 Author Organization [facility] Address [address] [place] [address] Care Team Providers Name Role Phone Woodrow LUISA Primary Care Provider Reason for Visit Reason Comments Refill Request Encounter Details Date Type Department Care Team Description 06/28/2020 Refill [facility] Endocrinology, Buddy Edward MD Refill Request [address], [address] [place] [address] [place] [address] [place] [address] [phone] Allergies Active Allergy Reactions Severity Noted Date Comments Hydrocodone Itching 07/16/2018 Rofecoxib Swelling 05/11/2015 Sertraline Hcl Swelling 05/11/2015 documented as of this encounter (statuses as of 06/30/2020) Medications Medication Sig Dispensed Refills Start Date End Date Status aspirin 81 mg EC Take 81 mg by 0 Active tabletIndications: mouth daily. Flu vaccine need, Type 2 diabetes mellitus without complication, without long-term current use of insulin, Essential hypertension, Other hyperlipidemia Pitavastatin Take 1 tablet 30 tablet 2 07/16/2018 Ac tive (LIVALO) 4 mg by mouth at TabIndications: bedtime. Other hyperlipidemia, Flu vaccine need, Type 2 diabetes mellitus without complication, without long-term current use of insulin, Essential hypertension pregabalin (LYRICA) Take 1 capsule 180 capsule 3 10/21/2019 Active 300 mg by mouth 2 capsuleIndications: (two) times Neuropathic pain daily. acetaminophen Take by 0 Active (TYLENOL) 325 mg mouth. Cap sildenafil 100 mg Take 1 tablet 9 tablet 3 01/27/2020 Active tabletIndications: by mouth every Erectile other day. dysfunction due to diseases classified elsewhere pantoprazole 40 mg Take 1 tablet 60 tablet 5 01/27/2020 Active EC by mouth 2 tabletIndications: (two) times Chronic GERD daily. docusate calcium Take 1 capsule 10 capsule 0 03/01/2020 Active 240 mg by mouth capsuleIndications: daily. Spinal stenosis of lumbar region with neurogenic claudication metFORMIN 1,000 mg Take 1 tablet 180 tablet 1 03/20/2020 Active tabletIndications: by mouth 2 Type 2 diabetes (two) times mellitus with daily with hyperglycemia, with meals. long-term current use of insulin insulin NPH and inject 40 2 Vial 3 03/20/2020 Act rizwan regular human 70-30 Units under (NOVOLIN 70/30 the skin 2 U-100 INSULIN) 100 (two) times unit/mL (70-30) daily before injectionIndication breakfast and s: Type 2 diabetes dinner. mellitus with hyperglycemia, with long-term current use of insulin DICYCLOMINE 10 mg TAKE 1 CAPSULE 90 capsule 1 04/10/2020 Active capsuleIndications: BY MOUTH 4 Abdominal pain, TIMES DAILY diffuse NEEDED FOR ABDOMINAL PAIN ondansetron Take 1 tablet 20 tablet 1 05/25/2020 Act rizwan (ZOFRAN) 4 mg by mouth every tabletIndications: 8 (eight) Diabetic hours as gastroparesis needed for Nausea and Vomiting (N/V). furosemide 20 mg Take 1 tablet 30 tablet 3 05/25/2020 Active tabletIndications: by mouth Mild peripheral daily. edema cloNIDine 0.1 mg Take 1 tablet 60 tablet 5 06/19/2020 Active tabletIndications: by mouth 2 Uncontrolled stage (two) times 2 hypertension daily as needed (for blood pressure above 160 systolic and 110 diastolically) . lisinopriL 20 mg Take 1 tablet 30 tablet 5 06/22/2020 Active tabletIndications: by mouth Essential daily. hypertension metoprolol tartrate Take 1 tablet 30 tablet 5 06/22/2020 Active 50 mg by mouth every tabletIndications: evening. Essential hypertension traZODone 50 mg Take 1 tablet 30 tablet 1 06/22/2020 Active tabletIndications: by mouth at Adjustment insomnia bedtime. METOCLOPRAMIDE HCL TAKE 1 TABLET 120 tablet 0 06/30/2020 Active 10 mg BY MOUTH tabletIndications: BEFORE MEAL(S) Gastroparesis AND AT BEDTIME metoclopramide HCl Take 1 tablet 120 tablet 6 12/20/201906/30 Discontinued 10 mg by mouth 0 tabletIndications: before meals Gastroparesis and at bedtime. documented as of this encounter (statuses as of 06/30/2020) Active Problems Problem Noted Date Constipation, unspecified constipation type 03/30/2020 Overview: Added automatically from request for barron light [id number] Obesity (BMI 30-39.9) 03/01/2020 Diffuse abdominal pain 09/23/2019 Overview: Added automatically from request for barron nadege [id number] Gastroesophageal reflux disease, esophagitis presence not specified 09/23/2019 Overview: Added automatically from request for barron nadege [id number] Gastroparesis 06/24/2019 Bronchitis 06/24/2019 Abdominal pain, diffuse 08/20/2018 Overview: Added automatically from request for barron bañuelosy [id number] Type 2 diabetes mellitus with hyperglycemia, with long -term current use of 07/16/2018 insulin documented as of this encounter (statuses as of 06/30/2020) Resolved Problems Problem Noted Date Resolved Date Colon cancer screening 11/03/2018 06/24/2019 Overview: Added automatically from request for barron bañuelosy [id number] Diffuse abdominal pain 11/03/2018 06/24/2019 Overview: Added automatically from request for barron nadege [id number] Special screening for malignant neoplasms, colon 08/20/2018 06/24/2019 Overview: Added automatically from request for barron bañuelosy [id number] Hypertension, unspecified type 07/16/2018 9 Other hyperlipidemia 07/16/2018 06/24/2019 documented as of this encounter (statuses as of 06/30/2020) Immunizations Name Administration Dates Next Due HEP [...] Jackie Van MD [address] [facility] [address] [place] [address] [phone] 07/12/2020 Office Visit Endocrinology Diabetes & Buddy Edward, Metabolism 250 [facility] [address] [place], [place] [address] [phone] Health Maintenance Due Date Last Done Comments [...] filedocumented in this encounter Visit Diagnoses Diagnosis Gastroparesis documented in this encounter Insurance Payer Benefit Plan Subscriber ID Effective Phone Address Typ e / Group Dates [place] CORolf I W[place] CORolf [id number] 2019-Pre [phone] [facility] C I H C sent [address] [place] [address] WALDE[place] MEDEIROS [id number] 2018-Pres [phone] [facility] CARE PRIMARY CARE ent [address] [place] [address] documented as of this encounter
--- OUTSIDE RECORDS SUMMARY | 2020-07-23 03:00 | XMS REPORT | Summary of Care ---
:1965 Author Organization [facility] Address [address] [place] [address] Care Team Providers Name Role Phone LUISA Troy Primary Care Provider Reason for Visit Reason Onset Date Comments Erroneous encounter-disregard 07/06/2020 (Routine) Status Reason Specialty Diagnoses / Procedures Referred By Michael iglesiased To Contact Contact Closed Gastroenterology Diagnoses Incontinence of feces, unspecified fecal incontinence type Kimberley Troy, Procedures CONSULT/REFERRAL GASTROENTEROLOGY [facility] [address] [place] [address] Encounter Details Date Type Department Care Team Description 07/06/2020 Office Visit [facility] LAILA Van GASTROENTEROLOGY -Chantel murphy MD ENCOUNTER--[address] (Primary Dx) [address] [place] [address] [place] [address] [address] [place], [place] [phone] [address] Allergies Active Allergy Reactions Severity Noted Date Comments Hydrocodone Itching 07/16/2018 Rofecoxib Swelling 05/11/2015 Sertraline Hcl Swelling 05/11/2015 documented as of this encounter (statuses as of 07/06/2020) Medications Medication Sig Dispensed Refills Start Date [...] mouth. 0 Active (TYLENOL) 325 mg Cap sildenafil 100 mg Take 1 tablet by [...] Active tabletIndications: mouth at Adjustment insomnia bedtime. METOCLOPRAMIDE HCL 10 TAKE 1 TABLET BY 120 tablet 0 06/30/2020 Active mg tabletIndications: MOUTH BEFORE Gastroparesis MEAL(S) AND AT BEDTIME DULoxetine (CYMBALTA) Take 30 mg by 0 Active 30 mg capsule mouth daily. gabapentin 800 mg Take 800 mg by 0 Active tablet mouth 3 (three) times daily. documented as of this encounter (statuses as of 07/06/2020) Active Problems Problem Noted Date Constipation, unspecified constipation type 03/30/2020 Overview: Added automatically from request for barron bañuelosy [id number] Obesity (BMI 30-39.9) 03/01/2020 Diffuse abdominal pain 09/23/2019 Overview: Added automatically from request for barron nadege [id number] Gastroesophageal reflux disease, esophagitis presence not specified 09/23/2019 Overview: Added automatically from request for barron nadege [id number] Gastroparesis 06/24/2019 Bronchitis 06/24/2019 Abdominal pain, diffuse 08/20/2018 Overview: Added automatically from request for barron nadege [id number] Type 2 diabetes mellitus with hyperglycemia, with long -term current use of 07/16/2018 insulin documented as of this encounter (statuses as of 07/06/2020) Resolved Problems Problem Noted Date Resolved Date Colon cancer screening 11/03/2018 06/24/2019 Overview: Added automatically from request for barron bañuelosy [id number] Diffuse abdominal pain 11/03/2018 06/24/2019 Overview: Added automatically from request for barron nadege [id number] Special screening for malignant neoplasms, colon 08/20/2018 06/24/2019 Overview: Added automatically from request for barron nadege [id number] Hypertension, unspecified type 07/16/2018 9 Other hyperlipidemia 07/16/2018 06/24/2019 documented as of this encounter (statuses as of 07/06/2020) Immunizations Name Administration Dates Next Due HEP [...] been in contact with No / Unsure 07/06/2020 12:16 PM APPLICATIONS SYSTEMS ANALYST someone who was confirmed or suspected to have Coronavirus / COVID-19? documented as of this encounter Last Filed Vital Signs Vital Sign Reading Time Taken Comments Blood Pressure 200/110 07/06/2020 1:05 PM APPLICATIONS SYSTEMS ANALYST Pulse 70 07/06/2020 1:03 PM APPLICATIONS SYSTEMS ANALYST Temperature 36.3 C (97.3 F) 07/06/2020 1:03 PM APPLICATIONS SYSTEMS ANALYST Respiratory Rate - - Oxygen Saturation 98% 07/06/2020 1:03 PM APPLICATIONS SYSTEMS ANALYST Inhaled Oxygen Concentration - - Weight 81.6 kg (179 lb 14.4 oz) 07/06/2020 1:03 PM APPLICATIONS SYSTEMS ANALYST Height 162.6 cm (5' 4") 07/06/2020 1:03 PM APPLICATIONS SYSTEMS ANALYST Body Mass Index 30.88 07/06/2020 1:03 PM APPLICATIONS SYSTEMS ANALYST documented in this encounter Progress Notes Jackie Van MD - 07/06/2020 1:00 PM CSTPatient presented today to GI clinic for routine f/u His blood was elevated after multiple measurements He also complains of headache, vision changes and feeling wobbly Explained patient about concern for hypertensive emergency and recommended transfer on wheelchair toER for eval and patient agreed. Jackie Van MD Gastroenterology and Hepatology #[id number] ICATIONS SYSTEMS ANALYST documented in this encounter Plan of Treatment Date Type Specialty Care Team Description 07/12/2020 Office Visit Endocrinology Diabetes & Buddy Edward MD Metabolism [address], [place] [address] [place], [place] [address] [phone] 07/13/2020 Office Visit Family Medicine Care, Ang Primary Health Maintenance Due Date Last Done Comments [...] filedocumented in this encounter Visit Diagnoses Diagnosis ERRONEOUS ENCOUNTER--DISREGARD - Primary documented in this encounter Insurance Payer Benefit Plan Subscriber ID Effective Phone Address Typ e / Group Dates [place] [id number] 2019-Pre [phone] [facility] sent [address] [place] [id number] documented as of this encounter
--- OUTSIDE RECORDS SUMMARY | 2020-07-23 03:00 | XMS REPORT | Summary of Care ---
:1965 Author Organization [facility] Address [address] [place] [address] Care Team Providers Name Role Phone LUISA Troy Primary Care Provider Reason for Visit Reason Onset Date Comments Erroneous encounter-disregard 07/06/2020 (Routine) Status Reason Specialty Diagnoses / Procedures Referred By Michael iglesiased To Contact Contact Closed Gastroenterology Diagnoses Incontinence of feces, unspecified fecal incontinence type Kimberley Troy, Procedures CONSULT/REFERRAL [facility]STROENTEROLOGY [facility] [address] [place] [address] Encounter Details Date Type Department Care Team Description 07/06/2020 Office Visit [facility] LAILA Van GASTROENTEROLOGY -Chantel murphy MD ENCOUNTER--[address] (Primary Dx) [address] [place] [address] [place] [address] [address] [place], [place] [phone] [address] Allergies Active Allergy Reactions Severity Noted [...] Added automatically from request for barron bañuelosy [id number] Obesity (BMI 30-39.9) 03/01/2020 Diffuse abdominal pain 09/23/2019 Overview: Added automatically from request for barron nadege [id number] Gastroesophageal reflux disease, esophagitis presence not specified 09/23/2019 Overview: Added automatically from request for barron nadege [id number] Gastroparesis 06/24/2019 Bronchitis 06/24/2019 Abdominal pain, diffuse 08/20/2018 Overview: Added automatically from request for barron nadege [id number] Type 2 diabetes mellitus with hyperglycemia, with long -term current use of 07/16/2018 insulin documented as of this encounter (statuses as of 07/06/2020) Resolved Problems Problem Noted Date Resolved Date Colon cancer screening 11/03/2018 06/24/2019 Overview: Added automatically from request for barron bañuelosy [id number] Diffuse abdominal pain 11/03/2018 06/24/2019 Overview: Added automatically from request for barron nadege [id number] Special screening for malignant neoplasms, colon 08/20/2018 06/24/2019 Overview: Added automatically from request for barron nadege [id number] Hypertension, unspecified type 07/16/2018 9 Other hyperlipidemia [...] with No / Unsure 07/06/2020 12:16 PM DONOR SERVICES TECHNICIAN someone who was confirmed or suspected to have Coronavirus / COVID-19? documented as of this encounter Last Filed Vital Signs Vital Sign Reading Time Taken Comments Blood Pressure 200/110 07/06/2020 1:05 PM DONOR SERVICES TECHNICIAN Pulse 70 07/06/2020 1:03 PM DONOR SERVICES TECHNICIAN Temperature 36.3 C (97.3 F) 07/06/2020 1:03 PM DONOR SERVICES TECHNICIAN Respiratory Rate - - Oxygen Saturation 98% 07/06/2020 1:03 PM DONOR SERVICES TECHNICIAN Inhaled Oxygen Concentration - - Weight 81.6 kg (179 lb 14.4 oz) 07/06/2020 1:03 PM DONOR SERVICES TECHNICIAN Height 162.6 cm (5' 4") 07/06/2020 1:03 PM DONOR SERVICES TECHNICIAN Body Mass Index 30.88 07/06/2020 1:03 PM DONOR SERVICES TECHNICIAN documented in this encounter Progress Notes Jackie Van MD - 07/06/2020 1:00 PM CSTPatient presented today to GI clinic for routine f/u His blood was elevated after multiple measurements He also complains of headache, vision changes and feeling wobbly Explained patient about concern for hypertensive emergency and recommended transfer on wheelchair toER for eval and patient agreed. Jackie Van MD Gastroenterology and Hepatology #[id number] R SERVICES TECHNICIAN documented in this encounter Plan of Treatment Date Type Specialty Care Team Description 07/12/2020 Office Visit Endocrinology Diabetes & Buddy Edward MD Metabolism [address], [place] [address] [place], [place] [address] [phone] 07/13/2020 Office Visit Family Medicine Care, Ang [...] Group Dates [place] [id number] 2019-Pre [phone] [facility] sent [address] [place] [id number] documented as of this encounter
--- OUTSIDE RECORDS SUMMARY | 2020-07-23 03:01 | XMS REPORT | Summary of Care ---
:1965 Author Organization [address] [address] Care Team Providers Name Role Phone LUISA Troy Primary Care Provider Reason for Visit Reason Comments Refill Request Encounter Details Date Type Department Care Team Description 07/13/2020 Refill [facility] [place] Kimberley Troy FNP Refill Request Surgery-[address] [place] [address] 25-6372 [place] [address] Allergies Active Allergy Reactions Severity Noted Date Comments Rofecoxib Swelling 05/11/2015 Sertraline Hcl Swelling 05/11/2015 documented as of this encounter (statuses as of 07/13/2020) Medications Medication Sig Dispensed Refills Start Date End Date Status aspirin 81 mg EC Take 81 mg by 0 Active tabletIndications: mouth daily. Flu vaccine need, Type 2 diabetes mellitus without complication, without long-term current use of insulin, Essential hypertension, Other hyperlipidemia pregabalin (LYRICA) Take 1 capsule 180 capsule 3 10/21/2019 Active 300 mg by mouth 2 capsuleIndications: (two) times Neuropathic pain daily. sildenafil 100 mg Take 1 tablet 9 [...] stenosis of lumbar region with neurogenic claudication insulin NPH and inject 40 2 Vial 3 03/20/2020 Act rizwan regular human 70-30 Units under (NOVOLIN 70/30 the skin 2 U-100 INSULIN) 100 (two) times unit/mL (70-30) daily before injectionIndication breakfast and s: Type 2 diabetes dinner. mellitus with hyperglycemia, with long-term current use of insulin ondansetron Take 1 tablet 20 tablet 1 05/25/2020 Act rizwan (ZOFRAN) 4 mg by mouth every tabletIndications: 8 (eight) Diabetic hours as gastroparesis needed for Nausea and Vomiting (N/V). cloNIDine 0.1 mg Take 1 tablet 60 tablet 5 06/19/2020 Active tabletIndications: by mouth 2 Uncontrolled stage (two) times 2 hypertension daily as needed (for blood pressure above 160 systolic and 110 diastolically) . traZODone 50 mg Take 1 tablet 30 tablet 1 06/22/2020 Active tabletIndications: by mouth at Adjustment insomnia bedtime. DULoxetine Take 30 mg by 0 Activ e (CYMBALTA) 30 mg mouth daily. capsule atorvastatin 80 mg Take 0.5 15 tablet 0 07/11/2020 Active tabletIndications: tablets by 0 Chest pain, mouth at unspecified type bedtime for 30 days. carvediloL 25 mg Take 1 tablet 60 tablet 0 07/11/2020 08/10/20 2 Active tabletIndications: by mouth 2 0 Chest pain, (two) times unspecified type daily with meals for 30 days. amLODIPine 5 mg Take 1 tablet 60 tablet 0 07/11/2020 Active tabletIndications: by mouth 2 0 Chest pain, (two) times unspecified type daily for 30 days. DICYCLOMINE 10 mg TAKE 1 CAPSULE 90 capsule 5 07/13/2020 Active capsuleIndications: BY MOUTH 4 Abdominal pain, TIMES DAILY diffuse NEEDED FOR ABDOMINAL PAIN DICYCLOMINE 10 mg TAKE 1 CAPSULE 90 capsule 1 04/10/202007/13 Discontinued capsuleIndications: BY MOUTH 4 0 Abdominal pain, TIMES DAILY diffuse NEEDED FOR ABDOMINAL PAIN documented as of this encounter (statuses as of 07/13/2020) Active Problems Problem Noted Date OMAIRA (acute kidney injury) 07/08/2020 Chest pain with high risk for cardiac etiology 020 Constipation, unspecified constipation type 03/30/2020 Overview: Added automatically from request for barron light [id number] Obesity (BMI 30-39.9) 03/01/2020 Diffuse abdominal pain 09/23/2019 Overview: Added automatically from request for barron light [id number] Gastroesophageal reflux disease, esophagitis presence not specified 09/23/2019 Overview: Added automatically from request for barron light [id number] Gastroparesis 06/24/2019 Bronchitis 06/24/2019 Abdominal pain, diffuse 08/20/2018 Overview: Added automatically from request for barron light [id number] Type 2 diabetes mellitus with hyperglycemia, with long -term current use of 07/16/2018 insulin documented as of this encounter (statuses as of 07/13/2020) Resolved Problems Problem Noted Date Resolved Date Colon cancer screening 11/03/2018 06/24/2019 Overview: Added automatically from request for barron light [id number] Diffuse abdominal pain 11/03/2018 06/24/2019 Overview: Added automatically from request for barron light [id number] Special screening for malignant neoplasms, colon 08/20/2018 06/24/2019 Overview: Added automatically from request for barron light [id number] Hypertension, unspecified type 07/16/2018 9 Other hyperlipidemia 07/16/2018 06/24/2019 documented as of this encounter (statuses as of 07/13/2020) Immunizations Name Administration Dates Next Due HEP [...] been in contact with No / Unsure 07/13/2020 11:27 AM 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 documented as of this encounter Last Filed Vital Signs Not on filedocumented in this encounter Plan of Treatment Date Type Specialty Care Team Description 08/15/2020 Office Visit Endocrinology Diabetes & Buddy Edward MD Metabolism 250 [facility] [address] [place], [place] [address] [phone] Health Maintenance Due Date Last Done Comments COLON CANCER SCREENING ANNUAL 11/30/2017 FIT/FOBT COLON CANCER SCREENING FIT DNA 11/30/2017 EVERY 3 YEARS COLON CANCER SCREENING 11/30/2017 SIGMOIDOSCOPY EVERY 5 YEARS Zoster Recombinant Vaccine 12/16/2019 10/21/2019 (SHINGRIX) (1 of 2) FOOT EXAM 10/04/2020 10/04/2019, 10/04/2019, 10/04/2019 EYE EXAM 10/14/2020 10/14/2019 PNEUMOCOCCAL 0-64 YEARS COMBINED 10/21/2020 10/21/2019 SERIES (2 of 3 - PCV13) HgA1C 01/03/2021 07/06/2020, 05/25/2020, 05/11/2015, Additional history exists Depression Screening 03/01/2021 03/01/2020 URINE MICROALBUMIN 05/25/2021 05/25/2020, 10/07/2003 LDL-C 07/07/2021 07/07/2020, 01/04/2004 CREATININE (SERUM) 07/11/2021 07/11/2020, 07/10/2020, 07/09/2020, Additional history exists DTaP,Tdap,and Td Vaccines (2 - Td) 10/21/2029 10/21/2019 COLONOSCOPY 11/02/2029 11/03/2019 Colorectal Cancer Screening 11/02/2029 INFLUENZA VACCINE Completed 05/25/2020, 10/21/2019, 06/10/2019, Additional history exists documented as of this encounter Results Not on filedocumented in this encounter Visit Diagnoses Diagnosis Abdominal pain, diffuse Abdominal pain, unspecified site documented in this encounter Insurance Payer Benefit Plan Subscriber ID Effective Phone Address Typ e / Group Dates [place] [id number] 2019-Pre [phone] [facility] sent [address], [place] [address] [place] [id number] 2020-Pres [phone] PRIMARY CARE PRIMARY CARE ent [address] [place] [address] documented as of this encounter
--- OUTSIDE RECORDS SUMMARY | 2020-07-23 03:01 | XMS REPORT | Summary of Care ---
:1965 Author Organization [facility] Address [address] [place] [address] Care Team Providers Name Role Phone LUISA Troy Primary Care Provider Reason for Visit Reason Comments Transition Of Care Encounter Details Date Type Department Care Team Description 07/12/2020 Transition of Care [facility] [place] Henrynolberto kang Transition Of Care Health [facility]- [address] [place] [id number] Allergies Active Allergy Reactions Severity Noted Date Comments Rofecoxib Swelling 05/11/2015 Sertraline Hcl Swelling 05/11/2015 documented as of this encounter (statuses as of 07/12/2020) Medications Medication Sig Dispensed Refills Start Date End Date Status aspirin 81 mg EC Take 81 mg by 0 Active tabletIndications: mouth daily. Flu vaccine need, Type 2 diabetes mellitus without complication, without long-term current use of insulin, Essential hypertension, Other hyperlipidemia pregabalin (LYRICA) Take 1 capsule 180 capsule 3 10/21/2019 Active 300 mg by mouth 2 (two) capsuleIndications: times daily. Neuropathic pain sildenafil 100 mg Take 1 tablet by 9 tablet 3 01/27/2020 Active tabletIndications: mouth every Erectile dysfunction other day. due to diseases classified elsewhere pantoprazole 40 mg EC Take 1 tablet by 60 tablet 5 01/27/2020 Active tabletIndications: mouth 2 (two) Chronic GERD times daily. docusate calcium 240 Take 1 capsule 10 capsule 0 03/01/2020 Active mg by mouth daily. capsuleIndications: Spinal stenosis of lumbar region with neurogenic claudication insulin NPH and inject 40 Units 2 [...] NEEDED diffuse FOR ABDOMINAL PAIN ondansetron (ZOFRAN) Take 1 tablet by 20 tablet 1 05/25/2020 Active 4 mg mouth every 8 tabletIndications: (eight) hours as Diabetic needed for gastroparesis Nausea and Vomiting (N/V). cloNIDine 0.1 mg Take 1 tablet by 60 tablet 5 06/19/2020 Active tabletIndications: mouth 2 (two) Uncontrolled stage 2 times daily as hypertension needed (for blood pressure above 160 systolic and 110 diastolically). traZODone 50 mg Take 1 tablet by 30 tablet 1 06/22/2020 Active tabletIndications: mouth at Adjustment insomnia bedtime. DULoxetine (CYMBALTA) Take 30 mg by 0 Active 30 mg capsule mouth daily. atorvastatin 80 mg Take 0.5 tablets 15 tablet 0 07/11/202006/2020 Active tabletIndications: by mouth at Chest pain, bedtime for 30 unspecified type days. carvediloL 25 mg Take 1 tablet by 60 tablet 0 07/11/202008/10 Active tabletIndications: mouth 2 (two) Chest pain, times daily with unspecified type meals for 30 days. amLODIPine 5 mg Take 1 tablet by 60 tablet 0 07/11/20202019 Active tabletIndications: mouth 2 (two) Chest pain, times daily for unspecified type 30 days. documented as of this encounter (statuses as of 07/12/2020) Active Problems Problem Noted Date OMAIRA (acute kidney injury) 07/08/2020 Chest pain with high risk for cardiac etiology 020 Constipation, unspecified constipation type 03/30/2020 Overview: Added automatically from request for barron nadege [id number] Obesity (BMI 30-39.9) 03/01/2020 Diffuse abdominal pain 09/23/2019 Overview: Added automatically from request for barron nadege [id number] Gastroesophageal reflux disease, esophagitis presence not specified 09/23/2019 Overview: Added automatically from request for barron nadege [id number] Gastroparesis 06/24/2019 Bronchitis 06/24/2019 Abdominal pain, diffuse 08/20/2018 Overview: Added automatically from request for barron light [id number] Type 2 diabetes mellitus with hyperglycemia, with long -term current use of 07/16/2018 insulin documented as of this encounter (statuses as of 07/12/2020) Resolved Problems Problem Noted Date Resolved Date Colon cancer screening 11/03/2018 06/24/2019 Overview: Added automatically from request for barron light [id number] Diffuse abdominal pain 11/03/2018 06/24/2019 Overview: Added automatically from request for barron light [id number] Special screening for malignant neoplasms, colon 08/20/2018 06/24/2019 Overview: Added automatically from request for barron light [id number] Hypertension, unspecified type 07/16/2018 9 Other hyperlipidemia 07/16/2018 06/24/2019 documented as of this encounter (statuses as of 07/12/2020) Immunizations Name Administration Dates Next Due HEP [...] in contact with No / Unsure 07/06/2020 1:27 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 documented as of this encounter Last Filed Vital Signs Not on filedocumented in this encounter Miscellaneous Notes Telephone Encounter - Sandhya Bettencourt - 07/12/2020 2:35 PM CST TRANSITIONAL CARE MANAGEMENT ASSESSMENT 07/12/2020 Florentino Acosta [id number] Florentino Acosta is a 54 year old /White male was admitted on 07/06/20 to [facility] ([facility] [address] He was discharged on 07/11/20 with discharge disposition ofHR- Routine Discharge. Admitting Physician: Peri Molina Discharge Diagnosis: Chest pain with high risk for cardiac etiology Patient. Agreed to participate in CHP. Pt. Voices concerns of not being educated about diet. Pt. Expressing multiple issues are troublesome. Pt. Reviewed all of discharge instructions, patient questioned about multiple subjects patient. Verbalized understanding instructions. Linked Episodes Type: Episode: Status: Noted: Resolved: Last update: Updated by: TRANSITION OF CARE tcm Active 07/11/2020 07/12/2020 2:32 PM Sandhya Bettencourt Comments:07/11/2020 TCM Cmy-zxng-rl-face outreach documentation: Discharge Assessment Chart Assessed: 07/12/20 TCM Outreach Completed: 07/12/20 Do you have a few minutes to speak with me about how you are doing at home?: Yes Discharge Instructions Do you understand your at-home instructions?: Yes Medications Have you filled your prescriptions and do you have them in your home? : Yes Do you know how to take your medications?: Yes Can you provide me with the names or descriptions of any trgj-[id number] or supplements you are currently taking?: Yes Supplies Did you receive applicable home medical supplies/equipment?: N/A Follow Up Appointment Has a follow up appointment been scheduled?: Yes Do you have any questions about your follow up appointments?: No Are you able to get to your appointment? Who will be taking you?: Yes(self) Home Health Assistance Has the home health nurse contacted you since you've been home?: N/A Survey - Recognition Is there anything you would like to share about your recent hospitalization, or anyone you would like to recognize?: No Do you have any suggestions for improvement?: No Do you have any other questions or concerns at this time?: Yes Future Appointments: Future Appointments Provider Department Dept Phone 07/13/2020 11:30 AM Care, [facility] [phone] 08/15/2020 2:00 PM Buddy Edward MD [facility] Endocrinology, [facility] [phone] documented in this encounter Plan of Treatment Date Type Specialty Care Team Description 07/13/2020 Office Visit Family Medicine Woodrow Kimberley, CONFIGURATION ENGINEER [address] [place], [place] [address] Erasmo Rosas Primary 08/15/2020 Office Visit Endocrinology Diabetes & Buddy Edward MD Metabolism 250 [facility], [facility] [address] [place], [place] [address] [phone] Health Maintenance Due Date Last Done Comments [...] Group D[place] [id number] 2019-Pre [phone] [facility] H C I H C sent [address] [place] [address] [place] MED[place] [id number] 2020-Pres [phone] PRIMARY CARE PRIMARY CARE ent 11 [facility], [place] [address] documented as of this encounter
--- OUTSIDE RECORDS SUMMARY | 2020-07-23 03:01 | XMS REPORT | Summary of Care ---
:1965 Author Organization [facility] - [facility] Address [address] [place] [address] Care Team Providers Name Role Phone LUISA Troy Primary Care Provider Reason for Visit Reason Comments Transition Of Care Encounter Details Date Type Department Care Team Description 07/12/2020 Transition of Care [facility] Bettencourt Henrynolberto kang Transition Of Care [facility]- [address] [place] [address] [id number] Allergies Active Allergy Reactions Severity Noted Date [...] Added automatically from request for barron nadege [id number] Obesity (BMI 30-39.9) 03/01/2020 Diffuse abdominal pain 09/23/2019 Overview: Added automatically from request for barron nadege [id number] Gastroesophageal reflux disease, esophagitis presence not specified 09/23/2019 Overview: Added automatically from request for barron nadege [id number] Gastroparesis 06/24/2019 Bronchitis 06/24/2019 Abdominal pain, diffuse 08/20/2018 Overview: Added automatically from request for barron light [id number] Type 2 diabetes mellitus with hyperglycemia, with long -term current use of 07/16/2018 insulin documented as of this encounter (statuses as of 07/12/2020) Resolved Problems Problem Noted Date Resolved Date Colon cancer screening 11/03/2018 06/24/2019 Overview: Added automatically from request for barron light [id number] Diffuse abdominal pain 11/03/2018 06/24/2019 Overview: Added automatically from request for barron light [id number] Special screening for malignant neoplasms, colon 08/20/2018 06/24/2019 Overview: Added automatically from request for barron light [id number] Hypertension, unspecified type 07/16/2018 9 Other hyperlipidemia [...] with No / Unsure 07/06/2020 1:27 PM 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 documented as of this encounter Last Filed Vital Signs Not on filedocumented in this encounter Miscellaneous Notes Telephone Encounter - Sandhya Bettencourt - 07/12/2020 2:39 PM CSTCHP referral submitted to Melina Das CM. documented in this encounter Plan of Treatment Date Type Specialty Care Team Description 07/13/2020 Office Visit Family Medicine Ross, Kimberley, PANTOGRAPHER [address] [place] [address] [phone] Care, Erasmo Primary 08/15/2020 Office Visit Endocrinology Diabetes & Buddy Edward MD Metabolism [address] [facility], [facility] [address] [place], [place] [address] [phone] Health Maintenance Due Date Last Done Comments [...] Group Dates [place] [id number] 2019-Pre [phone] [facility] I [facility] C sent [address] [address] WALDE[place] MEDEIROS [id number] 2020-Pres [phone] PRIMARY CARE PRIMARY CARE ent 11 [place] [address] documented as of this encounter
--- OUTSIDE RECORDS SUMMARY | 2020-07-23 03:01 | XMS REPORT | Summary of Care ---
:1965 Author Organization [facility] Address [address] [place] [address] Care Team Providers Name Role Phone LUISA Mcclendon Primary Care Provider Reason for Referral (Routine) Status Reason Specialty Diagnoses / Referred By Referred To Procedures Contact Contact New Request Nephrology Diagnoses Acute renal failure superimposed on chronic kidney disease, unspecified CKD stage, unspecified acute renal failure type Kimberley Mcclendon FNP Procedures CONSULT/REFERRAL NEPHROLOGY [address] [place], [place] [id number] (Routine) Status Reason Specialty Diagnoses / Referred By Referred To Procedures Contact Contact New Request Cardiology Diagnoses Severe uncontrolled hypertension Kimberley Mcclendon FNP Cai, Qiangjun, MD Procedures CONSULT/REFERRAL CARDIOLOGY [address] [place] [address] [address] [address] [address] Phone: [place], [place] [phone] Fax: Reason for Visit Reason Comments POST-HOSP (Routine) Status Reason Specialty Diagnoses / Referred By Referred To Procedures Contact Contact New Request Family Medicine Diagnoses Chest pain, unspecified type Jovanni Soni MD Ross, Nancy, Procedures Discharge Follow-up: PCP KIMBERLEY MCCLENDON; 3-[address] [phone] Phone: Fax: Encounter Details Date Type Department Care Team Description 07/13/2020 Office Visit [facility] Kimberley Ceballos , SURVEY RODMAN [address] [place] [address] [phone] Type 2 diabetes mellitus with hyperglyce irma, with long-term current use of insulin (Primary Dx); [facility], [facility] Primary Neuropathic pain; Clinic Peripheral neuropathy due to disorder of metabolism; [address] Acute renal failure superimp osed on chronic kidney disease, unspecified CKD stage, unspecified acute renal failure type; [place], [place] Severe uncontro lled hypertension [id number] Allergies Active Allergy Reactions Severity Noted Date Comments Rofecoxib Swelling 05/11/2015 Sertraline Hcl Swelling 05/11/2015 documented as of this encounter (statuses as of 07/13/2020) Medications Medication Sig Dispensed Refills Start End Date Status Date aspirin 81 mg EC Take 81 mg by 0 Active tabletIndications: mouth daily. Flu vaccine need, Type 2 diabetes mellitus without complication, without long-term current use of insulin, Essential hypertension, Other hyperlipidemia sildenafil 100 mg Take 1 tablet 9 [...] stenosis of lumbar region with neurogenic claudication ondansetron Take 1 tablet 20 tablet 1 Acti ve (ZOFRAN) 4 mg by mouth 0 tabletIndications: every 8 Diabetic (eight) hours gastroparesis as needed for Nausea and Vomiting (N/V). cloNIDine 0.1 mg Take 1 tablet 60 tablet 5 Active tabletIndications: by mouth 2 0 Uncontrolled stage (two) times 2 hypertension daily as needed (for blood pressure above 160 systolic and 110 diastolically ). traZODone 50 mg Take 1 tablet 30 tablet 1 Active tabletIndications: by mouth at 0 Adjustment insomnia bedtime. DULoxetine Take 30 mg by 0 Activ e (CYMBALTA) 30 mg mouth daily. capsule atorvastatin 80 mg Take 0.5 15 tablet 0 08/10/20 A ctive tabletIndications: tablets by 0 20 Chest pain, mouth at unspecified type bedtime for 30 days. carvediloL 25 mg Take 1 tablet 60 tablet 0 08/10/20 Active tabletIndications: by mouth 2 0 20 Chest pain, (two) times unspecified type daily with meals for 30 days. amLODIPine 5 mg Take 1 tablet 60 tablet 0 08/10/20 Active tabletIndications: by mouth 2 0 20 Chest pain, (two) times unspecified type daily for 30 days. insulin NPH and inject 40 2 Vial 3 Acti ve regular human 70-30 Units under 0 (NOVOLIN 70/30 the skin 2 U-100 INSULIN) 100 (two) times unit/mL (70-30) daily before injectionIndication breakfast and s: Type 2 diabetes dinner. mellitus with hyperglycemia, with long-term current use of insulin pregabalin (LYRICA) Take 1 30 capsule 1 Active 300 mg capsule by 0 capsuleIndications: mouth 2 (two) Peripheral times daily. neuropathy due to disorder of metabolism pregabalin (LYRICA) Take 1 180 capsule 3 07/13/20 Discontinued 300 mg capsule by 0 20 (Reorder) capsuleIndications: mouth 2 (two) Neuropathic pain times daily. insulin NPH and inject 40 2 Vial 3 07/13/20 Disc ontinued regular human 70-30 Units under 0 20 (Reorder) (NOVOLIN 70/30 the skin 2 U-100 INSULIN) 100 (two) times unit/mL (70-30) daily before injectionIndication breakfast and s: Type 2 diabetes dinner. mellitus with hyperglycemia, with long-term current use of insulin DICYCLOMINE 10 mg TAKE 1 90 capsule 1 07/13/20 D iscontinued capsuleIndications: CAPSULE BY 0 20 Abdominal pain, MOUTH 4 TIMES diffuse DAILY NEEDED FOR ABDOMINAL PAIN pregabalin (LYRICA) Take 1 180 capsule 0 07/13/20 Discontinued 300 mg capsule by 0 20 (Dose capsuleIndications: mouth 2 (two) adjustment) Neuropathic pain times daily. documented as of this encounter (statuses as of 07/13/2020) Active Problems Problem Noted Date OMAIRA (acute kidney injury) 07/08/2020 Chest pain with high risk for cardiac etiology 020 Constipation, unspecified constipation type 03/30/2020 Overview: Added automatically from request for barron light [id number] Obesity (BMI 30-39.9) 03/01/2020 Diffuse abdominal pain 09/23/2019 Overview: Added automatically from request for barron nadege [id number] Gastroesophageal reflux disease, esophagitis presence not specified 09/23/2019 Overview: Added automatically from request for barron nadege [id number] Gastroparesis 06/24/2019 Bronchitis 06/24/2019 Abdominal pain, diffuse 08/20/2018 Overview: Added automatically from request for barron bañuelosy [id number] Type 2 diabetes mellitus with hyperglycemia, with long -term current use of 07/16/2018 insulin documented as of this encounter (statuses as of 07/13/2020) Resolved Problems Problem Noted Date Resolved Date Colon cancer screening 11/03/2018 06/24/2019 Overview: Added automatically from request for barron bañuelosy [id number] Diffuse abdominal pain 11/03/2018 06/24/2019 Overview: Added automatically from request for barron nadege [id number] Special screening for malignant neoplasms, colon 08/20/2018 06/24/2019 Overview: Added automatically from request for barron bañuelosy [id number] Hypertension, unspecified type 07/16/2018 9 Other hyperlipidemia [...] with No / Unsure 07/13/2020 11:27 AM MANAGER DIESEL someone who was confirmed or suspected to have Coronavirus / COVID-19? documented as of this encounter Last Filed Vital Signs Vital Sign Reading Time Taken Comments Blood Pressure 128/75 07/13/2020 11:19 AM MANAGER DIESEL Pulse 70 07/13/2020 11:19 AM MANAGER DIESEL Temperature 36.2 C (97.2 F) 07/13/2020 11:19 AM MANAGER DIESEL Respiratory Rate 20 07/13/2020 11:19 AM MANAGER DIESEL Oxygen Saturation - - Inhaled Oxygen Concentration - - Weight 85.3 kg (188 lb 1.6 oz) 07/13/2020 11:19 AM MANAGER DIESEL Height 162.6 cm (5' 4") 07/13/2020 11:19 AM MANAGER DIESEL Body Mass Index 32.29 07/13/2020 11:19 AM MANAGER DIESEL documented in this encounter Progress Notes Peggy Mccullough LVN - 07/13/2020 11:30 AM CSTFlorentino Aocsta is a 54 year old male Patient here today for post hospital follow up. Reports 6 pain on scale 0/10, MD notified. Reviewed medications and allergies with patient today. Fall Risk Assessment/Screening performed with patient today and patient is not at risk for falls. Lab work drawn per provider orders. Needle stick x (1) attempt to left antecubital. Tolerated well. No bruising, or complaint of discomfort noted to site. GER DIESEL Kimberley Mcclendon FNP - 07/13/2020 11:30 AM CST Cc: Chief Complaint Patient presents with POST-HOSP HPI Florentino Acosta is a 54 year old male in for hospital follow up for uncontrolled hypertension with intermittent chest pain on 07/06. Was at a GI follow up and sent over to the [facility] ED because his pressure was so high. Found to be in acute on chronic kidney failure along with proteinuria. Was hospitalized from 07-06 to 07-11. His hypertension meds was moved from Lisinopril 20 to norvasc 5mg twice a day. Stop the Livalo 4mg and start lipitor 80mg. Stop the metoprolol 50mg and start Carvedilol 25 mg bid. Due to his progressive kidney dysfunction He is to stop the metformin 1000mg bid He was put on fluid restrictions of 1500cc a day. He was also to stop the lasix 20mg daily He was also to stop the Reglan but ok to take bentyl for his gastroparesis His DM is under fair control with A1C of 8.4 on Novalog 70/30 40 units bid. No changes in the dosage but stressed the importance of BS testing prior to administration. Had an episode of 45 BG whilein house. Today his BS was 108 without any insulin today. Had toast, egg and coffee for breakfast. Has gained 10 lbs since admission. Complaining of lower extremity swelling and pain. Notes some SOB with supine position Vitals 07/06/2020 Weight 179 lbs 14 oz Vitals 07/07/2020 Weight 178 lbs 8 oz Vitals 07/08/2020 Weight 181 lbs 13 oz Vitals 07/09/2020 Weight 181 lbs 13 oz Vitals 07/11/2020 07/13/2020 Weight 181 lbs 188 lbs 2 oz Allergies Florentino is allergic to vioxx [rofecoxib] and zoloft [sertraline hcl]. Medications Outpatient Medications Prior to Visit Medication Sig Dispense Refill amLODIPine 5 mg tablet Take 1 tablet by mouth 2 (two) times daily for 30 days. 60 tablet 0 atorvastatin 80 mg tablet Take 0.5 tablets by mouth at bedtime for 30 days. 15 tablet 0 carvediloL 25 mg tablet Take 1 tablet by mouth 2 (two) times daily with meals for 30 days. 60 tablet 0 DULoxetine (CYMBALTA) 30 mg capsule Take 30 mg by mouth daily. traZODone 50 mg tablet Take 1 tablet by mouth at bedtime. 30 tablet 1 cloNIDine 0.1 mg tablet Take 1 tablet [...] mouth every other day. 9 tablet 3 pregabalin (LYRICA) 300 mg capsule Take 1 capsule by mouth 2 (two) times daily. 180 capsule 3 aspirin 81 mg EC tablet Take 81 mg by mouth daily. No facility-administered medications prior to visit. Histories [...] for 7 years,stopped cocaine and marijuana in 2015 Sexual activity: Yes Partners: Female control/protection: Post-menopausal Lifestyle Physical activity Days per week: Not on file Minutes per session: Not on file Stress: Not on file Relationships Social connections Talks on phone: Not on file Gets together: Not on file Attends uatsdin service: Not on file Active member of [...] Uncle Review of Systems Constitutional: Positive for fatigue and weight gain. HENT: Negative. Respiratory: Positive for shortness of breath. Breasts: Negative. Cardiovascular: Positive for leg swelling. Negative for chest pain and palpitations. Gastrointestinal: Positive for abdominal pain. Genitourinary: Negative. Musculoskeletal: Positive for back pain. Skin: Negative. Neurological: Negative. Psychiatric/Behavioral: Negative. Endocrine: Positive for weight gain. Vital Signs BP 128/75 (BP Location: Left arm, Patient Position: Sitting) | Pulse 70 | Temp 36.2 C (97.2 F)(Tympanic) | Resp 20 | Ht 5' 4" (1.626 m) | Wt 188 lb 1.6 oz (85.3 kg) | BMI 32.29 kg/m Physical Exam Vitals signs and nursing note reviewed. Eyes: Extraocular Movements: Extraocular movements intact. Conjunctiva/sclera: Conjunctivae normal. Neck: Musculoskeletal: Normal range of motion. Cardiovascular: Rate and Rhythm: Normal rate and regular rhythm. Pulmonary: Effort: Pulmonary effort is normal. Breath sounds: Normal breath sounds. Abdominal: General: Bowel sounds are normal. Musculoskeletal: Right lower leg: Edema present. Left lower leg: Edema present. Skin: General: Skin is warm and dry. Capillary Refill: Capillary refill takes more than 3 seconds. Neurological: General: No focal deficit present. Mental Status: He is oriented to person, place, and time. Psychiatric: Mood and Affect: Mood normal. Behavior: Behavior normal. Assessment/Plan 1. Type 2 diabetes mellitus with hyperglycemia, with long-term current use of insulin Has Endocrine appointment scheduled for 08/15. Pt aware - POCT GLUCOSE(AGE >30DAYS) - insulin NPH and regular human 70-30 (NOVOLIN 70/30 U-100 INSULIN) 100 unit/mL (70-30) injection; inject 40 Units under the skin 2 (two) times daily before breakfast and dinner. Dispense: 2 Vial; Refill: 3 Advised patient to take BS prior to administration BS < 130 Do not take any Novalog 70/30 BS > 140 take 10 units of Novalog 70/30 BS > 160 take 20 units of Novalog 70/30 BS > 180 take 30 units of Novalog 70/30 BS > 200 take 20 units of Novalog 70/30 3. Peripheral neuropathy due to disorder of metabolism - pregabalin (LYRICA) 300 mg capsule; Take 1 capsule by mouth 2 (two) times daily. Dispense: 30 capsule; Refill: 1 4. Acute renal failure superimposed on chronic kidney disease, unspecified CKD stage, unspecified acute renal failure type - CONSULT/REFERRAL NEPHROLOGY 5. Severe uncontrolled hypertension - CONSULT/REFERRAL CARDIOLOGY Will need to take some lasix to avoid fluid overload. Suggest daily weights and take 10mg bid prn until back to baseline. Discussed fluid restrictions and weigh gain. CMP drawn Follow up in 2 wks or as needed Appropriate plan of care, desired health behaviors, [...] issues and agrees with the plan. Kimberley [facility] documented in this encounter Plan of Treatment Date Type Specialty Care Team Description 08/15/2020 Office Visit Endocrinology Diabetes & Buddy Edward MD Metabolism [address] [place] [address] 77 8 [phone] Health Maintenance Due Date Last Done Comments [...] Associated Diagnosis Comme nts POCT GLUCOSE(AGE Routine 07/13/2020 11:26 AM Type 2 diabetes R esults for this >30DAYS) MANAGER DIESEL mellitus with procedure are in hyperglycemia, with the resu lts long-term current section. 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
--- OUTSIDE RECORDS SUMMARY | 2020-07-23 03:04 | XMS REPORT | Summary of Care ---
:1965 Author Organization [facility] - [address] [address] Care Team Providers Name Role Phone LUISA Troy Primary Care Provider Silver Das RNcarver hand Reason for Visit Reason Comments Referral/consult CHP Referral Encounter Details Date Type Department Care Team Description 07/17/2020 Patient Outreach [facility] Melina Das RN Referral/consult [address] (CHP Refer ral) [place], [place] [address] Allergies Active Allergy Reactions Severity Noted Date Comments Rofecoxib Swelling 05/11/2015 Sertraline Hcl Swelling 05/11/2015 documented as of this encounter (statuses as of 07/17/2020) Medications Medication Sig Dispensed Refills Start Date End Date Status aspirin 81 mg EC Take 81 mg by 0 Active tabletIndications: mouth daily. Flu vaccine need, Type 2 diabetes mellitus without complication, without long-term current use of insulin, Essential hypertension, Other hyperlipidemia sildenafil 100 mg Take 1 tablet by [...] of lumbar region with neurogenic claudication ondansetron (ZOFRAN) Take 1 tablet by 20 [...] times daily for unspecified type 30 days. DICYCLOMINE 10 mg TAKE 1 CAPSULE 90 capsule 5 07/13/2020 Active capsuleIndications: BY MOUTH 4 TIMES Abdominal pain, DAILY NEEDED diffuse FOR ABDOMINAL PAIN insulin NPH and inject 40 Units 2 Vial 3 07/13/2020 Active regular human 70-30 under the skin 2 (NOVOLIN 70/30 U-100 (two) times INSULIN) 100 unit/mL daily before (70-30) breakfast and injectionIndications: dinner. Type 2 diabetes mellitus with hyperglycemia, with long-term current use of insulin pregabalin (LYRICA) Take 1 capsule 30 capsule 1 07/13/2020 Active 300 mg by mouth 2 (two) capsuleIndications: times daily. Peripheral neuropathy due to disorder of metabolism documented as of this encounter (statuses as of 07/17/2020) Active Problems Problem Noted Date OMAIRA (acute kidney injury) 07/08/2020 Chest pain with high risk for cardiac etiology 020 Constipation, unspecified constipation type 03/30/2020 Overview: Added automatically from request for barron nadege [id number] Obesity (BMI 30-39.9) 03/01/2020 Diffuse abdominal pain 09/23/2019 Overview: Added automatically from request for barron nadege [id number] Gastroesophageal reflux disease, esophagitis presence not specified 09/23/2019 Overview: Added automatically from request for barron light [id number] Gastroparesis 06/24/2019 Bronchitis 06/24/2019 Abdominal pain, diffuse 08/20/2018 Overview: Added automatically from request for barron light [id number] Type 2 diabetes mellitus with hyperglycemia, with long -term current use of 07/16/2018 insulin documented as of this encounter (statuses as of 07/17/2020) Resolved Problems Problem Noted Date Resolved Date Colon cancer screening 11/03/2018 06/24/2019 Overview: Added automatically from request for barron light [id number] Diffuse abdominal pain 11/03/2018 06/24/2019 Overview: Added automatically from request for barron light [id number] Special screening for malignant neoplasms, colon 08/20/2018 06/24/2019 Overview: Added automatically from request for barron light [id number] Hypertension, unspecified type 07/16/2018 9 Other hyperlipidemia 07/16/2018 06/24/2019 documented as of this encounter (statuses as of 07/17/2020) Immunizations Name Administration Dates Next Due HEP [...] with No / Unsure 07/13/2020 11:27 AM FIELD CLINICAL ENGINEER someone who was confirmed or suspected to have Coronavirus / COVID-19? documented as of this encounter Last Filed Vital Signs Not on filedocumented in this encounter Progress Notes Melina Das RN - 07/17/2020 10:55 AM CSTCHP REFERRAL: CM spoke with the patient and his spouse. The patient is very excited about having further educationfor DM management. CM reviewed patient's discharge medication list. The patient is having uncontrollable diarrhea. The patient has been taking his Metformin 1000mg. CM explained this medication was duran discontinued. CM will be visiting the patient on 07/21/20 for CHP enrollment. CM will notify Kimberley Troy NP and Alta Mccullough LVN of enrollment, patient's diarrhea, and patient being out of strips. PEDRO Torres, RN, [facility] Outpatient Keyseater OperatorScraper Loader OperatorScotland Memorial Hospital O: [phone] M: [phone] 54 year old male patient with a PMH as listed below, who presents to the ED with complaints ofelevated blood pressures and accompanying chest pain. Mr. Acosta presented to his GI clinic this morningand was found with elevated systolics; subsequently referred here to the ED. In the emergency department to this provider the patient reports medication compliance, along with FSBGs that range from 100-300 daily and chronic systolic BP readings over 200. He further reports intermittent chest pains, which again occurred both this a.m. during GI visit and upon arrival to the ED, which are located to his anterior chest wall, stabbing, intermittent, waxing and waning, occasionally radiating outward a long chest wall,and resolved with rest, and today resolving after ED treatment of CCB, ASA and clonidine. He additionally endorses visual blurriness and headaches today. The patient further reportsrecent up titration of beta ochoa which he relays has induced dizziness with standing up. Patient. Agreed to participate in CHP. Diet a huge part of education. Denied dietary education. Does have some issues with acceptance of medical issues. Voices he lonely. - TRINITY Bettencourt, A. documented in this encounter Plan of Treatment Date Type Specialty Care Team Description 07/21/2020 Patient Outreach Case Management Melina Das RN [address] [place] [address] 08/15/2020 Office Visit Endocrinology Diabetes & Buddy Edward MD [place] [phone] Health Maintenance Due Date Last Done Comments [...] Group Dates [place] [id number] 2019-Pre [phone] [facility] H C I H C sent [address] [address] WALDEMAR MEDEIROS [id number] 2020-Pres [phone] PRIMARY CARE PRIMARY CARE ent [address] [place] [address] documented as of this encounter
--- OUTSIDE RECORDS SUMMARY | 2020-07-23 03:04 | XMS REPORT | Summary of Care ---
:1965 Author Organization [facility] Address [address] [place] [address] Care Team Providers Name Role Phone LUISA Mcclendon Primary Care Provider Reason for Referral (Routine) Status Reason Specialty Diagnoses / Referred By Referred To Procedures Contact Contact New Request Nephrology Diagnoses Acute renal failure superimposed on chronic kidney disease, unspecified CKD stage, unspecified acute renal failure type Kibmerley Mcclendon FNP Procedures CONSULT/REFERRAL NEPHROLOGY [address] [place], [place] [id number] (Routine) Status Reason Specialty Diagnoses / Referred By Referred To Procedures Contact Contact New Request Cardiology Diagnoses Severe uncontrolled hypertension Kimberley Mcclendon FNP Cai, Qiangjun, MD Procedures CONSULT/REFERRAL CARDIOLOGY [address] [place] [address] [address] [address] [address] Phone: [place], [place] [phone] Fax: Reason for Visit Reason Comments POST-HOSP (Routine) Status Reason Specialty Diagnoses / Referred By Referred To Procedures Contact Contact New Request Family Medicine Diagnoses Chest pain, unspecified type Jovanni Soni MD Ross, Nancy, Procedures Discharge Follow-up: PCP KIMBERLEY MCCLENDON; 3-5 Days [address] [id number] Phone: Fax: Encounter Details Date Type Department Care Team Description 07/13/2020 Office Visit [facility] Kimberley Ceballos , CREDIT CARD ANALYST [address] [place] [address] [phone] Type 2 diabetes mellitus with hyperglyce irma, with long-term current use of insulin (Primary Dx); [facility], [facility] Primary Neuropathic pain; Clinic Peripheral neuropathy due to disorder of metabolism; [address] Acute renal failure superimp osed on chronic kidney disease, unspecified CKD stage, unspecified acute renal failure type; [place], [place] Severe uncontro lled hypertension [id number] Allergies [...] Added automatically from request for barron light [id number] Obesity (BMI 30-39.9) 03/01/2020 Diffuse abdominal pain 09/23/2019 Overview: Added automatically from request for barron nadege [id number] Gastroesophageal reflux disease, esophagitis presence not specified 09/23/2019 Overview: Added automatically from request for barron nadege [id number] Gastroparesis 06/24/2019 Bronchitis 06/24/2019 Abdominal pain, diffuse 08/20/2018 Overview: Added automatically from request for barron bañuelosy [id number] Type 2 diabetes mellitus with hyperglycemia, with long -term current use of 07/16/2018 insulin documented as of this encounter (statuses as of 07/13/2020) Resolved Problems Problem Noted Date Resolved Date Colon cancer screening 11/03/2018 06/24/2019 Overview: Added automatically from request for barron bañuelosy [id number] Diffuse abdominal pain 11/03/2018 06/24/2019 Overview: Added automatically from request for barron nadege [id number] Special screening for malignant neoplasms, colon 08/20/2018 06/24/2019 Overview: Added automatically from request for barron bañuelosy [id number] Hypertension, unspecified type 07/16/2018 9 Other hyperlipidemia [...] with No / Unsure 07/13/2020 11:27 AM WEATHERIZATION ADMINISTRATOR someone who was confirmed or suspected to have Coronavirus / COVID-19? documented as of this encounter Last Filed Vital Signs Vital Sign Reading Time Taken Comments Blood Pressure 128/75 07/13/2020 11:19 AM WEATHERIZATION ADMINISTRATOR Pulse 70 07/13/2020 11:19 AM WEATHERIZATION ADMINISTRATOR Temperature 36.2 C (97.2 F) 07/13/2020 11:19 AM WEATHERIZATION ADMINISTRATOR Respiratory Rate 20 07/13/2020 11:19 AM WEATHERIZATION ADMINISTRATOR Oxygen Saturation - - Inhaled Oxygen Concentration - - Weight 85.3 kg (188 lb 1.6 oz) 07/13/2020 11:19 AM WEATHERIZATION ADMINISTRATOR Height 162.6 cm (5' 4") 07/13/2020 11:19 AM WEATHERIZATION ADMINISTRATOR Body Mass Index 32.29 07/13/2020 11:19 AM WEATHERIZATION ADMINISTRATOR documented in this encounter Progress Notes Peggy Mccullough LVN - 07/13/2020 11:30 AM CSTFlorentino Acosta is a 54 year old male [...] or complaint of discomfort noted to site. HERIZATION ADMINISTRATOR Kimberley Mcclendon FNP - 07/13/2020 11:30 AM CST Cc: Chief Complaint Patient presents with POST-HOSP HPI Florentino Acosta is a 54 year old male in for hospital follow up for uncontrolled hypertension with intermittent chest pain on 07/06. Was at a GI follow up and sent over to the [facility] ED because his pressure was so high. [...] file Gets together: Not on file Attends zoroastrianism service: Not on file Active member of [...] issues and agrees with the plan. Kimberley [facility] documented in this encounter Plan of Treatment Date Type Specialty Care Team Description 08/15/2020 Office Visit Endocrinology Diabetes & Buddy Edward MD Metabolism [address] [place] [address] 77 [phone] Health Maintenance Due Date Last Done Comments [...] 2 diabetes R esults for this >30DAYS) WEATHERIZATION ADMINISTRATOR mellitus with procedure are in hyperglycemia, with the resu lts long-term current section. 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
--- OUTSIDE RECORDS SUMMARY | 2020-07-23 03:04 | XMS REPORT | Summary of Care ---
:[address] [facility] Address [address] [place] [address] Care Team Providers Name Role Phone LUISA Troy Primary Care Provider Silver Das RNpre assembly wirer Reason for Visit Reason Comments Refill Request Encounter Details Date Type Department Care Team Description 07/17/2020 Telephone [facility] Kimberley Troy FNP Refill Request [facility] [address] [facility] [address] [place] [address] [place] [address] [phone] Allergies Active Allergy Reactions Severity Noted Date [...] Added automatically from request for barron bañuelosy [id number] Obesity (BMI 30-39.9) 03/01/2020 Diffuse abdominal pain 09/23/2019 Overview: Added automatically from request for barron light [id number] Gastroesophageal reflux disease, esophagitis presence not specified 09/23/2019 Overview: Added automatically from request for barron light [id number] Gastroparesis 06/24/2019 Bronchitis 06/24/2019 Abdominal pain, diffuse 08/20/2018 Overview: Added automatically from request for barron light [id number] Type 2 diabetes mellitus with hyperglycemia, with long -term current use of 07/16/2018 insulin documented as of this encounter (statuses as of 07/17/2020) Resolved Problems Problem Noted Date Resolved Date Colon cancer screening 11/03/2018 06/24/2019 Overview: Added automatically from request for barron light [id number] Diffuse abdominal pain 11/03/2018 06/24/2019 Overview: Added automatically from request for barron light [id number] Special screening for malignant neoplasms, colon 08/20/2018 06/24/2019 Overview: Added automatically from request for barron light [id number] Hypertension, unspecified type 07/16/2018 9 Other hyperlipidemia [...] with No / Unsure 07/13/2020 11:27 AM PROCESS ENVIRONMENTAL TECHNICIAN someone who was confirmed or suspected to have Coronavirus / COVID-19? documented as of this encounter Last Filed Vital Signs Not on filedocumented in this encounter Miscellaneous Notes Telephone Encounter - Peggy Mccullough LVN - 07/17/2020 11:23 AM CSTCall received from patient requesting refills on one touch ultra glucometer strips. One touch ultra strips called in to [facility] pharmacy per provider instructions. Patient to check blood sugars three times a day, #100 strips, 11 refills. Patient informed that prescription has been called in to pharmacy. documented in this encounter Plan of Treatment Date Type Specialty Care Team Description 07/21/2020 Patient Outreach Case Management Melina Das RN [address] [place] [address] 08/15/2020 Office Visit Endocrinology Diabetes & Buddy Edward MD [place] [address] Health Maintenance Due Date Last Done Comments [...] Group Dates [place] [id number] 2019-Pre [phone] [facility] C I H C sent 20 [place] [address] [place] [id number] 2020-Pres [phone] PRIMARY CARE PRIMARY CARE ent [address] [place] [address] documented as of this encounter
--- OUTSIDE RECORDS SUMMARY | 2020-07-23 03:05 | XMS REPORT | Summary of Care ---
:1965 Author Organization [facility] - [address] [address] Care Team Providers Name Role Phone LUISA Troy Primary Care Provider Silver Das RNgasoline truck operator Silver Vogel Community Health Worker Reason for Visit Reason Comments Follow-up called pt Encounter Details Date Type Department Care Team Description 07/21/2020 Patient Outreach [facility] Carmen Vogel Follow-up (called [address] pt ) [place], [place] [address] Allergies Active Allergy Reactions Severity Noted Date Comments Rofecoxib Swelling 05/11/2015 Sertraline Hcl Swelling 05/11/2015 documented as of this encounter (statuses as of 07/21/2020) Medications Medication Sig Dispensed Refills Start Date [...] as of this encounter (statuses as of 07/21/2020) Active Problems Problem Noted Date OMAIRA (acute kidney injury) 07/08/2020 Chest pain with high risk for cardiac etiology 020 Constipation, unspecified constipation type 03/30/2020 Overview: Added automatically from request for barron nadege [id number] Obesity (BMI 30-39.9) 03/01/2020 Diffuse abdominal pain 09/23/2019 Overview: Added automatically from request for barron nadege [id number] Gastroesophageal reflux disease, esophagitis presence not specified 09/23/2019 Overview: Added automatically from request for barron bañuelosy [id number] Gastroparesis 06/24/2019 Bronchitis 06/24/2019 Abdominal pain, diffuse 08/20/2018 Overview: Added automatically from request for barron bañuelosy [id number] Type 2 diabetes mellitus with hyperglycemia, with long -term current use of 07/16/2018 insulin documented as of this encounter (statuses as of 07/21/2020) Resolved Problems Problem Noted Date Resolved Date Colon cancer screening 11/03/2018 06/24/2019 Overview: Added automatically from request for barron bañuelosy [id number] Diffuse abdominal pain 11/03/2018 06/24/2019 Overview: Added automatically from request for barron bañuelosy [id number] Special screening for malignant neoplasms, colon 08/20/2018 06/24/2019 Overview: Added automatically from request for barron bañuelosy [id number] Hypertension, unspecified type 07/16/2018 9 Other hyperlipidemia 07/16/2018 06/24/2019 documented as of this encounter (statuses as of 07/21/2020) Immunizations Name Administration Dates Next Due HEP [...] with No / Unsure 07/13/2020 11:27 AM CODE CLERK someone who was confirmed or suspected to have Coronavirus / COVID-19? documented as of this encounter Last Filed Vital Signs Not on filedocumented in this encounter Progress Notes Carmen Vogel - 07/21/2020 8:35 AM CSTCCKeara Vogel emailed CM to reschedule CLERK Carmen Vogel - 07/21/2020 8:35 AM [facility] Vogel called Mr. Acosta to cancel his enrollment with VIPIN Das and she will call him next week to reschedule. CLERK documented in this encounter Plan of Treatment Date Type Specialty Care Team Description 07/21/2020 Patient Outreach Case Management Melina Das RN [address] [place] [address] 08/15/2020 Office Visit Endocrinology Diabetes & Buddy Edward MD [place] [id number] [phone] Health Maintenance Due Date Last Done Comments [...] Group Dates [place] [id number] 2019-Pre [phone] [facility] C I H C sent [address] [place] [address] [place] [id number] 2020-Pres [phone] PRIMARY CARE PRIMARY CARE ent [address] [place] [address] documented as of this encounter
--- OUTSIDE RECORDS SUMMARY | 2020-07-23 03:05 | XMS REPORT | Summary of Care ---
:1965 Author Organization [facility] - Health Address [address] [place] [address] Care Team Providers Name Role Phone LUISA Troy Primary Care Provider Silver Das RNbilingual speech language pathologist Silver Vogel Community Health Worker Encounter Details Date Type Department Care Team Description 06/22/2020 Orders Only [facility] Doctor Unassigned, No [address] [facility] [place] [address] [address] [place] [address] Allergies Active Allergy Reactions Severity Noted Date [...] Chronic GERD times daily. docusate calcium 240 mg Take 1 capsule 10 capsule 0 03/01/2020 Active capsuleIndications: by mouth daily. Spinal stenosis of lumbar region with neurogenic claudication ondansetron (ZOFRAN) 4 Take 1 tablet by [...] Added automatically from request for barron nadege [id number] Obesity (BMI 30-39.9) 03/01/2020 Diffuse abdominal pain 09/23/2019 Overview: Added automatically from request for barron nadege [id number] Gastroesophageal reflux disease, esophagitis presence not specified 09/23/2019 Overview: Added automatically from request for barron nadege [id number] Gastroparesis 06/24/2019 Bronchitis 06/24/2019 Abdominal pain, diffuse 08/20/2018 Overview: Added automatically from request for barron nadege [id number] Type 2 diabetes mellitus with hyperglycemia, with long -term current use of 07/16/2018 insulin documented as of this encounter (statuses as of 07/21/2020) Resolved Problems Problem Noted Date Resolved Date Colon cancer screening 11/03/2018 06/24/2019 Overview: Added automatically from request for barron nadege [id number] Diffuse abdominal pain 11/03/2018 06/24/2019 Overview: Added automatically from request for barron nadege [id number] Special screening for malignant neoplasms, colon 08/20/2018 06/24/2019 Overview: Added automatically from request for barron nadege [id number] Hypertension, unspecified type 07/16/2018 9 Other hyperlipidemia [...] with No / Unsure 07/13/2020 11:27 AM MEDICAL STAFF COORDINATOR someone who was confirmed or suspected to have Coronavirus / COVID-19? documented as of this encounter Last Filed Vital Signs Not on filedocumented in this encounter Plan of Treatment Date Type Specialty Care Team Description 08/15/2020 Office Visit Endocrinology Diabetes & Wagner, Buddy Sanchez MD [place] [address] 8 [phone] Health Maintenance Due Date Last Done Comments [...] Associated Diagnosis Comme nts MEDICATION CORRESPONDENCE Routine 06/22/2020 12:01 AM CDT documented in this encounter Results Not on filedocumented in this encounter Additional Health Concerns Infection Onset Date Last Indicated Resolved Time COVID-19 Rule Out 07/06/2020 07/06/2020 07/06/2020 4: 29 PM MEDICAL STAFF COORDINATOR documented as of this encounter Insurance Payer Benefit Plan Subscriber ID Effective Phone Address Typ e / Group D[place] [id number] 2019-Pre [phone] [facility] C I H C sent [address] [place] [address] documented as of this encounter
[2020-07-23] MEDS ORDERED: MORPHINE 4 MG/ML SYR ONE (03:43)
[2020-07-23] MEDS ORDERED: METOCLOPRAMIDE 10 MG/2mL INJ ONE (03:43)
[2020-07-23 03:52] LABS: Absolute Lymphocytes (CBC) 1.5 K/uL (0.7-4.9); Basophils % 0.9 % (0-1.3); Hematocrit 29.5 % (39.6-49.0); Lymphocytes % 11.7 % (15.3-44.8); MPV 10.7 fL (7.6-11.3); RBC Red Blood Cell Count 3.45 M/uL (4.33-5.43)
[2020-07-23 03:56] LABS: Protime INR 0.92
[2020-07-23 04:10] LABS: ALT/SGPT 17 U/L (12-78); AST/SGOT 24 U/L (15-37); Albumin 2.9 g/dL (3.4-5.0); Alkaline Phosphatase 123 U/L (45-117); BUN Blood Urea Nitrogen 37 mg/dL (7-18); Bicarbonate 22 mmol/L (21-32); Bilirubin Direct < 0.1 mg/dL (0-0.2); Bilirubin Total 0.2 mg/dL (0.2-1.0); Glucose Level 146 mg/dL (74-106); Lipase 202 U/L (73-393); Magnesium 2.4 mg/dL (1.8-2.4); NT PRO-BNP 3839 pg/mL (<125); Potassium 4.4 mmol/L (3.5-5.1); Protein, Total 7.1 g/dL (6.4-8.2); Sodium Level 141 mmol/L (136-145); Troponin (Emerg Dept Use Only) 0.09 ng/mL (0.0-0.045)
[2020-07-23] MEDS ORDERED: FUROSEMIDE 20 MG/ 2ML VIAL ONE ×2 (04:16→05:48)
--- NOTE | 2020-07-23 04:53 | P.HP ---
Certification for Inpatient Patient admitted to: Inpatient With expected LOS: >2 Midnights Patient will require the following post-hospital care: None Practitioner: I am a practitioner with admitting privileges, knowledge of patient current condition, hospital course, and medical plan of care. Services: Services provided to patient in accordance with Admission requirements found in Title 42 Section 412.3 of the Code of Federal Regulations <Billy Bauer - Last Filed: 07/23/20 05:41> Patient History Date of Service: 07/23/20 Reason for admission: CHF exacerbation History of Present Illness: 54-year-old male with history of diabetes mellitus type 2, gastroparesis, hypertension, chronic kidney disease presents emergency department for abdominal pain, shortness of breath. Patient reports that he has been having edema of the lower extremities and shortness of breath over the course of the last couple of weeks. Patient reports admission to [facility] recently for hypertensive urgency. Patient had medications adjusted including discontinuation of lisinopril and metformin. Patient saw nephrology while he was in the hospital there. Patient has not followed up on an outpatient basis with nephrology, has not seen Cardiology at all. Patient currently prescribed Lasix 20 mg p.o. daily by his primary care provider but is unsure why he is prescribed medication. Patient is poor historian, reports that [facility] placed him on a 1.5 L per day fluid restriction but is unsure why. Patient likely hospitalized with new onset CHF at [facility] but states that they never told him he had a heart failure. Patient's workup in the emergency department was significant for chest x-ray showing moderate pulmonary edema, elevated BNP 3839 and mildly elevated troponin 0.09. creatinine 3.00 GFR 20 to be 137 baseline GFR appears to be around 35. On exam patient noted to have bibasilar crackles and pitting edema to the lower extremities. Patient was also mildly hypoxic on room air with saturations 80% in the emergency department. - Past Medical/Surgical History Diabetic: Yes -: Diabetes mellitus type 2; on insulin -: Hypertension -: CAD, no stents -: Diabetic neuropathy -: Gastroparesis -: Cataracts both eyes -: heart attacks -: L1-s2 compression for surgery in March 01 in [facility] -: CHF -: Cholecystectomy -: Heart catheterization, no stents Psychosocial/ Personal History: Patient is . He has 4 children. Currently unemployed - Family History Mother -: Hypertension, Diabetes Father -: Liver disease Notes: - alcoholic - Social History Smoking Status: Never smoker Alcohol use: Yes CD- Drugs: No Caffeine use: Yes Place of Residence: Home <Billy Bauer - Last Filed: 07/23/20 05:41> Date of Service: 07/23/20 <adela dinh - Last Filed: 07/23/20 10:56> Allergies rofecoxib [From Vioxx] Allergy (Mild, Verified 02/11/20 20:12) Hives sertraline HCl [From Zoloft] Allergy (Mild, Verified 02/11/20 20:12) Hives hydrocodone Adverse Reaction (Verified 02/11/20 20:12) Hives/Rash Codeine Adverse Reaction (Uncoded 02/11/20 20:12) Itching Home Medications: Acetaminophen 325 mg PO PRN PRN 07/23/20 Amlodipine [Norvasc*] 1 tab PO BID 07/23/20 Atorvastatin Calcium [Lipitor] 40 mg PO BEDTIME 07/23/20 Carvedilol [Coreg] 1 tab PO BID 07/23/20 Dicyclomine [Bentyl*] 1 tab PO QID PRN 07/23/20 Docusate [Colace Cap*] 1 cap PO DAILY PRN 07/23/20 Furosemide 20 mg PO DAILY 07/23/20 Insulin NPH Hum/Reg Insulin Hm [Novolin 70-30 100 Unit/ml Vial] 40 units SQ SEECOM 07/23/20 Metformin ER [Glucophage ER] 1,000 mg PO BID 07/23/20 Metoclopramide [Reglan*] 10 mg PO ACHS 07/23/20 Ondansetron [Zofran] 4 mg PO Q8H PRN 07/23/20 Pitavastatin Calcium [Livalo] 1 tab PO BEDTIME 07/23/20 Pregabalin [Lyrica] 1 tab PO BID 07/23/20 Trazodone [Desyrel*] 1 tab PO BEDTIME 07/23/20 cloNIDine HCL [Clonidine HCl] 1 tab PO BID PRN 07/23/20 Review of Systems 10-point ROS is otherwise unremarkable Respiratory: Cough, Shortness of Breath, SOB with Excertion Cardiovascular: Chest Pain Gastrointestinal: Abdominal Pain <Billy Bauer - Last Filed: 07/23/20 05:41> Physical Examination - Physical Exam General: Alert, In no apparent distress, Oriented x3 HEENT: Atraumatic, Normocephalic, Mucous membr. moist/pink Neck: Supple Respiratory: Crackles/rales (Bilateral) Cardiovascular: Regular rate/rhythm, Normal S1 S2, Edema (2+ pitting bilateral lower extremity) Capillary refill: <2 Seconds Gastrointestinal: Normal bowel sounds, No ascites, No tenderness, No rebound, No guarding Musculoskeletal: No erythema, No tenderness Integumentary: No significant lesion, No tenderness/swelling, No erythema Neurological: Normal speech, Normal strength at 5/5 x4 extr, Normal tone, Sensation intact Lymphatics: No axilla or inguinal lymphadenopathy - Studies Laboratory Data (last 24 hrs) 07/23/20 03:34: PT 10.9, INR 0.92 07/23/20 03:34: WBC 12.7 H, Hgb 9.5 L, Hct 29.5 L, Plt Count 201 07/23/20 03:34: Sodium 141, Potassium 4.4, BUN 37 H, Creatinine 3.00 H, Glucose 146 H, Magnesium 2.4 D, Total Bilirubin 0.2, AST 24, ALT 17, Alkaline Phosphatase 123 H, Lipase 202 <Billy Bauer - Last Filed: 07/23/20 05:41> - Studies Laboratory Data (last 24 hrs) 07/23/20 03:34: PT 10.9, INR 0.92 07/23/20 03:34: WBC 12.7 H, Hgb 9.5 L, Hct 29.5 L, Plt Count 201 07/23/20 03:34: Sodium 141, Potassium 4.4, BUN 37 H, Creatinine 3.00 H, Glucose 146 H, Magnesium 2.4 D, Total Bilirubin 0.2, AST 24, ALT 17, Alkaline Phosphatase 123 H, Lipase 202 <adela dinh - Last Filed: 07/23/20 10:56> Assessment and Plan - Problems (Diagnosis) (1) New onset of congestive heart failure Current Visit: Yes Status: Acute Plan: Continue with IV diuresis, trend troponin levels. Cardiology consult in place. 1.5 L per day fluid restriction, daily weights. (2) Acute worsening of stage 3 chronic kidney disease Current Visit: Yes Status: Acute Plan: Nephrology consult in place, likely cardiorenal syndrome. Continue with diuresis at this time. Avoid BENNY/ARB/NSAID/Contrast Appreciate further input from nephrology. (3) Diabetes mellitus type 2 in obese Current Visit: Yes Status: Acute Plan: A.c. HS Accu-Cheks, sliding scale insulin therapy. (4) Gastroparesis due to DM Current Visit: Yes Status: Acute Plan: P.r.n. pain medications, p.r.n. Raglan/Zofran. (5) Primary hypertension Current Visit: Yes Status: Acute Plan: Home medications continued. (6) Hyperlipidemia Current Visit: Yes Status: Acute Plan: Continue atorvastatin 80 mg Discharge Plan: Home Plan to discharge in: 48 Hours - Advance Directives Does patient have a Living Will: No Does patient have a Durable POA for Healthcare: No - Code Status/Comfort Care Code Status Assessed: Yes (Full code) Critical Care: No Time Spent Managing Pts Care (In Minutes): 55 <Billy Bauer - Last Filed: 07/23/20 05:41> Physician Review: Patient Assessed, Agree with Above Assessment and Plan Physician Review Additional Text: CHF Anasarca OMAIRA Plan: IV Lasix Obtain echocardiogram Cardiology consult Fluid restriction Daily weight. <adela dinh - Last Filed: 07/23/20 10:56>
--- NOTE | 2020-07-23 05:50 | ER ---
Nurse's Notes [facility] Name: Florentino Acosta Age: 54 yrs Sex: Male : 1965 Arrival Date: 07/23/2020 Time: 02:54 Bed 14 Private MD: Diagnosis: CHF Exacerbation;Acute on Chronic Renal Failure;Abdominal Pain Presentation: 07/23 03:04 Chief complaint: Patient states: I have gastroparesis and it feels like its acting up. jb4 The back of my head feels like it is about to blow off. Coronavirus screen: Client denies travel out of the [place] in the last 14 days. At this time, the client does not indicate any symptoms associated with coronavirus-19. Ebola Screen: No symptoms or risks identified at this time. Risk Assessment: Do you want to hurt yourself or someone else? Patient reports no desire to harm self or others. Onset of symptoms was July 23, 2020. 03:04 Method Of Arrival: Ambulatory jb4 03:04 Acuity: RAMSES 3 jb4 Historical: - Allergies: 03:06 Hydrocodone-Acetaminophen; jb4 03:06 Vioxx; jb4 03:06 Zoloft; jb4 - Home Meds: 03:06 aspirin 81 mg Oral TbEC [Active]; dicyclomine 10 mg Oral cap 1 cap 4 times per day jb4 [Active]; furosemide 20 mg Oral tab 1 tab once daily [Active]; gabapentin 800 mg Oral tab 1 tab 3 times per day [Active]; Livalo 4 mg Oral tab 1 tab once daily [Active]; Lyrica Oral 300 mg 2 times per day [Active]; metformin 1,000 mg Oral tab 1 tab 2 times per day [Active]; metoclopramide HCl 10 mg Oral tab 1 tab 4 times per day [Active]; metoprolol tartrate 25 mg Oral tab 0.5 tab 2 times per day [Active]; ondansetron HCl 4 mg Oral tab 2 tabs every 8 hours [Active]; Novolin 70/30 Innolet Sub-Q 70-30 unit/mL [Active]; pantoprazole 40 mg Oral TbEC 1 tab 2 times per day [Active]; Stool Softener 100 mg Oral cap [Active]; - PMHx: 03:06 Back pain; Gastroparesis; Diabetes - NIDDM; H.Pylori; High Cholesterol; Hyperlipidemia; jb4 Myocardial infarction; neuropathy; Chronic pain; bowel obstruction; - PSHx: 03:06 Cholecystectomy; jb4 - Immunization history:: Adult Immunizations up to date. - Social history:: Smoking status: Patient denies any tobacco usage or history of. Patient/guardian denies using alcohol, street drugs. Screenin:25 Abuse screen: Denies threats or abuse. Nutritional screening: No deficits noted. jb4 Tuberculosis screening: No symptoms or risk factors identified. Fall Risk None identified. Assessment: 03:25 General: Appears in no apparent distress. uncomfortable, Behavior is calm, cooperative, jb4 appropriate for age. Pain: Complains of pain in scalp, chest and abdomen Pain does not radiate. Pain currently is 10 out of 10 on a pain scale. Neuro: Level of Consciousness is awake, alert, obeys commands, Oriented to person, place, time, situation. Cardiovascular: Patient's skin is warm and dry. Pulses are 3+ in right radial artery, right dorsalis pedis artery, left radial artery and left dorsalis pedis artery Edema pitting to left midcalf, left ankle, left foot, right midcalf, right ankle and right foot Rhythm is sinus rhythm. Respiratory: Reports shortness of breath at rest Airway is patent Respiratory effort is even, labored, Respiratory pattern is regular, symmetrical, Breath sounds are diminished bilaterally. Breath sounds with wheezes in right upper lobe, right middle lobe, right lower lobe, left posterior upper lobe, right posterior upper lobe, left posterior lower lobe, right posterior middle lobe and right posterior lower lobe the patient has mild shortness of breath. GI: Abdomen is round distended, Bowel sounds present X 4 quads. Abd is soft X 4 quads Abdomen is tender to palpation X 4 quads. : No signs and/or symptoms were reported regarding the genitourinary system. EENT: No signs and/or symptoms were reported regarding the EENT system. Derm: Skin is intact, Skin is pink, warm \T\ dry. Musculoskeletal: Circulation, motion, and sensation intact. Capillary refill < 3 seconds, in bilateral fingers. toes. Range of motion: intact in all extremities. 03:35 Reassessment: PT desat to 88% on RA, provider notified, placed on 2L NC. jb4 04:08 Reassessment: Patient appears in no apparent distress at this time. No changes from jb4 previously documented assessment. Patient and/or family updated on plan of care and expected duration. Pain level reassessed. Pt reports that the pain is unchanged, provider notified, no new orders at this time, waiting for labs to result. 05:00 Reassessment: Patient appears in no apparent distress at this time. Patient and/or jb4 family updated on plan of care and expected duration. Pain level reassessed. Patient is alert, oriented x 3, equal unlabored respirations, skin warm/dry/pink. 05:46 Reassessment: Patient appears in no apparent distress at this time. Patient and/or jb4 family updated on plan of care and expected duration. Pain level reassessed. Patient is alert, oriented x 3, equal unlabored respirations, skin warm/dry/pink. Pt continues to report pain has not decreased, provider notified, no new orders at this time. Vital Signs: 03:06 BP 149 / 87; Pulse 82; Resp 18; Temp 98.1(O); Pulse Ox 95% on R/A; Pain 10/10; jb4 04:00 BP 119 / 74; Pulse 75; Resp 21; Pulse Ox 96% on 2 lpm NC; jb4 05:00 BP 124 / 83; Pulse 76; Resp 16; Pulse Ox 96% on 2 lpm NC; jb4 07:59 BP 126 / 81; Pulse 70; Resp 16; Temp 97.8; Pulse Ox 98% on 2 lpm NC; ph ED Course: 02:54 Patient arrived in ED. ag3 02:58 Santi Bedoya MD is Attending Physician. mh7 02:59 James Matos, RN is Primary Nurse. jb4 03:05 Triage completed. jb4 03:06 Arm band placed on right wrist. jb4 03:25 Patient has correct armband on for positive identification. Bed in low position. Call [facility] light in reach. Side rails up X 1. 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 Pulse ox on. NIBP on. 03:38 Initial lab(s) drawn, by me, sent to lab. Inserted saline lock: 20 gauge in right dm5 antecubital area, using aseptic technique. Blood collected. 03:59 XRAY Chest (1 view) In Process Unspecified. EDMS 05:06 CT Abd/Pelvis - Without Contrast In Process Unspecified. EDMS 05:06 CT Head Brain wo Cont In Process Unspecified. EDMS 05:48 Cristo Nuñez is Hospitalizing Provider. [facility] 08:44 No provider procedures requiring assistance completed. Patient admitted, IV remains in ph place. Administered Medications: 03:40 Drug: Reglan 10 mg Route: IVP; Site: right antecubital; jb4 04:10 Follow up: Response: No adverse reaction jb4 03:42 Drug: morphine 4 mg Route: IVP; Site: right antecubital; jb4 04:08 Follow up: Response: No adverse reaction; No change in condition; Pain is unchanged, jb4 physician notified 04:06 Drug: Lasix 20 mg Route: IVP; Site: right antecubital; jb4 04:30 Follow up: Response: No adverse reaction jb4 05:41 Drug: Lasix 20 mg Route: IVP; Site: right antecubital; jb4 06:44 Follow up: Response: No adverse reaction jb4 Outcome: 05:49 Decision to Hospitalize by Provider. [facility] 08:44 Admitted to Tele accompanied by tech, via wheelchair, room 412, with oxygen, with chart.ph 08:44 Condition: stable 08:44 Instructed on the need for admit. 08:44 Patient left the ED. Signatures: Dispatcher [employer] Sandra Carmona RN RN Srai Johnson RN RN ph Bryson, James, RN RN jb4 Wendi Foster Maurice, MD MD 7 Corrections: (The following items were deleted from the chart) 03:33 03:06 Allergies: Codeine; jb4 jb4 03:33 03:06 Allergies: Demerol; jb4 jb4 03:51 03:25 Respiratory: Reports shortness of breath at rest Airway is patent Respiratory jb4 effort is even, labored, Respiratory pattern is regular, symmetrical, Breath sounds are clear bilaterally. the patient has mild shortness of breath jb4
--- NOTE | 2020-07-23 05:50 | EDPHYS ---
Physician Documentation [facility] Name: Florentino Acosta Age: 54 yrs Sex: Male : 1965 Arrival Date: 07/23/2020 Time: 02:54 Bed 14 Private MD: ED Physician Santi Bedoya HPI: 07/23 03:24 This 54 yrs old Male presents to ER via Ambulatory with complaints of mh7 Abdominal Pain. 03:24 The patient presents with abdominal pain that is diffuse. Onset: The symptoms/episode mh7 began/occurred last night. The symptoms do not radiate. 03:25 Associated signs and symptoms: Pertinent positives: chest pain, headache, Pertinent mh7 negatives: nausea, vomiting, and diarrhea, nausea and vomiting, anorexia, blood in stools, constipation, diarrhea, dysuria, fever, hematuria, nausea, palpitations, testicular pain, vomiting, vomiting blood. The symptoms are described as intermittent, vague, waxing/waning. Modifying factors: The symptoms are alleviated by nothing, the symptoms are aggravated by nothing. Severity of pain: At its worst the pain was moderate last night, in the emergency department the pain is unchanged. The patient has experienced similar episodes in the past, multiple times. Historical: - Allergies: 03:06 Hydrocodone-Acetaminophen; jb4 03:06 Vioxx; jb4 03:06 Zoloft; jb4 - Home Meds: 03:06 aspirin 81 mg Oral TbEC [Active]; dicyclomine 10 mg Oral cap 1 cap 4 times per day jb4 [Active]; furosemide 20 mg Oral tab 1 tab once daily [Active]; gabapentin 800 mg Oral tab 1 tab 3 times per day [Active]; Livalo 4 mg Oral tab 1 tab once daily [Active]; Lyrica Oral 300 mg 2 times per day [Active]; metformin 1,000 mg Oral tab 1 tab 2 times per day [Active]; metoclopramide HCl 10 mg Oral tab 1 tab 4 times per day [Active]; metoprolol tartrate 25 mg Oral tab 0.5 tab 2 times per day [Active]; ondansetron HCl 4 mg Oral tab 2 tabs every 8 hours [Active]; Novolin 70/30 Innolet Sub-Q 70-30 unit/mL [Active]; pantoprazole 40 mg Oral TbEC 1 tab 2 times per day [Active]; Stool Softener 100 mg Oral cap [Active]; - PMHx: 03:06 Back pain; Gastroparesis; Diabetes - NIDDM; H.Pylori; High Cholesterol; Hyperlipidemia; jb4 Myocardial infarction; neuropathy; Chronic pain; bowel obstruction; - PSHx: 03:06 Cholecystectomy; jb4 - Immunization history:: Adult Immunizations up to date. - Social history:: Smoking status: Patient denies any tobacco usage or history of. Patient/guardian denies using alcohol, street drugs. ROS: 03:25 Constitutional: Negative for fever, chills, and weight loss, Eyes: Negative for injury, mh7 pain, redness, and discharge, ENT: Negative for injury, pain, and discharge, Neck: Negative for injury, pain, and swelling, Back: Negative for injury and pain, : Negative for injury, bleeding, discharge, and swelling, MS/Extremity: Negative for injury and deformity, Skin: Negative for injury, rash, and discoloration, Psych: Negative for depression, anxiety, suicide ideation, homicidal ideation, and hallucinations, Allergy/Immunology: Negative for hives, rash, and allergies, Endocrine: Negative for neck swelling, polydipsia, polyuria, polyphagia, and marked weight changes, Hematologic/Lymphatic: Negative for swollen nodes, abnormal bleeding, and unusual bruising. Exam: 05:42 Head/Face: Normocephalic, atraumatic. Eyes: Pupils equal round and reactive to light, mh7 extra-ocular motions intact. Lids and lashes normal. Conjunctiva and sclera are non-icteric and not injected. Cornea within normal limits. Periorbital areas with no swelling, redness, or edema. Neck: Trachea midline, no thyromegaly or masses palpated, and no cervical lymphadenopathy. Supple, full range of motion without nuchal rigidity, or vertebral point tenderness. No Meningismus. Chest/axilla: Normal chest wall appearance and motion. Nontender with no deformity. No lesions are appreciated. Cardiovascular: Regular rate and rhythm with a normal S1 and S2. No gallops, murmurs, or rubs. Normal PMI, no JVD. No pulse deficits. 05:42 Back: No spinal tenderness. No costovertebral tenderness. Full range of motion. Skin: Warm, dry with normal turgor. Normal color with no rashes, no lesions, and no evidence of cellulitis. MS/ Extremity: Pulses equal, no cyanosis. Neurovascular intact. Full, normal range of motion. Neuro: Awake and alert, GCS 15, oriented to person, place, time, and situation. Cranial nerves II-XII grossly intact. Motor strength 5/5 in all extremities. Sensory grossly intact. Cerebellar exam normal. Normal gait. Psych: Awake, alert, with orientation to person, place and time. Behavior, mood, and affect are within normal limits. 05:42 Constitutional: The patient appears in no acute distress, alert, awake, uncomfortable. 05:42 Respiratory: the patient does not display signs of respiratory distress, Respirations: normal, Breath sounds: rales, that are mild, are located in both bases, rhonchi, that are mild, are scattered, Respiratory rate: 18 05:42 Abdomen/GI: Inspection: obese Bowel sounds: normal, in all quadrants, Palpation: moderate abdominal tenderness, in all quadrants, Rectal exam: the exam is deferred, because of patient request, Indicators: McBurney's point is not tender, Dacosta's sign is negative, Rovsing's sign is negative, Obturator sign is negative, Psoas sign is negative, Liver: no appreciated palpable abnormalities, Hernia: not appreciated. Vital Signs: 03:06 BP 149 / 87; Pulse 82; Resp 18; Temp 98.1(O); Pulse Ox 95% on R/A; Pain 10/10; jb4 04:00 BP 119 / 74; Pulse 75; Resp 21; Pulse Ox 96% on 2 lpm NC; jb4 05:00 BP 124 / 83; Pulse 76; Resp 16; Pulse Ox 96% on 2 lpm NC; jb4 07:59 BP 126 / 81; Pulse 70; Resp 16; Temp 97.8; Pulse Ox 98% on 2 lpm NC; ph MDM: 05:42 Differential diagnosis: appendicitis, bowel obstruction, cholecystitis, Cholelithiasis, mh7 diverticulitis, gastritis, gastroesophageal reflux disease, non-specific abd pain, pancreatitis, Pyelonephritis, Ureterolithiasis, urinary tract infection, Chest pain, CHF. Data reviewed: vital signs, nurses notes, old medical records, lab test result(s), cardiac enzymes, CBC, electrolytes, urinalysis. Data interpreted: Pulse oximetry: on 2L(s) per nasal canula, is 96 %. Interpretation: acceptable. Counseling: I had a detailed discussion with the patient and/or guardian regarding: the historical points, exam findings, and any diagnostic results supporting the discharge/admit diagnosis, lab results, radiology results, the need for further work-up and treatment in the hospital. Response to treatment: the patient's symptoms have mildly improved after treatment. 05:49 Patient medically screened. [facility] 07/23 03:11 Order name: Basic Metabolic Panel; Complete Time: 04:15 [facility] 07/23 03:11 Order name: CBC with Diff; Complete Time: 04:15 [facility] 07/23 03:11 Order name: LFT's; Complete Time: 04:15 [facility] 07/23 03:11 Order name: Magnesium; Complete Time: 04:15 [facility] 07/23 03:11 Order name: NT PRO-BNP; Complete Time: 04:15 [facility] 07/23 03:11 Order name: PT-INR; Complete Time: 04:15 [facility] 07/23 03:11 Order name: Troponin (emerg Dept Use Only); Complete Time: 04:15 [facility] 07/23 03:11 Order name: Lipase; Complete Time: 04:15 [facility] 07/23 03:40 Order name: Glucose, Ancillary Testing; Complete Time: 03:52 [facility] 07/23 06:07 Order name: Basic Metabolic Panel [facility] 07/23 06:07 Order name: Basic Metabolic Panel [facility] 07/23 06:07 Order name: CBC with Automated Diff [facility] 07/23 03:11 Order name: XRAY Chest (1 view) [facility] 07/23 06:07 Order name: CBC with Automated Diff [facility] 07/23 06:07 Order name: Lipid Profile [facility] 07/23 06:07 Order name: Lipid Profile [facility] 07/23 06:07 Order name: Magnesium [facility] 07/23 06:07 Order name: Magnesium [facility] 07/23 06:07 Order name: T4 Free [facility] 07/23 06:07 Order name: T4 Free [facility] 07/23 06:07 Order name: Thyroid Stimulating Hormone [facility] 07/23 06:07 Order name: Thyroid Stimulating Hormone [facility] 07/23 06:07 Order name: Troponin I [facility] 07/23 06:07 Order name: Troponin I [facility] 07/23 06:07 Order name: Troponin I [facility] 07/23 06:40 Order name: SARS-COV-2 RT PCR [facility] 07/23 06:46 Order name: Urine Dipstick--Ancillary (enter results) [facility] 07/23 08:40 Order name: Urine Dipstick-Ancillary [facility] 07/23 03:11 Order name: EKG; Complete Time: 03:12 [facility] 07/23 03:11 Order name: Cardiac monitoring; Complete Time: 03:32 [facility] 07/23 03:11 Order name: EKG - Nurse/Tech; Complete Time: 03:32 [facility] 07/23 03:11 Order name: IV Saline Lock; Complete Time: 03:44 [facility] 07/23 03:11 Order name: Labs collected and sent; Complete Time: 03:44 [facility] 07/23 03:11 Order name: O2 Per Protocol; Complete Time: 03:32 [facility] 07/23 03:11 Order name: O2 Sat Monitoring; Complete Time: 03:32 [facility] 07/23 03:11 Order name: Urine Dipstick-Ancillary (obtain specimen); Complete Time: 06:44 [facility] 07/23 04:09 Order name: CT Abd/Pelvis - Without Contrast [facility] 07/23 04:09 Order name: CT Head Brain wo Cont [facility] 07/23 06:07 Order name: CONS Physician Consult [facility] 07/23 06:07 Order name: Consistent Carb (ADA) [address] [facility] Administered Medications: 03:40 Drug: Reglan 10 mg Route: IVP; Site: right antecubital; jb4 04:10 Follow up: Response: No adverse reaction jb4 03:42 Drug: morphine 4 mg Route: IVP; Site: right antecubital; jb4 04:08 Follow up: Response: No adverse reaction; No change in condition; Pain is unchanged, jb4 physician notified 04:06 Drug: Lasix 20 mg Route: IVP; Site: right antecubital; jb4 04:30 Follow up: Response: No adverse reaction jb4 05:41 Drug: Lasix 20 mg Route: IVP; Site: right antecubital; jb4 06:44 Follow up: Response: No adverse reaction 4 Disposition: 07/23/20 05:49 Hospitalization ordered by Cristo Nuñez for Inpatient Admission. Preliminary diagnosis are CHF Exacerbation, Acute on Chronic Renal Failure, Abdominal Pain. - Bed requested for Telemetry/MedSurg (Inpatient). - Status is Inpatient Admission. ph - Condition is Stable. - Problem is an acute exacerbation. - Symptoms have improved. Signatures: Dispatcher [employer] EDFL Jessie Burks RN RN dw Billy Bauer, JUNIOR COPYWRITER-C JUNIOR COPYWRITER-Cla1 Sari Monaco RN RN James Canas RN RN jb4 Santi Bedoya MD MD mh7 Corrections: (The following items were deleted from the chart) 03:33 03:06 Allergies: Codeine; jb4 jb4 03:33 03:06 Allergies: Demerol; jb4 jb4 05:12 04:36 CORONAVIRUS+MR.LAB.BRZ ordered. EDFL EDMS 06:06 04:08 URINE DRUG SCREEN+CHEM UR.LAB.BRZ ordered. EDFL EDMS 07:25 05:49 Hospitalization Ordered by Cristo Nuñez for Inpatient Admission. Preliminary dw diagnosis is CHF Exacerbation; Acute on Chronic Renal Failure; Abdominal Pain. Bed requested for Telemetry/MedSurg (Inpatient). Status is Inpatient Admission. Condition is Stable. Problem is an acute exacerbation. Symptoms have improved. mh7 08:44 07:25 07/23/2020 05:49 Hospitalization Ordered by Cristo Nuñez for Inpatient ph Admission. Preliminary diagnosis is CHF Exacerbation; Acute on Chronic Renal Failure; Abdominal Pain. Bed requested for Telemetry/MedSurg (Inpatient). Status is Inpatient Admission. Condition is Stable. Problem is an acute exacerbation. Symptoms have improved. dw
[2020-07-23] MEDS ORDERED: ONDANSETRON 4 MG/2 ML VIAL IV PRN (06:02)
[2020-07-23] MEDS ORDERED: ACETAMINOPHEN 500 MG TAB PO PRN (06:02)
[2020-07-23] MEDS ORDERED: MORPHINE 4 MG/ML SYR IV PRN (06:02)
[2020-07-23] MEDS: carvediloL 25 MG TAB PO SCH ×2 (06:02→17:31)
[2020-07-23] MEDS ORDERED: METOCLOPRAMIDE 10 MG/2mL INJ IV PRN (06:02)
[2020-07-23] MEDS ORDERED: MORPHINE 2 MG/ML SYR IV ONE (06:06)
[2020-07-23] MEDS ORDERED: MORPHINE 2 MG/ML SYR ONE (06:33)
[2020-07-23] MEDS: INSULIN -REGULAR HUMAN 50 UNIT/0.5 ML ML SQ SCH ×4 (07:30→20:08)
[2020-07-23 08:40] LABS: Urine Blood 1+ (NEG); Urine Glucose TRACE (NEG); Urine Protein 3+ (NEG); Urine pH 5.5 (5.0-7.0)
[2020-07-23] MEDS: FUROSEMIDE 40 MG/4 ML VIAL IV SCH ×2 (09:00→17:31)
[2020-07-23] MEDS: AMLODIPINE 5 MG TAB PO SCH ×2 (09:51→20:06)
[2020-07-23] MEDS: HEPARIN 5000 UNIT/ML 1 ML VIAL SQ SCH ×2 (09:52→20:05)
--- NOTE | 2020-07-23 10:44 | CON ---
Date of Consultation: 07/23/2020 Reason For Consultation: Congestive heart failure. History Of Present Illness: Mr. Acosta is a 54-year-old male with history of hyperte nsion, diabetes, dyslipidemia, coronary artery disease, gastroesophageal reflux disease, neuropathy, and chronic renal disease. Came in with abdominal pain. Chest x-ray showed possible CHF. The patie nt denied any PND, orthopnea, palpitation, or syncope. Has some pedal edema. Denied chest pain, davina sea, vomiting, diaphoresis, palpitation, or syncope. Past Medical History: As stated above. Allergies: INCLUDE DIHYDROCODEINE, VIOXX, AND SERTRALINE. Review of Systems: Negative. Social History: Negative. Family History: Noncontributory. Medications: At home include aspirin, Protonix, pravastatin, insulin, Lasix, metformin, metoprolol, and Lyrica. Physical Examination: Vital Signs: Stable, afebrile, sinus rhythm. HEENT: Negative. Neck: Supple with no bruit, lymphadenopathy, JVD, or thyromegaly. Chest: Revealed some rales both bases. Cardiac: Revealed a regular rhythm and rate with an S4 gallops. No murmurs or rubs. Abdomen: Benign. Extremities: Revealed no clubbing, cyanosis. 1+ edema. Skin: Dry and intact. Neurologic: Nonfocal. Pulses present distally bilaterally. Diagnostic Data: Showed a white count is . BNP is 3839. Troponin is 0.09. Hemoglobin 9. 5, and creatinine 3.0. Impression And Plan: 1.Possible acute diastolic congestive heart failure. 2.Renal insufficiency, severe. Dr. Hastings will be seeing the patient today. 3.Anemia. 4.Elevated white count. 5.Elevated BNP and troponin secondary to renal failure and congestive heart failure. This is not an acute coronary syndrome. 6.Hypertension, well controlled. 7.Diabetes, poorly controlled. 8.Dyslipidemia, well controlled. 9.History of coronary artery disease. I do not have much details on that. 10.Gastroesophageal reflux disease. 11.Neuropathy. The patient presently is on appropriate regimen with aspirin, insulin, IV Lasix, bet a-blockers, and metformin as well as pravastatin and Protonix. He is not a candidate for BENNY inhibit ors or angiotensin receptor blockers. We have to be careful with diuresing him regarding his creatin ine. We should watch his O's and I's, daily weight, and renal function very carefully. Echocardiogr am is pending for Friday and we will see what that shows. Sometime down the road, he should have a n uclear stress test as an outpatient to document the severity of his coronary artery disease. We will continue to follow him. PETRA/THEE Voice ID: [id number] Report ID: [id number]
--- NOTE | 2020-07-23 10:56 | RAD REPORT ---
EXAM DESCRIPTION: RAD - Chest Single View - 07/23/2020 3:59 am CLINICAL HISTORY: CHEST PAIN Chest pain. COMPARISON: Chest Single View dated 05/05/2018; Chest Single View dated 07/01/2017; CHEST SINGLE VIEW dated 06/16/2015; CHEST SINGLE VIEW dated 10/26/2014 FINDINGS: Portable technique limits examination quality. Bilateral pulmonary opacities are present may represent pulmonary edema or interstitial pneumonia/ br onchitis. The cardiac silhouette is upper limit of normal size. No displaced fractures.
--- NOTE | 2020-07-23 10:58 | P.PN ---
Date of Service: 07/23/20 Patient seen and examined. He is complaining of abdominal pain. Noted he has ascites. Plan: Continue IV Lasix Monitor intake and output Fluid restriction Echocardiogram. Cardiology to follow.
--- NOTE | 2020-07-23 14:44 | RAD REPORT ---
EXAM DESCRIPTION: CT Abdomen and Pelvis Without Intravenous Contrast CLINICAL HISTORY: The patient is 54 years old and is Male; ABD PAIN TECHNIQUE: Axial computed tomography images of the abdomen and pelvis without intravenous contrast. Sagittal and coronal reformatted images were created and reviewed. This CT exam was performed usi ng one or more of the following dose reduction techniques: automated exposure control, adjustment o f the mA and/or kV according to patient size, and/or use of iterative reconstruction technique. COMPARISON: CT of the abdomen and pelvis February 14, 2020 FINDINGS: LUNG BASES: Dependent atelectasis in the lung bases is noted. PLEURAL SPACE: Small bilateral pleural effusions are present. ABDOMEN: LIVER: Homogeneous without focal mass. GALLBLADDER AND BILE DUCTS: Surgical clips are present in the right upper quadrant, consistent wi th previous cholecystectomy. PANCREAS: Unremarkable. No ductal dilation. SPLEEN: Unremarkable. ADRENALS: Unremarkable. No mass. KIDNEYS AND URETERS: Nonspecific bilateral perinephric stranding is present. No obstructing renal or ureteral calculus is seen. There is no hydronephrosis or hydroureter of either kidney. STOMACH AND BOWEL: The stomach is distended with food contents. Small bowel is relatively normal in caliber. A moderate amount of stool is present throughout colon. There is no mucosal thickening or evidence of bowel obstruction. PELVIS: APPENDIX: The appendix is normal in caliber without surrounding inflammation. BLADDER: The bladder is well distended. No stones. REPRODUCTIVE: Unremarkable as visualized. ABDOMEN and PELVIS: INTRAPERITONEAL SPACE: Unremarkable. No free air. No significant fluid collection. BONES/JOINTS: No acute fracture. SOFT TISSUES: Mild diffuse body wall edema is present. VASCULATURE: Unremarkable. No abdominal aortic aneurysm. LYMPH NODES: Prominent bilateral inguinal chain lymph nodes are noted, similar to prior exam. IMPRESSION: 1. Small bilateral pleural effusions with minimal dependent atelectasis. 2. Moderate stool burden without obstruction. Normal appendix. No renal or ureteral calculus. Electronically signed by: Shanna Lazaro MD 07/23/2020 5:18 AM LEGISLATIVE ADVOCATE Due to temporary technical issues with the PACS/Fluency reporting system, reports are being signed by the in house radiologists without review as a courtesy to insure prompt reporting. The interpreting radiologist is fully responsible for the content of the report.
--- NOTE | 2020-07-23 14:46 | RAD REPORT ---
EXAM DESCRIPTION: CT Head Without Intravenous Contrast CLINICAL HISTORY: The patient is 54 years old and is Male; HEADACHE TECHNIQUE: Axial computed tomography images of the head/brain without intravenous contrast. Sagitt al and coronal reformatted images were created and reviewed. This CT exam was performed using one o r more of the following dose reduction techniques: automated exposure control, adjustment of the mA and/or kV according to patient size, and/or use of iterative reconstruction technique. COMPARISON: CT head August 30, 2017. FINDINGS: Brain: Unremarkable. No hemorrhage. No significant white matter disease. No edema. Ventricles: Unremarkable. No ventriculomegaly. Bones/joints: Unremarkable. No acute skull fracture. Soft tissues: Unremarkable. Sinuses: Unremarkable as visualized. No acute sinusitis. Mastoid air cells: No significant mastoid fluid. IMPRESSION: No acute intracranial findings. No hemorrhage. Electronically signed by: Lizette Alba MD 07/23/2020 5:13 AM BLENDER CONVEYOR OPERATOR Due to temporary technical issues with the PACS/Fluency reporting system, reports are being signed by the in house radiologists without review as a courtesy to insure prompt reporting. The interpreting radiologist is fully responsible for the content of the report.
[2020-07-23] MEDS: MORPHINE 2 MG/ML SYR IV PRN ×2 (17:32→23:29)
[2020-07-23] MEDS: DICYCLOMINE HCL 10 MG CAP PO SCH (20:05)
[2020-07-23] MEDS: PREGABALIN 150 MG CAP PO SCH (20:05)
[2020-07-23] MEDS: PANTOPRAZOLE 40MG TABLET PO SCH (20:06)
[2020-07-23] MEDS: ATORVASTATIN 80 MG TAB PO SCH (20:06)
[2020-07-24] MEDS: TRAZODONE 50 MG TABLET PO PRN ×2 (02:17→21:37)
[2020-07-24 04:38] LABS: Hematocrit 27.7 % (39.6-49.0); Lymphocytes % 19.4 % (15.3-44.8); RBC Red Blood Cell Count 3.23 M/uL (4.33-5.43)
[2020-07-24 04:58] LABS: Magnesium 2.3 mg/dL (1.8-2.4); Potassium 4.8 mmol/L (3.5-5.1); Thyroid Stimulating Hormone 1.75 uIU/mL (0.360-3.740)
[2020-07-24] MEDS: carvediloL 25 MG TAB PO SCH (05:01)
[2020-07-24 06:02] VITALS: BMI 34.0
--- NOTE | 2020-07-24 06:47 | P.CNS ---
Date of Consult: 07/24/20 Reason for Consult: OMAIRA/ CKD Requesting Physician: adela dinh Chief Complaint: CHF exacerbation History of Present Illness: 54-year-old male with history of diabetes mellitus type 2, gastroparesis, hypertension, chronic kidney disease presents emergency department for abdominal pain, shortness of breath. Patient reports that he has been having edema of the lower extremities and shortness of breath over the course of the last couple of weeks. Patient reports admission to [facility] recently for hypertensive urgency. Patient had medications adjusted including discontinuation of lisinopril and metformin. Patient saw nephrology while he was in the hospital there. Patient has not followed up on an outpatient basis with nephrology, has not seen Cardiology at all. Patient currently prescribed Lasix 20 mg p.o. daily by his primary care provider but is unsure why he is prescribed medication. Patient is poor historian, reports that [facility] placed him on a 1.5 L per day fluid restriction but is unsure why. Patient likely hospitalized with new onset CHF at [facility] but states that they never told him he had a heart failure. Patient's workup in the emergency department was significant for chest x-ray showing moderate pulmonary edema, elevated BNP 3839 and mildly elevated troponin 0.09. creatinine 3.00 GFR 20 to be 137 baseline GFR appears to be around 35. On exam patient noted to have bibasilar crackles and pitting edema to the lower extremities. Patient was also mildly hypoxic on room air with saturations 80% in the emergency department. Denies NSAIDs. Denies difficulty with urination. 03:24 This 54 yrs old Male presents to ER via Ambulatory with complaints of mh7 Abdominal Pain. 03:24 The patient presents with abdominal pain that is diffuse. Onset: The symptoms/episode mh7 began/occurred last night. The symptoms do not radiate. 03:25 Associated signs and symptoms: Pertinent positives: chest pain, headache, Pertinent mh7 negatives: nausea, vomiting, and diarrhea, nausea and vomiting, anorexia, blood in stools, constipation, diarrhea, dysuria, fever, hematuria, nausea, palpitations, testicular pain, vomiting, vomiting blood. The symptoms are described as intermittent, vague, waxing/waning. Modifying factors: The symptoms are alleviated by nothing, the symptoms are aggravated by nothing. Severity of pain: At its worst the pain was moderate last night, in the emergency department the pain is unchanged. The patient has experienced similar episodes in the past, multiple times. Allergies rofecoxib [From Vioxx] Allergy (Mild, Verified 02/11/20 20:12) Hives sertraline HCl [From Zoloft] Allergy (Mild, Verified 02/11/20 20:12) Hives hydrocodone Adverse Reaction (Verified 02/11/20 20:12) Hives/Rash Codeine Adverse Reaction (Uncoded 02/11/20 20:12) Itching Home medications list reviewed: Yes Home Medications: Acetaminophen 325 mg PO PRN PRN 07/23/20 Amlodipine [Norvasc*] 1 tab PO BID 07/23/20 Atorvastatin Calcium [Lipitor] 40 mg PO BEDTIME 07/23/20 Carvedilol [Coreg] 1 tab PO BID 07/23/20 Dicyclomine [Bentyl*] 1 tab PO QID 07/23/20 Docusate [Colace Cap*] 1 cap PO DAILY PRN 07/23/20 Furosemide 20 mg PO DAILY 07/23/20 Insulin NPH Hum/Reg Insulin Hm [Novolin 70-30 100 Unit/ml Vial] 40 units SQ SEECOM 07/23/20 Metformin ER [Glucophage ER] 1,000 mg PO BID 07/23/20 Metoclopramide [Reglan*] 10 mg PO ACHS 07/23/20 Ondansetron [Zofran] 4 mg PO Q8H PRN 07/23/20 Pantoprazole [Protonix Tab*] 1 tab PO BID 07/23/20 Pitavastatin Calcium [Livalo] 1 tab PO BEDTIME 07/23/20 Pregabalin [Lyrica] 1 tab PO BID 07/23/20 Trazodone [Desyrel*] 1 tab PO BEDTIME 07/23/20 cloNIDine HCL [Clonidine HCl] 1 tab PO BID PRN 07/23/20 - Past Medical/Surgical History Diabetic: Yes -: Diabetes mellitus type 2; on insulin -: Hypertension -: CAD, no stents -: Diabetic neuropathy -: Gastroparesis -: Cataracts both eyes -: 2009- 2 heart attacks -: L1-s2 compression for surgery in March 01 in [facility] -: CHF -: Cholecystectomy -: Heart catheterization, no stents Psychosocial/ Personal History: Patient is . He has 4 children. Currently unemployed - Family History Mother Medical History: Hypertension, Diabetes Father Medical History: Liver disease Notes: - alcoholic - Social History Smoking Status: Unknown if ever smoked Alcohol use: No CD- Drugs: No Caffeine use: Yes Place of Residence: Home Review of Systems 10-point ROS is otherwise unremarkable General: Weakness, Malaise Respiratory: SOB with Excertion Cardiovascular: Edema Neurological: Weakness Physical Examination Temp Pulse Resp BP Pulse Ox 98.2 F 73 18 110/73 96 07/24/20 04:00 07/24/20 05:01 07/24/20 04:00 07/24/20 05:01 07/24/20 04:00 General: Oriented x3, Cooperative HEENT: Atraumatic Neck: JVD distended Respiratory: Crackles/rales Cardiovascular: Regular rate/rhythm, Edema Gastrointestinal: Soft and benign, Non-distended Musculoskeletal: No clubbing, No erythema Integumentary: No rashes, No cyanosis Neurological: Normal speech Blood work reviewed in the chart. Imagings Data: EXAM DESCRIPTION: RAD - Chest Single View - 07/23/2020 3:59 am CLINICAL HISTORY: CHEST PAIN Chest pain. COMPARISON: Chest Single View dated 05/05/2018; Chest Single View dated 07/01/2017; CHEST SINGLE VIEW dated 06/16/2015; CHEST SINGLE VIEW dated 10/26/2014 FINDINGS: Portable technique limits examination quality. Bilateral pulmonary opacities are present may represent pulmonary edema or interstitial pneumonia/ bronchitis. The cardiac silhouette is upper limit of normal size. No displaced fractures. EXAM DESCRIPTION: CT Abdomen and Pelvis Without Intravenous Contrast CLINICAL HISTORY: The patient is 54 years old and is Male; ABD PAIN TECHNIQUE: Axial computed tomography images of the abdomen and pelvis without intravenous contrast. Sagittal and coronal reformatted images were created and reviewed. This CT exam was performed using one or more of the following dose reduction techniques: automated exposure control, adjustment of the mA and/or kV according to patient size, and/or use of iterative reconstruction technique. COMPARISON: CT of the abdomen and pelvis February 14, 2020 FINDINGS: LUNG BASES: Dependent atelectasis in the lung bases is noted. PLEURAL SPACE: Small bilateral pleural effusions are present. ABDOMEN: LIVER: Homogeneous without focal mass. GALLBLADDER AND BILE DUCTS: Surgical clips are present in the right upper quadrant, consistent with previous cholecystectomy. PANCREAS: Unremarkable. No ductal dilation. SPLEEN: Unremarkable. ADRENALS: Unremarkable. No mass. KIDNEYS AND URETERS: Nonspecific bilateral perinephric stranding is present. No obstructing renal or ureteral calculus is seen. There is no hydronephrosis or hydroureter of either kidney. STOMACH AND BOWEL: The stomach is distended with food contents. Small bowel is relatively normal in caliber. A moderate amount of stool is present throughout colon. There is no mucosal thickening or evidence of bowel obstruction. PELVIS: APPENDIX: The appendix is normal in caliber without surrounding inflammation. BLADDER: The bladder is well distended. No stones. REPRODUCTIVE: Unremarkable as visualized. ABDOMEN and PELVIS: INTRAPERITONEAL SPACE: Unremarkable. No free air. No significant fluid collection. BONES/JOINTS: No acute fracture. SOFT TISSUES: Mild diffuse body wall edema is present. VASCULATURE: Unremarkable. No abdominal aortic aneurysm. LYMPH NODES: Prominent bilateral inguinal chain lymph nodes are noted, similar to prior exam. IMPRESSION: 1. Small bilateral pleural effusions with minimal dependent atelectasis. 2. Moderate stool burden without obstruction. Normal appendix. No renal or ureteral calculus. Conclusions/Impression: A/ OMAIRA may be CRS Hypocalcemia CKD IIIb HTN with CKD/ CHF Diastolic CHF, A/C DM II with CKD & polyneuropathy Moderate malnutrition Anemia in chronic illness P/ Continue current POC and Medications. Continue furosemide. Give a dose of metolazone. Hold parameter for amlodipine to avoid hypotension. Start Vitamin D. Echocardiogram pending. ADA diet with 2g Na restriction. No NSAIDs. AM labs. Daily weight. Thank you kindly for the consultation.
[2020-07-24] MEDS ORDERED: AMLODIPINE 5 MG TAB PO SCH (06:49)
[2020-07-24] MEDS: INSULIN -REGULAR HUMAN 50 UNIT/0.5 ML ML SQ SCH ×4 (08:07→21:36)
[2020-07-24] MEDS: METOLAZONE 5 MG TABLET PO SCH (08:08)
[2020-07-24] MEDS: FUROSEMIDE 40 MG/4 ML VIAL IV SCH ×2 (08:08→17:13)
[2020-07-24] MEDS: CALCITROL 0.25 MCG CAP PO SCH (08:08)
[2020-07-24] MEDS: DICYCLOMINE HCL 10 MG CAP PO SCH ×4 (08:08→21:34)
[2020-07-24] MEDS: VITAMIN D 5,000 UNIT CAP PO SCH (08:08)
[2020-07-24] MEDS: PANTOPRAZOLE 40MG TABLET PO SCH ×2 (08:09→21:34)
[2020-07-24] MEDS: HEPARIN 5000 UNIT/ML 1 ML VIAL SQ SCH ×2 (08:09→21:35)
[2020-07-24] MEDS: PREGABALIN 150 MG CAP PO SCH ×2 (08:09→21:40)
--- NOTE | 2020-07-24 09:09 | RAD REPORT ---
EXAM DESCRIPTION: US - Renal Ultrasound-Complete - 07/24/2020 8:41 am CLINICAL HISTORY: OMAIRA/ CKD Flank pain COMPARISON: Abdomen Pelvis Wo Contrast dated 07/23/2020 FINDINGS: Both kidneys are normal in size, shape and echotexture. The right kidney measures 10.1 x 6.4 x 4.9 cm. No hydronephrosis, focal mass or perinephric fluid. The left kidney measures 10.5 x 5.8 x 4.9 cm. No hydronephrosis, focal mass or perinephric fluid. The urinary bladder is incompletely distended without gross abnormality seen. IMPRESSION: Unremarkable renal sonogram.
--- NOTE | 2020-07-24 15:17 | ECHO ---
HEIGHT: 5 ft 4 in WEIGHT: 198 lb 0 oz DATE OF STUDY: 07/24/[address]: Flaco Florentino MD 2-DIMENSIONAL: YES M.MODE: YES DOPPLER: YES COLOR FLOW: YES TDS: YES PORTABLE: DEFINITY: BUBBLE STUDY: DIAGNOSIS: CONGESTIVE HEART FAILURE CARDIAC HISTORY: CATHERIZATION: SURGERY: PROSTHETIC VALVE: PACEMAKER: MEASUREMENTS (cm) DIASTOLIC (NORMALS) SYSTOLIC (NORMALS) IVSd 0.8 (0.6-1.2) LA Diam 4.0 (1.9-4.0) LVEF 55-60% LVIDd 5.0 (3.5-5.7) LVIDs 2.9 (2.0-3.5) %FS 42% LVPWd 1.0 (0.6-1.2) Ao Diam 2.9 (2.0-3.7) 2 DIMENSIONAL ASSESSMENT: RIGHT ATRIUM: NORMAL LEFT ATRIUM: NORMAL RIGHT VENTRICLE: NORMAL LEFT VENTRICLE: NORMAL TRICUSPID VALVE: NORMAL MITRAL VALVE: NORMAL PULMONIC VALVE: NORMAL AORTIC VALVE: NORMAL PERICARDIAL EFFUSION: NONE AORTIC ROOT: NORMAL LEFT VENTRICULAR WALL MOTION: NORMAL DOPPLER/COLOR FLOW: NORMAL COMMENTS: NORMAL LEFT VENTRICULAR EJECTION FRACTION 55-60%. NORMAL WALL MOTION. MILD MITRAL REGURGITATION AND TRACE TRICUSPID REGURGITATION. TECHNOLOGIST: LINDEN MASON
[2020-07-24] MEDS: carvediloL 6.25 MG TAB PO SCH (17:13)
--- NOTE | 2020-07-24 18:28 | P.PN ---
Subjective Date of Service: 07/24/20 Chief Complaint: CHF exacerbation No major changes from yesterday. Patient is diuresing well. Physical Examination - Vital Signs Temperature: 97.4 F Blood Pressure: 122/75 Pulse: 75 Respirations: 17 Pulse Ox (%): 99 - Physical Exam General: Alert, In no apparent distress HEENT: Mucous membr. moist/pink Neck: Supple, JVD not distended Respiratory: Clear to auscultation bilaterally, Normal air movement Cardiovascular: Regular rate/rhythm, Normal S1 S2, Edema (Bilateral lower extremeties) Gastrointestinal: Normal bowel sounds, Soft and benign, No tenderness, Distended (Mildly distended), Ascites (Possible ascites) Musculoskeletal: No erythema Integumentary: No rashes Neurological: Normal speech, Normal strength at 5/5 x4 extr Assessment And Plan - Plan Echocardiogram reviewed: Normal EF. Anasarca likely secondary to renal insufficiency. Continue IV Lasix. Monitor renal function closely. Nephrology is following.
[2020-07-24] MEDS: ATORVASTATIN 80 MG TAB PO SCH (21:34)
[2020-07-24] MEDS: MORPHINE 2 MG/ML SYR IV PRN (21:40)
[2020-07-25 05:01] LABS: Albumin 2.7 g/dL (3.4-5.0); Bilirubin Total 0.2 mg/dL (0.2-1.0); Magnesium 2.2 mg/dL (1.8-2.4); Phosphorus 5.7 mg/dL (2.5-4.9); Potassium 4.2 mmol/L (3.5-5.1); Protein, Total 6.4 g/dL (6.4-8.2); Uric Acid 7.1 mg/dL (3.5-7.2)
[2020-07-25] MEDS: carvediloL 6.25 MG TAB PO SCH ×2 (06:08→17:05)
--- NOTE | 2020-07-25 07:55 | P.PN ---
Date of Service: 07/25/20 Vital Signs Temp Pulse Resp BP Pulse Ox 98.3 F 80 16 110/63 98 07/25/20 04:00 07/25/20 06:08 07/25/20 04:00 07/25/20 06:08 07/25/20 04:00 Medications Acetaminophen (Tylenol -Extra Strength) 500 mg PO Q4HP PRN PRN Reason: TEMP > 100' F Stop: 08/22/20 06:03 Last Admin: 07/24/20 17:13 Dose: 500 mg Documented by: Atorvastatin Calcium (Lipitor) 80 mg PO BEDTIME CRYSTAL Stop: 08/22/20 21:01 Last Admin: 07/24/20 21:34 Dose: 80 mg Documented by: Calcitriol (Rocaltrol) 0.5 mcg PO DAILY CRYSTAL Stop: 08/23/20 09:01 Last Admin: 07/24/20 08:08 Dose: 0.5 mcg Documented by: Carvedilol (Coreg) 6.25 mg PO BID 6AM 6PM CRYSTAL Stop: 08/23/20 18:01 Last Admin: 07/25/20 06:08 Dose: 6.25 mg Documented by: Cholecalciferol (Vitamin D 5,000 Iu Cap) 5,000 unit PO DAILY CRYSTAL Stop: 08/23/20 09:01 Last Admin: 07/24/20 08:08 Dose: 5,000 unit Documented by: Dicyclomine HCl (Bentyl) 10 mg PO QID CRYSTAL Stop: 08/22/20 21:01 Last Admin: 07/24/20 21:34 Dose: 10 mg Documented by: Furosemide (Lasix) 40 mg IV BIDL CRYSTAL Stop: 08/22/20 09:01 Last Admin: 07/24/20 17:13 Dose: 40 mg Documented by: Heparin Sodium (Porcine) (Heparin 5,000 Units/Ml) 5,000 unit SQ Q12HR [facility] Stop: 08/22/20 09:01 Last Admin: 07/24/20 21:35 Dose: 5,000 unit Documented by: Insulin Human Regular (Novolin -R) 0 unit SQ ACHS [facility]; Protocol Stop: 08/22/20 07:31 Last Admin: 07/24/20 21:36 Dose: 3 unit Documented by: Metoclopramide HCl (Reglan) 10 mg IV Q6H PRN PRN Reason: NAUSEA / VOMITING Stop: 08/22/20 06:03 Metolazone (Zaroxolyn) 5 mg PO 1X [facility] Stop: 08/23/20 08:01 Last Admin: 07/24/20 08:08 Dose: 5 mg Documented by: Morphine Sulfate (Morphine Sulfate) 2 mg IV Q6H PRN PRN Reason: Pain scale 5-7 (Moderate) Stop: 08/22/20 06:03 Last Admin: 07/24/20 21:40 Dose: 2 mg Documented by: Ondansetron HCl (Zofran) 4 mg IV Q6HP PRN PRN Reason: NAUSEA / VOMITING Stop: 08/22/20 06:03 Last Admin: 07/24/20 08:14 Dose: 4 mg Documented by: Pantoprazole Sodium (Protonix Tab) 40 mg PO BID [facility]; Protocol Stop: 08/22/20 21:01 Last Admin: 07/24/20 21:34 Dose: 40 mg Documented by: Pregabalin (Lyrica) 300 mg PO BID [facility] Stop: 08/22/20 21:01 Last Admin: 07/24/20 21:40 Dose: 300 mg Documented by: Sodium Chloride (Normal Saline Flush) 10 ml IV BID [facility] Stop: 08/22/20 09:01 Last Admin: 07/24/20 21:00 Dose: Not Given Documented by: Trazodone HCl (Desyrel) 50 mg PO BEDTIME PRN PRN PRN Reason: INSOMNIA Stop: 08/23/20 02:06 Last Admin: 07/24/20 21:37 Dose: 50 mg Documented by: Assessment/ Plan: Nephrology CPS improved without CP or SOB. Good urine output. +Appetite No acute events overnight. Vitals, medications, blood work and imaging reviewed in the chart. General: Oriented x3, Cooperative HEENT: Atraumatic Neck: JVD distended Respiratory: Crackles/rales Cardiovascular: Regular rate/rhythm, Edema Gastrointestinal: Soft and benign, Non-distended Musculoskeletal: No clubbing, No erythema Integumentary: No rashes, No cyanosis Neurological: Normal speech Blood work reviewed in the chart. Imagings Data: EXAM DESCRIPTION: RAD - Chest Single View - 07/23/2020 3:59 am CLINICAL HISTORY: CHEST PAIN Chest pain. COMPARISON: Chest Single View dated 05/05/2018; Chest Single View dated 07/01/2017; CHEST SINGLE VIEW dated 06/16/2015; CHEST SINGLE VIEW dated 10/26/2014 FINDINGS: Portable technique limits examination quality. Bilateral pulmonary opacities are present may represent pulmonary edema or interstitial pneumonia/ bronchitis. The cardiac silhouette is upper limit of normal size. No displaced fractures. EXAM DESCRIPTION: CT Abdomen and Pelvis Without Intravenous Contrast CLINICAL HISTORY: The patient is 54 years old and is Male; ABD PAIN TECHNIQUE: Axial computed tomography images of the abdomen and pelvis without intravenous contrast. Sagittal and coronal reformatted images were created and reviewed. This CT exam was performed using one or more of the following dose reduction techniques: automated exposure control, adjustment of the mA and/or kV according to patient size, and/or use of iterative reconstruction technique. COMPARISON: CT of the abdomen and pelvis February 14, 2020 FINDINGS: LUNG BASES: Dependent atelectasis in the lung bases is noted. PLEURAL SPACE: Small bilateral pleural effusions are present. ABDOMEN: LIVER: Homogeneous without focal mass. GALLBLADDER AND BILE DUCTS: Surgical clips are present in the right upper quadrant, consistent with previous cholecystectomy. PANCREAS: Unremarkable. No ductal dilation. SPLEEN: Unremarkable. ADRENALS: Unremarkable. No mass. KIDNEYS AND URETERS: Nonspecific bilateral perinephric stranding is present. No obstructing renal or ureteral calculus is seen. There is no hydronephrosis or hydroureter of either kidney. STOMACH AND BOWEL: The stomach is distended with food contents. Small bowel is relatively normal in caliber. A moderate amount of stool is present throughout colon. There is no mucosal thickening or evidence of bowel obstruction. PELVIS: APPENDIX: The appendix is normal in caliber without surrounding inflammation. BLADDER: The bladder is well distended. No stones. REPRODUCTIVE: Unremarkable as visualized. ABDOMEN and PELVIS: INTRAPERITONEAL SPACE: Unremarkable. No free air. No significant fluid collection. BONES/JOINTS: No acute fracture. SOFT TISSUES: Mild diffuse body wall edema is present. VASCULATURE: Unremarkable. No abdominal aortic aneurysm. LYMPH NODES: Prominent bilateral inguinal chain lymph nodes are noted, similar to prior exam. IMPRESSION: 1. Small bilateral pleural effusions with minimal dependent atelectasis. 2. Moderate stool burden without obstruction. Normal appendix. No renal or ureteral calculus. NORMAL LEFT VENTRICULAR EJECTION FRACTION 55-60%. NORMAL WALL MOTION. MILD MITRAL REGURGITATION AND TRACE TRICUSPID REGURGITATION. EXAM DESCRIPTION: US - Renal Ultrasound-Complete - 07/24/2020 8:41 am CLINICAL HISTORY: OMAIRA/ CKD Flank pain COMPARISON: Abdomen Pelvis Wo Contrast dated 07/23/2020 FINDINGS: Both kidneys are normal in size, shape and echotexture. The right kidney measures 10.1 x 6.4 x 4.9 cm. No hydronephrosis, focal mass or perinephric fluid. The left kidney measures 10.5 x 5.8 x 4.9 cm. No hydronephrosis, focal mass or perinephric fluid. The urinary bladder is incompletely distended without gross abnormality seen. IMPRESSION: Unremarkable renal sonogram. Conclusions/Impression: A/ OMAIRA may be CRS Hypocalcemia CKD IIIb HTN with CKD/ CHF Diastolic CHF, A/C DM II with CKD & polyneuropathy Moderate malnutrition Anemia in chronic illness P/ Continue current POC and Medications. Change to oral furosemide. Continue Vitamin D. ADA diet with 2g Na restriction. No NSAIDs. AM labs. Daily weight.
[2020-07-25] MEDS: METOLAZONE 5 MG TABLET PO SCH (08:00)
[2020-07-25] MEDS: HEPARIN 5000 UNIT/ML 1 ML VIAL SQ SCH ×2 (08:47→21:05)
[2020-07-25] MEDS: CALCITROL 0.25 MCG CAP PO SCH (08:47)
[2020-07-25] MEDS: PREGABALIN 150 MG CAP PO SCH ×2 (08:47→21:03)
[2020-07-25] MEDS: VITAMIN D 5,000 UNIT CAP PO SCH (08:47)
[2020-07-25] MEDS: PANTOPRAZOLE 40MG TABLET PO SCH ×2 (08:47→21:04)
[2020-07-25] MEDS: DICYCLOMINE HCL 10 MG CAP PO SCH ×4 (08:48→21:04)
[2020-07-25] MEDS: INSULIN -REGULAR HUMAN 50 UNIT/0.5 ML ML SQ SCH ×4 (08:48→21:06)
[2020-07-25] MEDS: FUROSEMIDE 40 MG TABLET PO SCH ×2 (08:53→17:05)
[2020-07-25] MEDS ORDERED: SOD FERRIC GLUC COMPLX/SUCROSE 250 MG in NA CHLORIDE 0.9% 250 ML IV ONE (09:00)
--- NOTE | 2020-07-25 09:56 | P.PN ---
Subjective Date of Service: 07/25/20 Chief Complaint: CHF exacerbation Subjective: Improving (reports he is feeling / breathing slightly better this morning.) Physical Examination - Vital Signs Temperature: 97.3 F Blood Pressure: 125/74 Pulse: 75 Respirations: 16 Pulse Ox (%): 95 - Physical Exam General: In no apparent distress, Oriented x3 Respiratory: Diminished (bilaterally at bases, on 3L NC) Cardiovascular: Regular rate/rhythm, Edema (1-2+ b/l to knees) Gastrointestinal: Soft and benign, Non-distended, No tenderness Musculoskeletal: No tenderness Neurological: Normal speech, Normal affect Assessment & Plan Physician Review Additional Text: OMAIRA on CKD3 Hypocalcemia HTN with CKD/ CHF Diastolic CHF DM2 with CKD & polyneuropathy Anemia in chronic disease TTE: EF: 55-60%, normal wall motion, mild MR, trace TR Cr increased slightly this morning, likely from diuretic nephrology consulted, appreciate assistance; switching to PO lasix today Cardiology consulted as well due to concern for new onset CHF; will need outpatient stress test wean O2 as tolerated Fluid restriction Daily weight. Dispo: anticipate dc home in 24-48hrs Time Spent Managing Pts Care (In Minutes): 35
--- NOTE | 2020-07-25 12:31 | PN ---
The patient admitted to Dr. Nuñez on 07/23/2020. He was seen for abdominal pain, nonspecific, possi ble congestive heart failure. He has a history of hypertension, diabetes, dyslipidemia, coronary art viktoriya disease and chronic renal disease as well as neuropathy and gastroesophageal reflux disease. He had a creatinine of 3, hemoglobin of 9.5, elevated BNP at 3839, and elevated troponin. I thought tea t his troponin elevation and BNP elevation are secondary to demand ischemia with anemia and renal ins ufficiency. Echocardiogram that was done yesterday revealed normal ejection fraction without any wall motion abno rmalities. His symptoms have improved. Nephrology is following. He has an elevated white count. H e is on appropriate therapy with aspirin, insulin, Protonix, pravastatin, Lasix, metformin, metoprolo l, and Lyrica. The patient is definitely not a candidate for heart catheterization considering his r enal function. I think he can go home today or tomorrow and I will make arrangements for him to have an outpatient stress Cardiolite at his convenience. PETRA/THEE Voice ID: [id number] Report ID: [id number]
[2020-07-25] MEDS: ATORVASTATIN 80 MG TAB PO SCH (21:03)
[2020-07-26 05:47] LABS: Absolute Lymphocytes (CBC) 1.8 K/uL (0.7-4.9); Basophils % 1.2 % (0-1.3); Hematocrit 26.5 % (39.6-49.0); Lymphocytes % 15.8 % (15.3-44.8); MPV 10.7 fL (7.6-11.3); RBC Red Blood Cell Count 3.14 M/uL (4.33-5.43)
[2020-07-26 06:02] LABS: Magnesium 2.3 mg/dL (1.8-2.4); Potassium 3.6 mmol/L (3.5-5.1)
[2020-07-26] MEDS: carvediloL 6.25 MG TAB PO SCH (06:41)
[2020-07-26] MEDS ORDERED: POTASSIUM CL SA 10 MEQ TAB PO ONE (09:00)
[2020-07-26] MEDS: CALCITROL 0.25 MCG CAP PO SCH (09:11)
[2020-07-26] MEDS: INSULIN -REGULAR HUMAN 50 UNIT/0.5 ML ML SQ SCH (09:11)
[2020-07-26] MEDS: DICYCLOMINE HCL 10 MG CAP PO SCH (09:11)
[2020-07-26] MEDS: VITAMIN D 5,000 UNIT CAP PO SCH (09:12)
[2020-07-26] MEDS: PANTOPRAZOLE 40MG TABLET PO SCH (09:12)
[2020-07-26] MEDS: PREGABALIN 150 MG CAP PO SCH (09:12)
[2020-07-26] MEDS: FUROSEMIDE 40 MG TABLET PO SCH (09:12)
[2020-07-26] MEDS: HEPARIN 5000 UNIT/ML 1 ML VIAL SQ SCH (09:12)
[2020-07-26 09:31] VITALS: BP 134/73; TEMP 97.8
[2020-07-26 09:37] VITALS: O2SAT 92
--- NOTE | 2020-07-26 20:27 | P.DS ---
Admission Date: 07/23/20 Discharge Date: 07/26/20 Disposition: ROUTINE DISCHARGE Discharge Condition: GOOD Reason for Admission: CHF exacerbation Consultations: Nephrology - Dr. Castañedao Cardiology - Dr. Florentino Procedures: CXR (07/23): Bilateral pulmonary opacities are present may represent pulmonary edema or interstitial pneumonia/ bronchitis. The cardiac silhouette is upper limit of normal size. No displaced fractures. CT Abd/pelv (07/23): Small bilateral pleural effusions with minimal dependent atelectasis. Moderate stool burden without obstruction. Normal appendix. No renal or ureteral calculus CT Head (07/23): No acute intracranial findings. No hemorrhage. Renal U/S (07/23): Unremarkable renal sonogram. Problem List: OMAIRA on CKD3 Hypocalcemia HTN with CKD/ CHF Diastolic CHF DM2 with CKD & polyneuropathy Anemia in chronic disease Brief History of Present Illness: 54yo, male; PMH: DM2 with gastroparesis, HTN, CKD3, anemia of chronic disease, who presented to ED for abdominal pain, SOB, and lower extremity edema. Workup consisted with volume overload likely secondary to acute CHF. BNP: 3839, Cr: 3.0, CXR: moderate pulm edema. SpO2: 80% on room air. Hospital Course: Patient was treated with IV Diuresis. Cardiology and nephrology were consulted. Patient underwent TTE which revealed normal EF without any wall motion abnormalities. His symptoms were felt to be partly due to acute diastolic CHF and acute renal failure (possibly due to cardiorenal syndrome). He had improvement in his breathing and renal function with IV diuresis. On day of discharge he was breathing comfortably on room air and his Cr improved to 2.9. He was discharged on lasix 40mg BID per nephrology's recommendations. He was noted to be normotensive and even low-normal BP at times. He was instructed to discontinue norvasc until f/u with PCP. He reported his clonidine prescription was only PRN for SBP>160. He was advised to f/u with PCP within 1 week, nephrology in the next few weeks, and cardiology as well - to make arrangements for outpatient stress Cardiolite in the near future. Vital Signs/Physical Exam: Temp Pulse Resp BP Pulse Ox 97.8 F 80 16 134/73 97 07/26/20 08:00 07/26/20 08:00 07/26/20 08:00 07/26/20 08:00 07/26/20 08:00 General: Alert, In no apparent distress HEENT: Sclerae nonicteric Respiratory: Clear to auscultation bilaterally, Normal air movement Cardiovascular: Regular rate/rhythm, Edema (trace bilateral to mid-tibia) Gastrointestinal: Soft and benign, No tenderness Musculoskeletal: No erythema, No tenderness Neurological: Normal speech, Normal affect Laboratory Data at Discharge: WBC 11.3 K/uL (4.3-10.9) H 07/26/20 05:18 Hgb 9.0 g/dL (13.6-17.9) L 07/26/20 05:18 Hct 26.5 % (39.6-49.0) L 07/26/20 05:18 Plt Count 179 K/uL (152-406) 07/26/20 05:18 PT 10.9 SECONDS (9.5-12.5) 07/23/20 03:34 INR 0.92 07/23/20 03:34 Sodium 142 mmol/L (136-145) 07/26/20 05:18 Potassium 3.6 mmol/L (3.5-5.1) 07/26/20 05:18 BUN 45 mg/dL (7-18) H 07/26/20 05:18 Creatinine 2.93 mg/dL (0.55-1.3) H 07/26/20 05:18 Glucose 163 mg/dL (74-106) H 07/26/20 05:18 Uric Acid 7.1 mg/dL (3.5-7.2) 07/25/20 04:20 Phosphorus 5.7 mg/dL (2.5-4.9) H 07/25/20 04:20 Magnesium 2.3 mg/dL (1.8-2.4) 07/26/20 05:18 Total Bilirubin 0.2 mg/dL (0.2-1.0) 07/25/20 04:20 AST 20 U/L (15-37) 07/25/20 04:20 ALT 16 U/L (12-78) 07/25/20 04:20 Alkaline Phosphatase 108 U/L (45-117) 07/25/20 04:20 Troponin I 0.11 ng/mL (0.0-0.045) H 07/23/20 16:09 Triglycerides 104 mg/dL (<150) 07/24/20 04:10 Cholesterol 120 mg/dL (<200) 07/24/20 04:10 HDL Cholesterol 53 mg/dL (40-60) 07/24/20 04:10 Cholesterol/HDL Ratio 2.26 07/24/20 04:10 Lipase 202 U/L (73-393) 07/23/20 03:34 Home Medications: Acetaminophen 325 mg PO PRN PRN 07/23/20 Atorvastatin Calcium [Lipitor] 40 mg PO BEDTIME 07/23/20 Dicyclomine [Bentyl*] 1 tab PO QID 07/23/20 Docusate [Colace Cap*] 1 cap PO DAILY PRN 07/23/20 Insulin NPH Hum/Reg Insulin Hm [Novolin 70-30 100 Unit/ml Vial] 40 units SQ SEECOM 07/23/20 Metformin ER [Glucophage ER*] 1,000 mg PO BID 07/23/20 Metoclopramide [Reglan*] 10 mg PO ACHS 07/23/20 Ondansetron [Zofran (Odt)*] 4 mg PO Q8H PRN 07/23/20 Pantoprazole [Protonix Tab*] 1 tab PO BID 07/23/20 Pregabalin [Lyrica] 1 tab PO BID 07/23/20 Trazodone [Desyrel*] 1 tab PO BEDTIME 07/23/20 Aspirin [Aspirin EC 81 MG] 81 mg PO DAILY 30 Days #30 tablet. 07/26/20 Furosemide [Lasix*] 40 mg PO BIDL 30 Days #60 tab 07/26/20 carvediloL [Coreg*] 6.25 mg PO BID 30 Days #60 tab 07/26/20 New Medications: Aspirin [Aspirin EC 81 MG] 81 mg PO DAILY 30 Days #30 tablet. carvediloL [Coreg*] 6.25 mg PO BID 30 Days #60 tab Furosemide [Lasix*] 40 mg PO BIDL 30 Days #60 tab Patient Discharge Instructions: Follow up with your PCP within 1 week. 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 follow up with cardiology in the next few weeks - to set up outpatient stress test. Diet: ADA (with 2gram sodium restriction) Activity: Ad evelyn Followup: OOT,OOT [Primary Care Provider] - Time spent managing pt's care (in minutes): 35
== END 2020-07-26 11:45 | disposition home or self-care (01) | DRG 682 ==
LOC: ER 02:53 → ERHOLD 06:14 → 4TH 08:20 → 2ND 07-24 09:55
PROVIDERS: ADMIT Internal Medicine; ATTEND Hospitalist
DX: N17.9 Acute kidney failure, unspecified (principal); I50.31 Acute diastolic (congestive) heart failure; I13.0 Hypertensive heart and chronic kidney disease with heart failure and stage 1 through stage 4 chronic kidney disease, or unspecified chronic kidney disease; R18.8 Other ascites; E44.0 Moderate protein-calorie malnutrition; I24.8 Other forms of acute ischemic heart disease; N18.32 Chronic kidney disease, stage 3b; E11.22 Type 2 diabetes mellitus with diabetic chronic kidney disease; E11.43 Type 2 diabetes mellitus with diabetic autonomic (poly)neuropathy; K31.84 Gastroparesis; E11.42 Type 2 diabetes mellitus with diabetic polyneuropathy; E83.51 Hypocalcemia; D63.8 Anemia in other chronic diseases classified elsewhere; K21.9 Gastro-esophageal reflux disease without esophagitis; E78.5 Hyperlipidemia, unspecified; I25.10 Atherosclerotic heart disease of native coronary artery without angina pectoris; I25.2 Old myocardial infarction; E66.9 Obesity, unspecified; Z68.33 Body mass index [BMI] 33.0-33.9, adult; Z95.5 Presence of coronary angioplasty implant and graft; Z90.49 Acquired absence of other specified parts of digestive tract; Z79.82 Long term (current) use of aspirin; Z56.0 Unemployment, unspecified; Z91.19 Patient's noncompliance with other medical treatment and regimen; Z88.5 Allergy status to narcotic agent; Z88.8 Allergy status to other drugs, medicaments and biological substances; Z79.4 Long term (current) use of insulin; Z79.899 Other long term (current) drug therapy; Z20.828 Contact with and (suspected) exposure to other viral communicable diseases
CPT/HCPCS: 36415; 70450; 71045; 74176; 76770; 80048; 80053; 80061; 80076; 81003; 82947; 83036; 83540; 83690; 83735; 83880; 84100; 84439; 84443; 84466; 84484; 84550; 85025; 85610; 86038; 86335; 93005; 93306; 96374; 96375; 99285; J1644; J1940; J2270; J2405; J2765; J2916; J7050; U0003

== ENCOUNTER 2020-10-23 23:34 | Inpatient (IN) | payer OTHER ==
--- OUTSIDE RECORDS SUMMARY | 2020-10-23 23:36 | XMS REPORT | Continuity of Care Document ---
:1965 Author Organization [facility] t Address [address] [place] [address] Care Team Providers Name Role Phone Melina Das RN Attending Clinician Gage Ribeiro Attending Clinician Unavailable Care, Primary Attending Clinician Unavailable Problems This patient has no known problems. Allergies, Adverse Reactions, Alerts This patient has no known allergies or adverse reactions. Medications This patient has no known medications. Procedures This patient has no known procedures. Encounters Start End Encounter Admission Attending Care Care Encounter Source Date/Time Date/Time Type Type Clinicians Facility Department ID 2020-10-19 2020-10-19 Patient Melina Das [id number] 00:00:00 00:00:00 Outreach Silver Maguire [id number] [place] [id number] 2020-10-17 2020-10-17 Patient Jes Power [id number] 00:00:00 00:00:00 Outreach Ok Maguire [id number] [place] [id number] 2020-10-12 2020-10-12 Office [facility] [id number] 08:30:51 10:12:09 Visit [facility] [id number] [facility] [id number] UNIT [id number] [id number] 2020-10-12 2020-10-12 Patient Jes Power [id number] 00:00:00 00:00:00 Outreach Ok Maguire [id number] [place] [id number] Results This patient has no known results.
[2020-10-24] MEDS ORDERED: ALBUTEROL INHALER 60 PUFF/8 GM IH ONE (00:39)
[2020-10-24 00:55] LABS: Absolute Lymphocytes (CBC) 1.4 K/uL (0.7-4.9); Basophils % 1.2 % (0-1.3); Hematocrit 36.4 % (39.6-49.0); Lymphocytes % 12.5 % (15.3-44.8); MPV 12.7 fL (7.6-11.3); RBC Red Blood Cell Count 4.28 M/uL (4.33-5.43)
[2020-10-24 00:57] LABS: Protime INR 0.91
[2020-10-24] MEDS ORDERED: NITROGLYCERIN 1 GM PKT TD ONE (01:00)
[2020-10-24 01:29] LABS: ALT/SGPT 15 U/L (12-78); AST/SGOT 19 U/L (15-37); Albumin 2.7 g/dL (3.4-5.0); Alkaline Phosphatase 170 U/L (45-117); BUN Blood Urea Nitrogen 39 mg/dL (7-18); Bicarbonate 24 mmol/L (21-32); Bilirubin Direct < 0.1 mg/dL (0-0.2); Bilirubin Total 0.2 mg/dL (0.2-1.0); Magnesium 1.9 mg/dL (1.8-2.4); NT PRO-BNP 2845 pg/mL (<125); Potassium 4.1 mmol/L (3.5-5.1); Protein, Total 7.4 g/dL (6.4-8.2); Sodium Level 139 mmol/L (136-145)
[2020-10-24 01:30] LABS: Glucose Level 553 mg/dL (74-106); Troponin (Emerg Dept Use Only) 3.85 ng/mL (0.0-0.045)
[2020-10-24] MEDS ORDERED: INSULIN -REGULAR HUMAN 50 UNIT/0.5 ML ML ONE ×2 (01:57→09:01)
[2020-10-24] MEDS ORDERED: METOPROLOL TARTRATE 5 MG/5 ML INJ IV ONE (01:58)
[2020-10-24] MEDS ORDERED: HEPARIN 5000 UNIT/ML 1 ML VIAL ONE (01:58)
[2020-10-24] MEDS ORDERED: HEPARIN/D5W 25,000 UNIT/500 ML BAG IV ONE (01:58)
--- NOTE | 2020-10-24 02:15 | ER ---
Nurse's Notes [facility] Name: Florentino Acosta Age: 54 yrs Sex: Male : 1965 Arrival Date: 10/23/2020 Time: 23:39 Bed 5 Private MD: Diagnosis: Non-ST elevation (NSTEMI) myocardial infarction;Unspecified combined systolic (congestive) and diastolic (congestive) heart failure Presentation: 10/24 00:08 Chief complaint: Patient states: about 1500 today he started having chest pain similar bb to that in July when he had CHF, he is nauseous and unable to sleep. Coronavirus screen: At this time, the client does not indicate any symptoms associated with coronavirus-19. Ebola Screen: No symptoms or risks identified at this time. Initial Sepsis Screen: Does the patient meet any 2 criteria? No. Patient's initial sepsis screen is negative. Does the patient have a suspected source of infection? No. Patient's initial sepsis screen is negative. Risk Assessment: Do you want to hurt yourself or someone else? Patient reports no desire to harm self or others. Onset of symptoms was October 24, 2020. 00:08 Method Of Arrival: Wheelchair bb 00:08 Acuity: RAMSES 3 bb Historical: - Allergies: 00:12 Hydrocodone-Acetaminophen; bb 00:12 Vioxx; bb 00:12 Zoloft; bb - Home Meds: 00:12 aspirin 81 mg Oral TbEC [Active]; dicyclomine 10 mg Oral cap 1 cap 4 times per day bb [Active]; furosemide 40 mg oral tab 1 tab once daily [Active]; gabapentin 800 mg Oral tab 1 tab 3 times per day [Active]; Livalo 4 mg Oral tab 1 tab once daily [Active]; Lyrica Oral 300 mg 2 times per day [Active]; metoclopramide HCl 10 mg Oral tab 1 tab 4 times per day [Active]; Novolin 70/30 [place] Sub-Q 70-30 unit/mL [Active]; ondansetron HCl 4 mg Oral tab 2 tabs every 8 hours [Active]; pantoprazole 40 mg Oral TbEC 1 tab 2 times per day [Active]; Stool Softener 100 mg Oral cap [Active]; carvedilol oral oral [Active]; - PMHx: 00:12 Back pain; bowel obstruction; Chronic pain; Diabetes - NIDDM; Gastroparesis; H.Pylori; bb High Cholesterol; Hyperlipidemia; Myocardial infarction; neuropathy; CHF; - PSHx: 00:12 Cholecystectomy; bb 00:13 back surgery; heart cath; bb - Immunization history:: Adult Immunizations up to date. - Social history:: Smoking status: Patient denies any tobacco usage or history of. Screenin:25 Abuse screen: Denies threats or abuse. Denies injuries from another. Nutritional mg2 screening: No deficits noted. Tuberculosis screening: No symptoms or risk factors identified. Fall Risk IV access (20 points). Assessment: 00:24 General: Appears distressed, Behavior is cooperative. Pain: Complains of pain in chest mg2 Pain does not radiate. Quality of pain is described as aching, Pain began gradually. Neuro: Level of Consciousness is awake, alert, obeys commands, Oriented to person, place, time, situation. Cardiovascular: Capillary refill < 3 seconds. Respiratory: Airway is patent Respiratory pattern is regular, tachypnea Breath sounds with wheezes. GI: No signs and/or symptoms were reported involving the gastrointestinal system. : No signs and/or symptoms were reported regarding the genitourinary system. EENT: No signs and/or symptoms were reported regarding the EENT system. Derm: Skin is icteric. Musculoskeletal: Circulation, motion, and sensation intact. Capillary refill < 3 seconds. 01:59 Reassessment: patient informed about the plan for admit. iis aware, patient mg2 speaking to the thru phone, Priti- [phone]. 03:13 Reassessment: patient placed in hospital bed. patient still in mild pain. mg2 Vital Signs: 00:08 BP 165 / 102; Pulse 102; Resp 16 S; Temp 97.7(O); Pulse Ox 96% on R/A; Weight 79.83 kg bb (R); Height 5 ft. 4 in. (162.56 cm) (R); Pain 9/10; 00:48 BP 186 / 112; Pulse 97; Resp 18; Pulse Ox 98% on R/A; mg2 01:57 BP 155 / 99; Pulse 85; Resp 17; Pulse Ox 100% on R/A; Pain 6/10; mg2 03:12 BP 100 / 70; Pulse 82; Resp 19; Pulse Ox 100% on R/A; mg2 00:08 Body Mass Index 30.21 (79.83 kg, 162.56 cm) bb ED Course: 10/23 23:39 Patient arrived in ED. cf2 10/24 00:10 Triage completed. bb 00:13 Arm band placed on Patient placed in an exam room, on a stretcher, on cardiac cath technician, bb on pulse oximetry. EKG completed in triage. Results shown to MD. 00:14 Isidro Garrett RN is Primary Nurse. mg2 00:17 Fer Carmona MD is Attending Physician. tw4 00:27 No provider procedures requiring assistance completed. Inserted saline lock: 20 gauge mg2 in right forearm, using aseptic technique. Blood collected. by ADALID Newman Tech. 00:34 Patient maintains SpO2 saturation greater than 95% on room air. mg2 00:35 XRAY Chest (1 view) In Process Unspecified. EDMS 00:35 Patient has correct armband on for positive identification. quality assurance monitor body on. Pulse mg2 ox on. NIBP on. Door closed. Warm blanket given. 00:37 COVID swab sent to lab. mg2 02:11 Lindsey Caldwell MD is Hospitalizing Provider. tw4 02:18 Assisted to bedside commode. mg2 03:33 Patient admitted, IV remains in place. mg2 04:00 Inserted saline lock: 20 gauge in left forearm, using aseptic technique. Blood mg2 collected. 07:18 Primary Nurse role handed off by Isidro Garrett, LARRY bd Administered Medications: 00:26 Drug: Albuterol HFA Inhaler 2 puffs Route: Inhalation; mg2 00:48 Drug: Nitro-Bid Ointment 2 % 1 inches Route: Transdermal; Site: anterior chest wall; mg2 01:48 Drug: Lopressor 5 mg Route: IVP; Site: right forearm; mg2 01:49 Drug: Heparin (GA-Bolus No thrombolytic) - HEParin 60 units/kg {Co-Signature: jv1 mg2 (Myra Figueroa RN).} Route: IVP; Site: right forearm; 01:50 Drug: Heparin (GA Drip) 12 units/kg/hr - (HEParin 01935 units, D5W 500 ml) mg2 {Co-Signature: jv1 (Myra Figueroa RN).} Route: IV; Rate: calculated rate; Site: right forearm; 01:56 Drug: Insulin Regular Human 10 units {Co-Signature: jv1 (Myra Figueroa RN).} Route: mg2 IVP; Site: right forearm; 02:25 Drug: morphine 4 mg Route: IVP; Site: right forearm; mg2 Outcome: 02:14 Decision to Hospitalize by Provider. tw4 03:33 Admitted to ER Hold. Please see [facility] for further documentation. mg2 03:33 Condition: stable 03:33 Instructed on the need for admit, Demonstrated understanding of instructions. 11:51 Patient left the ED. ph Signatures: Dispatcher [employer] EDMS Jaclyn Zamudio Brenda RN RN bb Sari Monaco RN RN ph Fer Carmona MD MD tw4 Isidro Garrett RN RN [facility] [place] Long cf2 Myra Figueroa RN jv1 Corrections: (The following items were deleted from the chart) 02:31 01:59 Reassessment: patient informed about the plan for admit. mg2 mg2 05:33 05:32 Admitted to ER Hold. Please see [facility] for further documentation. mg2 mg2 05:33 05:32 Condition: stable mg2 mg2 05:33 05:32 Instructed on the need for admit, Demonstrated understanding of instructions, mg2 mg2 05:34 05:33 Patient admitted, IV remains in place. mg2 mg2
--- NOTE | 2020-10-24 02:15 | EDPHYS ---
Physician Documentation [facility] Name: Florentino Acosta Age: 54 yrs Sex: Male : 1965 Arrival Date: 10/23/2020 Time: 23:39 Bed 5 Private MD: ED Physician Fer Carmona HPI: 10/24 00:51 This 54 yrs old Male presents to ER via Wheelchair with complaints of Chest tw4 Pain, Nausea. 00:51 The patient or guardian reports chest pain that is located primarily in the anterior tw4 chest wall, left. Onset: today. The pain does not radiate. Associated signs and symptoms: The patient has no apparent associated signs or symptoms. The chest pain is described as dull. Duration: The patient or guardian reports a single episode. Modifying factors: The symptoms are alleviated by nothing. the symptoms are aggravated by nothing. Severity of pain: At its worst the pain was. The patient has not experienced similar symptoms in the past. Historical: - Allergies: 00:12 Hydrocodone-Acetaminophen; bb 00:12 Vioxx; bb 00:12 Zoloft; bb - Home Meds: 00:12 aspirin 81 mg Oral TbEC [Active]; dicyclomine 10 mg Oral cap 1 cap 4 times per day bb [Active]; furosemide 40 mg oral tab 1 tab once daily [Active]; gabapentin 800 mg Oral tab 1 tab 3 times per day [Active]; Livalo 4 mg Oral tab 1 tab once daily [Active]; Lyrica Oral 300 mg 2 times per day [Active]; metoclopramide HCl 10 mg Oral tab 1 tab 4 times per day [Active]; Novolin 70/30 [place] Sub-Q 70-30 unit/mL [Active]; ondansetron HCl 4 mg Oral tab 2 tabs every 8 hours [Active]; pantoprazole 40 mg Oral TbEC 1 tab 2 times per day [Active]; Stool Softener 100 mg Oral cap [Active]; carvedilol oral oral [Active]; - PMHx: 00:12 Back pain; bowel obstruction; Chronic pain; Diabetes - NIDDM; Gastroparesis; H.Pylori; bb High Cholesterol; Hyperlipidemia; Myocardial infarction; neuropathy; CHF; - PSHx: 00:12 Cholecystectomy; bb 00:13 back surgery; heart cath; bb - Immunization history:: Adult Immunizations up to date. - Social history:: Smoking status: Patient denies any tobacco usage or history of. ROS: 00:51 Constitutional: Negative for fever, chills, and weight loss, Eyes: Negative for injury, tw4 pain, redness, and discharge, Respiratory: Negative for shortness of breath, cough, wheezing, and pleuritic chest pain, Abdomen/GI: Negative for abdominal pain, nausea, vomiting, diarrhea, and constipation, Back: Negative for injury and pain, MS/Extremity: Negative for injury and deformity, Skin: Negative for injury, rash, and discoloration, Neuro: Negative for headache, weakness, numbness, tingling, and seizure. 00:51 Cardiovascular: Positive for chest pain, Negative for edema, orthopnea, palpitations, paroxysmal nocturnal dyspnea. Exam: 00:51 Constitutional: This is a well developed, well nourished patient who is awake, alert, tw4 and in no acute distress. Head/Face: Normocephalic, atraumatic. Chest/axilla: Normal chest wall appearance and motion. Nontender with no deformity. No lesions are appreciated. Respiratory: Lungs have equal breath sounds bilaterally, clear to auscultation and percussion. No rales, rhonchi or wheezes noted. No increased work of breathing, no retractions or nasal flaring. Abdomen/GI: Soft, non-tender, with normal bowel sounds. No distension or tympany. No guarding or rebound. No evidence of tenderness throughout. Back: No spinal tenderness. No costovertebral tenderness. Full range of motion. Skin: Warm, dry with normal turgor. Normal color with no rashes, no lesions, and no evidence of cellulitis. MS/ Extremity: Pulses equal, no cyanosis. Neurovascular intact. Full, normal range of motion. Neuro: Awake and alert, GCS 15, oriented to person, place, time, and situation. Cranial nerves II-XII grossly intact. Motor strength 5/5 in all extremities. Sensory grossly intact. Cerebellar exam normal. Normal gait. Vital Signs: 00:08 BP 165 / 102; Pulse 102; Resp 16 S; Temp 97.7(O); Pulse Ox 96% on R/A; Weight 79.83 kg bb (R); Height 5 ft. 4 in. (162.56 cm) (R); Pain 9/10; 00:48 BP 186 / 112; Pulse 97; Resp 18; Pulse Ox 98% on R/A; mg2 01:57 BP 155 / 99; Pulse 85; Resp 17; Pulse Ox 100% on R/A; Pain 6/10; mg2 03:12 BP 100 / 70; Pulse 82; Resp 19; Pulse Ox 100% on R/A; mg2 00:08 Body Mass Index 30.21 (79.83 kg, 162.56 cm) bb MDM: 02:14 Patient medically screened. tw4 03:05 Differential diagnosis: costochondritis, peptic ulcer disease, pericarditis, pulmonary tw4 embolus, stable angina. HEART Score: History: Highly Suspicious (2), ECG: Significant ST-deviation (2), Age: > 45 and < 65 years (1), Risk Factors: > or = 3 Risk factors for atherosclerotic disease (2), Troponin: > or = 3 x Normal Limit (2), Total Score = 8. Data reviewed: vital signs, nurses notes. Data reviewed: lab test result(s), cardiac enzymes, CBC, electrolytes, hepatic panel. Data interpreted: Pulse oximetry: Plan:. Counseling: I had a detailed discussion with the patient and/or guardian regarding: the historical points, exam findings, and any diagnostic results supporting the discharge/admit diagnosis, lab results, radiology results. Physician consultation: Lindsey Caldwell MD regarding admission, to the telemetry unit. patient's condition, and will see patient in inpatient room. Other consultation: Cardiology D/W Dr Marcus at 0210. 10/24 00:15 Order name: Basic Metabolic Panel mg2 10/24 00:15 Order name: CBC with Diff mg2 10/24 00:15 Order name: LFT's; Complete Time: 01: mg2 10/24 01:32 Interpretation: Normal except: ALK 170; ALB 2.7; GLOB 4.7; A/G 0.6. tw4 10/24 00:15 Order name: Magnesium; Complete Time: 01: mg2 10/24 01:32 Interpretation: Within normal limits: MG 1.9. tw4 10/24 00:15 Order name: NT PRO-BNP; Complete Time: : mg2 10/24 01:32 Interpretation: Abnormal: NT PRO-BNP 2845. tw4 10/24 00:15 Order name: PT-INR; Complete Time: 01:31 mg2 10/24 01:32 Interpretation: Within normal limits: PT 10.4. tw4 10/24 00:15 Order name: Troponin (emerg Dept Use Only); Complete Time: 01:31 mg2 10/24 01:32 Interpretation: Abnormal: TROPED 3.85. tw4 10/24 00:15 Order name: Basic Metabolic Panel; Complete Time: 01:31 EDMS 10/24 01:32 Interpretation: Normal except: GFR 22; GLUC 553; CRE 3.06; BUN 39. tw4 10/24 00:16 Order name: CBC with Automated Diff; Complete Time: 01:31 EDMS 10/24 01:32 Interpretation: Normal except: WBC 11.60; RBC 4.28; HGB 11.5; HCT 36.4; MCH 26.9; MCHC tw4 31.6; LYM% 12.5; [place]% 78.3; MPV 12.7; NEUT A 9.1. 10/24 01:30 Order name: SARS-COV-2 RT PCR; Complete Time: 01:31 EDMS 10/24 03:03 Order name: CBC with Automated Diff EDMS 10/24 03:03 Order name: CBC with Automated Diff EDMS 10/24 03:03 Order name: Comprehensive Metabolic Panel EDMS 10/24 00:15 Order name: XRAY Chest (1 view) mg2 10/24 03:03 Order name: Echo with Doppler EDMS 10/24 03:03 Order name: Comprehensive Metabolic Panel EDMS 10/24 03:03 Order name: Lipid Profile EDMS 10/24 03:03 Order name: Lipid Profile EDMS 10/24 03:03 Order name: Troponin I EDMS 10/24 03:03 Order name: Troponin I EDMS 10/24 03:03 Order name: Troponin I EDMS 10/24 03:13 Order name: UR CREAT EDMS 10/24 03:13 Order name: Ur Protein EDMS 10/24 03:13 Order name: UR SODIUM EDMS 10/24 03:23 Order name: Glucose, Ancillary Testing EDMS 10/24 05:24 Order name: Ptt, Activated mg2 10/24 06:26 Order name: PTT, Activated Partial Thromb EDMS 10/24 08:21 Order name: Glucose, Ancillary Testing EDMS 10/24 00:15 Order name: EKG; Complete Time: 00:16 mg2 10/24 00:15 Order name: Cardiac monitoring; Complete Time: 00:24 mg2 10/24 00:15 Order name: EKG - Nurse/Tech; Complete Time: 00:24 mg2 10/24 00:15 Order name: IV Saline Lock; Complete Time: 00: mg2 10/24 00:15 Order name: Labs collected and sent; Complete Time: 00: mg2 10/24 00:15 Order name: O2 Per Protocol; Complete Time: 00: mg2 10/24 00:15 Order name: O2 Sat Monitoring; Complete Time: 00: mg2 10/24 03:03 Order name: CONS Pharmacy Consult EDMS 10/24 03:03 Order name: CONS Physician Consult EDMS 10/24 03:03 Order name: NPO EDMS EC:51 Rate is 105 beats/min. Rhythm is regular. QRS [place] is Normal. ME interval is normal. tw4 QRS interval is normal. QT interval is normal. T waves are Inverted in leads I, aVL. No ST changes noted. Clinical impression: Sinus tachycardia. Interpreted by me. Reviewed by me. Administered Medications: 00:26 Drug: Albuterol HFA Inhaler 2 puffs Route: Inhalation; mg2 00:48 Drug: Nitro-Bid Ointment 2 % 1 inches Route: Transdermal; Site: anterior chest wall; mg2 01:48 Drug: Lopressor 5 mg Route: IVP; Site: right forearm; mg2 01:49 Drug: Heparin (AL-Bolus No thrombolytic) - HEParin 60 units/kg {Co-Signature: jv1 mg2 (Myra Figueroa RN).} Route: IVP; Site: right forearm; 01:50 Drug: Heparin (AL Drip) 12 units/kg/hr - (HEParin 19279 units, D5W 500 ml) mg2 {Co-Signature: jv1 (Myra Figueroa RN).} Route: IV; Rate: calculated rate; Site: right forearm; 01:56 Drug: Insulin Regular Human 10 units {Co-Signature: jv1 (Myra Figueroa RN).} Route: mg2 IVP; Site: right forearm; 02:25 Drug: morphine 4 mg Route: IVP; Site: right forearm; mg2 Disposition: 10/24/20 02:14 Hospitalization ordered by Lindsey Caldwell for Inpatient Admission. Preliminary diagnosis are Non-ST elevation (NSTEMI) myocardial infarction, Unspecified combined systolic (congestive) and diastolic (congestive) heart failure. - Bed requested for Telemetry/MedSurg (Inpatient). - Status is Inpatient Admission. ph - Condition is Stable. - Problem is new. - Symptoms have improved. Signatures: Dispatcher [employer] EDAZ dahianaOdilia butlerara Robina Ceballos, LARRY JUAREZ Sari Monaco RN RN Lissett Sellers, LARRY RN Fer Carmona MD MD tw4 Isidro Garrett RN RN [facility] [place] Myra Figueroa RN [email or web address] Corrections: (The following items were deleted from the chart) 00:50 00:22 CORONAVIRUS+MR.LAB.BRZ ordered. [facility] 03:33 02:14 Hospitalization Ordered by Lindsey Caldwell MD for Inpatient Admission. Preliminary cg diagnosis is Non-ST elevation (NSTEMI) myocardial infarction; Unspecified combined systolic (congestive) and diastolic (congestive) heart failure. Bed requested for Telemetry/MedSurg (Inpatient). Status is Inpatient Admission. Condition is Stable. Problem is new. Symptoms have improved. tw4 08:39 03:33 10/24/2020 02:14 Hospitalization Ordered by Lindsey Caldwell MD for Inpatient bd Admission. Preliminary diagnosis is Non-ST elevation (NSTEMI) myocardial infarction; Unspecified combined systolic (congestive) and diastolic (congestive) heart failure. Bed requested for [facility] ER HOLD. Status is Inpatient Admission. Condition is Stable. Problem is new. Symptoms have improved. 11:51 08:39 10/24/2020 02:14 Hospitalization Ordered by Lindsey Caldwell MD for Inpatient ph Admission. Preliminary diagnosis is Non-ST elevation (NSTEMI) myocardial infarction; Unspecified combined systolic (congestive) and diastolic (congestive) heart failure. Bed requested for Telemetry/MedSurg (Inpatient). Status is Inpatient Admission. Condition is Stable. Problem is new. Symptoms have improved. bd
[2020-10-24] MEDS ORDERED: MORPHINE 4 MG/ML SYR ONE (02:39)
[2020-10-24] MEDS ORDERED: ALBUTEROL 2.5 MG/3 ML NEB SOL NEB PRN (02:53)
[2020-10-24] MEDS ORDERED: ONDANSETRON 4 MG/2 ML VIAL IV PRN (02:53)
[2020-10-24] MEDS ORDERED: ASPIRIN 325 MG TAB PO ONE (02:53)
[2020-10-24] MEDS ORDERED: MORPHINE 2 MG/ML SYR IV PRN (02:53)
[2020-10-24] MEDS ORDERED: CLOPIDOGREL 75 MG TABLET PO ONE (02:53)
[2020-10-24] MEDS ORDERED: ACETAMINOPHEN 500 MG TAB PO PRN (02:53)
[2020-10-24] MEDS: INSULIN GLARGINE 100 UNITS/ML SQ SCH ×3 (03:00→22:23)
[2020-10-24] MEDS ORDERED: HEPARIN/D5W 25,000 UNIT/500 ML BAG IV SCH (03:00)
[2020-10-24] MEDS ORDERED: GLUCAGON 1 MG/VIAL IM PRN (03:00)
[2020-10-24] MEDS ORDERED: D50W 25 GM/50 ML SYRINGE IV PRN (03:00)
[2020-10-24] MEDS ORDERED: HYDRALAZINE HCL 20 MG/ML VIAL IV PRN (03:11)
--- NOTE | 2020-10-24 03:12 | P.HP ---
Certification for Inpatient With expected LOS: >2 Midnights Patient will require the following post-hospital care: None Practitioner: I am a practitioner with admitting privileges, knowledge of patient current condition, hospital course, and medical plan of care. Services: Services provided to patient in accordance with Admission requirements found in Title 42 Section 412.3 of the Code of Federal Regulations Patient History Date of Service: 10/24/20 Reason for admission: CHEST PAIN AND SHORTNESS OF BREATH History of Present Illness: 60-year-old male with past medical history of hypertension, diabetes mellitus type 2, diastolic CHF with last echo showing EF of 55% with normal wall motion but trace mitral regurgitation, status post recent CHF exacerbation 3 months ago, progressive chronic kidney disease with subacute elevation in creatinine to baseline of 2.9-3.1 now, diabetic gastroparesis, peripheral neuropathy, coronary artery disease status post previous [place] admitted for new onset left-sided chest pain, dull, nonradiating, associated with worsening shortness of breath. The patient also admits intermittent nausea vomiting. On arrival in the emergency room, EKG shows ST depression in lateral leads but noted elevated troponin to 3.0 as well as persistent elevated creatinine of 3.06. Patient is be admitted for non STEMI with CHF exacerbation. He states he had cardiac catheterization before but no stent placed. He is chest pain-free now Allergies rofecoxib [From Vioxx] Allergy (Mild, Verified 02/11/20 20:12) Hives sertraline HCl [From Zoloft] Allergy (Mild, Verified 02/11/20 20:12) Hives hydrocodone Adverse Reaction (Verified 02/11/20 20:12) Hives/Rash Codeine Adverse Reaction (Uncoded 02/11/20 20:12) Itching Home Medications: Acetaminophen 325 mg PO PRN PRN 07/23/20 Atorvastatin Calcium [Lipitor] 40 mg PO BEDTIME 07/23/20 Dicyclomine [Bentyl*] 1 tab PO QID 07/23/20 Docusate [Colace Cap*] 1 cap PO DAILY PRN 07/23/20 Insulin NPH Hum/Reg Insulin Hm [Novolin 70-30 100 Unit/ml Vial] 40 units SQ SEECOM 07/23/20 Metformin ER [Glucophage ER*] 1,000 mg PO BID 07/23/20 Metoclopramide [Reglan*] 10 mg PO ACHS 07/23/20 Ondansetron [Zofran (Odt)*] 4 mg PO Q8H PRN 07/23/20 Pantoprazole [Protonix Tab*] 1 tab PO BID 07/23/20 Pregabalin [Lyrica] 1 tab PO BID 07/23/20 Trazodone [Desyrel*] 1 tab PO BEDTIME 07/23/20 Aspirin [Aspirin EC 81 MG] 81 mg PO DAILY 30 Days #30 tablet. 07/26/20 Furosemide [Lasix*] 40 mg PO BIDL 30 Days #60 tab 07/26/20 carvediloL [Coreg*] 6.25 mg PO BID 30 Days #60 tab 07/26/20 - Past Medical/Surgical History Diabetic: Yes -: Diabetes mellitus type 2; on insulin -: Hypertension -: CAD, no stents -: Diabetic neuropathy -: Gastroparesis -: Cataracts both eyes -: heart attacks -: L1-s2 compression for surgery in March 01 in [facility] -: CHF -: Cholecystectomy -: Heart catheterization, no stents Psychosocial/ Personal History: Patient is . He has 4 children. Currently unemployed - Family History Mother -: Hypertension, Diabetes Father -: Liver disease Notes: - alcoholic - Social History Alcohol use: No CD- Drugs: No Caffeine use: Yes Review of Systems 10-point ROS is otherwise unremarkable Physical Examination - Physical Exam General: Alert, In no apparent distress, Oriented x3, Cooperative HEENT: Atraumatic, Normocephalic, PERRLA Neck: Supple, 2+ carotid pulse no bruit, JVD not distended Respiratory: Diminished, Crackles/rales Cardiovascular: Regular rate/rhythm, Normal S1 S2, Edema Capillary refill: <2 Seconds Gastrointestinal: Normal bowel sounds, Soft and benign, Non-distended, No ascites, No tenderness Musculoskeletal: No clubbing, No swelling Integumentary: No rashes, No breakdown, No significant lesion Neurological: Normal gait, Normal speech, Normal strength at 5/5 x4 extr, Normal tone, Sensation intact - Studies Laboratory Data (last 24 hrs) 10/24/20 00:23: PT 10.4, INR 0.91 10/24/20 00:23: WBC 11.60 H, Hgb 11.5 L, Hct 36.4 L, Plt Count 184 10/24/20 00:23: Sodium 139, Potassium 4.1, BUN 39 H, Creatinine 3.06 H, Glucose 553 H*, Magnesium 1.9, Total Bilirubin 0.2, AST 19, ALT 15, Alkaline Phosphatase 170 H Assessment and Plan - Problems (Diagnosis) (1) NSTEMI (non-ST elevated myocardial infarction) Current Visit: Yes Status: Acute (2) Acute worsening of stage 3 chronic kidney disease Current Visit: No Status: Acute (3) Chest pain Onset Date: 08/10/14 Current Visit: No Status: Acute (4) Diabetes mellitus type 2 in obese Current Visit: No Status: Acute (5) History of diabetic gastroparesis Current Visit: No Status: Acute (6) Hypertension Onset Date: 08/10/14 Current Visit: No Status: Acute (7) Medical non-compliance Onset Date: 05/06/18 Current Visit: No Status: Acute (8) New onset of congestive heart failure Current Visit: No Status: Acute (9) Uncontrolled diabetes mellitus Onset Date: 08/10/14 Current Visit: No Status: Acute - Advance Directives Does patient have a Living Will: No Does patient have a Durable POA for Healthcare: No Physician Review: Patient Assessed, Agree with Above Assessment and Plan Physician Review Additional Text: Non ST-elevation RI-start Cardiology consults obtained -will start heparin drip -start statin/beta ochoa/low-dose Rudi -initiate high-dose aspirin and Plavix now -will place nitro patch -serial set of cardiac enzyme -will likely need cardiac catheterization in a.m. # CHF EXACERBATION-likely due to diastolic CHF with acute worsening -follow which repeat echocardiogram Start aggressive IV Lasix 40 Q 12 # Acute on chronic CKD-progressive worsening of CKD May also be due to component of cardiorenal syndrome although appear to all be due to progressive diabetic nephropathy -follow post cardiac catheterization if any -might need renal prophylaxis profile -we need to rule out nephrotic syndrome as cause of recurrent CHF symptoms # HYPERTENSION-come controlled, may be due to medication noncompliance Switch Coreg to metoprolol for now Follow with IV Lasix use Start low-dose Rudi since acute RI #Diabetes mellitus with hyperglycemia-we adjust insulin gas empirical is start Levemir 30 units Q 12 Aggressive insulin sliding scale with Accu-Cheks #Hyperlipidemia-continue high-dose Lipitor #Dm gastroparesis-resume Reglan with meals #DVT prophylaxis-on heparin drip #Advanced directive-full code Time Spent Managing Pts Care (In Minutes): 70
[2020-10-24 04:38] VITALS: BMI 30.2
[2020-10-24] MEDS: FUROSEMIDE 40 MG/4 ML VIAL IV SCH ×3 (05:18→17:00)
[2020-10-24] MEDS ORDERED: CLOPIDOGREL 75 MG TABLET ONE (05:28)
[2020-10-24] MEDS ORDERED: FUROSEMIDE 40 MG/4 ML VIAL ONE ×2 (05:28→08:20)
[2020-10-24] MEDS ORDERED: ASPIRIN 325 MG TAB ONE (05:28)
[2020-10-24] MEDS: METOCLOPRAMIDE 5 MG TAB PO SCH ×4 (07:30→22:14)
[2020-10-24] MEDS: INSULIN -REGULAR HUMAN 50 UNIT/0.5 ML ML SQ SCH ×4 (07:30→22:24)
[2020-10-24] MEDS ORDERED: IPRATROPIUM BROM 0.5MG/2.5ML NEB SCH (08:00)
[2020-10-24] MEDS ORDERED: METOCLOPRAMIDE 5 MG TAB ONE (08:19)
[2020-10-24] MEDS ORDERED: ASPIRIN EC 81 MG TAB PO ONE (08:19)
[2020-10-24] MEDS ORDERED: METOPROLOL TAR 50 MG TAB ONE (08:19)
[2020-10-24] MEDS ORDERED: PANTOPRAZOLE 40MG TABLET PO ONE (08:19)
[2020-10-24] MEDS ORDERED: ENALAPRIL 10 MG TAB ONE (08:20)
--- NOTE | 2020-10-24 08:21 | RAD REPORT ---
EXAM DESCRIPTION: Elvin Single View10/24/2020 12:36 am CLINICAL HISTORY: Chest pain COMPARISON: July 2020 FINDINGS: The lungs appear clear of acute infiltrate. The heart is mildly enlarged IMPRESSION: No acute abnormalities displayed
[2020-10-24] MEDS ORDERED: ENALAPRIL 2.5 MG TAB PO SCH (09:00)
[2020-10-24] MEDS: METOPROLOL TAR 50 MG TAB PO SCH ×2 (09:00→21:00)
[2020-10-24] MEDS: ASPIRIN EC 81 MG TAB PO SCH (09:00)
[2020-10-24] MEDS: PANTOPRAZOLE 40MG TABLET PO SCH ×2 (09:00→22:15)
[2020-10-24] MEDS: NITROGLYCERIN 0.2 MG/HR (5 MG) PATCH TD SCH (09:00)
[2020-10-24] MEDS ORDERED: IPRATROPIUM BROM 0.5MG/2.5ML ONE (09:04)
[2020-10-24] MEDS ORDERED: IPRATROPIUM BROM 0.5MG/2.5ML NEB PRN (09:31)
--- NOTE | 2020-10-24 21:43 | P.CNS ---
Date of Consult: 10/24/20 Reason for Consult: CKD Requesting Physician: adela dinh Chief Complaint: CHEST PAIN AND SHORTNESS OF BREATH History of Present Illness: 60-year-old male with past medical history of hypertension, diabetes mellitus type 2, diastolic CHF with last echo showing EF of 55% with normal wall motion but trace mitral regurgitation, status post recent CHF exacerbation 3 months ago, progressive chronic kidney disease with subacute elevation in creatinine to baseline of 2.9-3.1 now, diabetic gastroparesis, peripheral neuropathy, coronary artery disease status post previous [place] admitted for new onset left-sided chest pain, dull, nonradiating, associated with worsening shortness of breath. The patient also admits intermittent nausea vomiting. On arrival in the emergency room, EKG shows ST depression in lateral leads but no jayme elevated troponin to 3.0 as well as persistent elevated creatinine of 3.06. Patient is be admitted for non STEMI with CHF exacerbation. He states he had cardiac catheterization before but no stent placed. 00:51 This 54 yrs old Male presents to ER via Wheelchair with complaints of Chest tw4 Pain, Nausea. 00:51 The patient or guardian reports chest pain that is located primarily in the anterior tw4 chest wall, left. Onset: today. The pain does not radiate. Associated signs and symptoms: The patient has no apparent associated signs or symptoms. The chest pain is described as dull. Duration: The patient or guardian reports a single episode. Modifying factors: The symptoms are alleviated by nothing. the symptoms are aggravated by nothing. Severity of pain: At its worst the pain was. The patient has not experienced similar symptoms in the past. Allergies rofecoxib [From Vioxx] Allergy (Mild, Verified 02/11/20 20:12) Hives sertraline HCl [From Zoloft] Allergy (Mild, Verified 02/11/20 20:12) Hives hydrocodone Adverse Reaction (Verified 02/11/20 20:12) Hives/Rash Codeine Adverse Reaction (Uncoded 02/11/20 20:12) Itching Home medications list reviewed: Yes Home Medications: Acetaminophen 325 mg PO PRN PRN 07/23/20 Atorvastatin Calcium [Lipitor] 40 mg PO BEDTIME 07/23/20 Dicyclomine [Bentyl*] 1 tab PO QID 07/23/20 Docusate [Colace Cap*] 1 cap PO DAILY PRN 07/23/20 Insulin NPH Hum/Reg Insulin Hm [Novolin 70-30 100 Unit/ml Vial] 40 units SQ SEECOM 07/23/20 Metformin ER [Glucophage ER*] 1,000 mg PO BID 07/23/20 Metoclopramide [Reglan*] 10 mg PO ACHS 07/23/20 Ondansetron [Zofran (Odt)*] 4 mg PO Q8H PRN 07/23/20 Pantoprazole [Protonix Tab*] 1 tab PO BID 07/23/20 Pregabalin [Lyrica] 1 tab PO BID 07/23/20 Trazodone [Desyrel*] 1 tab PO BEDTIME 07/23/20 Aspirin [Aspirin EC 81 MG] 81 mg PO DAILY 30 Days #30 tablet. 07/26/20 Furosemide [Lasix*] 40 mg PO BIDL 30 Days #60 tab 07/26/20 carvediloL [Coreg*] 6.25 mg PO BID 30 Days #60 tab 07/26/20 - Past Medical/Surgical History Diabetic: Yes -: Diabetes mellitus type 2; on insulin -: Hypertension -: CAD, no stents -: Diabetic neuropathy -: Gastroparesis -: Cataracts both eyes -: heart attacks -: L1-s2 compression for surgery in March 01 in [facility] -: CHF -: Cholecystectomy -: Heart catheterization, no stents Psychosocial/ Personal History: Patient is . He has 4 children. Currently unemployed - Family History Mother Medical History: Hypertension, Diabetes Father Medical History: Liver disease Notes: - alcoholic - Social History Smoking Status: Unknown if ever smoked Alcohol use: No CD- Drugs: No Caffeine use: Yes Place of Residence: Home Review of Systems 10-point ROS is otherwise unremarkable General: Malaise Physical Examination Temp Pulse Resp BP Pulse Ox 97.9 F 76 18 78/39 L 94 10/24/20 20:00 10/24/20 20:00 10/24/20 20:00 10/24/20 20:00 10/24/20 20:00 General: Oriented x3, Cooperative HEENT: Atraumatic Neck: Supple Respiratory: Clear to auscultation bilaterally Cardiovascular: No edema, Regular rate/rhythm Gastrointestinal: Soft and benign, Non-distended Musculoskeletal: No clubbing, No contractures Integumentary: No rashes, No cyanosis Neurological: Normal speech Laboratory Data (last 24 hrs) 10/24/20 00:23: PT 10.4, INR 0.91 10/24/20 00:23: WBC 11.60 H, Hgb 11.5 L, Hct 36.4 L, Plt Count 184 10/24/20 00:23: Sodium 139, Potassium 4.1, BUN 39 H, Creatinine 3.06 H, Glucose 553 H*, Magnesium 1.9, Total Bilirubin 0.2, AST 19, ALT 15, Alkaline Phosphatase 170 H Imagings Data: Reason for Exam: CHEST PAIN Report Status: Signed EXAM DESCRIPTION: Elvin Single View10/24/2020 12:36 am CLINICAL HISTORY: Chest pain COMPARISON: July 2020 FINDINGS: The lungs appear clear of acute infiltrate. The heart is mildly enlarged IMPRESSION: No acute abnormalities displayed Conclusions/Impression: A/P: Continue the current POC and Medications other than the changes listed. AM Labs PRN. Recommend daily weight. Please see the orders for complete details. CKD IV with proteinuria -No NSAIDs Hypocalcemia -Start Calcitriol HTN with CKD/ CHF complicated by hypotension -Holding parameter for enalapril Diastolic CHF, A/C -Continue furosemide DM II with CKD -RISS -Continue Lantus Moderate malnutrition -Encourage nutrition Anemia in chronic illness -Monitor H&H Thank you kindly for the consultation
[2020-10-24] MEDS: ATORVASTATIN 20 MG TAB PO SCH (22:14)
--- NOTE | 2020-10-24 23:58 | EKG ---
Test Date: 2020-10-24 Test Time: 00:01:30 Rail Technician: ROBERT MEASUREMENT RESULTS: Intervals: Rate: 102 [place]: 180 QRSD: 104 QT: 372 QTc: 484 [place]: P: 62 [place]: 180 QRS: -39 T: 121 INTERPRETIVE STATEMENTS: Sinus tachycardia Left axis deviation Left ventricular hypertrophy with repolarization abnormality Cannot rule out Septal infarct, age undetermined Abnormal ECG Compared to ECG 07/23/2020 03:14:43 Left-axis deviation now present Left ventricular hypertrophy now present Early repolarization now present Myocardial infarct finding now present Sinus rhythm no longer present Electronically Signed On 10-24-20 23:57:47 NON FERROUS MATERIAL HANDLER by Flaco Florentino
--- NOTE | 2020-10-25 02:21 | CON ---
Date of Consultation: 10/24/2020 Reason For Consultation: Elevated troponin and congestive heart failure. History Of Present Illness: Mr. Acosta is a 54-year-old male with history of small b owel obstruction, coronary artery disease, hypertension, diabetes, dyslipidemia, comes in with conges tive heart failure by chest x-ray, elevated BNP, elevated troponin of 8.32, creatinine of 3.06, gluco se of 553. Echocardiogram is pending. He is asymptomatic right now. He had came in with shortness of breath. Denied any chest pain. Denied any nausea, vomiting, diaphoresis, PND, orthopnea, pedal e randolph, palpitation, or syncope. He denied any fever or chills. Allergies: SERTRALINE AND CODEINE. Review of Systems: Negative. Social History: Negative. Family History: Negative. Medications: At home include Coreg, aspirin, Lyrica, insulin, metformin, Lipitor, Lasix, and Protoni x. Physical Examination: Vital Signs: Stable. Afebrile. General: Asymptomatic. HEENT: Negative. Neck: Supple with no bruit. Chest: Clear. Cardiac: Regular rhythm and rate. No murmurs, gallops, or rubs. Abdomen: Benign. Extremities: No clubbing, cyanosis, or edema. Diagnostic Data: As stated earlier. EKG shows LVH. Impression And Plan: The patient with acute on chronic diastolic congestive heart failure. Echocard iogram is pending. Elevated troponin is secondary to renal insufficiency, congestive heart failure, and demand ischemia from hyperglycemia. I do not think we are dealing with acute coronary syndrome. Nevertheless, I will not cath him with a creatinine of 3.06. He understand that if we cath him, the re is a very high risk of having him go on dialysis permanently. I will leave his creatinine treatme nt up to Nephrology, but for now, I recommend medical therapy. He is already on Lipitor. He is alre ryan on aspirin and a beta-ochoa. He is not a candidate for BENNY inhibitor. We can certainly increa se his Coreg. His other problems including hypertension, diabetes, and dyslipidemia are being handle d by primary care. His diabetes is very poorly controlled. He is on insulin and metformin. He has a history of coronary artery disease, but I do not have any records of it. I will discuss the case f ori with Dr. Jeter. Echocardiogram, which was done in July of 2020, was normal. PETRA/THEE Voice ID: [id number] Report ID: [id number]
[2020-10-25 05:32] LABS: Absolute Lymphocytes (CBC) 2.5 K/uL (0.7-4.9); Basophils % 0.8 % (0-1.3); Hematocrit 29.5 % (39.6-49.0); Lymphocytes % 22.6 % (15.3-44.8); MPV 11.6 fL (7.6-11.3); RBC Red Blood Cell Count 3.54 M/uL (4.33-5.43)
[2020-10-25 05:56] LABS: Albumin 2.3 g/dL (3.4-5.0); Bilirubin Total 0.3 mg/dL (0.2-1.0); Potassium 3.5 mmol/L (3.5-5.1); Protein, Total 6.3 g/dL (6.4-8.2)
--- NOTE | 2020-10-25 08:44 | PN ---
Subjective: The patient had came in with elevated creatinine of more than 3 and elevated troponin. Nephrology is following him. I suggested medical therapy because of his elevated creatinine. I thin k beta ochoa increase would be appropriate. I am still not sure the troponin was secondary to the coronary artery syndrome versus renal failure. This pain was very atypical, but do not have risk fac tors. I think a heart catheterization will be risky because of his renal function. Echocardiogram w as done yesterday showed significant diastolic dysfunction with normal ejection fraction. Trace mitr al and tricuspid regurgitation without any pulmonary hypertension. I will leave his discharge up to primary care physician and Nephrology. I would see him in the office in the very near future. If he continues to have pain, we may have to do a catheterization knowing the risk of renal failure within . I will discuss that with him as an outpatient. PETRA/THEE Voice ID: [id number] Report ID: [id number]
--- NOTE | 2020-10-25 08:50 | ECHO ---
HEIGHT: 5 ft 4 in WEIGHT: 176 lb 0 oz DATE OF STUDY: 10/24/[address]: Lindsey Caldwell MD 2-DIMENSIONAL: YES M.MODE: YES DOPPLER: YES COLOR FLOW: YES TDS: YES PORTABLE: NO DEFINITY: NO BUBBLE STUDY: NO DIAGNOSIS: NSTEMI, CONGESTIVE HEART FAILURE CARDIAC HISTORY: CATHERIZATION: YES SURGERY: NO PROSTHETIC VALVE: NO PACEMAKER: NO MEASUREMENTS (cm) DIASTOLIC (NORMALS) SYSTOLIC (NORMALS) IVSd 1.1 (0.6-1.2) LA Diam 3.5 (1.9-4.0) LVEF 55-60% LVIDd 3.9 (3.5-5.7) LVIDs 3.0 (2.0-3.5) %FS 23% LVPWd 1.1 (0.6-1.2) Ao Diam 2.8 (2.0-3.7) 2 DIMENSIONAL ASSESSMENT: RIGHT ATRIUM: NORMAL LEFT ATRIUM: NORMAL RIGHT VENTRICLE: NORMAL LEFT VENTRICLE: NORMAL TRICUSPID VALVE: NORMAL MITRAL VALVE: NORMAL PULMONIC VALVE: NORMAL AORTIC VALVE: NORMAL PERICARDIAL EFFUSION: NONE AORTIC ROOT: NORMAL LEFT VENTRICULAR WALL MOTION: DIASTOLIC DYSFUNCTION. DOPPLER/COLOR FLOW: DIASTOLIC DYSFUNCTION. COMMENTS: DIASTOLIC DYSFUNCTION. NORMAL EJECTION FRACTION. TRACE OF TRICUSPID REGURGITATION, MITRAL REGURGITATION. TECHNOLOGIST: JHONNY CANTRELL
[2020-10-25] MEDS: ENALAPRIL 2.5 MG TAB PO SCH (09:00)
[2020-10-25] MEDS: VITAMIN D 5,000 UNIT CAP PO SCH (09:15)
[2020-10-25] MEDS: ASPIRIN EC 81 MG TAB PO SCH (09:15)
[2020-10-25] MEDS: FUROSEMIDE 40 MG/4 ML VIAL IV SCH ×2 (09:15→17:39)
[2020-10-25] MEDS: PANTOPRAZOLE 40MG TABLET PO SCH ×2 (09:15→20:36)
[2020-10-25] MEDS: METOPROLOL TAR 50 MG TAB PO SCH ×2 (09:15→20:36)
[2020-10-25] MEDS: CALCITROL 0.25 MCG CAP PO SCH (09:15)
[2020-10-25] MEDS: INSULIN GLARGINE 100 UNITS/ML SQ SCH ×2 (09:16→21:00)
[2020-10-25] MEDS: COENZYME Q10- 200 MG CAP PO SCH (09:16)
[2020-10-25] MEDS: INSULIN -REGULAR HUMAN 50 UNIT/0.5 ML ML SQ SCH ×4 (09:22→21:00)
[2020-10-25] MEDS: METOCLOPRAMIDE 5 MG TAB PO SCH ×4 (09:22→20:35)
[2020-10-25] MEDS: NITROGLYCERIN 0.2 MG/HR (5 MG) PATCH TD SCH (12:21)
--- NOTE | 2020-10-25 12:58 | PN ---
Date of Progress Note: 10/25/2020 Subjective: The patient was seen and examined at bedside. He states that he is feeling much better. His chest pain is improving and he denies further episodes of any shortness of breath. Physical Examination: Vital Signs: Showing temperature of 98, pulse rate of 85, respiratory rate of 14, and blood pressure 100/68. General: He appears in no acute distress. HEENT: Shows atraumatic head. No JVD was noted. Extremities: Showed no evidence of edema. Laboratory Data: Showing creatinine of 3.29, BUN of 52. Creatinine is worsened today from 3 to 3.2. Current Medications: Include Lasix 40 mg IV b.i.d. He is also on enalapril 5 mg a day, aspirin, valentin rvastatin, calcitriol, heparin for NSTEMI, Coenzyme Q10, metoprolol 50 mg b.i.d. Impression: 1.Acute on chronic renal insufficiency secondary to underlying cardiorenal syndrome. His renal func tion seems to be slightly worse with diuresis. His volume status overall seems to be improving at th is time. I would consider switching him to p.o. Lasix at this time and monitoring him closely. 2.Non-ST segment elevation myocardial infarction. The patient is not planned on getting any cardiac catheterization at this time because of his advanced renal failure. He will need outpatient Cardiol ogy followup. 3.Hypotension, currently stable. 4.Hypocalcemia related to renal failure, currently on calcitriol. Plan: The patient is doing better; however, his renal function has taken a slight bump. He is also on enalapril. We will continue to monitor and continue diuresis and conservative management for his NSTEMI. We will need out close outpatient followup and switching over to p.o. Lasix at the time of discharge. He was counseled on a low-sodium diet and we will continue t o monitor. VV/MODL Voice ID: [id number] Report ID: [id number]
[2020-10-25 16:44] LABS: Urine Protein/Creatinine Ratio 2.68 ratio (<0.15)
[2020-10-25] MEDS: ATORVASTATIN 20 MG TAB PO SCH (20:35)
[2020-10-26 04:01] LABS: Absolute Lymphocytes (CBC) 2.7 K/uL (0.7-4.9); Basophils % 0.9 % (0-1.3); Hematocrit 29.1 % (39.6-49.0); Lymphocytes % 26.6 % (15.3-44.8); MPV 11.6 fL (7.6-11.3); RBC Red Blood Cell Count 3.53 M/uL (4.33-5.43)
[2020-10-26 04:15] LABS: Potassium 3.4 mmol/L (3.5-5.1)
[2020-10-26] MEDS: INSULIN -REGULAR HUMAN 50 UNIT/0.5 ML ML SQ SCH ×4 (07:30→21:17)
[2020-10-26] MEDS: ENALAPRIL 2.5 MG TAB PO SCH (09:00)
[2020-10-26] MEDS: COENZYME Q10- 200 MG CAP PO SCH (09:18)
[2020-10-26] MEDS: INSULIN GLARGINE 100 UNITS/ML SQ SCH ×2 (09:18→21:18)
[2020-10-26] MEDS: NITROGLYCERIN 0.2 MG/HR (5 MG) PATCH TD SCH (09:18)
[2020-10-26] MEDS: CALCITROL 0.25 MCG CAP PO SCH (09:19)
[2020-10-26] MEDS: FUROSEMIDE 40 MG/4 ML VIAL IV SCH (09:19)
[2020-10-26] MEDS: VITAMIN D 5,000 UNIT CAP PO SCH (09:20)
[2020-10-26] MEDS: ASPIRIN EC 81 MG TAB PO SCH (09:20)
[2020-10-26] MEDS: METOCLOPRAMIDE 5 MG TAB PO SCH ×4 (09:20→21:16)
[2020-10-26] MEDS: PANTOPRAZOLE 40MG TABLET PO SCH ×2 (09:20→21:17)
[2020-10-26] MEDS: METOPROLOL TAR 50 MG TAB PO SCH (09:20)
--- NOTE | 2020-10-26 13:30 | P.PN ---
Subjective Date of Service: 10/25/20 Subjective: No new changes, No C/O voiced, Improving Review of Systems 10-point ROS is otherwise unremarkable Physical Examination - Vital Signs Temperature: 97.4 F Blood Pressure: 132/84 Pulse: 76 Respirations: 18 Pulse Ox (%): 98 - Physical Exam General: Alert, In no apparent distress, Oriented x3 HEENT: Atraumatic, PERRLA, EOMI Neck: Supple, JVD not distended Respiratory: Clear to auscultation bilaterally, Normal air movement Cardiovascular: Regular rate/rhythm, Normal S1 S2 Gastrointestinal: Normal bowel sounds, No tenderness Musculoskeletal: No tenderness Integumentary: No rashes Neurological: Normal speech, Normal tone, Normal affect Lymphatics: No axilla or inguinal lymphadenopathy - Studies Medications List Reviewed: Yes Assessment & Plan - Problems (Diagnosis) (1) NSTEMI (non-ST elevated myocardial infarction) Current Visit: Yes Status: Acute (2) Acute worsening of stage 3 chronic kidney disease Current Visit: No Status: Acute (3) Diabetes mellitus type 2 in obese Current Visit: No Status: Acute (4) History of diabetic gastroparesis Current Visit: No Status: Acute (5) Hyperlipidemia Onset Date: 10/27/14 Current Visit: No Status: Acute (6) Hypertension Onset Date: 08/10/14 Current Visit: No Status: Acute (7) Medical non-compliance Onset Date: 05/06/18 Current Visit: No Status: Acute - Plan Plan: 1. Continue monitoring renal function. BUN and creatinine stable 2. Medical management for Coronary artery disease. High risk for renal failure with contrast load. 3. Strict blood pressure and blood sugar control 4. Increase carvedilol per Cardiology recommendation 5. Currently on lisinopril per Nephrology recommendation low-dose at this time 6. Change to oral Lasix 7. Continue anti-platelet therapy 8. Discontinue heparin in a.m. 9. Anticipate discharge over the next 48 hr with outpatient follow with Cardiology and Nephrology to arrange for further cardiac intervention Discharge Plan: Home Plan to discharge in: Greater than 2 days - Advance Directives Does patient have a Living Will: No Does patient have a Durable POA for Healthcare: No - Code Status/Comfort Care Code Status Assessed: Yes Code Status: Full Code Physician Review: Patient Assessed, Agree with Above Assessment and Plan Critical Care: No Time Spent Managing PTS Care (In Minutes): 35
[2020-10-26] MEDS ORDERED: CLOPIDOGREL 75 MG TABLET PO ONE (13:32)
--- NOTE | 2020-10-26 13:36 | P.PN ---
Date of Service: 10/26/20 Subjective Subjective: Patient is doing well with no new complaints. Nephrology was to keep him overnight. Repeat renal function in the morning. Anticipate discharge home in the morning if renal function remains stable and he will need medical management for his Coronary artery disease. Review of Systems 10-point ROS is otherwise unremarkable Physical Examination - Vital Signs Reviewed - Physical Exam General: Alert, In no apparent distress, Oriented x3 Respiratory: Clear to auscultation bilaterally, Normal air movement Cardiovascular: Regular rate/rhythm, Normal S1 S2 Gastrointestinal: Normal bowel sounds, No tenderness Neurological: Normal speech, Normal tone, Normal affect Assessment & Plan - Problems (Diagnosis) (1) NSTEMI (non-ST elevated myocardial infarction) Current Visit: Yes Status: Acute (2) Acute worsening of stage 3 chronic kidney disease Current Visit: No Status: Acute (3) Diabetes mellitus type 2 in obese Current Visit: No Status: Acute (4) History of diabetic gastroparesis Current Visit: No Status: Acute (5) Hyperlipidemia Onset Date: 10/27/14 Current Visit: No Status: Acute (6) Hypertension Onset Date: 08/10/14 Current Visit: No Status: Acute (7) Medical non-compliance Onset Date: 05/06/18 Current Visit: No Status: Acute - Plan Plan: 1. Continue monitoring renal function. As long his renal function is stable in the morning anticipate discharge home 2. Medical management for Coronary artery disease. High risk for renal failure with contrast load. 3. Strict blood pressure and blood sugar control; Added carvedilol as well as anti-platelet regimen 4. Continue Isordil twice a day and Dc nitro patch 5. Currently on lisinopril per Nephrology recommendation;low-dose at this time 6. Change to oral Lasix 7. Continue anti-platelet therapy 8. Discontinue heparin in a.m. 9. Anticipate discharge over the next 48 hr with outpatient follow with Cardiology and Nephrology to arrange for further cardiac intervention
[2020-10-26] MEDS: carvediloL 12.5 MG TAB PO SCH (17:32)
[2020-10-26] MEDS ORDERED: POTASSIUM CL SA 10 MEQ TAB PO ONE (19:22)
--- NOTE | 2020-10-26 19:23 | P.PN ---
Date of Service: 10/26/20 Vital Signs Temp Pulse Resp BP Pulse Ox 98.0 F 81 18 119/72 98 10/26/20 16:00 10/26/20 17:32 10/26/20 16:00 10/26/20 16:00 10/26/20 16:00 Medications Acetaminophen (Acetaminophen 500 Mg Tab) 500 mg PO Q6H PRN PRN Reason: Pain scale 2-4 (Mild) Albuterol Sulfate (Albuterol 2.5 Mg/3 Ml Neb Jina) 2.5 mg NEB Q6HP PRN PRN Reason: SHORTNESS OF BREATH Aspirin (Aspirin Ec 81 Mg Tab) 81 mg PO DAILY [facility] Last Admin: 10/26/20 09:20 Dose: 81 mg Documented by: Atorvastatin Calcium (Atorvastatin 20 Mg Tab) 80 mg PO BEDTIME [facility] Last Admin: 10/25/20 20:35 Dose: 80 mg Documented by: Calcitriol (Calcitrol 0.25 Mcg Cap) 0.5 mcg PO DAILY [facility] Last Admin: 10/26/20 09:19 Dose: 0.5 mcg Documented by: Carvedilol (Carvedilol 12.5 Mg Tab) 12.5 mg PO BID 6AM 6PM [facility] Last Admin: 10/26/20 17:32 Dose: 12.5 mg Documented by: Cholecalciferol (Vitamin D 5,000 Unit Cap) 5,000 unit PO DAILY [facility] Last Admin: 10/26/20 09:20 Dose: 5,000 unit Documented by: Clopidogrel Bisulfate (Clopidogrel 75 Mg Tablet) 75 mg PO DAILY [facility] Coenzyme Q10 (Coenzyme Q10- 200 Mg Cap) 200 mg PO DAILY [facility] Last Admin: 10/26/20 09:18 Dose: 200 mg Documented by: Dextrose (D50w 25 Gm/50 Ml Syringe) 12.5 gm IV PRN PRN; Protocol PRN Reason: HYPOGLYCEMIA Enalapril Maleate (Enalapril 2.5 Mg Tab) 5 mg PO DAILY [facility] Last Admin: 10/26/20 09:00 Dose: Not Given Documented by: Furosemide (Furosemide 20 Mg Tablet) 20 mg PO BIDL [facility] Glucagon (Glucagon 1 Mg/Vial) 1 mg IM 1X PRN; Protocol PRN Reason: HYPOGLYCEMIA Insulin Glargine (Insulin Glargine 100 Units/Ml) 30 units SQ BID [facility] Last Admin: 10/26/20 09:18 Dose: 30 units Documented by: Insulin Human Regular (Insulin -Regular Human 50 Unit/0.5 Ml Ml) 0 unit SQ [facility]; Protocol Last Admin: 10/26/20 17:31 Dose: 4 unit Documented by: Ipratropium [place] (Ipratropium Brom 0.5mg/2.5ml) 0.5 mg NEB Q6HP PRN PRN Reason: SHORTNESS OF BREATH Isosorbide Dinitrate (Isosorbide Dinit 20 Mg Tab) 20 mg PO BID [facility] Metoclopramide HCl (Metoclopramide 5 Mg Tab) 10 mg PO [facility] Last Admin: 10/26/20 17:31 Dose: 10 mg Documented by: Morphine Sulfate (Morphine 2 Mg/Ml Syr) 2 mg IV Q4H PRN PRN Reason: Pain scale 5-7 (Moderate) Ondansetron HCl (Ondansetron 4 Mg/2 Ml Vial) 4 mg IV Q8H PRN PRN Reason: NAUSEA / VOMITING Pantoprazole Sodium (Pantoprazole 40mg Tablet) 40 mg PO BID [facility]; Protocol Last Admin: 10/26/20 09:20 Dose: 40 mg Documented by: Sodium Chloride (Flush Normal Saline 10 Ml) 10 ml IV BID [facility] Last Admin: 10/26/20 09:00 Dose: 10 ml Documented by: Sodium Chloride (Flush Normal Saline 10 Ml) 10 ml IV BID [facility] Last Admin: 10/26/20 09:00 Dose: 10 ml Documented by: Assessment/ Plan: Nephrology Feeling better. CPS improving without CP or SOB. +QURESHI No acute events overnight. Vitals, medications, blood work and imaging reviewed in the chart. General: Oriented x3, Cooperative HEENT: Atraumatic Neck: Supple Respiratory: Clear to auscultation bilaterally Cardiovascular: No edema, Regular rate/rhythm Gastrointestinal: Soft and benign, Non-distended Musculoskeletal: No clubbing, No contractures Integumentary: No rashes, No cyanosis Neurological: Normal speech Laboratory Data (last 24 hrs) 10/24/20 00:23: PT 10.4, INR 0.91 10/24/20 00:23: WBC 11.60 H, Hgb 11.5 L, Hct 36.4 L, Plt Count 184 10/24/20 00:23: Sodium 139, Potassium 4.1, BUN 39 H, Creatinine 3.06 H, Glucose 553 H*, Magnesium 1.9, Total Bilirubin 0.2, AST 19, ALT 15, Alkaline Phosphatase 170 H Imagings Data: Reason for Exam: CHEST PAIN Report Status: Signed EXAM DESCRIPTION: Elvin Single View10/24/2020 12:36 am CLINICAL HISTORY: Chest pain COMPARISON: July 2020 FINDINGS: The lungs appear clear of acute infiltrate. The heart is mildly enlarged IMPRESSION: No acute abnormalities displayed Conclusions/Impression: A/P: Continue the current POC and Medications other than the changes listed. AM Labs PRN. Recommend daily weight. Please see the orders for complete details. CKD IV with proteinuria -No NSAIDs Hypokalemia -Give potassium X1 Hypocalcemia -Continue Calcitriol HTN with CKD/ CHF complicated by hypotension -Continue Enalapril as tolerated Diastolic CHF, A/C -Continue furosemide DM II with CKD -RISS -Continue Lantus Moderate malnutrition -Encourage nutrition Anemia in chronic illness -Monitor H&H
[2020-10-26] MEDS: ATORVASTATIN 20 MG TAB PO SCH (21:16)
[2020-10-26] MEDS: ISOSORBIDE DINIT 20 MG TAB PO SCH (21:17)
[2020-10-27] MEDS: carvediloL 12.5 MG TAB PO SCH (05:32)
[2020-10-27] MEDS ORDERED: FUROSEMIDE 20 MG TABLET PO SCH (09:00)
[2020-10-27] MEDS ORDERED: CLOPIDOGREL 75 MG TABLET PO SCH (09:00)
[2020-10-27] MEDS: ENALAPRIL 2.5 MG TAB PO SCH (09:00)
[2020-10-27] MEDS: INSULIN -REGULAR HUMAN 50 UNIT/0.5 ML ML SQ SCH ×2 (10:00→12:15)
[2020-10-27] MEDS: METOCLOPRAMIDE 5 MG TAB PO SCH ×2 (10:39→13:17)
[2020-10-27] MEDS: CALCITROL 0.25 MCG CAP PO SCH (10:40)
[2020-10-27] MEDS: PANTOPRAZOLE 40MG TABLET PO SCH (10:42)
[2020-10-27] MEDS: INSULIN GLARGINE 100 UNITS/ML SQ SCH (10:45)
[2020-10-27] MEDS: ASPIRIN EC 81 MG TAB PO SCH (10:46)
[2020-10-27] MEDS: ISOSORBIDE DINIT 20 MG TAB PO SCH (10:46)
[2020-10-27] MEDS: COENZYME Q10- 200 MG CAP PO SCH (10:47)
[2020-10-27] MEDS: VITAMIN D 5,000 UNIT CAP PO SCH (10:47)
[2020-10-27 12:49] VITALS: BP 117/70; TEMP 97.4
[2020-10-27 13:00] LABS: Albumin 2.4 g/dL (3.4-5.0); Bilirubin Total 0.4 mg/dL (0.2-1.0); Potassium 4.2 mmol/L (3.5-5.1); Protein, Total 6.4 g/dL (6.4-8.2)
[2020-10-27 20:13] VITALS: O2SAT 95
--- NOTE | 2020-10-27 20:26 | P.PN ---
Date of Service: 10/27/20 Vital Signs Temp Pulse Resp BP Pulse Ox 97.4 F 72 16 117/70 96 10/27/20 12:00 10/27/20 12:00 10/27/20 12:00 10/27/20 12:00 10/27/20 12:00 Assessment/ Plan: Nephrology Feeling better. CPS improving without CP or SOB. No acute events overnight. Vitals, medications, blood work and imaging reviewed in the chart. General: Oriented x3, Cooperative HEENT: Atraumatic Neck: Supple Respiratory: Clear to auscultation bilaterally Cardiovascular: No edema, Regular rate/rhythm Gastrointestinal: Soft and benign, Non-distended Musculoskeletal: No clubbing, No contractures Integumentary: No rashes, No cyanosis Neurological: Normal speech Laboratory Data (last 24 hrs) 10/24/20 00:23: PT 10.4, INR 0.91 10/24/20 00:23: WBC 11.60 H, Hgb 11.5 L, Hct 36.4 L, Plt Count 184 10/24/20 00:23: Sodium 139, Potassium 4.1, BUN 39 H, Creatinine 3.06 H, Glucose 553 H*, Magnesium 1.9, Total Bilirubin 0.2, AST 19, ALT 15, Alkaline Phosphatase 170 H Imagings Data: Reason for Exam: CHEST PAIN Report Status: Signed EXAM DESCRIPTION: Elvin Single View10/24/2020 12:36 am CLINICAL HISTORY: Chest pain COMPARISON: July 2020 FINDINGS: The lungs appear clear of acute infiltrate. The heart is mildly enlarged IMPRESSION: No acute abnormalities displayed Conclusions/Impression: A/P: Continue the current POC and Medications other than the changes listed. AM Labs PRN. Recommend daily weight. Please see the orders for complete details. CKD IV with proteinuria -No NSAIDs Hypokalemia -Give potassium prn. Hypocalcemia -Continue Calcitriol HTN with CKD/ CHF complicated by hypotension -Continue Enalapril as tolerated Diastolic CHF, A/C -Continue furosemide DM II with CKD -RISS -Continue Lantus Moderate malnutrition -Encourage nutrition Anemia in chronic illness -Monitor H&H
--- NOTE | 2020-11-14 00:12 | P.DS ---
Discharge Date: 10/27/20 Disposition: ROUTINE DISCHARGE Discharge Condition: GOOD Reason for Admission: CHEST PAIN AND SHORTNESS OF BREATH Consultations: Nephrology and cardiology - Problems (1) NSTEMI (non-ST elevated myocardial infarction) Status: Acute (2) Acute worsening of stage 3 chronic kidney disease Status: Acute (3) Diabetes mellitus type 2 in obese Status: Acute (4) History of diabetic gastroparesis Status: Acute (5) Hyperlipidemia Onset Date: 10/27/14 Status: Acute (6) Hypertension Onset Date: 08/10/14 Status: Acute (7) Medical non-compliance Onset Date: 05/06/18 Status: Acute Brief History of Present Illness: 60-year-old male with past medical history of hypertension, diabetes mellitus type 2, diastolic CHF with last echo showing EF of 55% with normal wall motion but trace mitral regurgitation, status post recent CHF exacerbation 3 months ago, progressive chronic kidney disease with subacute elevation in creatinine to baseline of 2.9-3.1 now, diabetic gastroparesis, peripheral neuropathy, coronary artery disease status post previous OH admitted for new onset left-sided chest pain, dull, nonradiating, associated with worsening shortness of breath. The patient also admits intermittent nausea vomiting. On arrival in the emergency room, EKG shows ST depression in lateral leads but noted elevated troponin to 3.0 as well as persistent elevated creatinine of 3.06. Patient is be admitted for non STEMI with CHF exacerbation. He states he had cardiac catheterization before but no stent placed. He is chest pain-free now Hospital Course: Patient was medically managed during hospitalization. We gave patient antiplatelet therapy and statin therapy. Monitor renal function closely. Cardiac catheterization was not performed as patient was with severe chronic kidney disease and patient was asymptomatic. Patient was not having any chest pain. At this time will optimize patient's renal function as patient will follow up as an outpatient with cardiology were heart catheterization. At this time, patient is stable for discharge home with outpatient follow up. Vital Signs/Physical Exam: Temp Pulse Resp BP Pulse Ox 97.4 F 72 16 117/70 96 10/27/20 12:00 10/27/20 12:00 10/27/20 12:00 10/27/20 12:00 10/27/20 12:00 General: Alert, In no apparent distress, Oriented x3 Laboratory Data at Discharge: WBC 10.20 K/uL (4.3-10.9) 10/26/20 02:58 Hgb 9.9 g/dL (13.6-17.9) L 10/26/20 02:58 Hct 29.1 % (39.6-49.0) L 10/26/20 02:58 Plt Count Cancelled 10/27/20 05:00 PT 10.4 SECONDS (9.5-12.5) 10/24/20 00:23 INR 0.91 10/24/20 00:23 APTT Cancelled 10/27/20 05:00 Sodium 140 mmol/L (136-145) 10/27/20 12:28 Potassium 4.2 mmol/L (3.5-5.1) 10/27/20 12:28 BUN 51 mg/dL (7-18) H 10/27/20 12:28 Creatinine 3.09 mg/dL (0.55-1.3) H 10/27/20 12:28 Glucose 347 mg/dL (74-106) H 10/27/20 12:28 Magnesium 1.9 mg/dL (1.8-2.4) 10/24/20 00:23 Total Bilirubin 0.4 mg/dL (0.2-1.0) 10/27/20 12:28 AST 15 U/L (15-37) 10/27/20 12:28 ALT 15 U/L (12-78) 10/27/20 12:28 Alkaline Phosphatase 125 U/L (45-117) H 10/27/20 12:28 Troponin I 16.00 ng/mL (0.0-0.045) H* D 10/24/20 08:55 Triglycerides 114 mg/dL (<150) 10/25/20 05:12 Cholesterol 116 mg/dL (<200) 10/25/20 05:12 HDL Cholesterol 45 mg/dL (40-60) 10/25/20 05:12 Cholesterol/HDL Ratio 2.58 10/25/20 05:12 Home Medications: Acetaminophen 325 mg PO PRN PRN 07/23/20 Dicyclomine [Bentyl*] 1 tab PO QID 07/23/20 Docusate [Colace Cap*] 1 cap PO DAILY PRN 07/23/20 Insulin NPH Hum/Reg Insulin Hm [Novolin 70-30 100 Unit/ml Vial] 40 units SQ BID 11/22/20 Metoclopramide [Reglan*] 10 mg PO ACHS 07/23/20 Ondansetron [Zofran (Odt)*] 4 mg PO Q8H PRN 07/23/20 Pantoprazole [Protonix Tab*] 1 tab PO BID 07/23/20 Pregabalin [Lyrica] 1 tab PO BID 07/23/20 Trazodone [Desyrel*] 1 tab PO BEDTIME 07/23/20 Aspirin [Aspirin EC 81 MG] 81 mg PO DAILY 30 Days #30 tablet. 07/26/20 Calcitrol [Rocaltrol*] 0.5 mcg PO DAILY #30 cap 10/27/20 Clopidogrel Bisulfate [Plavix*] 75 mg PO DAILY #30 tablet 10/27/20 Enalapril [Vasotec*] 2.5 mg PO DAILY #30 tab 10/27/20 Furosemide [Lasix*] 20 mg PO BIDL #60 tab 10/27/20 Isosorbide Dinit [Isordil*] 20 mg PO BID #60 tab 10/27/20 carvediloL [Coreg*] 12.5 mg PO BID 6AM 6PM #60 tab 10/27/20 Pitavastatin Calcium [Livalo] 4 mg PO BEDTIME 11/09/20 cloNIDine HCL [Clonidine HCl] 0.1 mg PO PRN 11/09/20 New Medications: carvediloL [Coreg*] 12.5 mg PO BID 6AM 6PM #60 tab Isosorbide Dinit [Isordil*] 20 mg PO BID #60 tab Furosemide [Lasix*] 20 mg PO BIDL #60 tab Clopidogrel Bisulfate [Plavix*] 75 mg PO DAILY #30 tablet Calcitrol [Rocaltrol*] 0.5 mcg PO DAILY #30 cap Enalapril [Vasotec*] 2.5 mg PO DAILY #30 tab Physician Discharge Instructions: PROBLEM: CHF, NSTEMI GOAL: Clear understanding of disease process INSTRUCTIONS: OK TO DC IV AND DC HOME FOLLOW-UP WITH PRIMARY CARE PROVIDER IN 1-2 WEEKS FOLLOW-UP WITH CARDIOLOGY and Anthropometrist IN 1-2 WEEKS RETURN TO THE ER IF symptoms worsen CALL or TEXT DR. KAPOOR AT [phone] IF ANY QUESTIONS REGARDING HOSPITAL STAY. PLEASE CALL THE FLOOR AT [phone] IF ANY MEDICATION OR NURSING QUESTIONS. Diet: Diabetic Diet Activity: Fall precautions Diet: ADA Activity: Fall precautions Followup: OOT,OOT [Primary Care Provider] - Stephen Cates MD [ACTIVE - CAN ADMIT] - Time spent managing pt's care (in minutes): 35
== END 2020-10-27 16:02 | disposition home or self-care (01) | DRG 280 ==
LOC: ER 23:34 → ERHOLD 10-24 03:37 → 2ND 10-24 10:43
PROVIDERS: ADMIT Internal Medicine; ATTEND Hospitalist
DX: I13.0 Hypertensive heart and chronic kidney disease with heart failure and stage 1 through stage 4 chronic kidney disease, or unspecified chronic kidney disease (principal); I50.33 Acute on chronic diastolic (congestive) heart failure; I21.A1 Myocardial infarction type 2; N18.4 Chronic kidney disease, stage 4 (severe); E44.0 Moderate protein-calorie malnutrition; E11.22 Type 2 diabetes mellitus with diabetic chronic kidney disease; E11.42 Type 2 diabetes mellitus with diabetic polyneuropathy; E11.65 Type 2 diabetes mellitus with hyperglycemia; E11.43 Type 2 diabetes mellitus with diabetic autonomic (poly)neuropathy; I25.2 Old myocardial infarction; E78.5 Hyperlipidemia, unspecified; I25.10 Atherosclerotic heart disease of native coronary artery without angina pectoris; K31.84 Gastroparesis; E83.51 Hypocalcemia; D63.8 Anemia in other chronic diseases classified elsewhere; I07.1 Rheumatic tricuspid insufficiency; I34.0 Nonrheumatic mitral (valve) insufficiency; Z68.30 Body mass index [BMI] 30.0-30.9, adult; Z88.5 Allergy status to narcotic agent; Z79.4 Long term (current) use of insulin; Z56.0 Unemployment, unspecified; Z90.49 Acquired absence of other specified parts of digestive tract; Z91.14 Patient's other noncompliance with medication regimen; Z88.8 Allergy status to other drugs, medicaments and biological substances; Z79.899 Other long term (current) drug therapy; Z79.82 Long term (current) use of aspirin; Z20.822 Contact with and (suspected) exposure to COVID-19
CPT/HCPCS: 36415; 71045; 80048; 80053; 80061; 80076; 82570; 82947; 83735; 83880; 84156; 84300; 84484; 85025; 85610; 85730; 93005; 93306; 96374; 96375; 99285; J1644; J1815; J1940; U0003

== ENCOUNTER 2020-11-09 09:59 | Inpatient (IN) | payer OTHER ==
--- OUTSIDE RECORDS SUMMARY | 2020-11-09 10:02 | XMS REPORT | Continuity of Care Document ---
:1965 Author Organization [facility] t Address [address] [place] [address] Care Team Providers Name Role Phone Ok Ribeiro Attending Clinician Unavailable Thiago RN, E Attending Clinician Woodrow MORAN Attending Clinician Care, [...] Date/Time Type Type Clinicians Facility Department ID 2020-11-01 2020-11-01 Patient Jes Power [id number] 00:00:00 00:00:00 Outreach Ok Maguire [id number] [place] [id number] [id number] 2020-10-31 2020-10-31 Patient Melina Dasemmanuel [id number] 00:00:00 00:00:00 Outreach Silver Maguire [id number] [place] [id number] [id number] 2020-10-30 2020-10-30 Telephone Kimberley Troy [id number] 00:00:00 00:00:00 [facility] [id number] [facility] [id number] UNIT [id number] [id number] 2020-10-24 2020-10-24 Patient Jes Power [id number] 00:00:00 00:00:00 Outreach Ok Maguier [id number] [place] [id number] 403 2020-10-24 2020-10-24 Patient Melina Das [id number] 00:00:00 00:00:00 Outreach Silver Maguire [id number] [place] [id number] 2020-10-19 2020-10-19 Patient Melina Das [id number] 00:00:00 00:00:00 Outreach Silver Maguire [id number] [place] [phone] [id number] 2020-10-17 2020-10-17 Patient Jes Power [id number] 00:00:00 00:00:00 Outreach Ok Maguire [id number] [place] [id number] 2020-10-12 2020-10-12 Office Care, Erasmo MEDEIROS [id number] 08:30:51 10:12:09 Visit [facility] [id number] [facility] [id number] UNIT [id number] [id number] 2020-10-12 2020-10-12 Patient Jes Power [id number] 00:00:00 00:00:00 Outreach Ok Maguire [id number] [place] [id number] 403 2020-10-12 2020-10-12 Orders Doctor MARSHALL [id number] 00:00:00 00:00:00 Only Unassigned, RK [id number] [facility] [id number] [id number] Results This patient has no known results.
[2020-11-09 10:21] LABS: Absolute Lymphocytes (CBC) 2.3 K/uL (0.7-4.9); Basophils % 1.4 % (0-1.3); Hematocrit 34.5 % (39.6-49.0); Lymphocytes % 21.5 % (15.3-44.8); MPV 11.7 fL (7.6-11.3); RBC Red Blood Cell Count 4.17 M/uL (4.33-5.43)
--- NOTE | 2020-11-09 10:23 | ER ---
Nurse's Notes [facility] Name: Florentino Acosta Age: 54 yrs Sex: Male : 1965 Arrival Date: 11/09/2020 Time: 10:01 Bed 6 Private MD: Diagnosis: Angina pectoris;Essential (primary) hypertension;Type 2 diabetes mellitus;Non-ST elevation (NSTEMI) myocardial infarction;Chronic kidney disease (CKD) Presentation: 11/09 10:02 Chief complaint: Patient states: Chest pain started this morning. Radiating to the L ca1 arm. Had a heart attack 2 weeks ago. Coronavirus screen: Client denies travel out of the [place] in the last 14 days. At this time, the client does not indicate any symptoms associated with coronavirus-19. Ebola Screen: Patient negative for fever greater than or equal to 101.5 degrees Fahrenheit, and additional compatible Ebola Virus Disease symptoms Patient denies exposure to infectious person. Patient denies travel to an Ebola-affected area in the 21 days before illness onset. No symptoms or risks identified at this time. Initial Sepsis Screen: Does the patient meet any 2 criteria? No. Patient's initial sepsis screen is negative. Does the patient have a suspected source of infection? No. Patient's initial sepsis screen is negative. Risk Assessment: Do you want to hurt yourself or someone else? Patient reports no desire to harm self or others. Onset of symptoms was November 09, 2020. 10:02 Method Of Arrival: Ambulatory ca1 10:02 Acuity: RAMSES 2 ca1 Historical: - Allergies: 10:04 Hydrocodone-Acetaminophen; ca1 10:04 Zoloft; ca1 10:04 Vioxx; ca1 - PMHx: 10:04 Back pain; bowel obstruction; CHF; Chronic pain; Diabetes - NIDDM; Gastroparesis; ca1 H.Pylori; High Cholesterol; Hyperlipidemia; Myocardial infarction; neuropathy; - PSHx: 10:04 Cholecystectomy; back surgery; heart cath; ca1 - Immunization history:: Flu vaccine is up to date. - Social history:: Smoking status: Patient denies any tobacco usage or history of. - Family history:: not pertinent. Screenin:02 Abuse screen: Denies threats or abuse. Nutritional screening: No deficits noted. jd3 Tuberculosis screening: No symptoms or risk factors identified. Fall Risk Ambulatory Aid- None/Bed Rest/Nurse Assist (0 pts). Gait- Normal/Bed Rest/Wheelchair (0 pts) Mental Status- Oriented to own ability (0 pts). Total Jara Fall Scale indicates No Risk (0-24 pts). Assessment: 10:15 General: Appears in no apparent distress. uncomfortable, Behavior is calm, cooperative, jd3 appropriate for age. Pain: Complains of pain in chest Pain does not radiate. Quality of pain is described as sharp, Pain began suddenly. Neuro: Level of Consciousness is awake, alert, obeys commands, Oriented to person, place, time, situation. Cardiovascular: Reports chest pain, Capillary refill < 3 seconds Patient's skin is warm and dry. Rhythm is irregular. Respiratory: Reports shortness of breath at rest Airway is patent Respiratory effort is even, unlabored, Respiratory pattern is regular, symmetrical. GI: No signs and/or symptoms were reported involving the gastrointestinal system. : No signs and/or symptoms were reported regarding the genitourinary system. EENT: No signs and/or symptoms were reported regarding the EENT system. Derm: Skin is intact, Skin is dry, Skin is normal, Skin temperature is warm. Musculoskeletal: Circulation, motion, and sensation intact. Range of motion: intact in all extremities. 11:15 Reassessment: Patient appears in no apparent distress at this time. Patient and/or jd3 family updated on plan of care and expected duration. Pain level reassessed. Patient is alert, oriented x 3, equal unlabored respirations, skin warm/dry/pink. Patient states feeling better. 12:00 Reassessment: Patient appears in no apparent distress at this time. Patient and/or jd3 family updated on plan of care and expected duration. Pain level reassessed. Patient is alert, oriented x 3, equal unlabored respirations, skin warm/dry/pink. 13:00 Reassessment: Patient appears in no apparent distress at this time. No changes from jd3 previously documented assessment. Patient and/or family updated on plan of care and expected duration. Pain level reassessed. Patient is alert, oriented x 3, equal unlabored respirations, skin warm/dry/pink. 14:00 Reassessment: Patient appears in no apparent distress at this time. No changes from jd3 previously documented assessment. Patient and/or family updated on plan of care and expected duration. Pain level reassessed. Patient is alert, oriented x 3, equal unlabored respirations, skin warm/dry/pink. 15:00 Reassessment: Patient appears in no apparent distress at this time. No changes from jd3 previously documented assessment. Patient and/or family updated on plan of care and expected duration. Pain level reassessed. Patient is alert, oriented x 3, equal unlabored respirations, skin warm/dry/pink. 16:00 Reassessment: Patient appears in no apparent distress at this time. No changes from jd3 previously documented assessment. Patient and/or family updated on plan of care and expected duration. Pain level reassessed. Patient is alert, oriented x 3, equal unlabored respirations, skin warm/dry/pink. 16:19 Reassessment: Patient appears in no apparent distress at this time. Patient is alert, tw2 oriented x 3, equal unlabored respirations, skin warm/dry/pink. attempt to call report to receiving nurse Rayna, unavailable at this time, awaiting a call back. 17:12 Reassessment: Patient appears in no apparent distress at this time. No changes from tw2 previously documented assessment. Vital Signs: 10:02 BP 162 / 115; Pulse 85; Resp 16 S; Temp 98; Pulse Ox 100% on R/A; Pain 10/10; ca1 10:49 Weight 79.83 kg (R); jd3 13:20 BP 125 / 75; Pulse 70; Resp 16 S; Pulse Ox 97% on R/A; jd3 15:07 BP 155 / 102; Pulse 69; Resp 17 S; Pulse Ox 99% on R/A; jd3 16:00 Pulse 65; Resp 17 S; Pulse Ox 100% on R/A; jd3 ED Course: 10:01 Patient arrived in ED. am2 10:03 Antony Islas MD is Attending Physician. chetna 10:03 Triage completed. ca1 10:04 Arm band placed on right wrist. ca1 10:10 Nena Devine RN is Primary Nurse. tw2 10:22 Tyree Cuellar MD is Hospitalizing Provider. chetna 10:25 Initial lab(s) drawn, by ED staff, sent to lab. Inserted saline lock: 20 gauge in right kj1 wrist, using aseptic technique. Blood collected. 10:25 EKG done, by ED staff, reviewed by Antony Islas MD. kj1 16:02 Patient has correct armband on for positive identification. Bed in low position. Call jd3 light in reach. Side rails up X 1. playground monitor on. Pulse ox on. NIBP on. 16:02 Patient admitted, IV remains in place. Patient maintains SpO2 saturation greater than jd3 95% on room air. 17:12 No provider procedures requiring assistance completed. tw2 Administered Medications: 10:17 Drug: Lopressor (metoprolol TARTRATE) 50 mg Route: PO; tw2 11:15 Follow up: Response: No adverse reaction jd3 10:17 Drug: PlaVIX 75 mg Route: PO; tw2 11:10 Follow up: Response: No adverse reaction jd3 10:18 Drug: Aspirin 162 mg Route: PO; tw2 11:15 Follow up: Response: No adverse reaction jd3 11:05 Drug: Pepcid 20 mg Route: IVP; Site: right antecubital; jd3 12:00 Follow up: Response: No adverse reaction jd3 11:05 Drug: morphine 4 mg Route: IVP; Site: right antecubital; jd3 12:00 Follow up: Response: No adverse reaction; RASS: Alert and Calm (0) jd3 11:05 Drug: Zofran (Ondansetron) 4 mg Route: IVP; Site: right antecubital; jd3 12:00 Follow up: Response: No adverse reaction jd3 11:05 Drug: Lovenox 1 mg/kg Route: Sub-Q; Site: abdomen; jd3 12:00 Follow up: Response: No adverse reaction jd3 Outcome: 10:22 Decision to Hospitalize by Provider. chetna 17:12 Patient left the ED. jd3 17:12 Admitted to Med/surg tw2 17:12 Condition: stable 17:12 Instructed on the need for admit. Signatures: Antony Islas MD MD cha Wise, Tara, RN RN tw2 Lynda Phipps am2 Varun Fong RN RN jd3 Acob, Cheryl, RN RN ca1 Jackson, Kandis kj1 Corrections: (The following items were deleted from the chart) 16:00 11:15 Reassessment: Patient appears in no apparent distress at this time. No changes jd3 from previously documented assessment. Patient and/or family updated on plan of care and expected duration. Pain level reassessed. Patient is alert, oriented x 3, equal unlabored respirations, skin warm/dry/pink. jd3
--- NOTE | 2020-11-09 10:23 | EDPHYS ---
Physician Documentation [facility] Name: Florentino Acosta Age: 54 yrs Sex: Male : 1965 Arrival Date: 11/09/2020 Time: 10:01 Bed 6 Private MD: ED Physician Antony Islas HPI: 11/09 10:17 This 54 yrs old Male presents to ER via Ambulatory with complaints of Chest chetna Pain. 10:17 The patient or guardian reports chest pain that is located primarily in the substernal chetna area. Onset: this morning. The pain does not radiate. Associated signs and symptoms: The patient has no apparent associated signs or symptoms. The chest pain is described as a heaviness, a pressure. Duration: The patient or guardian reports a single episode, that is still ongoing. Severity of pain: At its worst the pain was moderate in the emergency department the pain is unchanged. The patient has experienced a previous episode. Historical: - Allergies: 10:04 Hydrocodone-Acetaminophen; ca1 10:04 Zoloft; ca1 10:04 Vioxx; ca1 - PMHx: 10:04 Back pain; bowel obstruction; CHF; Chronic pain; Diabetes - NIDDM; Gastroparesis; ca1 H.Pylori; High Cholesterol; Hyperlipidemia; Myocardial infarction; neuropathy; - PSHx: 10:04 Cholecystectomy; back surgery; heart cath; ca1 - Immunization history:: Flu vaccine is up to date. - Social history:: Smoking status: Patient denies any tobacco usage or history of. - Family history:: not pertinent. ROS: 10:17 Constitutional: Negative for fever, chills, and weight loss, Eyes: Negative for injury, chetna pain, redness, and discharge, ENT: Negative for injury, pain, and discharge, Neck: Negative for injury, pain, and swelling, Respiratory: Negative for shortness of breath, cough, wheezing, and pleuritic chest pain, Abdomen/GI: Negative for abdominal pain, nausea, vomiting, diarrhea, and constipation, Back: Negative for injury and pain, : Negative for injury, bleeding, discharge, and swelling, MS/Extremity: Negative for injury and deformity, Skin: Negative for injury, rash, and discoloration, Neuro: Negative for headache, weakness, numbness, tingling, and seizure, Psych: Negative for depression, anxiety, suicide ideation, homicidal ideation, and hallucinations, Allergy/Immunology: Negative for hives, rash, and allergies, Endocrine: Negative for neck swelling, polydipsia, polyuria, polyphagia, and marked weight changes, Hematologic/Lymphatic: Negative for swollen nodes, abnormal bleeding, and unusual bruising. 10:17 Cardiovascular: Positive for chest pain, of the chest. Exam: 10:17 Constitutional: This is a well developed, well nourished patient who is awake, alert, chetna and in no acute distress. Head/Face: Normocephalic, atraumatic. Eyes: Pupils equal round and reactive to light, extra-ocular motions intact. Lids and lashes normal. Conjunctiva and sclera are non-icteric and not injected. Cornea within normal limits. Periorbital areas with no swelling, redness, or edema. ENT: Nares patent. No nasal discharge, no septal abnormalities noted. Tympanic membranes are normal and external auditory canals are clear. Oropharynx with no redness, swelling, or masses, exudates, or evidence of obstruction, uvula midline. Mucous membranes moist. Neck: Trachea midline, no thyromegaly or masses palpated, and no cervical lymphadenopathy. Supple, full range of motion without nuchal rigidity, or vertebral point tenderness. No Meningismus. Chest/axilla: Normal chest wall appearance and motion. Nontender with no deformity. No lesions are appreciated. Cardiovascular: Regular rate and rhythm with a normal S1 and S2. No gallops, murmurs, or rubs. Normal PMI, no JVD. No pulse deficits. Respiratory: Lungs have equal breath sounds bilaterally, clear to auscultation and percussion. No rales, rhonchi or wheezes noted. No increased work of breathing, no retractions or nasal flaring. Abdomen/GI: Soft, non-tender, with normal bowel sounds. No distension or tympany. No guarding or rebound. No evidence of tenderness throughout. Back: No spinal tenderness. No costovertebral tenderness. Full range of motion. Male : Normal genitalia with no discharge or lesions. Skin: Warm, dry with normal turgor. Normal color with no rashes, no lesions, and no evidence of cellulitis. MS/ Extremity: Pulses equal, no cyanosis. Neurovascular intact. Full, normal range of motion. Neuro: Awake and alert, GCS 15, oriented to person, place, time, and situation. Cranial nerves II-XII grossly intact. Motor strength 5/5 in all extremities. Sensory grossly intact. Cerebellar exam normal. Normal gait. Psych: Awake, alert, with orientation to person, place and time. Behavior, mood, and affect are within normal limits. 10:20 ECG was reviewed by the Attending Physician. [facility] Vital Signs: 10:02 BP 162 / 115; Pulse 85; Resp 16 S; Temp 98; Pulse Ox 100% on R/A; Pain 10/10; ca1 10:49 Weight 79.83 kg (R); jd3 13:20 BP 125 / 75; Pulse 70; Resp 16 S; Pulse Ox 97% on R/A; jd3 15:07 BP 155 / 102; Pulse 69; Resp 17 S; Pulse Ox 99% on R/A; jd3 16:00 Pulse 65; Resp 17 S; Pulse Ox 100% on R/A; jd3 MDM: 10:03 Patient medically screened. chetna 10:19 Differential diagnosis: abnormal EKG, acute pericarditis, anxiety, chest wall pain, chetna pancreatitis, pneumonia, pulmonary embolus, stable angina, unstable angina. HEART Score: History: Moderately Suspicious (1), ECG: Non specific repolarization disturbance / LBTB / PM (1), Age: > 45 and < 65 years (1), Risk Factors: > or = 3 Risk factors for atherosclerotic disease (2), [Hypercholesterolemia] [Hypertension] [DM] [+ Family HX] [Obesity] Troponin: > or = 3 x Normal Limit (2). The patient was given aspirin in the Emergency Department. The patient's deep vein thrombosis risk score was calculated as follows: Total Score: 0. This patient was found to be at low risk for a deep vein thrombosis by using the Well's assessment criteria. The patient's pulmonary embolism risk score was calculated as follows: Total Score: 0-2 points. This patient was found to be at low risk for a pulmonary embolism by using the Well's assessment criteria. KEMAR Risk Score: 1 - Three or more CAD risk factors, 1- Known CAD, 1 - ASA use in past 7 days, 1 - Recent [<24hrs] Severe Angina, 1 - Elevated Cardiac Markers, TOTAL SCORE = 5. Data reviewed: vital signs, nurses notes, lab test result(s), EKG, radiologic studies, plain films. 11/09 10:05 Order name: Basic Metabolic Panel [facility] 11/09 10:05 Order name: CBC with Diff [facility] 11/09 10:05 Order name: LFT's [facility] 11/09 10:05 Order name: Magnesium [facility] 11/09 10:05 Order name: NT PRO-BNP [facility] 11/09 10:05 Order name: PT-INR [facility] 11/09 10:05 Order name: Troponin (emerg Dept Use Only) [facility] 11/09 10:05 Order name: Lipase [facility] 11/09 10:16 Order name: COVID-19 : Document "Date of Symptom Onset" if Symptomatic. [facility] 11/09 10:24 Order name: CBC with Automated Diff; Complete Time: 10:55 EDMS 11/09 10:29 Order name: Protime (+INR); Complete Time: 10:55 EDSD 11/09 10:43 Order name: Basic Metabolic Panel; Complete Time: 10:55 EDSD 11/09 10:43 Order name: Liver (Hepatic) Function; Complete Time: 10:55 EDSD 11/09 10:43 Order name: Troponin (Emerg Dept Use Only); Complete Time: 10:55 EDSD 11/09 10:05 Order name: XRAY Chest (1 view) [facility] 11/09 10:05 Order name: EKG; Complete Time: 10:06 [facility] 11/09 10:05 Order name: Cardiac monitoring; Complete Time: 10:18 [facility] 11/09 10:43 Order name: NT PRO-BNP; Complete Time: 10:55 EDSD 11/09 10:43 Order name: Magnesium; Complete Time: 10:55 EDSD 11/09 10:43 Order name: Lipase; Complete Time: 10:55 EDSD 11/09 11:32 Order name: [facility]ONAV[facility] 11/09 11:35 Order name: RAD [facility] 11/09 12:17 Order name: SARS-COV-2 RT PCR [facility] 11/09 10:05 Order name: EKG - Nurse/Tech; Complete Time: 10:18 [facility] 11/09 10:05 Order name: IV Saline Lock; Complete Time: 10:18 [facility] 11/09 10:05 Order name: Labs collected and sent; Complete Time: 10:18 [facility] 11/09 10:05 Order name: O2 Per Protocol; Complete Time: 10:18 [facility] 11/09 10:05 Order name: O2 Sat Monitoring; Complete Time: 10:18 chetna EC:20 Rate is 88 beats/min. Rhythm is regular. QRS [place] is Normal. CT interval is normal. QRS chetna interval is normal. QT interval is normal. No Q waves. T waves are Normal. ST Segment is depressed in leads I, aVL. Clinical impression: Abnormal EKG without significant change. Interpreted by me. Reviewed by me. Administered Medications: 10:17 Drug: Lopressor (metoprolol TARTRATE) 50 mg Route: PO; tw2 11:15 Follow up: Response: No adverse reaction jd3 10:17 Drug: PlaVIX 75 mg Route: PO; tw2 11:10 Follow up: Response: No adverse reaction jd3 10:18 Drug: Aspirin 162 mg Route: PO; tw2 11:15 Follow up: Response: No adverse reaction jd3 11:05 Drug: Pepcid 20 mg Route: IVP; Site: right antecubital; jd3 12:00 Follow up: Response: No adverse reaction jd3 11:05 Drug: morphine 4 mg Route: IVP; Site: right antecubital; jd3 12:00 Follow up: Response: No adverse reaction; RASS: Alert and Calm (0) jd3 11:05 Drug: Zofran (Ondansetron) 4 mg Route: IVP; Site: right antecubital; jd3 12:00 Follow up: Response: No adverse reaction jd3 11:05 Drug: Lovenox 1 mg/kg Route: Sub-Q; Site: abdomen; jd3 12:00 Follow up: Response: No adverse reaction j Disposition: 11/09/20 10:22 Hospitalization ordered by Tyree Cuellar for Inpatient Admission. Preliminary diagnosis are Angina pectoris, Essential (primary) hypertension, Type 2 diabetes mellitus, Non-ST elevation (NSTEMI) myocardial infarction, Chronic kidney disease (CKD). - Bed requested for Telemetry/MedSurg (Inpatient). - Status is Inpatient Admission. jd3 - Condition is Stable. - Problem is new. - Symptoms have improved. Signatures: Dispatcher [employer] EDMS Antony Islas MD MD cha Page, Corey, PA PA cp Wise, Tara, RN RN tw2 Varun Fong RN RN jd3 Peggy Kemp Cheryl, RN RN ca1 Corrections: (The following items were deleted from the chart) 11:09 10:22 Hospitalization Ordered by Tyree Cuellar MD for Observation. Preliminary chetna diagnosis is Angina pectoris; Essential (primary) hypertension; Type 2 diabetes mellitus. Bed requested for Telemetry/MedSurg (observation). Status is Observation. Condition is Stable. Problem is new. Symptoms have improved. chetna 11:10 11:09 11/09/2020 10:22 Hospitalization Ordered by Tyree Cuellar MD for Inpatient chetna Admission. Preliminary diagnosis is Angina pectoris; Essential (primary) hypertension; Type 2 diabetes mellitus; Non-ST elevation (NSTEMI) myocardial infarction. Bed requested for Telemetry/MedSurg (Inpatient). Status is Inpatient Admission. Condition is Stable. Problem is new. Symptoms have improved. chetna 15:32 11:10 11/09/2020 10:22 Hospitalization Ordered by Tyree Cuellar MD for Inpatient eb Admission. Preliminary diagnosis is Angina pectoris; Essential (primary) hypertension; Type 2 diabetes mellitus; Non-ST elevation (NSTEMI) myocardial infarction; Chronic kidney disease (CKD). Bed requested for Telemetry/MedSurg (Inpatient). Status is Inpatient Admission. Condition is Stable. Problem is new. Symptoms have improved. chetna 17:12 15:32 11/09/2020 10:22 Hospitalization Ordered by Tyree Cuellar MD for Inpatient jd3 Admission. Preliminary diagnosis is Angina pectoris; Essential (primary) hypertension; Type 2 diabetes mellitus; Non-ST elevation (NSTEMI) myocardial infarction; Chronic kidney disease (CKD). Bed requested for Telemetry/MedSurg (Inpatient). Status is Inpatient Admission. Condition is Stable. Problem is new. Symptoms have improved. eb
[2020-11-09 10:28] LABS: Protime INR 0.94
[2020-11-09] MEDS ORDERED: METOPROLOL TAR 50 MG TAB ONE (10:31)
[2020-11-09] MEDS ORDERED: ASPIRIN 81 MG CHEWABLE TABLET ONE (10:32)
[2020-11-09] MEDS ORDERED: CLOPIDOGREL 75 MG TABLET ONE (10:33)
[2020-11-09 10:41] LABS: ALT/SGPT 22 U/L (12-78); AST/SGOT 29 U/L (15-37); Albumin 3.1 g/dL (3.4-5.0); Alkaline Phosphatase 114 U/L (45-117); BUN Blood Urea Nitrogen 41 mg/dL (7-18); Bicarbonate 21 mmol/L (21-32); Bilirubin Direct < 0.1 mg/dL (0-0.2); Bilirubin Total 0.3 mg/dL (0.2-1.0); Glucose Level 198 mg/dL (74-106); Lipase 583 U/L (73-393); Magnesium 2.3 mg/dL (1.8-2.4); NT PRO-BNP 1574 pg/mL (<125); Potassium 4.4 mmol/L (3.5-5.1); Protein, Total 8.3 g/dL (6.4-8.2); Sodium Level 141 mmol/L (136-145); Troponin (Emerg Dept Use Only) 0.37 ng/mL (0.0-0.045)
[2020-11-09] MEDS ORDERED: ONDANSETRON 4 MG/2 ML VIAL ONE (10:51)
[2020-11-09] MEDS ORDERED: MORPHINE 4 MG/ML SYR ONE (10:51)
[2020-11-09] MEDS ORDERED: FAMOTIDINE 20 MG/2 ML VIAL IV ONE (10:51)
[2020-11-09] MEDS ORDERED: ENOXAPARIN 80 MG/0.8 ML SQ ONE (11:08)
--- NOTE | 2020-11-09 11:35 | RAD REPORT ---
EXAM DESCRIPTION: RAD - Chest Single View - 11/09/2020 11:21 am CLINICAL HISTORY: CHEST PAIN COMPARISON: Portable October 24 TECHNIQUE: AP portable chest image was obtained 11/09/2020 11:21 am . FINDINGS: Lung volumes are low. Left base assessment is limited due to shallow inspiration, body hab itus and portable imaging affects. Interstitial pattern is mildly prominent but stable. No mass or co nsolidation. Heart size is prominent but stable. Left pericardial fat pad is present. No vascular eng orgement. No measurable pleural effusion and no pneumothorax. No acute bony abnormality seen. No acute aortic findings suspected. IMPRESSION: Limited portable study without acute cardiopulmonary finding. Chest findings are similar to comparison.
[2020-11-09] MEDS ORDERED: ACETAMINOPHEN 500 MG TAB PO PRN (11:54)
[2020-11-09] MEDS ORDERED: ENOXAPARIN 100 MG/ML SYR SQ SCH (14:00)
[2020-11-09] MEDS: D5W 1,000 ML with NA BICARB 8.4% 50 MEQ IV SCH ×2 (17:38)
[2020-11-09] MEDS: MORPHINE 4 MG/ML SYR IV PRN (17:38)
[2020-11-09] MEDS: ALPRAZOLAM 0.25 MG TABLET PO PRN (22:18)
[2020-11-09] MEDS: METOPROLOL TAR 25 MG TAB PO SCH (22:18)
[2020-11-10] MEDS: MORPHINE 4 MG/ML SYR IV PRN ×4 (01:04→21:07)
[2020-11-10] MEDS: ACETYLCYST 20% 800 MG/4 ML VIAL PO SCH ×3 (01:24→17:00)
[2020-11-10 05:48] LABS: Basophils % 1.8 % (0-1.3); Hematocrit 31.5 % (39.6-49.0); Lymphocytes % 25.3 % (15.3-44.8); RBC Red Blood Cell Count 3.75 M/uL (4.33-5.43)
[2020-11-10 06:18] LABS: Potassium 4.7 mmol/L (3.5-5.1); Troponin I 0.28 ng/mL (0.0-0.045)
--- NOTE | 2020-11-10 06:51 | EKG ---
Test Date: 2020-11-09 Test Time: 10:08:16 [employer]: [place] MEASUREMENT RESULTS: Intervals: Rate: 88 VA: 180 QRSD: 132 QT: 392 QTc: 474 [place]: P: 65 VA: 180 QRS: -43 T: 88 INTERPRETIVE STATEMENTS: Normal sinus rhythm Left axis deviation Right bundle branch block Septal infarct, age undetermined Possible Lateral infarct, age undetermined Abnormal ECG Compared to ECG 10/24/2020 00:01:30 Right bundle-branch block now present Sinus tachycardia no longer present Left ventricular hypertrophy no longer present Early repolarization no longer present Myocardial infarct finding still present Electronically Signed On 11-10-20 06:49:18 MAGNETIC RESONANCE IMAGING COORDINATOR by Flaco Florentino
[2020-11-10] MEDS: ENOXAPARIN 80 MG/0.8 ML SQ SCH (09:00)
[2020-11-10] MEDS ORDERED: ENOXAPARIN 40 MG/0.4 ML SQ SCH (09:00)
[2020-11-10] MEDS: ASPIRIN EC 81 MG TAB PO SCH (09:54)
[2020-11-10] MEDS: METOPROLOL TAR 25 MG TAB PO SCH ×2 (09:54→21:06)
[2020-11-10] MEDS: D5W 1,000 ML with NA BICARB 8.4% 50 MEQ IV SCH ×2 (14:51)
--- NOTE | 2020-11-10 19:56 | P.CNS ---
Date of Consult: 11/10/20 Reason for Consult: CKD Requesting Physician: Tyree Cuellar Chief Complaint: Chest Pain History of Present Illness: 54 yo HM CKD, DM presents to the ER with moderate, persistent chest pain/ pressure complicated by CKD IV. He reports similar symptoms in the past but conservative treatment was recommended due to CKD IV. No current NSAIDs. 10:17 This 54 yrs old Male presents to ER via Ambulatory with compla ints of Chest chetna Pain. 10:17 The patient or guardian reports chest pain that is located primarily in t he substernal chetna area. Onset: this morning. The pain does not radiate. Associated signs and symptoms: The patient has no apparent associated signs or symptoms. The chest pain is described as a heaviness, a pressure. Duration: The patient or guardian reports a single episode, that is still ongoing. Severity of pain: At its worst the pain was moderate in the emergency department the pain is unchanged. The patient has experienced a previous episode. Allergies rofecoxib [From Vioxx] Allergy (Mild, Verified 02/11/20 20:12) Hives sertraline HCl [From Zoloft] Allergy (Mild, Verified 02/11/20 20:12) Hives hydrocodone Adverse Reaction (Verified 02/11/20 20:12) Hives/Rash Codeine Adverse Reaction (Uncoded 02/11/20 20:12) Itching Home medications list reviewed: Yes Home Medications: Acetaminophen 325 mg PO PRN PRN 07/23/20 Dicyclomine [Bentyl*] 1 tab PO QID 07/23/20 Docusate [Colace Cap*] 1 cap PO DAILY PRN 07/23/20 Insulin NPH Hum/Reg Insulin Hm [Novolin 70-30 100 Unit/ml Vial] 40 units SQ BID 07/23/20 Metoclopramide [Reglan*] 10 mg PO ACHS 07/23/20 Ondansetron [Zofran (Odt)*] 4 mg PO Q8H PRN 07/23/20 Pantoprazole [Protonix Tab*] 1 tab PO BID 07/23/20 Pregabalin [Lyrica] 1 tab PO BID 07/23/20 Trazodone [Desyrel*] 1 tab PO BEDTIME 07/23/20 Aspirin [Aspirin EC 81 MG] 81 mg PO DAILY 30 Days #30 tablet. 07/26/20 Calcitrol [Rocaltrol*] 0.5 mcg PO DAILY #30 cap 10/27/20 Clopidogrel Bisulfate [Plavix*] 75 mg PO DAILY #30 tablet 10/27/20 Enalapril [Vasotec*] 2.5 mg PO DAILY #30 tab 10/27/20 Furosemide [Lasix*] 20 mg PO BIDL #60 tab 10/27/20 Isosorbide Dinit [Isordil*] 20 mg PO BID #60 tab 10/27/20 carvediloL [Coreg*] 12.5 mg PO BID 6AM 6PM #60 tab 10/27/20 Pitavastatin Calcium [Livalo] 4 mg PO BEDTIME 11/09/20 cloNIDine HCL [Clonidine HCl] 0.1 mg PO PRN 11/09/20 - Past Medical/Surgical History Diabetic: Yes -: Diabetes mellitus type 2; on insulin -: Hypertension -: CAD, no stents -: Diabetic neuropathy -: Gastroparesis -: Cataracts both eyes -: heart attacks -: L1-s2 compression for surgery in March 01 in [facility] -: CHF -: Cholecystectomy -: Heart catheterization, no stents Psychosocial/ Personal History: Patient is . He has 4 children. Currently unemployed - Family History Mother Medical History: Hypertension, Diabetes Father Medical History: Liver disease Notes: - alcoholic - Social History Smoking Status: Unknown if ever smoked Alcohol use: No CD- Drugs: No Caffeine use: No Place of Residence: Home Review of Systems 10-point ROS is otherwise unremarkable Cardiovascular: Chest Pain Physical Examination Temp Pulse Resp BP Pulse Ox 97.7 F 75 16 138/84 97 11/10/20 16:00 11/10/20 16:00 11/10/20 16:00 11/10/20 16:00 11/10/20 16:00 General: In no apparent distress, Oriented x3, Cooperative HEENT: Atraumatic Neck: Supple Respiratory: Clear to auscultation bilaterally Cardiovascular: Regular rate/rhythm Gastrointestinal: Soft and benign, Non-distended Musculoskeletal: No clubbing, No contractures Integumentary: No rashes, No cyanosis Neurological: Normal speech Laboratory Data (last 24 hrs) 11/10/20 05:10: Triglycerides 230 H, Cholesterol 144, HDL Cholesterol 45, Cholesterol/HDL Ratio 3.20 11/10/20 05:10: Sodium 141, Potassium 4.7, BUN 47 H, Creatinine 3.00 H, Glucose 232 H, Troponin I 0.28 H 11/10/20 05:10: WBC 7.80 D, Hgb 10.3 L, Hct 31.5 L, Plt Count 174 11/09/20 21:06: Troponin I 0.32 H Imagings Data: EXAM DESCRIPTION: RAD - Chest Single View - 11/09/2020 11:21 am CLINICAL HISTORY: CHEST PAIN COMPARISON: Portable October 24 TECHNIQUE: AP portable chest image was obtained 11/09/2020 11:21 am . FINDINGS: Lung volumes are low. Left base assessment is limited due to shallow inspiration, body habitus and portable imaging affects. Interstitial pattern is mildly prominent but stable. No mass or consolidation. Heart size is prominent but stable. Left pericardial fat pad is present. No vascular engorgement. No measurable pleural effusion and no pneumothorax. No acute bony abnormality seen. No acute aortic findings suspected. IMPRESSION: Limited portable study without acute cardiopulmonary finding. Chest findings are similar to comparison. Conclusions/Impression: CKD IV with proteinura -No NSAIDs HTN with CKD/ CHF -Continue Metoprolol Diastolic CHF, chronic -Low sodium diet DM II with CKD -RISS YRN/ Secondary HyperPTH Hypocalcemia -Start Calcitriol and Cholecalciferol Anemia in CKD Iron deficiency -Give Retacrit X1 -Give IV iron Chest Pain -Continue Mucomyst -Continue Bicarb gtt Thank you kindly for the consultation.
[2020-11-10] MEDS: SOD FERRIC GLUC COMPLX/SUCROSE 125 MG in NA CHLORIDE 0.9% 100 ML IV SCH (22:11)
[2020-11-10] MEDS ORDERED: SOD FERRIC GLUC COMPLX/SUCROSE 62.5 MG/5 ML VIAL IV ONE ×2 (22:16→22:25)
[2020-11-10] MEDS ORDERED: NA CHLORIDE 0.9% 100 ML ONE (22:22)
[2020-11-11] MEDS: ACETYLCYST 20% 800 MG/4 ML VIAL PO SCH ×2 (00:28→15:00)
[2020-11-11] MEDS: MORPHINE 4 MG/ML SYR IV PRN ×3 (00:35→22:31)
[2020-11-11] MEDS: ALPRAZOLAM 0.25 MG TABLET PO PRN (02:18)
--- NOTE | 2020-11-11 06:58 | PN ---
Date of Progress Note: 11/11/2020 Subjective: Mr. Acosta had come in with non-ST elevation myocardial infarction, acute on chronic re nal failure. Last creatinine was 3.0. Dr. Baer seeing him as well as Dr. Cuellar. He had come in w ith a non-STEMI, plan for heart catheterization on Friday. The patient understands the risk and the benefit. Last troponin was 0.28. He is on appropriate therapy. He is asymptomatic from a heart sta ndpoint, but I feel more comfortable keeping him in the hospital till Friday for a catheterization. He has already had 2 admissions for non-STEMI in the last month. Understand the risk and the benefit as far as his kidneys are concerned. Nephrology had recommended Mucomyst, bicarb, Retacrit for his anemia, calcitriol. As earlier stated we will plan for the catheterization on Friday. PETRA/THEE Voice ID: [id number] Report ID: [id number]
--- NOTE | 2020-11-11 08:32 | EKG ---
Test Date: 2020-11-10 Test Time: 10:03:12 [employer] Salesperson: MADELIN MEASUREMENT RESULTS: Intervals: Rate: 74 FL: 182 QRSD: 106 QT: 402 QTc: 446 [place]: P: 51 FL: 182 QRS: -18 T: 124 INTERPRETIVE STATEMENTS: Sinus rhythm with fusion complexes Incomplete right bundle branch block ST & T wave abnormality, consider lateral ischemia Abnormal ECG Compared to ECG 11/09/2020 10:08:16 Fusion complex(es) now present Incomplete right bundle-branch block now present ST (T wave) deviation now present Possible ischemia now present Left-axis deviation no longer present Right bundle-branch block no longer present Myocardial infarct finding no longer present Electronically Signed On 11-11-20 08:29:19 PANTRY WORKER by Flaco Florentino
[2020-11-11] MEDS ORDERED: EPOETIN ALFA-EPBX 10,000 UNIT/ML VIAL SQ SCH (09:00)
[2020-11-11] MEDS: VITAMIN D 5,000 UNIT CAP PO SCH (09:26)
[2020-11-11] MEDS: ENOXAPARIN 80 MG/0.8 ML SQ SCH (09:26)
[2020-11-11] MEDS: ASPIRIN EC 81 MG TAB PO SCH (09:27)
[2020-11-11] MEDS: D5W 1,000 ML with NA BICARB 8.4% 50 MEQ IV SCH ×2 (09:27)
[2020-11-11] MEDS: CALCITROL 0.25 MCG CAP PO SCH (09:27)
[2020-11-11] MEDS: METOPROLOL TAR 25 MG TAB PO SCH ×2 (09:27→20:27)
[2020-11-11] MEDS: SOD FERRIC GLUC COMPLX/SUCROSE 125 MG in NA CHLORIDE 0.9% 100 ML IV SCH (09:28)
--- NOTE | 2020-11-11 15:22 | P.PN ---
Date of Service: 11/11/20 Vital Signs Temp Pulse Resp BP Pulse Ox 97.3 F 71 16 162/92 H 98 11/11/20 12:00 11/11/20 12:00 11/11/20 12:00 11/11/20 12:00 11/11/20 12:00 Medications Acetaminophen (Acetaminophen 500 Mg Tab) 500 mg PO Q4H PRN PRN Reason: pain/fever Acetylcysteine (Acetylcyst 20% 800 Mg/4 Ml Vial) 600 mg PO Q12H [facility] Stop: 11/13/20 03:01 Alprazolam (Alprazolam 0.25 Mg Tablet) 0.25 mg PO TID PRN PRN Reason: ANXIETY Last Admin: 11/11/20 02:18 Dose: 0.25 mg Documented by: Aspirin (Aspirin Ec 81 Mg Tab) 81 mg PO DAILY [facility] Last Admin: 11/11/20 09:27 Dose: 81 mg Documented by: Calcitriol (Calcitrol 0.25 Mcg Cap) 0.5 mcg PO DAILY [facility] Last Admin: 11/11/20 09:27 Dose: 0.5 mcg Documented by: Cholecalciferol (Vitamin D 5,000 Unit Cap) 5,000 unit PO DAILY [facility] Last Admin: 11/11/20 09:26 Dose: 5,000 unit Documented by: Enoxaparin Sodium (Enoxaparin 80 Mg/0.8 Ml) 80 mg SQ DAILY [facility] Last Admin: 11/11/20 09:26 Dose: 80 mg Documented by: Sodium Bicarbonate 50 meq/ (Dextrose/Water) 1,050 mls @ 50 mls/hr IV .Q21H [facility] Last Admin: 11/11/20 09:27 Dose: 1,050 mls Documented by: Ferric Sodium Gluconate Complex 125 mg/ Sodium Chloride 110 mls @ 100 mls/hr IV DAILY [facility] Stop: 11/12/20 10:05 Last Admin: 11/11/20 09:28 Dose: 110 mls Documented by: Metoprolol Tartrate (Metoprolol Tar 25 Mg Tab) 25 mg PO BID [facility] Last Admin: 11/11/20 09:27 Dose: 25 mg Documented by: Morphine Sulfate (Morphine 4 Mg/Ml Syr) 4 mg IV Q4H PRN PRN Reason: Pain scale 8-10 (Severe) Last Admin: 11/11/20 09:41 Dose: 4 mg Documented by: Sodium Chloride (Flush Normal Saline 10 Ml) 10 ml IV BID [facility] Last Admin: 11/11/20 09:00 Dose: Not Given Documented by: Assessment/ Plan: Nephrology Doing well. No cardiac or pulmonary complaints at this time. No CP or SOB. No acute events overnight. Vitals, medications, blood work and imaging reviewed in the chart. General: In no apparent distress, Oriented x3, Cooperative HEENT: Atraumatic Neck: Supple Respiratory: Clear to auscultation bilaterally Cardiovascular: Regular rate/rhythm Gastrointestinal: Soft and benign, Non-distended Musculoskeletal: No clubbing, No contractures Integumentary: No rashes, No cyanosis Neurological: Normal speech Laboratory Data (last 24 hrs) 11/10/20 05:10: Triglycerides 230 H, Cholesterol 144, HDL Cholesterol 45, Cholesterol/HDL Ratio 3.20 11/10/20 05:10: Sodium 141, Potassium 4.7, BUN 47 H, Creatinine 3.00 H, Glucose 232 H, Troponin I 0.28 H 11/10/20 05:10: WBC 7.80 D, Hgb 10.3 L, Hct 31.5 L, Plt Count 174 11/09/20 21:06: Troponin I 0.32 H Imagings Data: EXAM DESCRIPTION: RAD - Chest Single View - 11/09/2020 11:21 am CLINICAL HISTORY: CHEST PAIN COMPARISON: Portable October 24 TECHNIQUE: AP portable chest image was obtained 11/09/2020 11:21 am . FINDINGS: Lung volumes are low. Left base assessment is limited due to shallow inspiration, body habitus and portable imaging affects. Interstitial pattern is mildly prominent but stable. No mass or consolidation. Heart size is prominent but stable. Left pericardial fat pad is present. No vascular engorgement. No measurable pleural effusion and no pneumothorax. No acute bony abnormality seen. No acute aortic findings suspected. IMPRESSION: Limited portable study without acute cardiopulmonary finding. Chest findings are similar to comparison. Conclusions/Impression: CKD IV with proteinura -No NSAIDs HTN with CKD/ CHF -Continue Metoprolol Diastolic CHF, chronic -Low sodium diet DM II with CKD -RISS YRN/ Secondary HyperPTH Hypocalcemia -Continue Calcitriol and Cholecalciferol Anemia in CKD Iron deficiency -Retacrit dose X1 -Give IV iron X3 doses. Chest Pain -Continue Mucomyst -Continue Bicarb gtt Case reviewed with Dr. Cuellar
[2020-11-12] MEDS: ACETYLCYST 20% 800 MG/4 ML VIAL PO SCH ×2 (03:00→15:00)
[2020-11-12] MEDS: D5W 1,000 ML with NA BICARB 8.4% 50 MEQ IV SCH ×4 (04:00→21:31)
[2020-11-12 06:15] LABS: Absolute Lymphocytes (CBC) 2.1 K/uL (0.7-4.9); Lymphocytes % 26.9 % (15.3-44.8); MPV 11.2 fL (7.6-11.3); RBC Red Blood Cell Count 3.25 M/uL (4.33-5.43)
[2020-11-12 06:36] LABS: Albumin 2.5 g/dL (3.4-5.0); Bilirubin Total 0.2 mg/dL (0.2-1.0); Magnesium 2.3 mg/dL (1.8-2.4); Phosphorus 4.5 mg/dL (2.5-4.9); Protein, Total 6.5 g/dL (6.4-8.2)
[2020-11-12 06:38] LABS: Protime INR 0.97
[2020-11-12] MEDS ORDERED: ACETYLCYST 6,000 MG/30 ML VIAL PO SCH (09:00)
[2020-11-12] MEDS: VITAMIN D 5,000 UNIT CAP PO SCH (10:25)
[2020-11-12] MEDS: CALCITROL 0.25 MCG CAP PO SCH (10:26)
[2020-11-12] MEDS: ASPIRIN EC 81 MG TAB PO SCH (10:26)
[2020-11-12] MEDS: ENOXAPARIN 80 MG/0.8 ML SQ SCH (10:26)
[2020-11-12] MEDS: METOPROLOL TAR 25 MG TAB PO SCH ×2 (10:26→21:32)
[2020-11-12] MEDS: SOD FERRIC GLUC COMPLX/SUCROSE 125 MG in NA CHLORIDE 0.9% 100 ML IV SCH (11:08)
[2020-11-12] MEDS: MORPHINE 4 MG/ML SYR IV PRN ×2 (11:58→21:35)
[2020-11-13] MEDS: ACETYLCYST 20% 800 MG/4 ML VIAL PO SCH (03:00)
[2020-11-13 04:56] LABS: Absolute Lymphocytes (CBC) 1.8 K/uL (0.7-4.9); Basophils % 1.2 % (0-1.3); Hematocrit 29.2 % (39.6-49.0); Lymphocytes % 22.6 % (15.3-44.8); MPV 11.3 fL (7.6-11.3); RBC Red Blood Cell Count 3.49 M/uL (4.33-5.43)
[2020-11-13 05:17] LABS: Albumin 2.5 g/dL (3.4-5.0); Bilirubin Total 0.2 mg/dL (0.2-1.0); Potassium 4.3 mmol/L (3.5-5.1); Protein, Total 6.8 g/dL (6.4-8.2)
[2020-11-13] MEDS: ASPIRIN EC 81 MG TAB PO SCH (06:11)
[2020-11-13] MEDS: METOPROLOL TAR 25 MG TAB PO SCH (06:11)
[2020-11-13] MEDS: MORPHINE 4 MG/ML SYR IV PRN (07:16)
--- NOTE | 2020-11-13 07:57 | P.HP ---
Certification for Inpatient Patient admitted to: Inpatient With expected LOS: >2 Midnights Patient will require the following post-hospital care: None Practitioner: I am a practitioner with admitting privileges, knowledge of patient current condition, hospital course, and medical plan of care. Services: Services provided to patient in accordance with Admission requirements found in Title 42 Section 412.3 of the Code of Federal Regulations Patient History Date of Service: 11/09/20 Reason for admission: Chest Pain History of Present Illness: Patient is a 54-year-old gentleman who is well known to me from prior hospital was a sam. He came in with a non STEMI on last admission and he had chronic kidney disease. Patient had cardiology and nephrology consultation and at that time it was deemed that if he had continued chest pain he would probably need a heart catheterization which would put his kidneys at risk for requiring hemodialysis. Patient was discharged about a week and a half ago and when he got home he was doing well. He has had a lot of stress with going through a break-up. He started experiencing chest pain. He came to the emergency room once again. He continues to have chronic kidney disease. His troponins this time are negative. However, he will be admitted to the hospital and I spoke with Cardiology and plan is to do heart catheterization. Allergies rofecoxib [From Vioxx] Allergy (Mild, Verified 02/11/20 20:12) Hives sertraline HCl [From Zoloft] Allergy (Mild, Verified 02/11/20 20:12) Hives hydrocodone Adverse Reaction (Verified 02/11/20 20:12) Hives/Rash Codeine Adverse Reaction (Uncoded 02/11/20 20:12) Itching Home Medications: Acetaminophen 325 mg PO PRN PRN 07/23/20 Dicyclomine [Bentyl*] 1 tab PO QID 07/23/20 Docusate [Colace Cap*] 1 cap PO DAILY PRN 07/23/20 Insulin NPH Hum/Reg Insulin Hm [Novolin 70-30 100 Unit/ml Vial] 40 units SQ BID 07/23/20 Metoclopramide [Reglan*] 10 mg PO ACHS 07/23/20 Ondansetron [Zofran (Odt)*] 4 mg PO Q8H PRN 07/23/20 Pantoprazole [Protonix Tab*] 1 tab PO BID 07/23/20 Pregabalin [Lyrica] 1 tab PO BID 07/23/20 Trazodone [Desyrel*] 1 tab PO BEDTIME 07/23/20 Aspirin [Aspirin EC 81 MG] 81 mg PO DAILY 30 Days #30 tablet. 07/26/20 Calcitrol [Rocaltrol*] 0.5 mcg PO DAILY #30 cap 10/27/20 Clopidogrel Bisulfate [Plavix*] 75 mg PO DAILY #30 tablet 10/27/20 Enalapril [Vasotec*] 2.5 mg PO DAILY #30 tab 10/27/20 Furosemide [Lasix*] 20 mg PO BIDL #60 tab 10/27/20 Isosorbide Dinit [Isordil*] 20 mg PO BID #60 tab 10/27/20 carvediloL [Coreg*] 12.5 mg PO BID 6AM 6PM #60 tab 10/27/20 Pitavastatin Calcium [Livalo] 4 mg PO BEDTIME 11/09/20 cloNIDine HCL [Clonidine HCl] 0.1 mg PO PRN 11/09/20 - Past Medical/Surgical History Has patient received pneumonia vaccine in the past: No Diabetic: Yes -: Diabetes mellitus type 2; on insulin -: Hypertension -: CAD, no stents -: Diabetic neuropathy -: Gastroparesis -: Cataracts both eyes -: heart attacks -: L1-s2 compression for surgery in March 01 in [facility] -: CHF -: Cholecystectomy -: Heart catheterization, no stents Psychosocial/ Personal History: Patient is . He has 4 children. Currently unemployed - Family History Mother Medical History: Hypertension, Diabetes Father Medical History: Liver disease Notes: - alcoholic - Social History Smoking Status: Never smoker Alcohol use: No CD- Drugs: No Caffeine use: No Place of Residence: Home Review of Systems 10-point ROS is otherwise unremarkable Physical Examination - Vital Signs Temperature: 97 F Blood Pressure: 135/75 Pulse: 71 Respirations: 14 Pulse Ox (%): 96 - Physical Exam General: Alert, In no apparent distress, Oriented x3 HEENT: Atraumatic, PERRLA, Mucous membr. moist/pink, EOMI, Sclerae nonicteric Neck: Supple, 2+ carotid pulse no bruit, No LAD, Without JVD or thyroid abnormality Respiratory: Clear to auscultation bilaterally, Normal air movement Cardiovascular: Regular rate/rhythm, Normal S1 S2, No murmurs Gastrointestinal: Normal bowel sounds, Soft and benign, Non-distended, No tenderness Musculoskeletal: No clubbing, No swelling, No tenderness Integumentary: No rashes Neurological: Normal gait, Normal speech, Normal strength at 5/5 x4 extr, Normal tone, Sensation intact, Cranial nerves 3-12 intact, Normal affect Lymphatics: No axilla or inguinal lymphadenopathy Assessment & Plan - Problems (Diagnosis) (1) Acute worsening of stage 3 chronic kidney disease Current Visit: No Status: Acute (2) Chest pain Onset Date: 05/06/18 Current Visit: No Status: Acute (3) Diabetes mellitus type 2 in obese Current Visit: No Status: Acute (4) Hyperlipidemia Onset Date: 10/27/14 Current Visit: No Status: Acute (5) Hyperlipidemia Current Visit: No Status: Acute (6) Hypertension Onset Date: 08/10/14 Current Visit: No Status: Acute - Plan 1. Serial troponins and EKG 2. Cardiology consultation; Renal optimization prior to cardiac catheterization 3. nephrology consultation 4. Anti-platelet therapy, anti coagulation, beta-ochoa, statin, and O2 as needed 5. IV morphine for pain 6. started Mucomyst and low-dose bicarb drip 7. Gi DVT prophylaxis Discharge Plan: Home Plan to discharge in: Greater than 2 days - Advance Directives Does patient have a Living Will: No Does patient have a Durable POA for Healthcare: No - Code Status/Comfort Care Code Status Assessed: Yes Code Status: Full Code Critical Care: No Time Spent Managing PTS Care (In Minutes): 45
--- NOTE | 2020-11-13 07:58 | P.PN ---
Subjective Date of Service: 11/10/20 patient continues to do well with no new complaints. Clinically patient is doing better. Monitor renal function closely and plan heart catheterization Friday morning per Cardiology. Review of Systems 10-point ROS is otherwise unremarkable Physical Examination - Vital Signs Temperature: 97 F Blood Pressure: 135/75 Pulse: 71 Respirations: 14 Pulse Ox (%): 96 - Physical Exam General: Alert, In no apparent distress, Oriented x3 HEENT: Atraumatic, PERRLA, EOMI Neck: Supple, JVD not distended Respiratory: Clear to auscultation bilaterally, Normal air movement Cardiovascular: Regular rate/rhythm, Normal S1 S2 Gastrointestinal: Normal bowel sounds, No tenderness Musculoskeletal: No tenderness Integumentary: No rashes Neurological: Normal speech, Normal tone, Normal affect Lymphatics: No axilla or inguinal lymphadenopathy - Studies Medications List Reviewed: Yes Assessment & Plan - Problems (Diagnosis) (1) Acute worsening of stage 3 chronic kidney disease Current Visit: No Status: Acute (2) Chest pain Onset Date: 05/06/18 Current Visit: No Status: Acute (3) Diabetes mellitus type 2 in obese Current Visit: No Status: Acute (4) Hyperlipidemia Onset Date: 10/27/14 Current Visit: No Status: Acute (5) Hyperlipidemia Current Visit: No Status: Acute (6) Hypertension Onset Date: 08/10/14 Current Visit: No Status: Acute - Plan Plan of care as mentioned Blow 1. Monitor renal function daily. Continue with cardiac meds. 2. Cardiology consultation; Renal optimization prior to cardiac catheterization 3. nephrology consultation 4. Anti-platelet therapy, anti coagulation, beta-ochoa, statin, and O2 as needed 5. IV morphine for pain 6. started Mucomyst and low-dose bicarb drip 7. Gi DVT prophylaxis - Advance Directives Does patient have a Living Will: No Does patient have a Durable POA for Healthcare: No - Code Status/Comfort Care Code Status: Full Code
--- NOTE | 2020-11-13 08:00 | P.PN ---
Date of Service: 11/11/20 Subjective Patient continues to do well with no new complaints. patient's brother at bedside. Spoke to him regarding patient's clinical condition as well. Patient's brother is the 1 who helps take care of him financially. Review of Systems 10-point ROS is otherwise unremarkable Physical Examination - Vital Signs Reviewed - Physical Exam General: Alert, In no apparent distress, Oriented x3 Respiratory: Clear to auscultation bilaterally, Normal air movement Cardiovascular: Regular rate/rhythm, Normal S1 S2 Gastrointestinal: Normal bowel sounds, No tenderness Neurological: Normal speech, Normal tone, Normal affect Assessment & Plan - Problems (Diagnosis) (1) Acute worsening of stage 3 chronic kidney disease Current Visit: No Status: Acute (2) Chest pain Onset Date: 05/06/18 Current Visit: No Status: Acute (3) Diabetes mellitus type 2 in obese Current Visit: No Status: Acute (4) Hyperlipidemia Onset Date: 10/27/14 Current Visit: No Status: Acute (5) Hyperlipidemia Current Visit: No Status: Acute (6) Hypertension Onset Date: 08/10/14 Current Visit: No Status: Acute - Plan Plan of care as mentioned Blow 1. Monitor renal function daily. Continue with cardiac meds. Renal function improved with current medications. 2. Cardiology consultation; Renal optimization prior to cardiac catheter ization 3. nephrology consultation 4. Anti-platelet therapy, anti coagulation, beta-ochoa, statin, and O2 as needed 5. IV morphine for pain 6. Continue Mucomyst and low-dose bicarb drip 7. Gi DVT prophylaxis - Advance Directives Does patient have a Living Will: No Does patient have a Durable POA for Healthcare: No - Code Status/Comfort Care Code Status: Full Code
--- NOTE | 2020-11-13 08:01 | P.PN ---
Date of Service: 11/12/20 Subjective patient doing well with no new complaints. Patient's renal function continues to improve. Patient is stable for heart catheterization Friday. Respiratory status is stable. Chest pain is stable as well. Hopefully patient has no significant intervention needs and can possibly go home Friday after follow-up renal function. Review of Systems 10-point ROS is otherwise unremarkable Physical Examination - Vital Signs Reviewed - Physical Exam General: Alert, In no apparent distress, Oriented x3 Respiratory: Clear to auscultation bilaterally, Normal air movement Cardiovascular: Regular rate/rhythm, Normal S1 S2 Gastrointestinal: Normal bowel sounds, No tenderness Neurological: Normal speech, Normal tone, Normal affect Assessment & Plan - Problems (Diagnosis) (1) Acute worsening of stage 3 chronic kidney disease Current Visit: No Status: Acute (2) Chest pain Onset Date: 05/06/18 Current Visit: No Status: Acute (3) Diabetes mellitus type 2 in obese Current Visit: No Status: Acute (4) Hyperlipidemia Onset Date: 10/27/14 Current Visit: No Status: Acute (5) Hyperlipidemia Current Visit: No Status: Acute (6) Hypertension Onset Date: 08/10/14 Current Visit: No Status: Acute - Plan Plan of care as mentioned Blow 1. Monitoring renal function daily. Continuing with cardiac meds. Renal function improved From a GFR of 20 to GFR of 32 with current rx 2. Cardiology consultation; Renal optimization prior to cardiac catheterization 3. nephrology consultation 4. Anti-platelet therapy, anti coagulation, beta-ochoa, statin, and O2 as needed 5. IV morphine for pain 6. Continue Mucomyst and low-dose bicarb drip 7. Gi DVT prophylaxis - Advance Directives Does patient have a Living Will: No Does patient have a Durable POA for Healthcare: No - Code Status/Comfort Care Code Status: Full Code
[2020-11-13] MEDS: CALCITROL 0.25 MCG CAP PO SCH (09:00)
[2020-11-13] MEDS: VITAMIN D 5,000 UNIT CAP PO SCH (09:00)
[2020-11-13] MEDS ORDERED: HEPA 1000U/500MLS 2,000 UNIT/1,000 ML BAG IV ONE (09:16)
--- NOTE | 2020-11-13 11:39 | PN ---
Date of Progress Note: 11/12/2020 Mr. Acosta has came in with non-ST elevation myocardial infarction. This is second one in about a m [facility]. He has a significant renal insufficiency stage 3-4. Nephrology is following. He had been giv en intermittent bicarb, hydrated. He is ready to have a heart catheterization on 11/13/2020 to defin e his coronary anatomy and understand the risk and the benefits of the procedure and he is definitely aware of his kidney dysfunction. He had failed medical therapy. We have initially put him on the m etoprolol, statin, aspirin and continued to have chest pain, came back with another OK. I think the benefits of the catheterization outweighs the risk of renal insufficiency. I think he probably will have significant coronary artery disease. We will see what the catheterization shows before making f urther decisions. PETRA/THEE Voice ID: [id number] Report ID: [id number]
[2020-11-13] MEDS ORDERED: HEPARIN 5000 UNIT/ML 1 ML VIAL ONE (11:57)
[2020-11-13] MEDS ORDERED: NA CHLORIDE 0.9% 500 ML ONE (11:58)
[2020-11-13] MEDS ORDERED: NITROGLYCERIN 100 MCG/ML SYR (for cath lab use only) IV ONE (11:58)
[2020-11-13] MEDS ORDERED: VERAPAMIL HCL 10 MG/4 ML VIAL IV ONE (11:58)
[2020-11-13] MEDS ORDERED: MIDAZOLAM HCL 2 MG/2 ML INJ ONE (11:58)
[2020-11-13] MEDS ORDERED: HEPARIN 10,000 UNIT/10 ML VIAL IV ONE (11:58)
[2020-11-13] MEDS ORDERED: FENTANYL CITR 100 MCG/2 ML ONE (11:58)
[2020-11-13] MEDS ORDERED: ATROPINE SULF 1 MG/10 ML SYR IV ONE (11:59)
[2020-11-13] MEDS ORDERED: NITROGLYCERIN/D5W 25 MG/250 ML BTL IV ONE (11:59)
[2020-11-13] MEDS ORDERED: ONDANSETRON 4 MG/2 ML VIAL ONE (12:17)
[2020-11-13] MEDS ORDERED: HYDRALAZINE HCL 20 MG/ML VIAL ONE (12:25)
[2020-11-13] MEDS ORDERED: TICAGRELOR 90 MG TABLET PO ONE (12:25)
[2020-11-13] MEDS ORDERED: HEPA 1000U/500MLS 1,000 UNIT/500 ML BAG IV ONE (13:03)
--- NOTE | 2020-11-13 14:37 | P.PN ---
Subjective Date of Service: 11/13/20 Primary Care Provider: REINALDO Nephrology-Dr. Baer Chief Complaint: Chest Pain Subjective: Other (Patient had chest pain this morning. Patient to have heart catheterization) Physical Examination - Vital Signs Temperature: 96.6 F Blood Pressure: 189/91 Pulse: 75 Respirations: 16 Pulse Ox (%): 91 - Studies Medications List Reviewed: Yes Assessment & Plan Discharge Plan: Transfer Plan to discharge in: 24 Hours Physician Review Additional Text: Physical exam: Patient alert, cooperative. No significant distress. Heart: Regular rate rhythm Lungs: Clear to auscultation Abdomen: Soft nontender nondistended Extremities: Good range of motion to the upper lower extremities Impression Chest pain, unstable angina status post heart catheterization showing significant LAD disease Diabetes mellitus type 2 Hypertension Hyperlipidemia Acute on chronic renal disease stage III Diabetic neuropathy GERD Anxiety Plan: Chest pain, unstable angina status post heart catheterization showing significant LAD disease: Spoke with cardiology after heart catheterization. Patient has significant lack and occlusion to the LAD. Cardiology is recommending transfer to [facility] center for CABG. Cardiology to discuss with CV surgeon. Await approval for transfer. Currently on aspirin, Lovenox, metoprolol and statin medication. Continue to hold Plavix in preparation for CABG. Diabetes mellitus type 2 with hyperglycemia: Will start basal insulin-Lantus 10 units subcu twice daily. Continue Accu-Cheks and sliding scale. Hypertension: Increase metoprolol 50 mg 1 pill twice daily for better control. Will add hydralazine IV for elevated blood pressure. Continue to Hold BENNY- inhibitor. Hyperlipidemia: Restart home statin medication. Acute on chronic renal disease stage III: Continue to hold BENNY-inhibitor, Lasix. Patient on D5W with bicarb. Will discuss with nephrology on when to discontinue bicarb drip. Diabetic neuropathy: Continue Lyrica. GERD: Continue Protonix. Anxiety: Continue benzodiazepine. Time Spent Managing Pts Care (In Minutes): 55
[2020-11-13] MEDS ORDERED: MORPHINE 2 MG/ML SYR IV PRN (14:39)
[2020-11-13] MEDS ORDERED: GLUCAGON 1 MG/VIAL IM PRN (14:40)
[2020-11-13] MEDS ORDERED: D50W 25 GM/50 ML SYRINGE IV PRN (14:40)
[2020-11-13] MEDS ORDERED: HYDRALAZINE HCL 20 MG/ML VIAL IV PRN (14:41)
--- NOTE | 2020-11-13 16:13 | P.DS ---
Admission Date: 11/10/20 Discharge Date: 11/13/20 Primary Care Provider: REINALDO Nephrology-Dr. Baer Disposition: ROUTINE DISCHARGE Discharge Condition: GOOD Reason for Admission: Chest Pain Consultations: Cardiology-Dr. Cates Procedures: COVID: Negative Heart catheterization: Significant LAD disease requiring CABG Impression Chest pain, unstable angina secondary to NSTEMI status post heart catheterization showing significant LAD disease Diabetes mellitus type 2 Hypertension Hyperlipidemia Acute on chronic renal disease stage III Diabetic neuropathy GERD Anxiety Diabetic gastroparesis Chronic diastolic CHF Brief History of Present Illness: 54-year-old male with history of diabetes, hypertension, CAD, and chronic renal disease. Patient presented with chest pain. Patient found to have NSTEMI. Patient was admitted for further evaluation. Patient with recent NSTEMI last month. Cardiology and nephrology were consulted. Hospital Course: Patient presented with chest pain, unstable angina. Patient found to have NSTEMI. Patient with similar symptoms and diagnosis 1 month ago. Due to his chronic renal disease the patient was admitted for further evaluation and treatment. Patient was started on Mucomyst and bicarb drip in preparation for heart catheterization. This was recommended by Nephrology. Cardiology performed heart catheterization showing significant LAD disease. Patient requires CABG. At this time patient will be transferred to [facility] for further treatment by CV surgery. Case discussed with hospitalist who agrees with plan of care. Patient currently on aspirin, Lovenox, metoprolol and statin medication. Plavix has been held. Patient currently stable at this time for transfer. Patient with diabetes mellitus type 2 with hyperglycemia. Prior A1c in July was 8.1. Patient takes basal insulin. Patient to continue with basal insulin Lantus 10 units subcu twice daily at this time. Patient on Accu-Cheks and sliding scale. Patient with hypertension. Blood pressure uncontrolled. Continue with metoprolol 50 mg 1 pill twice daily. IV hydralazine added as needed for elevated blood pressure. Continue to hold BENNY-inhibitor. Patient with acute on chronic renal disease stage III. Renal function stable and improved with D5W bicarb drip. Patient also received mucomyst. Continue to hold BENNY-inhibitor and Lasix. Nephrology will make further adjustments in medication. Continue monitor renal function. Patient with diabetic neuropathy. Continue with Lyrica. Patient with diabetic gastroparesis. Patient takes Reglan and Bentyl. This may be continued. Patient with GERD. Patient may continue with Protonix. Patient with anxiety. Patient may continue with medication as needed. Patient with chronic diastolic CHF. Continue 1500 cc per day fluid restriction. Lasix has been held due to his acute on chronic renal disease. This may need to be restarted. Echocardiogram done last month showed EF of 55-60% with diastolic dysfunction. Vital Signs/Physical Exam: Temp Pulse Resp BP Pulse Ox 96.8 F 72 18 135/73 91 11/13/20 15:30 11/13/20 15:45 11/13/20 15:45 11/13/20 15:45 11/13/20 14:42 General: Alert, In no apparent distress, Oriented x3, Cooperative HEENT: Atraumatic Neck: Supple Respiratory: Clear to auscultation bilaterally, Normal air movement Cardiovascular: Normal pulses, Regular rate/rhythm Gastrointestinal: Normal bowel sounds, Soft and benign, Non-distended, No ten derness, No masses, No rebound, No guarding Musculoskeletal: No erythema, No tenderness, No warmth Neurological: Normal speech, Normal strength at 5/5 x4 extr, Normal tone, Normal affect Laboratory Data at Discharge: WBC 7.80 K/uL (4.3-10.9) 11/13/20 04:46 Hgb 9.4 g/dL (13.6-17.9) L 11/13/20 04:46 Hct 29.2 % (39.6-49.0) L 11/13/20 04:46 Plt Count 133 K/uL (152-406) L 11/13/20 04:46 PT 11.2 SECONDS (9.5-12.5) 11/12/20 06:00 INR 0.97 11/12/20 06:00 APTT 38.0 SECONDS (24.3-36.9) H 11/12/20 06:00 Sodium 142 mmol/L (136-145) 11/13/20 04:46 Potassium 4.3 mmol/L (3.5-5.1) 11/13/20 04:46 BUN 45 mg/dL (7-18) H 11/13/20 04:46 Creatinine 2.19 mg/dL (0.55-1.3) H 11/13/20 04:46 Glucose 240 mg/dL (74-106) H 11/13/20 04:46 Phosphorus 4.5 mg/dL (2.5-4.9) 11/12/20 06:00 Magnesium 2.3 mg/dL (1.8-2.4) 11/12/20 06:00 Total Bilirubin 0.2 mg/dL (0.2-1.0) 11/13/20 04:46 AST 24 U/L (15-37) 11/13/20 04:46 ALT 30 U/L (12-78) 11/13/20 04:46 Alkaline Phosphatase 132 U/L (45-117) H 11/13/20 04:46 Troponin I 0.28 ng/mL (0.0-0.045) H 11/10/20 05:10 Triglycerides 230 mg/dL (<150) H 11/10/20 05:10 Cholesterol 144 mg/dL (<200) 11/10/20 05:10 HDL Cholesterol 45 mg/dL (40-60) 11/10/20 05:10 Cholesterol/HDL Ratio 3.20 11/10/20 05:10 Lipase 583 U/L (73-393) H 11/09/20 10:15 Home Medications: Acetaminophen 325 mg PO PRN PRN 07/23/20 Dicyclomine [Bentyl*] 1 tab PO QID 07/23/20 Docusate [Colace Cap*] 1 cap PO DAILY PRN 07/23/20 Insulin NPH Hum/Reg Insulin Hm [Novolin 70-30 100 Unit/ml Vial] 40 units SQ BID 07/23/20 Metoclopramide [Reglan*] 10 mg PO ACHS 07/23/20 Ondansetron [Zofran (Odt)*] 4 mg PO Q8H PRN 07/23/20 Pantoprazole [Protonix Tab*] 1 tab PO BID 07/23/20 Pregabalin [Lyrica] 1 tab PO BID 07/23/20 Trazodone [Desyrel*] 1 tab PO BEDTIME 07/23/20 Aspirin [Aspirin EC 81 MG] 81 mg PO DAILY 30 Days #30 tablet. 07/26/20 Calcitrol [Rocaltrol*] 0.5 mcg PO DAILY #30 cap 10/27/20 Clopidogrel Bisulfate [Plavix*] 75 mg PO DAILY #30 tablet 10/27/20 Enalapril [Vasotec*] 2.5 mg PO DAILY #30 tab 10/27/20 Furosemide [Lasix*] 20 mg PO BIDL #60 tab 10/27/20 Isosorbide Dinit [Isordil*] 20 mg PO BID #60 tab 10/27/20 carvediloL [Coreg*] 12.5 mg PO BID 6AM 6PM #60 tab 10/27/20 Pitavastatin Calcium [Livalo] 4 mg PO BEDTIME 11/09/20 cloNIDine HCL [Clonidine HCl] 0.1 mg PO PRN 11/09/20 Physician Discharge Instructions: Patient presented with chest pain, unstable angina. Patient found to have NSTEMI. Patient with similar symptoms and diagnosis 1 month ago. Due to his chronic renal disease the patient was admitted for further evaluation and treatment. Patient was started on Mucomyst and bicarb drip in preparation for heart catheterization. This was recommended by Nephrology. Cardiology performed heart catheterization showing significant LAD disease. Patient requires CABG. At this time patient will be transferred to [facility] for further treatment by CV surgery. Case discussed with hospitalist who agrees with plan of care. Patient currently on aspirin, Lovenox, metoprolol and statin medication. Plavix has been held. Patient currently stable at this time for transfer. Patient with diabetes mellitus type 2 with hyperglycemia. Prior A1c in July was 8.1. Patient takes basal insulin. Patient to continue with basal insulin Lantus 10 units subcu twice daily at this time. Patient on Accu-Cheks and sliding scale. Patient with hypertension. Blood pressure uncontrolled. Continue with oh toprolol 50 mg 1 pill twice daily. IV hydralazine added as needed for elevated blood pressure. Continue to hold BENNY-inhibitor. Patient with acute on chronic renal disease stage III. Renal function stable and improved with D5W bicarb drip. Patient also received mucomyst. Continue to hold BENNY-inhibitor and Lasix. Nephrology will make further adjustments in medication. Continue monitor renal function. Patient with diabetic neuropathy. Continue with Lyrica. Patient with diabetic gastroparesis. Patient takes Reglan and Bentyl. This may be continued. Patient with GERD. Patient may continue with Protonix. Patient with anxiety. Patient may continue with medication as needed. Patient with chronic diastolic CHF. Continue 1500 cc per day fluid restriction. Lasix has been held due to his acute on chronic renal disease. This may need to be restarted. Echocardiogram done last month showed EF of 55-60% with diastolic dysfunction. Diet: ADA Activity: Ad evelyn Followup: TOSHIA POPE [Primary Care Provider] - Time spent managing pt's care (in minutes): 55
[2020-11-13 16:50] VITALS: BP 143/74
[2020-11-13 17:49] VITALS: TEMP 98.3; O2SAT 98
--- NOTE | 2020-11-13 18:48 | OP ---
Date of Procedure: 11/13/2020 Surgeon: ISABEL GUILLERMO Procedure Performed: Selective coronary angiogram. Access: Right radial artery 6-St Helenian closed with TR band. Complications: None. Bleeding: Less than 10 mL. Indication: Non-ST elevation myocardial infarction. Description Of Procedure: After risks, benefits, and alternatives were explained, the patient agreed to the procedure and signed informed consent. The patient was brought into the cardiac catheterizat ion laboratory, prepped and draped in usual sterile fashion. Then, we accessed right radial artery u sing a pediatric micropuncture kit and placed a 6-St Helenian slender sheath and then we took a 5-St Helenian T iger 4 catheter, engaged left main and right coronary artery, took 7 views and then we subsequently a ttempted to do a PCI of the LAD, 99% mid LAD stenosis. 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 Decided to abort the pro cedure to avoid further contrast load and transferred to [place] for possible bypass surgery. I rodger rolando the guides and the catheter. We removed the sheath and placed a balloon with good hemostasis. Findings: 1.Left main is large and normal. 2.LAD, mid 99% with collaterals from the RCA and there is a diagonal 2 branch at the area of the marycarmen nosis of the LAD. There is an also ostial 90%. 3.Left circumflex has proximal 80%. 4.RCA has proximal 80%, which gives collaterals to the right coronary artery. Impression: Severe multivessel coronary artery disease. Recommendations: Transfer to [place] for bypass surgery. SR/MODL Voice ID: [id number] Report ID: [id number]
[2020-11-13] MEDS ORDERED: INSULIN GLARGINE 100 UNITS/ML SQ SCH (21:00)
[2020-11-13] MEDS ORDERED: ISOSORBIDE DINIT 20 MG TAB PO SCH (21:00)
[2020-11-13] MEDS ORDERED: METOPROLOL TAR 50 MG TAB PO SCH (21:00)
[2020-11-13] MEDS ORDERED: PREGABALIN 150 MG CAP PO SCH (21:00)
[2020-11-13] MEDS ORDERED: ATORVASTATIN 20 MG TAB PO SCH (21:00)
[2020-11-13] MEDS ORDERED: HOME MED 1 EA UNK (Pitavastatin Calcium [Livalo] 4 MG Tablet) PO SCH (21:00)
--- NOTE | 2020-11-14 12:51 | CON ---
Date of Consultation: 11/10/2020 Reason For Consultation: Non-ST elevation myocardial infarction. History Of Present Illness: Mr. Acosta is a 54-year-old male was in the hospital recently with a no n-STEMI, wanted to do a heart catheterization, because of a creatinine of 3.26 which remai ns the same. Comes in with chest pain, substernal, troponin of 0.28. His BNP was 1574. His lipase was 583. EKG shows nonspecific changes. His pain is fairly typical for acute coronary syndrome. He is pain-free now. Seen by Nephrology here at the last time. Denied any nausea, vomiting, diaphores is, PND, orthopnea, pedal edema, palpitations, or syncope. Denied any fever or chills. Past Medical History: Includes hypertension, coronary artery disease, neuropathy, dyslipidemia, fifi roesophageal reflux disease, and diabetes. Allergies: TO HYDROCODONE AND SERTRALINE. Review of Systems: Negative. Social History: Negative. Family History: Negative. Medications: At home include aspirin, Vasotec, Lasix, Plavix, insulin, Imdur, Coreg, clonidine, Lyri ca, Livalo, and Protonix. Physical Examination: Vital Signs: Stable, afebrile. HEENT: Negative. Neck: Supple with no bruit. Chest: Clear to auscultation and percussion. Cardiac: Revealed a regular rhythm and rate. No murmurs, gallops, or rubs. Abdomen: Benign. Extremities: Revealed no clubbing, cyanosis, or edema. Diagnostic Data: As stated earlier. Impression And Plan: Non-ST elevation myocardial infarction. The patient should be on a low-dose Lo venox, adjusted to his renal function. Nephrology has been consulted, Dr. Cuellar is aware. I think he needs to have a heart catheterization. He is aware that this may have issues as far as the kidneys down to road, but this is the second admission with non-ST elevation myocardial infarction less than a month. I think a heart catheterization is definitely indicated. We will treat him with Mucomyst a nd hydration, thought to minimize amount of contrast that we will give him, but I will plan to do a h eart catheterization on 11/13/2020. His other problems include hypertension, diabetes, dysli pidemia, gastroesophageal reflux disease, neuropathy seem to be stable at this point. His main issue s are with non-ST elevation myocardial infarction as renal failure is stage IV. The patient is aware that he may have to go on dialysis after the catheterization, but I think it is definitely indicated , he understand the risks and the benefits of the procedure. He agrees to proceed. Case will be dis cussed in more detail with Dr. Cuellar and Nephrology. PETRA/THEE Voice ID: [id number] Report ID: [id number]
--- NOTE | 2020-11-14 23:09 | P.PN ---
Date of Service: 11/13/20 Vital Signs Temp Pulse Resp BP Pulse Ox 98.3 F 74 18 143/74 H 91 11/13/20 17:45 11/13/20 17:45 11/13/20 17:45 11/13/20 17:45 11/13/20 14:42 Assessment/ Plan: Nephrology Doing well. No cardiac or pulmonary complaints at this time. No CP or SOB. Plan for cardiac cath today. No acute events overnight. Vitals, medications, blood work and imaging reviewed in the chart. General: In no apparent distress, Oriented x3, Cooperative HEENT: Atraumatic Neck: Supple Respiratory: Clear to auscultation bilaterally Cardiovascular: Regular rate/rhythm Gastrointestinal: Soft and benign, Non-distended Musculoskeletal: No clubbing, No contractures Integumentary: No rashes, No cyanosis Neurological: Normal speech Laboratory Data (last 24 hrs) 11/10/20 05:10: Triglycerides 230 H, Cholesterol 144, HDL Cholesterol 45, Cho lesterol/HDL Ratio 3.20 11/10/20 05:10: Sodium 141, Potassium 4.7, BUN 47 H, Creatinine 3.00 H, Glucose 232 H, Troponin I 0.28 H 11/10/20 05:10: WBC 7.80 D, Hgb 10.3 L, Hct 31.5 L, Plt Count 174 11/09/20 21:06: Troponin I 0.32 H Imagings Data: EXAM DESCRIPTION: RAD - Chest Single View - 11/09/2020 11:21 am CLINICAL HISTORY: CHEST PAIN COMPARISON: Portable October 24 TECHNIQUE: AP portable chest image was obtained 11/09/2020 11:21 am . FINDINGS: Lung volumes are low. Left base assessment is limited due to shallow inspiration, body habitus and portable imaging affects. Interstitial pattern is mildly prominent but stable. No mass or consolidation. Heart size is prominent but stable. Left pericardial fat pad is present. No vascular engorgement. No measurable pleural effusion and no pneumothorax. No acute bony abnormality seen. No acute aortic findings suspected. IMPRESSION: Limited portable study without acute cardiopulmonary finding. Chest findings are similar to comparison. Conclusions/Impression: CKD IV with proteinuria -No NSAIDs HTN with CKD/ CHF -Continue Metoprolol Diastolic CHF, chronic -Low sodium diet DM II with CKD -RISS YRN/ Secondary HyperPTH Hypocalcemia -Continue Calcitriol and Cholecalciferol Anemia in CKD Iron deficiency -Retacrit dose X1 -Give IV iron X3 doses. Chest Pain -Continue Mucomyst -Continue Bicarb gtt Addendum: significant LAD disease found and the patient will be transferred for CABG.
== END 2020-11-13 18:37 | disposition short-term general hospital (02) | DRG 281 ==
LOC: ER 09:59 → ERHOLD 11:54 → 2ND 17:09 → OBSVTOIN 11-10 08:06
PROVIDERS: ADMIT Hospitalist; ATTEND Family Medicine
PROC: 4A023N7 Measurement of Cardiac Sampling and Pressure, Left Heart, Percutaneous Approach (ICD-10-PCS; principal; 2020-11-13)
PROC: B2111ZZ Fluoroscopy of Multiple Coronary Arteries using Low Osmolar Contrast (ICD-10-PCS; 2020-11-13)
PROC: 02JA3ZZ Inspection of Heart, Percutaneous Approach (ICD-10-PCS; 2020-11-13)
DX: I22.2 Subsequent non-ST elevation (NSTEMI) myocardial infarction (principal); I13.0 Hypertensive heart and chronic kidney disease with heart failure and stage 1 through stage 4 chronic kidney disease, or unspecified chronic kidney disease; I50.32 Chronic diastolic (congestive) heart failure; N25.81 Secondary hyperparathyroidism of renal origin; N17.9 Acute kidney failure, unspecified; I21.4 Non-ST elevation (NSTEMI) myocardial infarction; N18.30 Chronic kidney disease, stage 3 unspecified; E11.22 Type 2 diabetes mellitus with diabetic chronic kidney disease; E11.65 Type 2 diabetes mellitus with hyperglycemia; E11.40 Type 2 diabetes mellitus with diabetic neuropathy, unspecified; E11.43 Type 2 diabetes mellitus with diabetic autonomic (poly)neuropathy; K31.84 Gastroparesis; D63.1 Anemia in chronic kidney disease; E78.5 Hyperlipidemia, unspecified; D50.9 Iron deficiency anemia, unspecified; E83.51 Hypocalcemia; I25.110 Atherosclerotic heart disease of native coronary artery with unstable angina pectoris; N25.0 Renal osteodystrophy; K21.9 Gastro-esophageal reflux disease without esophagitis; F41.9 Anxiety disorder, unspecified; G89.29 Other chronic pain; I25.2 Old myocardial infarction; Z90.49 Acquired absence of other specified parts of digestive tract; Z88.8 Allergy status to other drugs, medicaments and biological substances; Z53.8 Procedure and treatment not carried out for other reasons; Z68.30 Body mass index [BMI] 30.0-30.9, adult; Z88.5 Allergy status to narcotic agent; Z79.4 Long term (current) use of insulin; Z79.82 Long term (current) use of aspirin; Z79.02 Long term (current) use of antithrombotics/antiplatelets; Z79.899 Other long term (current) drug therapy; Z56.0 Unemployment, unspecified; Z20.822 Contact with and (suspected) exposure to COVID-19
CPT/HCPCS: 36415; 71045; 80048; 80053; 80061; 80076; 82947; 83690; 83735; 83880; 84100; 84484; 85025; 85347; 85610; 85730; 93005; 93454; 96372; 96374; 96375; 99285; C1877; C1893; J0360; J1644; J2250; J2405; J2916; J3010; J7040; Q5106; U0003